=== PATIENT | female | born 1930 | race African-American/Black ===

== ENCOUNTER 2016-10-17 13:12 | Inpatient (IN) | payer MEDICARE, MEDICAID ==
[~2016-10-17] VITALS: Ht 162.6 cm; Wt 68.0 kg
[~2016-10-17 13:12] MED LIST: ACETAMINOPHEN-1 EAC1 ORAL; ACETAMINOPHEN325 M1 ORAL; ANCEF1 GM/50 ML IVPB; APRESOLINE50 MG ORAL; ARICEPT10 MG ORAL; ASPIRIN81 MG ORAL; DOCUSATE SODIU100 MG ORAL; DONEPEZIL HCL10 M2 ORAL; DONEPEZIL HCL10 MG ORAL; DOXYCYCLINE HY100 M2 PO; ELIQUIS2.5 MG ORAL; ENALAPRIL MALEA10 MG ORAL; HYDRALAZINE HCL50 MG ORAL; INDOMETHACIN25 MG PO; IRBESARTAN150 MG PO; LEVAQUIN500 MG ORAL; LEVOTHYROXINE150 MCG ORAL; LOPRESSOR25 M1 ORAL; MORPHINE 22 MG/1 ML IV; NAMENDA10 MG ORAL; NORCO 5-325 TA1 EAC1 ORAL; NORVASC5 MG ORAL; OMEPRAZOLE20 M2 ORAL; RANITIDINE HCL150 MG ORAL; RISPERDAL0.25 MG ORAL; SODIUM CHLORID500 M2 IV; SYNTHROID150 MCG ORAL; TYLENOL EXTRA500 MG ORAL; TYLENOL650 MG/20. ORAL; ZANTAC150 MG ORAL
[2016-10-17 14:00] VITALS: BP 155/91
--- NOTE | 2016-10-17 14:02 | Emergency Room Report ---
History of Present Illness General Chief Complaint: Generalized Weakness Source: Patient, Family Member Present Illness HPI Patient is an 86-year-old female who presented after gradual onset of increased weakness. Patient had recently been seen and treated for bronchitis. Patient had been having some trace hemoptysis a few weeks ago associated with fever. This had resolved. The patient had a gradual onset of weakness predominantly to her left side. Patient had not been having any vomiting or abdominal pain. Patient had a fever approximately 2 weeks ago but not had fever since. The family denies recent trauma. Patient been taking Eliquis. She recently been on steroids for bronchitis Allergies: Coded Allergies: SHELLFISH DERIVED (Unverified Allergy, Severe, Hives, 07/20/14) tongue and face swelling Patient History Past Medical History: see triage record Reviewed Nursing Documentation: PMH: Agreed, PSxH: Agreed Nursing Documentation-PMH Past Medical History: No History, Except For Hx Hypertension: Yes Hx Pacemaker: Yes Hx Asthma: No Hx COPD: No Hx Diabetes: No Hx Cancer: No Hx Gastrointestinal Problems: No Hx Dialysis: No Hx Neurological Problems: Yes - Alzheimer's disease Hx Cerebrovascular Accident: Yes Hx Dementia: Yes Hx Seizures: No Hx Concentration Difficulty: Yes Hx Dizziness: Yes Hx Syncope: Yes Hx Weakness: Yes Hx Fatigue: Yes Review of Systems All Other Systems: negative except mentioned in HPI Physical Exam Vital Signs Date Time Temp Pulse Resp B/P Pulse Ox O2 Delivery O2 Flow Rate FiO2 10/17/16 13:26 98.2 60 16 124/64 98 Sp02 EP Interpretation: normal General Appearance: alert, mild distress, other - gcs 14 Eyes: bilateral eye PERRL ENT: hearing grossly normal, normal pharynx, no angioedema Neck: full range of motion Respiratory: chest non-tender, normal breath sounds Cardiovascular #1: normal peripheral pulses, regular rate, rhythm, no edema Gastrointestinal: non tender, soft Musculoskeletal: other - motor weakness generalized bilateral Neurologic: alert, responsive, motor weakness - generalized Medical Decision Making Diagnostic Impression: Primary Impression: Generalized weakness ER Course Patient presented for generalized weakness. Differential diagnosis included was not limited to anemia, urinary tract infection, electrolyte abnormality, hypothyroidism, myocardial infarction, myasthenia gravis, dehydration, among others. Because of complexity of patient's case laboratory testing and imaging studies were ordered. Patient was noted to have evidence of generalized weakness. Because of patient' s history of the left-sided weakness CT the head was ordered. Laboratory testing showed evidence of elevated white blood count. CT the head per radiology showed atrophic changes with chronic ischemic white matter changes. Labs Test 10/17/16 14:05 White Blood Count 13.4 K/UL (4.8-10.8) Red Blood Count 4.53 M/UL (4.20-5.40) Hemoglobin 12.4 G/DL (12.0-16.0) Hematocrit 41.0 % (37.0-47.0) Mean Corpuscular Volume 91 FL (80-99) Mean Corpuscular Hemoglobin 27.4 PG (27.0-31.0) Mean Corpuscular Hemoglobin Concent 30.2 G/DL (32.0-36.0) Red Cell Distribution Width 13.7 % (11.6-14.8) Platelet Count 309 K/UL (150-450) Mean Platelet Volume 6.0 FL (6.5-10.1) Neutrophils (%) (Auto) 80.7 % (45.0-75.0) Lymphocytes (%) (Auto) 11.5 % (20.0-45.0) Monocytes (%) (Auto) 6.3 % (1.0-10.0) Eosinophils (%) (Auto) 0.7 % (0.0-3.0) Basophils (%) (Auto) 0.8 % (0.0-2.0) Prothrombin Time 10.9 SEC (9.30-11.50) Prothromb Time International Ratio 1.1 (0.9-1.1) Activated Partial Thromboplast Time 26 SEC (23-33) EKG Diagnostic Results Rate: normal Rhythm: other - intermittently paced rhythm 67, nonspecific changes ST Segments: no acute changes Rhythm Strip Diag. Results EP Interpretation: yes Rhythm: NSR - 61, no PVC's, no ectopy Last Vital Signs Date Time Temp Pulse Resp B/P Pulse Ox O2 Delivery O2 Flow Rate FiO2 10/17/16 13:26 98.2 60 16 124/64 98 Status: unchanged Disposition: ADMITTED INPATIENT Condition: Serious Referrals: NON PHYSICIAN (PCP) Yefri Pierce Oct 17, 2016 14:02
[2016-10-17] MEDS ORDERED: Tubing IV Cassette IV ONE (14:20)
[2016-10-17 14:35] LABS: BASOPHILS % (AUTO) 0.8 % (0.0-2.0); EOSINOPHILS % (AUTO) 0.7 % (0.0-3.0); LYMPHOCYTES % (AUTO) 11.5 % (20.0-45.0); MEAN CORPUSCULAR HEMOGLOBIN 27.4 PG (27.0-31.0); MEAN CORPUSCULAR HGB CONC 30.2 G/DL (32.0-36.0); MEAN CORPUSCULAR VOLUME 91 FL (80-99); MONOCYTES % (AUTO) 6.3 % (1.0-10.0); NEUTROPHILS % (AUTO) 80.7 % (45.0-75.0); PLATELET COUNT 309 K/UL (150-450); RED BLOOD COUNT 4.53 M/UL (4.20-5.40); RED CELL DISTRIBUTION WIDTH 13.7 % (11.6-14.8); WHITE BLOOD COUNT 13.4 K/UL (4.8-10.8)
[2016-10-17 14:44] LABS: INR 1.1 (0.9-1.1); PROTHROMBIN TIME 10.9 SEC (9.30-11.50)
[2016-10-17] MEDS ORDERED: LEVOTHYROXINE100 MCG ORAL (14:52)
[2016-10-17] MEDS ORDERED: cefTRIAXone 1 GM in NS 55 ML IVPB ONE (15:00)
[2016-10-17 15:06] LABS: TROPONIN I < 0.30 ng/mL (<=0.30)
--- NOTE | 2016-10-17 15:07 | Diagnostic Imaging Report ---
Indications: Left-sided weakness Technique: Spiral acquisitions obtained through the brain. Angled axial and coronal 5 x 5 mm slices were reconstructed. Total dose length product 1372 mGycm. CTDI vol(s) 70 mGy. Dose reduction achieved using automated exposure control Comparison: 11/11/2015 Findings: Again demonstrated is age-related enlargement of the ventricles and extra axial CSF spaces. Again demonstrated is periventricular deep white matter ischemic change. There is a small focus of encephalomalacia in the left posterior parasagittal parietal lobe again demonstrated. No acute hemorrhage or edema. No mass effect nor midline shift. Otherwise normal vargas-white differentiation. There is posterior ethmoid sinus disease on the left. This was also evident previously. The orbits demonstrate evidence of prior cataract surgery. The calvarium is intact. 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 Negative for acute intracranial bleed or mass effect. The CT scanner at [facility] is accredited by the [employer] and the scans are performed using protocols designed to limit radiation exposure to as low as reasonably achievable to attain images of sufficient resolution adequate for diagnostic evaluation.
[2016-10-17 15:09] LABS: ALANINE AMINOTRANSFERASE 5 U/L (3-33); ALBUMIN/GLOBULIN RATIO 0.9 (1.0-2.7); ANION GAP 14 (5-15); ASPARTATE AMINO TRANSFERASE 9 U/L (5-40); CALCIUM 9.6 mg/dL (8.6-10.2); CARBON DIOXIDE 28 mEQ/L (20-30); CHLORIDE 100 mEQ/L (98-107); CREATININE 1.3 mg/dL (0.5-0.9); HEMOLYSIS 1; MAGNESIUM 2.1 mg/dL (1.7-2.5); PHOSPHORUS 3.6 mg/dL (2.5-4.8); POTASSIUM 4.5 mEQ/L (3.4-4.9); SODIUM 142 mEQ/L (135-145); TOTAL PROTEIN 7.1 g/dL (6.6-8.7)
[2016-10-17 15:20] LABS: CKMB 1.7 ng/mL (< 3.8)
[2016-10-17] MEDS ORDERED: Nitroglycerin Subl 0.4mg tab (Bottle Of 25) SL PRN (15:45)
[2016-10-17] MEDS ORDERED: Promethazine/Codeine 5ml UD ORAL PRN (15:45)
[2016-10-17] MEDS ORDERED: DuoNeb 0.5-3(2.5)mg/3ml neb HHN PRN (15:45)
[2016-10-17] MEDS ORDERED: Mylanta II UD 30ml ORAL PRN (15:45)
[2016-10-17] MEDS ORDERED: HydrALAZINE 50mg tab ORAL PRN (15:45)
[2016-10-17] MEDS ORDERED: NS 55 ML IV ONE (16:04)
[2016-10-17] MEDS ORDERED: Tubing IV Secondary IV ONE (16:04)
--- NOTE | 2016-10-17 16:35 | Diagnostic Imaging Report ---
Indication: SOB, chest pain Technique: One view of the chest Comparison: 03/28/2016 Findings: The heart is mildly enlarged. There is thoracic scoliotic deformity. There is a left chest bifocal pacemaker. Lungs and pleural spaces are clear Impression: No acute process. Findings as noted Cardiomegaly
[2016-10-17 17:53] VITALS: BP 159/74
--- NOTE | 2016-10-17 18:22 | Consultation ---
History of Present Illness General Date patient seen: Oct 17, 2016 Chief Complaint: Generalized Weakness Referring physician: Dr. Greco Reason for Consultation: inpatient management Present Illness Allergies: Coded Allergies: SHELLFISH DERIVED (Unverified Allergy, Severe, Hives, 07/20/14) tongue and face swelling Medication History Scheduled Apixaban (Eliquis), 2.5 MG ORAL BID Aspirin* (Aspirin*), 81 MG ORAL DAILY Aspirin* (Aspirin*), 81 MG ORAL DAILY, (Reported) Docusate Sodium* (Docusate Sodium*), 100 MG ORAL DAILY, (Reported) Donepezil Hcl* (Aricept*), 10 MG ORAL DAILY Donepezil Hcl* (Donepezil Hcl*), 10 MG ORAL QHS, (Reported) Irbesartan (Irbesartan), 150 MG PO DAILY, (Reported) Levothyroxine Sodium* (Levothyroxine Sodium*), 150 MCG ORAL DAILY@0630 Levothyroxine Sodium* (Levothyroxine Sodium*), 100 MCG ORAL DAILY, (Reported) Memantine Hcl* (Namenda*), 5 MG ORAL BID Metoprolol Tartrate (Metoprolol Tartrate), 12.5 MG ORAL Q12HR Metoprolol Tartrate (Metoprolol Tartrate), 25 MG ORAL EVERY 8 HOURS, (Reported) Ranitidine Hcl* (Zantac*), 150 MG ORAL BEDTIME, (Reported) Risperidone* (Risperdal*), 0.25 MG ORAL BID Scheduled PRN Acetaminophen (Acetaminophen), 650 MG ORAL Q6H PRN for Prn Headache/Temp > 101, (Reported) Acetaminophen (Acetaminophen), 650 MG ORAL Q6H PRN for Prn Headache/Temp > 101, (Reported) Acetaminophen* (Acetaminophen 325MG Tablet*), 650 MG ORAL Q4H PRN for Mild Pain (Pain Scale 1-3) Acetaminophen* (Tylenol Extra Strength*), 500 MG ORAL Q8H PRN for Prn Headache/ Temp > 101 Hydralazine HCl (Hydralazine HCl), 50 MG ORAL Q6HR PRN for For High Blood Pressure, (Reported) Morphine Sulfate* (Morphine Sulfate*), 1 MG IV EVERY 4 HOURS PRN for Pain Scale (6-10), (Reported) Discontinued Medications Cefazolin Sod (Cefazolin 1 gm-D5w Bag), 1 GM IVPB Q12HR, (Reported) Discontinued Reason: Therapy completed Doxycycline Hyclate (Doxycycline Hyclate), 100 MG PO EVERY 12 HOURS, (Reported) Discontinued Reason: Therapy completed Hydralazine Hcl* (Hydralazine Hcl*), 50 MG ORAL EVERY 6 HOURS PRN for For High Blood Pressure, (Reported) Discontinued Reason: Therapy completed Hydrocodone Bit/Acetaminophen 5-325* ([place] 5-325 Tablet*), 1 TAB ORAL Q4H PRN for For Pain, (Reported) Discontinued Reason: Therapy completed Levofloxacin* (Levaquin*), 500 MG ORAL DAILY Discontinued Reason: Therapy completed Memantine Hcl* (Namenda*), 10 MG ORAL TWICE A DAY, (Reported) Discontinued Reason: Therapy completed Ranitidine Hcl* (Zantac*), 300 MG ORAL DAILY Discontinued Reason: Therapy completed Sodium Chloride 5 % (Sodium Chloride), 1,000 ML IV, (Reported) Discontinued Reason: Therapy completed Sodium Chloride 5 % (Sodium Chloride), 1,000 ML IV, (Reported) Discontinued Reason: Therapy completed Patient History Healthcare decision maker Resuscitation status Advanced Directive on File Past Medical/Surgical History Past Medical/Surgical History: (1) Sinus bradycardia (2) Alzheimer's dementia (3) Atrial fibrillation (4) Seizures (5) HTN (hypertension) (6) Hypothyroidism Review of Systems Constitutional: Reports: no symptoms Eye: Reports: no symptoms Physical Exam General Appearance: cachetic Lines, tubes and drains: peripheral HEENT: normocephalic Neck: non-tender, normal alignment Respiratory/Chest: chest wall non-tender, lungs clear Cardiovascular/Chest: normal peripheral pulses Abdomen: normal bowel sounds Genitourinary/Rectal: normal genital exam Extremities: normal range of motion, non-pitting Neurologic: no motor/sensory deficits Last 24 Hour Vital Signs Date Time Temp Pulse Resp B/P Pulse Ox O2 Delivery O2 Flow Rate FiO2 10/17/16 17:53 96.5 63 18 159/74 98 Room Air 10/17/16 16:52 98.2 60 16 155/91 99 Room Air 10/17/16 14:00 60 16 155/91 99 Room Air 10/17/16 13:26 98.2 60 16 124/64 98 Laboratory Tests Test 10/17/16 14:05 10/17/16 17:25 White Blood Count 13.4 K/UL (4.8-10.8) H Red Blood Count 4.53 M/UL (4.20-5.40) Hemoglobin 12.4 G/DL (12.0-16.0) Hematocrit 41.0 % (37.0-47.0) Mean Corpuscular Volume 91 FL (80-99) Mean Corpuscular Hemoglobin 27.4 PG (27.0-31.0) Mean Corpuscular Hemoglobin Concent 30.2 G/DL (32.0-36.0) L Red Cell Distribution Width 13.7 % (11.6-14.8) Platelet Count 309 K/UL (150-450) Mean Platelet Volume 6.0 FL (6.5-10.1) L Neutrophils (%) (Auto) 80.7 % (45.0-75.0) H Lymphocytes (%) (Auto) 11.5 % (20.0-45.0) L Monocytes (%) (Auto) 6.3 % (1.0-10.0) Eosinophils (%) (Auto) 0.7 % (0.0-3.0) Basophils (%) (Auto) 0.8 % (0.0-2.0) Prothrombin Time 10.9 SEC (9.30-11.50) Prothromb Time International Ratio 1.1 (0.9-1.1) Activated Partial Thromboplast Time 26 SEC (23-33) Sodium Level 142 mEQ/L (135-145) Potassium Level 4.5 mEQ/L (3.4-4.9) Chloride Level 100 mEQ/L (98-107) Carbon Dioxide Level 28 mEQ/L (20-30) Anion Gap 14 (5-15) Blood Urea Nitrogen 20 mg/dL (7-23) Creatinine 1.3 mg/dL (0.5-0.9) H Estimat Glomerular Filtration Rate mL/min (>60) Glucose Level 89 mg/dL (74-106) Lactic Acid Level 1.40 mmol/L (0.66-2.22) Calcium Level 9.6 mg/dL (8.6-10.2) Phosphorus Level 3.6 mg/dL (2.5-4.8) Magnesium Level 2.1 mg/dL (1.7-2.5) Total Bilirubin 0.7 mg/dL (0.0-1.2) Aspartate Amino Transf (AST/SGOT) 9 U/L (5-40) Alanine Aminotransferase (ALT/SGPT) 5 U/L (3-33) Alkaline Phosphatase 68 U/L (35-104) Total Creatine Kinase 135 U/L (26-140) Creatine Kinase MB 1.7 ng/mL (< 3.8) Creatine Kinase MB Relative Index 1.2 Troponin I < 0.30 ng/mL (<=0.30) Total Protein 7.1 g/dL (6.6-8.7) Albumin 3.5 g/dL (3.5-5.2) Globulin 3.6 g/dL Albumin/Globulin Ratio 0.9 (1.0-2.7) L Urine Color Pending Urine Appearance Pending Urine pH Pending Urine Specific [place] Pending Urine Protein Pending Urine Glucose (UA) Pending Urine Ketones Pending Urine Occult Blood Pending Urine Nitrite Pending Urine Bilirubin Pending Urine Urobilinogen Pending Urine Leukocyte Esterase Pending Urine Legionella Antigen Pending Height (Feet): 5 Height (Inches): 4.00 Weight (Pounds): 150 Medications Current Medications Medications (Trade) Dose Ordered Sig/Jonah Route PRN Reason Start Time Stop Time Status Last Admin Dose Admin Acetaminophen (Tylenol) 650 mg Q4H PRN ORAL fever 10/17/16 15:45 11/16/16 15:44 Al Hydroxide/Mg Hydroxide (Mylanta II) 30 ml Q6H PRN ORAL dyspepsia 10/17/16 15:45 11/16/16 15:44 Albuterol/ Ipratropium (DuoNeb 0.5-3(2.5)mg/3ml) 3 ml Q4H PRN HHN Shortness of Breath 10/17/16 15:45 10/22/16 15:44 Apixaban (Eliquis) 2.5 mg BID ORAL 10/17/16 18:00 11/16/16 17:59 Cefepime HCl/ Dextrose (Maxipime/D5W) 55 ml @ 110 mls/hr Q24H IV 10/17/16 19:00 10/24/16 18:59 Donepezil HCl (Aricept) 10 mg QHS ORAL 10/17/16 21:00 11/16/16 20:59 Hydralazine HCl (Apresoline) 50 mg Q6HR PRN ORAL SBP > 160 10/17/16 15:45 11/16/16 15:44 Levothyroxine Sodium (Synthroid) 150 mcg DAILY@0630 ORAL 10/18/16 06:30 11/17/16 06:29 Memantine (Namenda) 5 mg BID ORAL 10/17/16 18:00 11/16/16 17:59 Metoprolol Tartrate (Lopressor) 12.5 mg Q12HR ORAL 10/17/16 21:00 11/16/16 20:59 Nitroglycerin (Ntg) 0.4 mg Q5MIN X 3 DOSES PRN SL Prn Chest Pain 10/17/16 15:45 11/16/16 15:44 Ondansetron HCl (Zofran) 4 mg Q6H PRN IVP Nausea & Vomiting 10/17/16 15:45 11/16/16 15:44 Polyethylene Glycol (Miralax) 17 gm DAILYPRN PRN ORAL Constipation 10/17/16 15:45 11/16/16 15:44 Promethazine HCl/ Codeine 5 ml 5 ml Q4H PRN ORAL For Cough 10/17/16 15:45 11/16/16 15:44 Risperidone (RisperDAL) 0.25 mg BID ORAL 10/17/16 18:00 11/16/16 17:59 Temazepam (Restoril) 15 mg HSPRN PRN ORAL Insomnia 10/17/16 15:45 10/24/16 15:44 Assessment/Plan Problem List: (1) Acute encephalopathy ICD Codes: G93.40 - Encephalopathy, unspecified SNOMED: 6779977 (2) Pulmonary hypertension ICD Codes: I27.0 - Pulmonary hypertension SNOMED: 84200237 (3) Pacemaker ICD Codes: Z95.0 - Presence of cardiac pacemaker SNOMED: 596878104, 040998731 (4) Atrial fibrillation ICD Codes: I48.91 - Unspecified atrial fibrillation SNOMED: 47783212 (5) Fall ICD Codes: W19.XXXA - Fall SNOMED: 0961576 (6) Cerebrovascular accident (CVA) ICD Codes: I63.9 - Cerebral infarction, unspecified SNOMED: 158812871 (7) Hypothyroidism ICD Codes: E03.9 - Hypothyroidism SNOMED: 66891462 (8) HTN (hypertension) ICD Codes: I10 - HTN (hypertension) SNOMED: 62413910 (9) Alzheimer's dementia ICD Codes: G30.9 - Alzheimer's disease, unspecified SNOMED: 74817078 Assessment/Plan pt/ot neuro evaluation swallow evaluation titrate cardiac meds monitor bp check [facility] echo doppler of carotid artery TATI FAM Oct 17, 2016 18:21
[2016-10-17 18:38] LABS: APPEARANCE,URINE CLEAR; KETONES,URINE NEGATIVE (NEGATIVE); LEUKOCYTE ESTERASE ,URINE 1+ (NEGATIVE); NITRITE,URINE NEGATIVE (NEGATIVE); PH,URINE 5 (4.5-8.0); PROTEIN,URINE NEGATIVE (NEGATIVE); UROBILINOGEN,URINE NORMAL MG/DL (0.0-1.0)
[2016-10-17 18:42] LABS: AMORPHOUS SEDIMENT,UR FEW /LPF; BACTERIA,URINE FEW /HPF; SQUAMOUS EPITHELIAL CELL,UR FEW /LPF (NONE/OCC)
[2016-10-17] MEDS: RisperiDONE 0.25mg tab ORAL SCH (18:53)
[2016-10-17] MEDS: Eliquis 2.5mg tablet ORAL SCH (18:53)
[2016-10-17] MEDS: Memantine 10mg tab ORAL SCH (18:53)
[2016-10-17] MEDS ORDERED: Cefepime HCl 1 GM in D5W 55 ML IV SCH (19:00)
[2016-10-17 20:00] VITALS: BP 155/74
[2016-10-17] MEDS: Cefepime HCl 1 GM in D5W 55 ML IV SCH (20:16)
[2016-10-17] MEDS: Donepezil 10mg tab ORAL SCH (20:38)
[2016-10-17] MEDS: Metoprolol 25mg tab ORAL SCH (20:38)
[2016-10-17 23:43] VITALS: BP 160/77
[2016-10-18 03:56] VITALS: BP 154/79
[2016-10-18 07:12] LABS: BASOPHILS % (AUTO) 0.5 % (0.0-2.0); EOSINOPHILS % (AUTO) 4.9 % (0.0-3.0); LYMPHOCYTES % (AUTO) 13.7 % (20.0-45.0); MEAN CORPUSCULAR HEMOGLOBIN 27.8 PG (27.0-31.0); MEAN CORPUSCULAR VOLUME 90 FL (80-99); MONOCYTES % (AUTO) 6.3 % (1.0-10.0); NEUTROPHILS % (AUTO) 74.6 % (45.0-75.0); PLATELET COUNT 279 K/UL (150-450); RED BLOOD COUNT 4.09 M/UL (4.20-5.40); RED CELL DISTRIBUTION WIDTH 13.4 % (11.6-14.8); WHITE BLOOD COUNT 10.1 K/UL (4.8-10.8)
[2016-10-18 07:59] LABS: ANION GAP 15 (5-15); CALCIUM 9.3 mg/dL (8.6-10.2); CARBON DIOXIDE 24 mEQ/L (20-30); CHLORIDE 105 mEQ/L (98-107); HEMOLYSIS 2; PHOSPHORUS 3.6 mg/dL (2.5-4.8); POTASSIUM 3.9 mEQ/L (3.4-4.9); SODIUM 144 mEQ/L (135-145)
[2016-10-18] MEDS: Memantine 10mg tab ORAL SCH ×2 (08:23→18:08)
[2016-10-18] MEDS: RisperiDONE 0.25mg tab ORAL SCH ×2 (08:23→18:08)
[2016-10-18] MEDS: Eliquis 2.5mg tablet ORAL SCH ×2 (08:23→18:08)
[2016-10-18] MEDS: Metoprolol 25mg tab ORAL SCH ×2 (08:24→21:53)
[2016-10-18 08:25] VITALS: BP 166/73
[2016-10-18 12:22] VITALS: BP 159/79
[2016-10-18 16:03] VITALS: BP 137/78
[2016-10-18] MEDS: Cefepime HCl 1 GM in D5W 55 ML IV SCH (18:09)
--- NOTE | 2016-10-18 19:05 | History & Physical ---
History and Physical History & Physicial Dictated for Int Med-Dr Spring no. [id number]. YUE JACOB Oct 18, 2016 19:05
[2016-10-18 20:00] VITALS: BP 129/85
--- NOTE | 2016-10-18 20:58 | History and Physical Report ---
DATE OF ADMISSION: 10/17/2016 CHIEF COMPLAINT: The patient is an 86-year-old, female, who presents with chief complaint of generalized weakness. HISTORY OF PRESENT ILLNESS: The patient was recently treated for bronchitis. The patient had hemoptysis at that time. The patient was given antibiotics. This has now resolved. The patient has become increasingly weak. This is more on the left side of her body. The patient presented to [facility] emergency room. The patient was admitted for left-sided weakness to rule out acute cerebrovascular accident. PAST MEDICAL HISTORY: Significant for, 1. Atrial fibrillation. 2. Hypertension. 3. Pulmonary hypertension. 4. Hypercholesterolemia. 5. Hypertensive heart disease. 6. Hypothyroidism. PAST SURGICAL HISTORY: Significant for thyroidectomy. CURRENT MEDICATIONS: 1. Tylenol 650 mg one tablet p.o. q.4 hours p.r.n. 2. Eliquis 2.5 mg one tablet p.o. twice daily. 3. Aspirin 81 mg one tablet p.o. daily. 4. Aricept 10 mg one tablet p.o. q.h.s. 5. Hydralazine 50 mg one tablet p.o. q.6 hours p.r.n. 6. Irbesartan 150 mg one tablet p.o. daily. 7. Levoxyl 150 mcg one tablet p.o. daily. 8. Namenda 5 mg one tablet p.o. twice daily. 9. Metoprolol 12.5 mg one tablet p.o. q.12 hours. 10. Zantac 150 mg one tablet p.o. q.h.s. 11. Risperdal 0.25 mg one tablet p.o. daily. ALLERGIES: To shell fish. SOCIAL HISTORY: The patient is . The patient denies tobacco use having quit several years ago. The patient denies alcohol use. REVIEW OF SYSTEMS: Constitutional: The patient denies weight loss or weight gain. The patient denies fevers or chills. HEENT: The patient denies ear or throat pain. Cardiovascular: The patient denies palpitations or chest pain. Chest: The patient denies wheeze or shortness of breath. Abdomen: The patient denies nausea, vomiting, diarrhea, or constipation. Genitourinary: The patient denies dysuria or increased frequency of urination. Neuromuscular: The patient complains of left-sided weakness as above. The patient denies seizures. PHYSICAL EXAMINATION: VITAL SIGNS: Temperature 97.6 degrees, respirations 18, pulse 60, and blood pressure 160/72. GENERAL: The patient is well-developed, well-nourished, thin-appearing, female, in no apparent distress. HEENT: Eyes, pupils are equal and responsive to light and accommodation. Extraocular movements are intact. NECK: Supple without lymphadenopathy. CHEST: Lungs are clear to auscultation bilaterally without wheeze or rales. CARDIOVASCULAR: Regular rhythm and rate. S1 and S2 are normal without murmurs, rubs, or gallops. ABDOMEN: Soft, nontender, and nondistended. Positive bowel sounds. No evidence of hepatosplenomegaly. Currently, no rebound or guarding noted. EXTREMITIES: Negative for clubbing, cyanosis, or edema. RECTAL: Refused. GENITAL: Refused. NEUROLOGIC: The patient does have 4/5 motor strength in the left compared to 5/5 in the right. Deep tendon reflexes are 2+ plantar. LABORATORY AND DIAGNOSTIC STUDIES: WBC 13.4, hemoglobin 12.4, hematocrit 41.0, and platelets 309,000. Sodium 140, potassium 4.5, chloride 100, CO2 28, BUN 20, creatinine 1.3, and glucose 89. Urinalysis showed 4+ occult blood with 5 to [address] scan of the brain revealed age-related changes, otherwise no acute disease. A chest x-ray is reported as no acute disease. ASSESSMENT: This is an 86-year-old, female. 1. Left-sided weakness. 2. Atrial fibrillation. 3. Hypertension. 4. Pulmonary hypertension. 5. Hypercholesterolemia. 6. Hypothyroidism. 7. Hypertensive heart disease. TREATMENT: 1. Left-sided weakness. A Neurology consultation was obtained with Dr. Dunn. Initial CAT scan was within normal limits. An MRI of the brain is pending. Carotid duplex and Dopplers are pending. 2. Atrial fibrillation. Continue Eliquis as above. 3. Hypertension. Continue metoprolol and hydralazine as above. 4. Hypercholesterolemia. 5. Hypothyroidism. Continue Levoxyl as above. 6. Hypertensive heart disease. Bridger Mane M.D. DR: JOSE JOB#: [id number] CC:
[2016-10-18] MEDS: Donepezil 10mg tab ORAL SCH (21:53)
--- NOTE | 2016-10-18 22:14 | Pulmonology Progress Note ---
Assessment/Plan Problems: (1) HTN (hypertension) (2) Hypothyroidism (3) Pulmonary hypertension (4) Syncope and collapse (5) Alzheimer's dementia (6) Generalized weakness (7) Altered mental status (8) Hypotension Subjective ROS Limited/Unobtainable: No Constitutional: Reports: no symptoms HEENT: Repors: no symptoms Respiratory: Reports: no symptoms Cardiovascular: Reports: no symptoms Allergies: Coded Allergies: SHELLFISH DERIVED (Unverified Allergy, Severe, Hives, 07/20/14) tongue and face swelling Objective Last 24 Hour Vital Signs Date Time Temp Pulse Resp B/P Pulse Ox O2 Delivery O2 Flow Rate FiO2 10/18/16 21:53 75 129/85 10/18/16 20:00 97.7 75 20 129/85 99 Room Air 10/18/16 16:03 97.6 68 20 137/78 95 Room Air 10/18/16 12:22 97.8 65 20 159/79 95 Room Air 10/18/16 08:25 98.2 63 20 166/73 95 Room Air 10/18/16 08:24 63 166/73 10/18/16 03:56 96.9 63 18 154/79 98 Room Air 10/17/16 23:43 97.6 62 18 160/77 98 Room Air Intake and Output 10/17/16 10/18/16 19:00 07:00 Intake Total 1055 ml 210 ml Output Total 900 ml Balance 1055 ml -690 ml Intake Oral 0 ml 210 ml IV Total 1055 ml Output Urine Total 900 ml Laboratory Tests 10/18/16 05:10: White Blood Count 10.1, Red Blood Count 4.09L, Hemoglobin 11.4L, Hematocrit 36.6L, Mean Corpuscular Volume 90, Mean Corpuscular Hemoglobin 27.8, Mean Corpuscular Hemoglobin Concent 31.0L, Red Cell Distribution Width 13.4, Platelet Count 279, Mean Platelet Volume 6.0L, Neutrophils (%) (Auto) 74.6, Lymphocytes (%) (Auto) 13.7L, Monocytes (%) (Auto) 6.3, Eosinophils (%) (Auto) 4.9H, Basophils (%) (Auto) 0.5, Sodium Level 144, Potassium Level 3.9, Chloride Level 105, Carbon Dioxide Level 24, Anion Gap 15, Blood Urea Nitrogen 15, Creatinine 1.0H, Estimat Glomerular Filtration Rate , Glucose Level 72L, Calcium Level 9.3, Phosphorus Level 3.6, Albumin 2.9L Current Medications Medications (Trade) Dose Ordered Sig/Jonah Route PRN Reason Start Time Stop Time Status Last Admin Dose Admin Acetaminophen (Tylenol) 650 mg Q4H PRN ORAL fever 10/17/16 15:45 11/16/16 15:44 Al Hydroxide/Mg Hydroxide (Mylanta II) 30 ml Q6H PRN ORAL dyspepsia 10/17/16 15:45 11/16/16 15:44 Albuterol/ Ipratropium (DuoNeb 0.5-3(2.5)mg/3ml) 3 ml Q4H PRN HHN Shortness of Breath 10/17/16 15:45 10/22/16 15:44 Apixaban (Eliquis) 2.5 mg BID ORAL 10/17/16 18:00 11/16/16 17:59 10/18/16 18:08 Cefepime HCl/ Dextrose (Maxipime/D5W) 55 ml @ 110 mls/hr Q24H IV 10/17/16 19:00 10/24/16 18:59 10/18/16 18:09 Donepezil HCl (Aricept) 10 mg QHS ORAL 10/17/16 21:00 11/16/16 20:59 10/18/16 21:53 Hydralazine HCl (Apresoline) 50 mg Q6HR PRN ORAL SBP > 160 10/17/16 15:45 11/16/16 15:44 Levothyroxine Sodium (Synthroid) 150 mcg DAILY@0630 ORAL 10/18/16 06:30 11/17/16 06:29 10/18/16 06:25 Memantine (Namenda) 5 mg BID ORAL 10/17/16 18:00 11/16/16 17:59 10/18/16 18:08 Metoprolol Tartrate (Lopressor) 12.5 mg Q12HR ORAL 10/17/16 21:00 11/16/16 20:59 10/18/16 21:53 Nitroglycerin (Ntg) 0.4 mg Q5MIN X 3 DOSES PRN SL Prn Chest Pain 10/17/16 15:45 11/16/16 15:44 Ondansetron HCl (Zofran) 4 mg Q6H PRN IVP Nausea & Vomiting 10/17/16 15:45 11/16/16 15:44 Polyethylene Glycol (Miralax) 17 gm DAILYPRN PRN ORAL Constipation 10/17/16 15:45 11/16/16 15:44 Promethazine HCl/ Codeine 5 ml 5 ml Q4H PRN ORAL For Cough 10/17/16 15:45 11/16/16 15:44 Risperidone (RisperDAL) 0.25 mg BID ORAL 10/17/16 18:00 11/16/16 17:59 10/18/16 18:08 Temazepam (Restoril) 15 mg HSPRN PRN ORAL Insomnia 10/17/16 15:45 10/24/16 15:44 TATI FAM Oct 18, 2016 22:14
--- NOTE | 2016-10-18 23:03 | Diagnostic Imaging Report ---
APPROVED REPORT CPT Code: 24984 Present Symptoms Comments: R/O DVT BILATERAL: Imaging reveals a patent deep venous system bilaterally. There is no evidence of thrombus within the femoral, popliteal or tibial segments. The greater saphenous veins are also within normal limits. Doppler indicates normal spontaneous flow within these segments.
[2016-10-19] VITALS: BP 125/81
[2016-10-19 04:00] VITALS: BP 133/52
[2016-10-19 07:27] LABS: BASOPHILS % (AUTO) 0.8 % (0.0-2.0); EOSINOPHILS % (AUTO) 0.8 % (0.0-3.0); LYMPHOCYTES % (AUTO) 10.3 % (20.0-45.0); MEAN CORPUSCULAR HEMOGLOBIN 27.8 PG (27.0-31.0); MEAN CORPUSCULAR VOLUME 90 FL (80-99); MONOCYTES % (AUTO) 7.1 % (1.0-10.0); PLATELET COUNT 297 K/UL (150-450); RED CELL DISTRIBUTION WIDTH 13.6 % (11.6-14.8); WHITE BLOOD COUNT 12.4 K/UL (4.8-10.8)
[2016-10-19 08:07] LABS: ANION GAP 16 (5-15); CARBON DIOXIDE 23 mEQ/L (20-30); CHLORIDE 102 mEQ/L (98-107); HEMOLYSIS 4; POTASSIUM 4.2 mEQ/L (3.4-4.9); SODIUM 141 mEQ/L (135-145)
[2016-10-19 08:24] VITALS: BP 149/67
[2016-10-19] MEDS: Memantine 10mg tab ORAL SCH ×2 (08:28→18:00)
[2016-10-19] MEDS: Metoprolol 25mg tab ORAL SCH ×2 (08:28→22:57)
[2016-10-19] MEDS: Eliquis 2.5mg tablet ORAL SCH ×2 (08:28→18:00)
[2016-10-19] MEDS: RisperiDONE 0.25mg tab ORAL SCH ×2 (08:28→18:00)
[2016-10-19 11:54] VITALS: BP 142/65
[2016-10-19 16:07] VITALS: BP 146/65
[2016-10-19] MEDS: Cefepime HCl 1 GM in D5W 55 ML IV SCH (18:01)
--- NOTE | 2016-10-19 18:03 | Internal Med Progress Note ---
Subjective Date of Service: Oct 19, 2016 Physician Name Yue Jacob Attending Physician Donovan Spring MD Current Medications Medications (Trade) Dose Ordered Sig/Jonah Route PRN Reason Start Time Stop Time Status Last Admin Dose Admin Acetaminophen (Tylenol) 650 mg Q4H PRN ORAL fever 10/17/16 15:45 11/16/16 15:44 Al Hydroxide/Mg Hydroxide (Mylanta II) 30 ml Q6H PRN ORAL dyspepsia 10/17/16 15:45 11/16/16 15:44 Albuterol/ Ipratropium (DuoNeb 0.5-3(2.5)mg/3ml) 3 ml Q4H PRN HHN Shortness of Breath 10/17/16 15:45 10/22/16 15:44 Apixaban (Eliquis) 2.5 mg BID ORAL 10/17/16 18:00 11/16/16 17:59 10/19/16 08:28 Cefepime HCl/ Dextrose (Maxipime/D5W) 55 ml @ 110 mls/hr Q24H IV 10/17/16 19:00 10/24/16 18:59 10/18/16 18:09 Donepezil HCl (Aricept) 10 mg QHS ORAL 10/17/16 21:00 11/16/16 20:59 10/18/16 21:53 Hydralazine HCl (Apresoline) 50 mg Q6HR PRN ORAL SBP > 160 10/17/16 15:45 11/16/16 15:44 Levothyroxine Sodium (Synthroid) 150 mcg DAILY@0630 ORAL 10/18/16 06:30 11/17/16 06:29 10/19/16 06:04 Memantine (Namenda) 5 mg BID ORAL 10/17/16 18:00 11/16/16 17:59 10/19/16 08:28 Metoprolol Tartrate (Lopressor) 12.5 mg Q12HR ORAL 10/17/16 21:00 11/16/16 20:59 10/19/16 08:28 Nitroglycerin (Ntg) 0.4 mg Q5MIN X 3 DOSES PRN SL Prn Chest Pain 10/17/16 15:45 11/16/16 15:44 Ondansetron HCl (Zofran) 4 mg Q6H PRN IVP Nausea & Vomiting 10/17/16 15:45 11/16/16 15:44 Polyethylene Glycol (Miralax) 17 gm DAILYPRN PRN ORAL Constipation 10/17/16 15:45 11/16/16 15:44 Promethazine HCl/ Codeine 5 ml 5 ml Q4H PRN ORAL For Cough 10/17/16 15:45 11/16/16 15:44 Risperidone (RisperDAL) 0.25 mg BID ORAL 10/17/16 18:00 11/16/16 17:59 10/19/16 08:28 Temazepam (Restoril) 15 mg HSPRN PRN ORAL Insomnia 10/17/16 15:45 10/24/16 15:44 Allergies: Coded Allergies: SHELLFISH DERIVED (Unverified Allergy, Severe, Hives, 07/20/14) tongue and face swelling ROS Limited/Unobtainable: No Constitutional: Reports: no symptoms HEENT: Reports: no symptoms Cardiovascular: Reports: no symptoms Respiratory: Reports: no symptoms Gastrointestinal/Abdominal: Reports: no symptoms Genitourinary: Reports: no symptoms Neurologic/Psychiatric: Reports: no symptoms Subjective 86 YO F admitted with left weakness. MRI cancelled due to pacemaker. Cover for Int Parth-Dr Spring Objective Last Vital Signs Date Time Temp Pulse Resp B/P Pulse Ox O2 Delivery O2 Flow Rate FiO2 10/19/16 16:07 98.2 64 18 146/65 99 Room Air Laboratory Tests Test 10/19/16 06:03 White Blood Count 12.4 K/UL (4.8-10.8) H Red Blood Count 4.00 M/UL (4.20-5.40) L Hemoglobin 11.1 G/DL (12.0-16.0) L Hematocrit 35.9 % (37.0-47.0) L Mean Corpuscular Volume 90 FL (80-99) Mean Corpuscular Hemoglobin 27.8 PG (27.0-31.0) Mean Corpuscular Hemoglobin Concent 31.0 G/DL (32.0-36.0) L Red Cell Distribution Width 13.6 % (11.6-14.8) Platelet Count 297 K/UL (150-450) Mean Platelet Volume 6.0 FL (6.5-10.1) L Neutrophils (%) (Auto) 81.0 % (45.0-75.0) H Lymphocytes (%) (Auto) 10.3 % (20.0-45.0) L Monocytes (%) (Auto) 7.1 % (1.0-10.0) Eosinophils (%) (Auto) 0.8 % (0.0-3.0) Basophils (%) (Auto) 0.8 % (0.0-2.0) Sodium Level 141 mEQ/L (135-145) Potassium Level 4.2 mEQ/L (3.4-4.9) Chloride Level 102 mEQ/L (98-107) Carbon Dioxide Level 23 mEQ/L (20-30) Anion Gap 16 (5-15) H Blood Urea Nitrogen 17 mg/dL (7-23) Creatinine 1.0 mg/dL (0.5-0.9) H Estimat Glomerular Filtration Rate mL/min (>60) Glucose Level 111 mg/dL (74-106) H Calcium Level 9.0 mg/dL (8.6-10.2) Microbiology Date/Time Source Procedure Growth Status 10/17/16 14:15 Blood Blood Culture - Preliminary NO GROWTH AFTER 24 HOURS Resulted 10/17/16 14:05 Blood Blood Culture - Preliminary NO GROWTH AFTER 24 HOURS Resulted Intake and Output 10/18/16 10/19/16 19:00 07:00 Intake Total 775 ml Output Total 500 ml 650 ml Balance 275 ml -650 ml Intake Oral 720 ml IV Total 55 ml Output Urine Total 500 ml 650 ml Objective General: alert, cooperative, no distress, appears stated age Head: normocephalic, without obvious abnormality, atraumatic Eyes: conjunctivae/corneas clear. PERRL, EOM's intact Throat: lips, mucosa, and tongue normal. MMM Neck: supple, symmetrical, trachea midline, and no JVD Lungs: clear to auscultation bilaterally Heart: regular rate and rhythm, S1, S2 normal, no murmur, click, rub or gallop Abdomen: soft, non-tender, non-distended, bowel sounds normal; no masses or organomegaly Extremities: extremities normal, atraumatic, no cyanosis or edema Pulses: 2+ and symmetric Skin: skin color, texture, turgor normal; no rashes or lesions Neurologic: grossly normal, left side weakness Assessment/Plan Problem List: (1) Hypertensive heart disease (2) Pacemaker (3) Hypercholesteremia (4) Generalized weakness Assessment & Plan: MRI cancelled due to pacemaker. (5) Atrial fibrillation Assessment & Plan: Cont eliquis (6) HTN (hypertension) Assessment & Plan: Cont metoprolol (7) Pulmonary hypertension (8) Hypothyroidism Assessment & Plan: Cont synthroid (9) Sick sinus syndrome Assessment & Plan: S/P pacemaker Status: not improved YUE JACOB Oct 19, 2016 18:03
[2016-10-19 20:00] VITALS: BP 149/73
--- NOTE | 2016-10-19 21:18 | Cardiology Report ---
APPROVED REPORT EKG Measurement Heart [id number] 144P [id number] Atrial paced, ventricular sensed rhythm with occasional atrial intrinsic activity. Electronic pacemaker Left anterior fascicular block Possible Anteroseptal infarct, age undetermined Abnormal ECG
--- NOTE | 2016-10-19 22:11 | Pulmonology Progress Note ---
Subjective Allergies: Coded Allergies: SHELLFISH DERIVED (Unverified Allergy, Severe, Hives, 07/20/14) tongue and face swelling Objective Last 24 Hour Vital Signs Date Time Temp Pulse Resp B/P Pulse Ox O2 Delivery O2 Flow Rate FiO2 10/19/16 16:07 98.2 64 18 146/65 99 Room Air 10/19/16 11:54 98.0 65 18 142/65 95 Room Air 10/19/16 08:28 66 149/67 10/19/16 08:24 97.8 66 18 149/67 95 Room Air 10/19/16 04:00 97.7 92 20 133/52 98 Room Air 10/19/16 00:00 98.1 71 18 125/81 100 Room Air Intake and Output 10/18/16 10/19/16 19:00 07:00 Intake Total 775 ml Output Total 500 ml 650 ml Balance 275 ml -650 ml Intake Oral 720 ml IV Total 55 ml Output Urine Total 500 ml 650 ml Microbiology Date/Time Source Procedure Growth Status 10/17/16 14:15 Blood Blood Culture - Preliminary NO GROWTH AFTER 24 HOURS Resulted 10/17/16 14:05 Blood Blood Culture - Preliminary NO GROWTH AFTER 24 HOURS Resulted Laboratory Tests 10/19/16 06:03: White Blood Count 12.4H, Red Blood Count 4.00L, Hemoglobin 11.1L, Hematocrit 35.9L, Mean Corpuscular Volume 90, Mean Corpuscular Hemoglobin 27.8, Mean Corpuscular Hemoglobin Concent 31.0L, Red Cell Distribution Width 13.6, Platelet Count 297, Mean Platelet Volume 6.0L, Neutrophils (%) (Auto) 81.0H, Lymphocytes (%) (Auto) 10.3L, Monocytes (%) (Auto) 7.1, Eosinophils (%) (Auto) 0.8, Basophils (%) (Auto) 0.8, Sodium Level 141, Potassium Level 4.2, Chloride Level 102, Carbon Dioxide Level 23, Anion Gap 16H, Blood Urea Nitrogen 17, Creatinine 1.0H, Estimat Glomerular Filtration Rate , Glucose Level 111H, Calcium Level 9.0 Current Medications Medications (Trade) Dose Ordered Sig/Jonah Route PRN Reason Start Time Stop Time Status Last Admin Dose Admin Acetaminophen (Tylenol) 650 mg Q4H PRN ORAL fever 10/17/16 15:45 11/16/16 15:44 Al Hydroxide/Mg Hydroxide (Mylanta II) 30 ml Q6H PRN ORAL dyspepsia 10/17/16 15:45 11/16/16 15:44 Albuterol/ Ipratropium (DuoNeb 0.5-3(2.5)mg/3ml) 3 ml Q4H PRN HHN Shortness of Breath 10/17/16 15:45 10/22/16 15:44 Apixaban (Eliquis) 2.5 mg BID ORAL 10/17/16 18:00 11/16/16 17:59 10/19/16 18:00 Cefepime HCl/ Dextrose (Maxipime/D5W) 55 ml @ 110 mls/hr Q24H IV 10/17/16 19:00 10/24/16 18:59 10/19/16 18:01 Donepezil HCl (Aricept) 10 mg QHS ORAL 10/17/16 21:00 11/16/16 20:59 10/18/16 21:53 Hydralazine HCl (Apresoline) 50 mg Q6HR PRN ORAL SBP > 160 10/17/16 15:45 11/16/16 15:44 Levothyroxine Sodium (Synthroid) 150 mcg DAILY@0630 ORAL 10/18/16 06:30 11/17/16 06:29 10/19/16 06:04 Memantine (Namenda) 5 mg BID ORAL 10/17/16 18:00 11/16/16 17:59 10/19/16 18:00 Metoprolol Tartrate (Lopressor) 12.5 mg Q12HR ORAL 10/17/16 21:00 11/16/16 20:59 10/19/16 08:28 Nitroglycerin (Ntg) 0.4 mg Q5MIN X 3 DOSES PRN SL Prn Chest Pain 10/17/16 15:45 11/16/16 15:44 Ondansetron HCl (Zofran) 4 mg Q6H PRN IVP Nausea & Vomiting 10/17/16 15:45 11/16/16 15:44 Polyethylene Glycol (Miralax) 17 gm DAILYPRN PRN ORAL Constipation 10/17/16 15:45 11/16/16 15:44 Promethazine HCl/ Codeine 5 ml 5 ml Q4H PRN ORAL For Cough 10/17/16 15:45 11/16/16 15:44 Risperidone (RisperDAL) 0.25 mg BID ORAL 10/17/16 18:00 11/16/16 17:59 10/19/16 18:00 Temazepam (Restoril) 15 mg HSPRN PRN ORAL Insomnia 10/17/16 15:45 10/24/16 15:44 TATI FAM Oct 19, 2016 22:11
[2016-10-19] MEDS: Donepezil 10mg tab ORAL SCH (22:57)
[2016-10-20] VITALS: BP 131/68
[2016-10-20 04:00] VITALS: BP 128/62
[2016-10-20 07:17] LABS: BASOPHILS % (AUTO) 0.9 % (0.0-2.0); EOSINOPHILS % (AUTO) 0.7 % (0.0-3.0); LYMPHOCYTES % (AUTO) 11.4 % (20.0-45.0); MEAN CORPUSCULAR HEMOGLOBIN 28.2 PG (27.0-31.0); MEAN CORPUSCULAR HGB CONC 31.4 G/DL (32.0-36.0); MEAN CORPUSCULAR VOLUME 90 FL (80-99); MONOCYTES % (AUTO) 8.4 % (1.0-10.0); NEUTROPHILS % (AUTO) 78.6 % (45.0-75.0); PLATELET COUNT 301 K/UL (150-450); RED BLOOD COUNT 3.99 M/UL (4.20-5.40); RED CELL DISTRIBUTION WIDTH 13.9 % (11.6-14.8); WHITE BLOOD COUNT 11.7 K/UL (4.8-10.8)
[2016-10-20 07:54] LABS: ANION GAP 14 (5-15); CALCIUM 8.7 mg/dL (8.6-10.2); CARBON DIOXIDE 24 mEQ/L (20-30); CHLORIDE 102 mEQ/L (98-107); HEMOLYSIS 11; POTASSIUM 4.3 mEQ/L (3.4-4.9); SODIUM 140 mEQ/L (135-145)
[2016-10-20 08:00] VITALS: BP 143/67
[2016-10-20] MEDS: Eliquis 2.5mg tablet ORAL SCH ×2 (09:06→18:19)
[2016-10-20] MEDS: Metoprolol 25mg tab ORAL SCH ×2 (09:07→20:22)
[2016-10-20] MEDS: RisperiDONE 0.25mg tab ORAL SCH ×2 (09:07→18:19)
[2016-10-20] MEDS: Memantine 10mg tab ORAL SCH ×2 (09:07→18:19)
--- NOTE | 2016-10-20 11:56 | Diagnostic Imaging Report ---
APPROVED REPORT CPT Code: 48862 Vascular Symptoms Comments: Weakness Limited study due to patient status, stiff neck. Doppler Spectral Velocity Analysis RightLeft arteries. The Doppler spectral flow analysis indicates the degree of stenosis is minimal (10%) in the common carotid, (20%) in the internal carotid, and (10% - 15%) in the external carotid arteries. VERTEBRAL- The vertebral artery was not well visualized. arteries. The Doppler spectral flow analysis indicates the degree of stenosis is mild (50%) in the common carotid, minimal (20-30%) in the internal carotid, and the external carotid arteries. VERTEBRAL- The vertebral artery are patent, without evidence of stenosis or steal.
[2016-10-20 12:00] VITALS: BP 121/64
[2016-10-20] MEDS ORDERED: Tubing IV Secondary IV ONE (14:48)
[2016-10-20] MEDS ORDERED: NS 275ml ONE (14:48)
[2016-10-20 16:00] VITALS: BP 138/70
--- NOTE | 2016-10-20 18:10 | Internal Med Progress Note ---
Subjective Date of Service: Oct 20, 2016 Physician Name Yue Jacob Attending Physician Donovan Spring MD Current Medications Medications (Trade) Dose Ordered Sig/Jonah Route PRN Reason Start Time Stop Time Status Last Admin Dose Admin Acetaminophen (Tylenol) 650 mg Q4H PRN ORAL fever 10/17/16 15:45 11/16/16 15:44 Al Hydroxide/Mg Hydroxide (Mylanta II) 30 ml Q6H PRN ORAL dyspepsia 10/17/16 15:45 11/16/16 15:44 Albuterol/ Ipratropium (DuoNeb 0.5-3(2.5)mg/3ml) 3 ml Q4H PRN HHN Shortness of Breath 10/17/16 15:45 10/22/16 15:44 Apixaban (Eliquis) 2.5 mg BID ORAL 10/17/16 18:00 11/16/16 17:59 10/20/16 09:06 Cefepime HCl/ Dextrose (Maxipime/D5W) 55 ml @ 110 mls/hr Q24H IV 10/17/16 19:00 10/24/16 18:59 10/19/16 18:01 Donepezil HCl (Aricept) 10 mg QHS ORAL 10/17/16 21:00 11/16/16 20:59 10/19/16 22:57 Hydralazine HCl (Apresoline) 50 mg Q6HR PRN ORAL SBP > 160 10/17/16 15:45 11/16/16 15:44 Levothyroxine Sodium (Synthroid) 150 mcg DAILY@0630 ORAL 10/18/16 06:30 11/17/16 06:29 10/20/16 06:04 Memantine (Namenda) 5 mg BID ORAL 10/17/16 18:00 11/16/16 17:59 10/20/16 09:07 Metoprolol Tartrate (Lopressor) 12.5 mg Q12HR ORAL 10/17/16 21:00 11/16/16 20:59 10/20/16 09:07 Nitroglycerin (Ntg) 0.4 mg Q5MIN X 3 DOSES PRN SL Prn Chest Pain 10/17/16 15:45 11/16/16 15:44 Ondansetron HCl (Zofran) 4 mg Q6H PRN IVP Nausea & Vomiting 10/17/16 15:45 11/16/16 15:44 Polyethylene Glycol (Miralax) 17 gm DAILYPRN PRN ORAL Constipation 10/17/16 15:45 11/16/16 15:44 Promethazine HCl/ Codeine 5 ml 5 ml Q4H PRN ORAL For Cough 10/17/16 15:45 11/16/16 15:44 Risperidone (RisperDAL) 0.25 mg BID ORAL 10/17/16 18:00 11/16/16 17:59 10/20/16 09:07 Temazepam (Restoril) 15 mg HSPRN PRN ORAL Insomnia 10/17/16 15:45 10/24/16 15:44 Allergies: Coded Allergies: SHELLFISH DERIVED (Unverified Allergy, Severe, Hives, 07/20/14) tongue and face swelling ROS Limited/Unobtainable: Yes Subjective 86 YO F admitted with left weakness. MRI cancelled due to pacemaker. Cover for Int Parth-Dr Spring Objective Last Vital Signs Date Time Temp Pulse Resp B/P Pulse Ox O2 Delivery O2 Flow Rate FiO2 10/20/16 16:00 97.1 60 18 138/70 93 Room Air Laboratory Tests Test 10/20/16 05:00 White Blood Count 11.7 K/UL (4.8-10.8) H Red Blood Count 3.99 M/UL (4.20-5.40) L Hemoglobin 11.3 G/DL (12.0-16.0) L Hematocrit 35.8 % (37.0-47.0) L Mean Corpuscular Volume 90 FL (80-99) Mean Corpuscular Hemoglobin 28.2 PG (27.0-31.0) Mean Corpuscular Hemoglobin Concent 31.4 G/DL (32.0-36.0) L Red Cell Distribution Width 13.9 % (11.6-14.8) Platelet Count 301 K/UL (150-450) Mean Platelet Volume 6.0 FL (6.5-10.1) L Neutrophils (%) (Auto) 78.6 % (45.0-75.0) H Lymphocytes (%) (Auto) 11.4 % (20.0-45.0) L Monocytes (%) (Auto) 8.4 % (1.0-10.0) Eosinophils (%) (Auto) 0.7 % (0.0-3.0) Basophils (%) (Auto) 0.9 % (0.0-2.0) Sodium Level 140 mEQ/L (135-145) Potassium Level 4.3 mEQ/L (3.4-4.9) Chloride Level 102 mEQ/L (98-107) Carbon Dioxide Level 24 mEQ/L (20-30) Anion Gap 14 (5-15) Blood Urea Nitrogen 22 mg/dL (7-23) Creatinine 1.0 mg/dL (0.5-0.9) H Estimat Glomerular Filtration Rate mL/min (>60) Glucose Level 104 mg/dL (74-106) Calcium Level 8.7 mg/dL (8.6-10.2) Intake and Output 10/19/16 10/20/16 19:00 07:00 Intake Total 775 ml Output Total 250 ml 650 ml Balance 525 ml -650 ml Intake Oral 720 ml IV Total 55 ml Output Urine Total 250 ml 650 ml Objective General: alert, cooperative, no distress, appears stated age Head: normocephalic, without obvious abnormality, atraumatic Eyes: conjunctivae/corneas clear. PERRL, EOM's intact Throat: lips, mucosa, and tongue normal. MMM Neck: supple, symmetrical, trachea midline, and no JVD Lungs: clear to auscultation bilaterally Heart: regular rate and rhythm, S1, S2 normal, no murmur, click, rub or gallop Abdomen: soft, non-tender, non-distended, bowel sounds normal; no masses or organomegaly Extremities: extremities normal, atraumatic, no cyanosis or edema Pulses: 2+ and symmetric Skin: skin color, texture, turgor normal; no rashes or lesions Neurologic: grossly normal, left side weakness Assessment/Plan Problem List: (1) Hypertensive heart disease (2) Pacemaker (3) Hypercholesteremia (4) Generalized weakness Assessment & Plan: MRI cancelled due to pacemaker. (5) Atrial fibrillation Assessment & Plan: Cont eliquis (6) HTN (hypertension) Assessment & Plan: Cont metoprolol (7) Pulmonary hypertension (8) Hypothyroidism Assessment & Plan: Cont synthroid (9) Sick sinus syndrome Assessment & Plan: S/P pacemaker Status: not improved YUE JACOB Oct 20, 2016 18:10
[2016-10-20 20:00] VITALS: BP 121/67
[2016-10-20] MEDS: Cefepime HCl 1 GM in D5W 55 ML IV SCH (20:05)
[2016-10-20] MEDS: Donepezil 10mg tab ORAL SCH (20:22)
--- NOTE | 2016-10-20 23:52 | Pulmonology Progress Note ---
Assessment/Plan Problems: (1) HTN (hypertension) (2) Hypothyroidism (3) Pulmonary hypertension (4) Syncope and collapse (5) Alzheimer's dementia (6) Generalized weakness (7) Altered mental status (8) Hypotension Subjective Allergies: Coded Allergies: SHELLFISH DERIVED (Unverified Allergy, Severe, Hives, 07/20/14) tongue and face swelling Objective Last 24 Hour Vital Signs Date Time Temp Pulse Resp B/P Pulse Ox O2 Delivery O2 Flow Rate FiO2 10/20/16 20:22 65 121/67 10/20/16 20:00 97.9 65 20 121/67 99 Room Air 10/20/16 16:00 97.1 60 18 138/70 93 Room Air 10/20/16 12:00 96.9 64 22 121/64 95 Room Air 10/20/16 09:07 77 143/67 10/20/16 08:00 97.4 77 15 143/67 94 Room Air 10/20/16 04:00 97.9 71 20 128/62 97 Room Air 10/20/16 00:00 98.4 69 20 131/68 97 Room Air Intake and Output 10/19/16 10/20/16 19:00 07:00 Intake Total 775 ml Output Total 250 ml 650 ml Balance 525 ml -650 ml Intake Oral 720 ml IV Total 55 ml Output Urine Total 250 ml 650 ml Laboratory Tests 10/20/16 05:00: White Blood Count 11.7H, Red Blood Count 3.99L, Hemoglobin 11.3L, Hematocrit 35.8L, Mean Corpuscular Volume 90, Mean Corpuscular Hemoglobin 28.2, Mean Corpuscular Hemoglobin Concent 31.4L, Red Cell Distribution Width 13.9, Platelet Count 301, Mean Platelet Volume 6.0L, Neutrophils (%) (Auto) 78.6H, Lymphocytes (%) (Auto) 11.4L, Monocytes (%) (Auto) 8.4, Eosinophils (%) (Auto) 0.7, Basophils (%) (Auto) 0.9, Sodium Level 140, Potassium Level 4.3, Chloride Level 102, Carbon Dioxide Level 24, Anion Gap 14, Blood Urea Nitrogen 22, Creatinine 1.0H, Estimat Glomerular Filtration Rate , Glucose Level 104, Calcium Level 8.7 Current Medications Medications (Trade) Dose Ordered Sig/Jonah Route PRN Reason Start Time Stop Time Status Last Admin Dose Admin Acetaminophen (Tylenol) 650 mg Q4H PRN ORAL fever 10/17/16 15:45 11/16/16 15:44 Al Hydroxide/Mg Hydroxide (Mylanta II) 30 ml Q6H PRN ORAL dyspepsia 10/17/16 15:45 11/16/16 15:44 Albuterol/ Ipratropium (DuoNeb 0.5-3(2.5)mg/3ml) 3 ml Q4H PRN HHN Shortness of Breath 10/17/16 15:45 10/22/16 15:44 Apixaban (Eliquis) 2.5 mg BID ORAL 10/17/16 18:00 11/16/16 17:59 10/20/16 18:19 Cefepime HCl/ Dextrose (Maxipime/D5W) 55 ml @ 110 mls/hr Q24H IV 10/17/16 19:00 10/24/16 18:59 10/20/16 20:05 Donepezil HCl (Aricept) 10 mg QHS ORAL 10/17/16 21:00 11/16/16 20:59 10/20/16 20:22 Hydralazine HCl (Apresoline) 50 mg Q6HR PRN ORAL SBP > 160 10/17/16 15:45 11/16/16 15:44 Levothyroxine Sodium (Synthroid) 150 mcg DAILY@0630 ORAL 10/18/16 06:30 11/17/16 06:29 10/20/16 06:04 Memantine (Namenda) 5 mg BID ORAL 10/17/16 18:00 11/16/16 17:59 10/20/16 18:19 Metoprolol Tartrate (Lopressor) 12.5 mg Q12HR ORAL 10/17/16 21:00 11/16/16 20:59 10/20/16 20:22 Nitroglycerin (Ntg) 0.4 mg Q5MIN X 3 DOSES PRN SL Prn Chest Pain 10/17/16 15:45 11/16/16 15:44 Ondansetron HCl (Zofran) 4 mg Q6H PRN IVP Nausea & Vomiting 10/17/16 15:45 11/16/16 15:44 Polyethylene Glycol (Miralax) 17 gm DAILYPRN PRN ORAL Constipation 10/17/16 15:45 11/16/16 15:44 Promethazine HCl/ Codeine 5 ml 5 ml Q4H PRN ORAL For Cough 10/17/16 15:45 11/16/16 15:44 Risperidone (RisperDAL) 0.25 mg BID ORAL 10/17/16 18:00 11/16/16 17:59 10/20/16 18:19 Temazepam (Restoril) 15 mg HSPRN PRN ORAL Insomnia 10/17/16 15:45 10/24/16 15:44 TATI FAM Oct 20, 2016 23:52
[2016-10-21] VITALS (8 sets, daily range): BP systolic 106–147; BP diastolic 55–69
[2016-10-21 07:04] LABS: BASOPHILS % (AUTO) 0.4 % (0.0-2.0); LYMPHOCYTES % (AUTO) 11.7 % (20.0-45.0); MEAN CORPUSCULAR HEMOGLOBIN 27.7 PG (27.0-31.0); MEAN CORPUSCULAR HGB CONC 31.2 G/DL (32.0-36.0); MEAN CORPUSCULAR VOLUME 89 FL (80-99); MEAN PLATELET VOLUME 6.2 FL (6.5-10.1); MONOCYTES % (AUTO) 8.2 % (1.0-10.0); NEUTROPHILS % (AUTO) 77.7 % (45.0-75.0); PLATELET COUNT 313 K/UL (150-450); RED CELL DISTRIBUTION WIDTH 13.3 % (11.6-14.8); WHITE BLOOD COUNT 11.2 K/UL (4.8-10.8)
[2016-10-21 07:17] LABS: ANION GAP 16 (5-15); CALCIUM 8.9 mg/dL (8.6-10.2); CARBON DIOXIDE 24 mEQ/L (20-30); CHLORIDE 102 mEQ/L (98-107); CREATININE 0.9 mg/dL (0.5-0.9); HEMOLYSIS 0; POTASSIUM 4.1 mEQ/L (3.4-4.9); SODIUM 142 mEQ/L (135-145)
[2016-10-21] MEDS: Metoprolol 25mg tab ORAL SCH ×2 (09:00→20:17)
[2016-10-21] MEDS: Eliquis 2.5mg tablet ORAL SCH ×2 (10:28→18:19)
[2016-10-21] MEDS: RisperiDONE 0.25mg tab ORAL SCH ×2 (10:28→18:20)
[2016-10-21] MEDS: Memantine 10mg tab ORAL SCH ×2 (10:28→18:19)
--- NOTE | 2016-10-21 16:56 | Internal Med Progress Note ---
Subjective Date of Service: Oct 21, 2016 Physician Name Yue Jacob Attending Physician Donovan Spring MD Current Medications Medications (Trade) Dose Ordered Sig/Jonah Route PRN Reason Start Time Stop Time Status Last Admin Dose Admin Acetaminophen (Tylenol) 650 mg Q4H PRN ORAL fever 10/17/16 15:45 11/16/16 15:44 Al Hydroxide/Mg Hydroxide (Mylanta II) 30 ml Q6H PRN ORAL dyspepsia 10/17/16 15:45 11/16/16 15:44 Albuterol/ Ipratropium (DuoNeb 0.5-3(2.5)mg/3ml) 3 ml Q4H PRN HHN Shortness of Breath 10/17/16 15:45 10/22/16 15:44 Apixaban (Eliquis) 2.5 mg BID ORAL 10/17/16 18:00 11/16/16 17:59 10/21/16 10:28 Cefepime HCl/ Dextrose (Maxipime/D5W) 55 ml @ 110 mls/hr Q24H IV 10/17/16 19:00 10/24/16 18:59 10/20/16 20:05 Donepezil HCl (Aricept) 10 mg QHS ORAL 10/17/16 21:00 11/16/16 20:59 10/20/16 20:22 Hydralazine HCl (Apresoline) 50 mg Q6HR PRN ORAL SBP > 160 10/17/16 15:45 11/16/16 15:44 Levothyroxine Sodium (Synthroid) 150 mcg DAILY@0630 ORAL 10/18/16 06:30 11/17/16 06:29 10/21/16 06:10 Memantine (Namenda) 5 mg BID ORAL 10/17/16 18:00 11/16/16 17:59 10/21/16 10:28 Metoprolol Tartrate (Lopressor) 12.5 mg Q12HR ORAL 10/17/16 21:00 11/16/16 20:59 10/20/16 20:22 Nitroglycerin (Ntg) 0.4 mg Q5MIN X 3 DOSES PRN SL Prn Chest Pain 10/17/16 15:45 11/16/16 15:44 Ondansetron HCl (Zofran) 4 mg Q6H PRN IVP Nausea & Vomiting 10/17/16 15:45 11/16/16 15:44 Polyethylene Glycol (Miralax) 17 gm DAILYPRN PRN ORAL Constipation 10/17/16 15:45 11/16/16 15:44 Promethazine HCl/ Codeine 5 ml 5 ml Q4H PRN ORAL For Cough 10/17/16 15:45 11/16/16 15:44 Risperidone (RisperDAL) 0.25 mg BID ORAL 10/17/16 18:00 11/16/16 17:59 10/21/16 10:28 Temazepam (Restoril) 15 mg HSPRN PRN ORAL Insomnia 10/17/16 15:45 10/24/16 15:44 Allergies: Coded Allergies: SHELLFISH DERIVED (Unverified Allergy, Severe, Hives, 07/20/14) tongue and face swelling ROS Limited/Unobtainable: Yes Subjective 86 YO F admitted with left weakness. MRI cancelled due to pacemaker. Cover for Int Parth-Dr Spring Objective Last Vital Signs Date Time Temp Pulse Resp B/P Pulse Ox O2 Delivery O2 Flow Rate FiO2 10/21/16 16:00 98.4 83 20 147/66 Room Air 10/21/16 11:10 93 Laboratory Tests Test 10/21/16 05:35 White Blood Count 11.2 K/UL (4.8-10.8) H Red Blood Count 3.90 M/UL (4.20-5.40) L Hemoglobin 10.8 G/DL (12.0-16.0) L Hematocrit 34.7 % (37.0-47.0) L Mean Corpuscular Volume 89 FL (80-99) Mean Corpuscular Hemoglobin 27.7 PG (27.0-31.0) Mean Corpuscular Hemoglobin Concent 31.2 G/DL (32.0-36.0) L Red Cell Distribution Width 13.3 % (11.6-14.8) Platelet Count 313 K/UL (150-450) Mean Platelet Volume 6.2 FL (6.5-10.1) L Neutrophils (%) (Auto) 77.7 % (45.0-75.0) H Lymphocytes (%) (Auto) 11.7 % (20.0-45.0) L Monocytes (%) (Auto) 8.2 % (1.0-10.0) Eosinophils (%) (Auto) 2.0 % (0.0-3.0) Basophils (%) (Auto) 0.4 % (0.0-2.0) Sodium Level 142 mEQ/L (135-145) Potassium Level 4.1 mEQ/L (3.4-4.9) Chloride Level 102 mEQ/L (98-107) Carbon Dioxide Level 24 mEQ/L (20-30) Anion Gap 16 (5-15) H Blood Urea Nitrogen 26 mg/dL (7-23) H Creatinine 0.9 mg/dL (0.5-0.9) Estimat Glomerular Filtration Rate mL/min (>60) Glucose Level 123 mg/dL (74-106) H Calcium Level 8.9 mg/dL (8.6-10.2) Intake and Output 10/20/16 10/21/16 19:00 07:00 Intake Total 840 ml 295 ml Output Total 325 ml 275 ml Balance 515 ml 20 ml Intake Oral 840 ml 240 ml IV Total 55 ml Output Urine Total 325 ml 275 ml Objective General: alert, cooperative, no distress, appears stated age Head: normocephalic, without obvious abnormality, atraumatic Eyes: conjunctivae/corneas clear. PERRL, EOM's intact Throat: lips, mucosa, and tongue normal. MMM Neck: supple, symmetrical, trachea midline, and no JVD Lungs: clear to auscultation bilaterally Heart: regular rate and rhythm, S1, S2 normal, no murmur, click, rub or gallop Abdomen: soft, non-tender, non-distended, bowel sounds normal; no masses or organomegaly Extremities: extremities normal, atraumatic, no cyanosis or edema Pulses: 2+ and symmetric Skin: skin color, texture, turgor normal; no rashes or lesions Neurologic: grossly normal, left side weakness Assessment/Plan Problem List: (1) Hypertensive heart disease (2) Pacemaker (3) Hypercholesteremia (4) Generalized weakness Assessment & Plan: MRI cancelled due to pacemaker. (5) Atrial fibrillation Assessment & Plan: Cont eliquis (6) HTN (hypertension) Assessment & Plan: Cont metoprolol (7) Pulmonary hypertension (8) Hypothyroidism Assessment & Plan: Cont synthroid (9) Sick sinus syndrome Assessment & Plan: S/P pacemaker Status: stable Assessment/Plan Discharge planning: [facility] facility YUE JACOB Oct 21, 2016 16:56
[2016-10-21] MEDS: Cefepime HCl 1 GM in D5W 55 ML IV SCH (19:04)
--- NOTE | 2016-10-21 19:28 | Cardiology Report ---
APPROVED REPORT EXAM: Two-dimensional and M-mode echocardiogram with Doppler and color Doppler. INDICATION Left Ventricular Function M-Mode DIMENSIONS IVSd1.4 (0.7-1.1cm)Left Atrium (MM)4.0 (1.6-4.0cm) LVDd4.1 (3.5-5.6cm)Aortic Root2.1 (2.0-3.7cm) PWd0.9 (0.7-1.1cm)Aortic Cusp Exc.1.5 (1.5-2.0cm) LVDs2.6 (2.5-4.0cm) PWs1.3 cm Normal left ventricular chamber size, systolic function and wall motion. Left ventricular ejection fraction estimated to be 55 -60%. Mild left ventricular hypertrophy. No evidence of pericardial fat or effusion. Mild bi-atrial enlargement. Right ventricular chamber size is within normal limits. Mild focal aortic valve sclerosis with adequate cusp excursion. Mildly thickened mitral valve leaflets with normal excursion. Mild mitral annulus and aortic root calcification. Pulmonic valve not well visualized. Normal tricuspid valve structure. IVC at normal size with physiologic collapse. A color flow and spectral Doppler study was performed and revealed: Mild aortic regurgitation. Mild to moderate mitral regurgitation. Mitral inflow nondiagnostic Moderate tricuspid regurgitation. Tricuspid systolic velocities suggests peak right ventricular systolic pressure of 65 mmHg, consistent with severe pulmonary hypertension. Moderate pulmonic regurgitation present.
--- NOTE | 2016-10-21 19:59 | Cardiology Progress Note ---
Assessment/Plan Assessment/Plan paf tachy phtn shtn dementia ekg increaee bb lalo neabby trasfer to tel as [place] tachy at this time [id number] Objective Last 24 Hour Vital Signs Date Time Temp Pulse Resp B/P Pulse Ox O2 Delivery O2 Flow Rate FiO2 10/21/16 16:00 98.4 83 20 147/66 Room Air 10/21/16 11:10 98.2 66 18 130/55 93 Room Air 10/21/16 09:00 62 116/56 10/21/16 08:00 98.6 62 16 119/68 93 Room Air 10/21/16 04:00 97.8 64 18 125/69 98 Room Air 10/21/16 00:00 98.2 58 20 123/62 Room Air 10/20/16 20:22 65 121/67 10/20/16 20:00 97.9 65 20 121/67 99 Room Air Intake and Output 10/20/16 10/21/16 19:00 07:00 Intake Total 840 ml 295 ml Output Total 325 ml 275 ml Balance 515 ml 20 ml Intake Oral 840 ml 240 ml IV Total 55 ml Output Urine Total 325 ml 275 ml Laboratory Tests Test 10/21/16 05:35 White Blood Count 11.2 K/UL (4.8-10.8) H Red Blood Count 3.90 M/UL (4.20-5.40) L Hemoglobin 10.8 G/DL (12.0-16.0) L Hematocrit 34.7 % (37.0-47.0) L Mean Corpuscular Volume 89 FL (80-99) Mean Corpuscular Hemoglobin 27.7 PG (27.0-31.0) Mean Corpuscular Hemoglobin Concent 31.2 G/DL (32.0-36.0) L Red Cell Distribution Width 13.3 % (11.6-14.8) Platelet Count 313 K/UL (150-450) Mean Platelet Volume 6.2 FL (6.5-10.1) L Neutrophils (%) (Auto) 77.7 % (45.0-75.0) H Lymphocytes (%) (Auto) 11.7 % (20.0-45.0) L Monocytes (%) (Auto) 8.2 % (1.0-10.0) Eosinophils (%) (Auto) 2.0 % (0.0-3.0) Basophils (%) (Auto) 0.4 % (0.0-2.0) Sodium Level 142 mEQ/L (135-145) Potassium Level 4.1 mEQ/L (3.4-4.9) Chloride Level 102 mEQ/L (98-107) Carbon Dioxide Level 24 mEQ/L (20-30) Anion Gap 16 (5-15) H Blood Urea Nitrogen 26 mg/dL (7-23) H Creatinine 0.9 mg/dL (0.5-0.9) Estimat Glomerular Filtration Rate mL/min (>60) Glucose Level 123 mg/dL (74-106) H Calcium Level 8.9 mg/dL (8.6-10.2) TRACI WHEATLEY Oct 21, 2016 19:59
[2016-10-21] MEDS: Donepezil 10mg tab ORAL SCH (20:17)
--- NOTE | 2016-10-21 23:22 | Pulmonology Progress Note ---
Assessment/Plan Problems: (1) HTN (hypertension) (2) Hypothyroidism (3) Pulmonary hypertension (4) Syncope and collapse (5) Alzheimer's dementia (6) Generalized weakness (7) Altered mental status (8) Hypotension Subjective Allergies: Coded Allergies: SHELLFISH DERIVED (Unverified Allergy, Severe, Hives, 07/20/14) tongue and face swelling Objective Last 24 Hour Vital Signs Date Time Temp Pulse Resp B/P Pulse Ox O2 Delivery O2 Flow Rate FiO2 10/21/16 21:42 64 20 106/61 97 Room Air 10/21/16 20:17 83 147/66 10/21/16 20:00 100.8 130 18 115/68 100 Room Air 10/21/16 16:00 98.4 83 20 147/66 Room Air 10/21/16 11:10 98.2 66 18 130/55 93 Room Air 10/21/16 09:00 62 116/56 10/21/16 08:00 98.6 62 16 119/68 93 Room Air 10/21/16 04:00 97.8 64 18 125/69 98 Room Air 10/21/16 00:00 98.2 58 20 123/62 Room Air Intake and Output 10/20/16 10/21/16 19:00 07:00 Intake Total 840 ml 295 ml Output Total 325 ml 275 ml Balance 515 ml 20 ml Intake Oral 840 ml 240 ml IV Total 55 ml Output Urine Total 325 ml 275 ml Laboratory Tests 10/21/16 05:35: White Blood Count 11.2H, Red Blood Count 3.90L, Hemoglobin 10.8L, Hematocrit 34.7L, Mean Corpuscular Volume 89, Mean Corpuscular Hemoglobin 27.7, Mean Corpuscular Hemoglobin Concent 31.2L, Red Cell Distribution Width 13.3, Platelet Count 313, Mean Platelet Volume 6.2L, Neutrophils (%) (Auto) 77.7H, Lymphocytes (%) (Auto) 11.7L, Monocytes (%) (Auto) 8.2, Eosinophils (%) (Auto) 2.0, Basophils (%) (Auto) 0.4, Sodium Level 142, Potassium Level 4.1, Chloride Level 102, Carbon Dioxide Level 24, Anion Gap 16H, Blood Urea Nitrogen 26H, Creatinine 0.9, Estimat Glomerular Filtration Rate , Glucose Level 123H, Calcium Level 8.9 Current Medications Medications (Trade) Dose Ordered Sig/Jonah Route PRN Reason Start Time Stop Time Status Last Admin Dose Admin Acetaminophen (Tylenol) 650 mg Q4H PRN ORAL fever 10/17/16 15:45 11/16/16 15:44 10/21/16 21:46 Al Hydroxide/Mg Hydroxide (Mylanta II) 30 ml Q6H PRN ORAL dyspepsia 10/17/16 15:45 11/16/16 15:44 Albuterol/ Ipratropium (DuoNeb 0.5-3(2.5)mg/3ml) 3 ml Q4H PRN HHN Shortness of Breath 10/17/16 15:45 10/22/16 15:44 Apixaban (Eliquis) 2.5 mg BID ORAL 10/17/16 18:00 11/16/16 17:59 10/21/16 18:19 Cefepime HCl/ Dextrose (Maxipime/D5W) 55 ml @ 110 mls/hr Q24H IV 10/17/16 19:00 10/24/16 18:59 10/21/16 19:04 Donepezil HCl (Aricept) 10 mg QHS ORAL 10/17/16 21:00 11/16/16 20:59 10/21/16 20:17 Hydralazine HCl (Apresoline) 50 mg Q6HR PRN ORAL SBP > 160 10/17/16 15:45 11/16/16 15:44 Levothyroxine Sodium (Synthroid) 150 mcg DAILY@0630 ORAL 10/18/16 06:30 11/17/16 06:29 10/21/16 06:10 Memantine (Namenda) 5 mg BID ORAL 10/17/16 18:00 11/16/16 17:59 10/21/16 18:19 Metoprolol Tartrate (Lopressor) 25 mg Q12HR ORAL 10/21/16 21:00 11/20/16 20:59 10/21/16 20:17 Nitroglycerin (Ntg) 0.4 mg Q5MIN X 3 DOSES PRN SL Prn Chest Pain 10/17/16 15:45 11/16/16 15:44 Ondansetron HCl (Zofran) 4 mg Q6H PRN IVP Nausea & Vomiting 10/17/16 15:45 11/16/16 15:44 Polyethylene Glycol (Miralax) 17 gm DAILYPRN PRN ORAL Constipation 10/17/16 15:45 11/16/16 15:44 Promethazine HCl/ Codeine 5 ml 5 ml Q4H PRN ORAL For Cough 10/17/16 15:45 11/16/16 15:44 Risperidone (RisperDAL) 0.25 mg BID ORAL 10/17/16 18:00 11/16/16 17:59 10/21/16 18:20 Temazepam (Restoril) 15 mg HSPRN PRN ORAL Insomnia 10/17/16 15:45 10/24/16 15:44 TATI FAM Oct 21, 2016 23:22
[2016-10-22 04:00] VITALS: BP 121/51
--- NOTE | 2016-10-22 05:48 | Consultation ---
DATE OF CONSULTATION: 10/21/2016 CARDIOLOGY CONSULTATION: REFERRING PHYSICIAN: Apoorva Loya M.D. REASON FOR REFERRAL: Atrial fibrillation. HISTORY OF PRESENT ILLNESS: This is an elderly female who is really a poor historian. The patient has been admitted to the hospital because of generalized weakness and is now admitted here to the hospital for further evaluation. She does not have any chest pain. Denies any shortness of breath. Denies any dizziness or lightheadedness, but again she is somewhat confused and really a poor historian. PAST MEDICAL HISTORY: Positive for history of hypertension, hypothyroidism, pulmonary hypertension, dementia, hyperlipidemia, paroxysmal atrial fibrillation, sick sinus syndrome, and status post thyroidectomy. She has had a permanent pacemaker implantation previously [facility] back in March of last year by Dr. Thacker. She has had a history of recurrent syncopal episodes prior to that. ALLERGIES: She is not reported to be allergic to any medications although she is allergic to shellfish. SOCIAL HISTORY: She lives at home with caregiver. She does does not smoke or drink alcoholic beverages. However, she has a 40 pack-year history of smoking previously. REVIEW OF SYSTEMS: Gastrointestinal: She denies any abdominal pain, nausea, and vomiting. No diarrhea. : She denies discomfort on urination. Pulmonary: Denies cough and wheezing. PHYSICAL EXAMINATION: GENERAL: Shows to be elderly female, no apparent distress. HEENT: Unremarkable. NECK: Supple. No jugular venous distention is noted. LUNGS: Appear to be clear to auscultation and percussion. CARDIAC: Irregularly irregular. Tachycardia. No heaves or thrills noted. ABDOMEN: Soft and nontender. Positive bowel sounds. EXTREMITIES: There is no clubbing, cyanosis, or edema. She has pneumatic compression stockings in place. Laboratory Values: White count 11.2 with hemoglobin of 10.8, and platelet count of 313,000. Sodium is 142, potassium 4.1, chloride 102, bicarbonate 24, BUN 22, creatinine 0.9, and glucose of 123. Her troponin was less than 0.3 at time of admission. ProBNP has not drawn during this hospitalization. Her albumin was 2.9. Coags, INR 1.1 and PTT of 26. Urinalysis shows 5 to 10 RBCs, 2 to 4 WBCs, and 1+ leukocyte esterase. A chest x-ray shows on 10/17/2016 that the patient has mildly enlarged scoliotic deformity. There is a left-sided pacemaker, the pleural spaces are clear. There are no electrocardiograms for reviewing the patient's chart. Unfortunately, the venous carotid duplex study shows irregular plaques at 20:30% stenosis. Venous duplex of lower extremities do not show any significant deep venous thrombosis from the 10/18/2016. ASSESSMENT AND PLAN: 1. Tachycardia. 2. Paroxysmal atrial fibrillation likely atrial fibrillation at the present time. 3. Pulmonary hypertension. 4. Systemic hypertension history. 5. Permanent pacemaker implantation. 6. Mild to moderate degree of mitral regurgitation. PLAN: Dr. Loya, this patient was seen in cardiac consultation. Appears to be somewhat tachycardic at this time. I will order an echocardiogram. Transferred to telemetry arce, with medication for control of her heart rate if it is indeed confirmed that she is in atrial fibrillation. Her medications at present include Eliquis 2.5 mg twice daily which we will continue. She is also on hydralazine on as needed basis as well as Synthroid. I will increase her beta-blockers to better control her heart rate as needed. She appears to be somewhat asymptomatic at the present time. Most recent blood pressure is 147/66, she has had last low is 116/56. An echocardiogram was personally reviewed, evidence of pulmonary hypertension is noted in direct comparison with the prior echo reports. Pulmonary hypertension, however is not significantly increased since that time. Suggest pulmonary hypertension is not a new finding. Willis Starks M.D. DR: Nimisha JOB#: [id number] CC:
[2016-10-22 07:12] LABS: BASOPHILS % (AUTO) 0.6 % (0.0-2.0); EOSINOPHILS % (AUTO) 3.7 % (0.0-3.0); LYMPHOCYTES % (AUTO) 18.1 % (20.0-45.0); MEAN CORPUSCULAR HEMOGLOBIN 27.4 PG (27.0-31.0); MEAN CORPUSCULAR HGB CONC 30.8 G/DL (32.0-36.0); MEAN CORPUSCULAR VOLUME 89 FL (80-99); MEAN PLATELET VOLUME 5.9 FL (6.5-10.1); MONOCYTES % (AUTO) 7.9 % (1.0-10.0); NEUTROPHILS % (AUTO) 69.7 % (45.0-75.0); PLATELET COUNT 319 K/UL (150-450); RED BLOOD COUNT 3.93 M/UL (4.20-5.40); RED CELL DISTRIBUTION WIDTH 13.4 % (11.6-14.8); WHITE BLOOD COUNT 11.1 K/UL (4.8-10.8)
[2016-10-22 07:36] LABS: THYROID STIMULATING HORMONE 0.217 uIU/mL (0.300-4.500)
[2016-10-22 07:42] LABS: ANION GAP 16 (5-15); CALCIUM 8.7 mg/dL (8.6-10.2); CARBON DIOXIDE 25 mEQ/L (20-30); CHLORIDE 101 mEQ/L (98-107); HEMOLYSIS 0; POTASSIUM 4.2 mEQ/L (3.4-4.9); SODIUM 142 mEQ/L (135-145)
[2016-10-22 08:00] VITALS: BP 143/69
[2016-10-22] MEDS: Miralax 17gm pkt ORAL PRN (09:28)
[2016-10-22] MEDS: RisperiDONE 0.25mg tab ORAL SCH ×2 (09:29→17:14)
[2016-10-22] MEDS: Metoprolol 25mg tab ORAL SCH ×2 (09:29→20:58)
[2016-10-22] MEDS: Eliquis 2.5mg tablet ORAL SCH ×2 (09:29→17:14)
[2016-10-22] MEDS: Memantine 10mg tab ORAL SCH ×2 (09:30→17:14)
[2016-10-22 12:00] VITALS: BP 120/59
[2016-10-22 16:00] VITALS: BP 122/64
[2016-10-22] MEDS: Cefepime HCl 1 GM in D5W 55 ML IV SCH (18:07)
--- NOTE | 2016-10-22 19:00 | Internal Med Progress Note ---
Subjective Date of Service: Oct 22, 2016 Physician Name JacobBridger Attending Physician Donovan Spring MD Current Medications Medications (Trade) Dose Ordered Sig/Jonah Route PRN Reason Start Time Stop Time Status Last Admin Dose Admin Acetaminophen (Tylenol) 650 mg Q4H PRN ORAL fever 10/17/16 15:45 11/16/16 15:44 10/21/16 21:46 Al Hydroxide/Mg Hydroxide (Mylanta II) 30 ml Q6H PRN ORAL dyspepsia 10/17/16 15:45 11/16/16 15:44 Apixaban (Eliquis) 2.5 mg BID ORAL 10/17/16 18:00 11/16/16 17:59 10/22/16 17:14 Cefepime HCl/ Dextrose (Maxipime/D5W) 55 ml @ 110 mls/hr Q24H IV 10/17/16 19:00 10/24/16 18:59 10/22/16 18:07 Donepezil HCl (Aricept) 10 mg QHS ORAL 10/17/16 21:00 11/16/16 20:59 10/21/16 20:17 Hydralazine HCl (Apresoline) 50 mg Q6HR PRN ORAL SBP > 160 10/17/16 15:45 11/16/16 15:44 Levothyroxine Sodium (Synthroid) 150 mcg DAILY@0630 ORAL 10/18/16 06:30 11/17/16 06:29 10/22/16 06:09 Memantine (Namenda) 5 mg BID ORAL 10/17/16 18:00 11/16/16 17:59 10/22/16 17:14 Metoprolol Tartrate (Lopressor) 25 mg Q12HR ORAL 10/21/16 21:00 11/20/16 20:59 10/22/16 09:29 Nitroglycerin (Ntg) 0.4 mg Q5MIN X 3 DOSES PRN SL Prn Chest Pain 10/17/16 15:45 11/16/16 15:44 Ondansetron HCl (Zofran) 4 mg Q6H PRN IVP Nausea & Vomiting 10/17/16 15:45 11/16/16 15:44 Polyethylene Glycol (Miralax) 17 gm DAILYPRN PRN ORAL Constipation 10/17/16 15:45 11/16/16 15:44 10/22/16 09:28 Promethazine HCl/ Codeine 5 ml 5 ml Q4H PRN ORAL For Cough 10/17/16 15:45 11/16/16 15:44 Risperidone (RisperDAL) 0.25 mg BID ORAL 10/17/16 18:00 11/16/16 17:59 10/22/16 17:14 Temazepam (Restoril) 15 mg HSPRN PRN ORAL Insomnia 10/17/16 15:45 10/24/16 15:44 Allergies: Coded Allergies: SHELLFISH DERIVED (Unverified Allergy, Severe, Hives, 07/20/14) tongue and face swelling ROS Limited/Unobtainable: Yes Subjective 86 YO F admitted with left weakness. MRI cancelled due to pacemaker. Cover for Int Med-[facility] placement Objective Last Vital Signs Date Time Temp Pulse Resp B/P Pulse Ox O2 Delivery O2 Flow Rate FiO2 10/22/16 16:00 97.5 63 22 122/64 100 Room Air Laboratory Tests Test 10/22/16 05:00 White Blood Count 11.1 K/UL (4.8-10.8) H Red Blood Count 3.93 M/UL (4.20-5.40) L Hemoglobin 10.8 G/DL (12.0-16.0) L Hematocrit 35.0 % (37.0-47.0) L Mean Corpuscular Volume 89 FL (80-99) Mean Corpuscular Hemoglobin 27.4 PG (27.0-31.0) Mean Corpuscular Hemoglobin Concent 30.8 G/DL (32.0-36.0) L Red Cell Distribution Width 13.4 % (11.6-14.8) Platelet Count 319 K/UL (150-450) Mean Platelet Volume 5.9 FL (6.5-10.1) L Neutrophils (%) (Auto) 69.7 % (45.0-75.0) Lymphocytes (%) (Auto) 18.1 % (20.0-45.0) L Monocytes (%) (Auto) 7.9 % (1.0-10.0) Eosinophils (%) (Auto) 3.7 % (0.0-3.0) H Basophils (%) (Auto) 0.6 % (0.0-2.0) Sodium Level 142 mEQ/L (135-145) Potassium Level 4.2 mEQ/L (3.4-4.9) Chloride Level 101 mEQ/L (98-107) Carbon Dioxide Level 25 mEQ/L (20-30) Anion Gap 16 (5-15) H Blood Urea Nitrogen 34 mg/dL (7-23) H Creatinine 1.0 mg/dL (0.5-0.9) H Estimat Glomerular Filtration Rate mL/min (>60) Glucose Level 95 mg/dL (74-106) Calcium Level 8.7 mg/dL (8.6-10.2) Pro-B-Type Natriuretic Peptide 2732 pg/mL (0-450) H Thyroid Stimulating Hormone (TSH) 0.217 uIU/mL (0.300-4.500) Intake and Output 10/21/16 10/22/16 19:00 07:00 Intake Total 640 ml 265 ml Output Total 200 ml 300 ml Balance 440 ml -35 ml Intake Oral 640 ml 210 ml IV Total 55 ml Output Urine Total 200 ml 300 ml Objective General: alert, cooperative, no distress, appears stated age Head: normocephalic, without obvious abnormality, atraumatic Eyes: conjunctivae/corneas clear. PERRL, EOM's intact Throat: lips, mucosa, and tongue normal. MMM Neck: supple, symmetrical, trachea midline, and no JVD Lungs: clear to auscultation bilaterally Heart: regular rate and rhythm, S1, S2 normal, no murmur, click, rub or gallop Abdomen: soft, non-tender, non-distended, bowel sounds normal; no masses or organomegaly Extremities: extremities normal, atraumatic, no cyanosis or edema Pulses: 2+ and symmetric Skin: skin color, texture, turgor normal; no rashes or lesions Neurologic: grossly normal, left side weakness Assessment/Plan Problem List: (1) Hypertensive heart disease (2) Pacemaker (3) Hypercholesteremia (4) Generalized weakness Assessment & Plan: MRI cancelled due to pacemaker. (5) Atrial fibrillation Assessment & Plan: Cont eliquis (6) HTN (hypertension) Assessment & Plan: Cont metoprolol (7) Pulmonary hypertension (8) Hypothyroidism Assessment & Plan: Cont synthroid (9) Sick sinus syndrome Assessment & Plan: S/P pacemaker Status: stable Assessment/Plan Discharge planning: [facility] facility BRIDGER JACOB Oct 22, 2016 19:00
[2016-10-22 20:00] VITALS: BP 144/66
--- NOTE | 2016-10-22 20:12 | Cardiology Progress Note ---
Assessment/Plan Assessment/Plan 1. Tachycardia. 2. Paroxysmal atrial fibrillation likely atrial fibrillation at the present time. 3. Pulmonary hypertension. 4. Systemic hypertension history. 5. Permanent pacemaker implantation. 6. Mild to moderate degree of mitral regurgitation. hr much improved with bb increase seem comfortable consider decreasign the dose fo f synthroid as tsh low may contibute to tachy pulm htn not much changed form baseline bnp note ekg noted Subjective ROS Limited/Unobtainable: Yes Objective Last 24 Hour Vital Signs Date Time Temp Pulse Resp B/P Pulse Ox O2 Delivery O2 Flow Rate FiO2 10/22/16 16:00 97.5 63 22 122/64 100 Room Air 10/22/16 12:00 97.2 62 22 120/59 92 Room Air 10/22/16 09:29 62 121/51 10/22/16 08:00 97.2 63 20 143/69 99 Room Air 10/22/16 04:00 98.1 62 18 121/51 99 Room Air 10/21/16 23:55 99.3 68 18 114/59 97 Room Air 10/21/16 22:45 99.3 10/21/16 21:42 64 20 106/61 97 Room Air 10/21/16 20:17 83 147/66 General Appearance: no apparent distress, alert Neck: no JVD Cardiovascular: normal rate, regular rhythm Respiratory/Chest: lungs clear, normal breath sounds Abdomen: normal bowel sounds, non tender Extremities: no swelling Intake and Output 10/21/16 10/22/16 19:00 07:00 Intake Total 640 ml 265 ml Output Total 200 ml 300 ml Balance 440 ml -35 ml Intake Oral 640 ml 210 ml IV Total 55 ml Output Urine Total 200 ml 300 ml Laboratory Tests Test 10/22/16 05:00 White Blood Count 11.1 K/UL (4.8-10.8) H Red Blood Count 3.93 M/UL (4.20-5.40) L Hemoglobin 10.8 G/DL (12.0-16.0) L Hematocrit 35.0 % (37.0-47.0) L Mean Corpuscular Volume 89 FL (80-99) Mean Corpuscular Hemoglobin 27.4 PG (27.0-31.0) Mean Corpuscular Hemoglobin Concent 30.8 G/DL (32.0-36.0) L Red Cell Distribution Width 13.4 % (11.6-14.8) Platelet Count 319 K/UL (150-450) Mean Platelet Volume 5.9 FL (6.5-10.1) L Neutrophils (%) (Auto) 69.7 % (45.0-75.0) Lymphocytes (%) (Auto) 18.1 % (20.0-45.0) L Monocytes (%) (Auto) 7.9 % (1.0-10.0) Eosinophils (%) (Auto) 3.7 % (0.0-3.0) H Basophils (%) (Auto) 0.6 % (0.0-2.0) Sodium Level 142 mEQ/L (135-145) Potassium Level 4.2 mEQ/L (3.4-4.9) Chloride Level 101 mEQ/L (98-107) Carbon Dioxide Level 25 mEQ/L (20-30) Anion Gap 16 (5-15) H Blood Urea Nitrogen 34 mg/dL (7-23) H Creatinine 1.0 mg/dL (0.5-0.9) H Estimat Glomerular Filtration Rate mL/min (>60) Glucose Level 95 mg/dL (74-106) Calcium Level 8.7 mg/dL (8.6-10.2) Pro-B-Type Natriuretic Peptide 2732 pg/mL (0-450) H Thyroid Stimulating Hormone (TSH) 0.217 uIU/mL (0.300-4.500) TRACI WHEATLEY Oct 22, 2016 20:12
[2016-10-22] MEDS: Donepezil 10mg tab ORAL SCH (20:59)
--- NOTE | 2016-10-22 23:08 | Pulmonology Progress Note ---
Assessment/Plan Problems: (1) HTN (hypertension) (2) Hypothyroidism (3) Pulmonary hypertension (4) Syncope and collapse (5) Alzheimer's dementia (6) Generalized weakness (7) Altered mental status (8) Hypotension Subjective Allergies: Coded Allergies: SHELLFISH DERIVED (Unverified Allergy, Severe, Hives, 07/20/14) tongue and face swelling Objective Last 24 Hour Vital Signs Date Time Temp Pulse Resp B/P Pulse Ox O2 Delivery O2 Flow Rate FiO2 10/22/16 20:58 63 144/66 10/22/16 20:00 98.1 63 18 144/66 99 Room Air 10/22/16 16:00 97.5 63 22 122/64 100 Room Air 10/22/16 12:00 97.2 62 22 120/59 92 Room Air 10/22/16 09:29 62 121/51 10/22/16 08:00 97.2 63 20 143/69 99 Room Air 10/22/16 04:00 98.1 62 18 121/51 99 Room Air 10/21/16 23:55 99.3 68 18 114/59 97 Room Air Intake and Output 10/21/16 10/22/16 19:00 07:00 Intake Total 640 ml 265 ml Output Total 200 ml 300 ml Balance 440 ml -35 ml Intake Oral 640 ml 210 ml IV Total 55 ml Output Urine Total 200 ml 300 ml Laboratory Tests 10/22/16 05:00: White Blood Count 11.1H, Red Blood Count 3.93L, Hemoglobin 10.8L, Hematocrit 35.0L, Mean Corpuscular Volume 89, Mean Corpuscular Hemoglobin 27.4, Mean Corpuscular Hemoglobin Concent 30.8L, Red Cell Distribution Width 13.4, Platelet Count 319, Mean Platelet Volume 5.9L, Neutrophils (%) (Auto) 69.7, Lymphocytes (%) (Auto) 18.1L, Monocytes (%) (Auto) 7.9, Eosinophils (%) (Auto) 3.7H, Basophils (%) (Auto) 0.6, Sodium Level 142, Potassium Level 4.2, Chloride Level 101, Carbon Dioxide Level 25, Anion Gap 16H, Blood Urea Nitrogen 34H, Creatinine 1.0H, Estimat Glomerular Filtration Rate , Glucose Level 95, Calcium Level 8.7, Pro-B-Type Natriuretic Peptide 2732H, Thyroid Stimulating Hormone ( TSH) 0.217L Current Medications Medications (Trade) Dose Ordered Sig/Jonah Route PRN Reason Start Time Stop Time Status Last Admin Dose Admin Acetaminophen (Tylenol) 650 mg Q4H PRN ORAL fever 10/17/16 15:45 11/16/16 15:44 10/21/16 21:46 Al Hydroxide/Mg Hydroxide (Mylanta II) 30 ml Q6H PRN ORAL dyspepsia 10/17/16 15:45 11/16/16 15:44 Apixaban (Eliquis) 2.5 mg BID ORAL 10/17/16 18:00 11/16/16 17:59 10/22/16 17:14 Cefepime HCl/ Dextrose (Maxipime/D5W) 55 ml @ 110 mls/hr Q24H IV 10/17/16 19:00 10/24/16 18:59 10/22/16 18:07 Donepezil HCl (Aricept) 10 mg QHS ORAL 10/17/16 21:00 11/16/16 20:59 10/22/16 20:59 Hydralazine HCl (Apresoline) 50 mg Q6HR PRN ORAL SBP > 160 10/17/16 15:45 11/16/16 15:44 Levothyroxine Sodium (Synthroid) 150 mcg DAILY@0630 ORAL 10/18/16 06:30 11/17/16 06:29 10/22/16 06:09 Memantine (Namenda) 5 mg BID ORAL 10/17/16 18:00 11/16/16 17:59 10/22/16 17:14 Metoprolol Tartrate (Lopressor) 25 mg Q12HR ORAL 10/21/16 21:00 11/20/16 20:59 10/22/16 20:58 Nitroglycerin (Ntg) 0.4 mg Q5MIN X 3 DOSES PRN SL Prn Chest Pain 10/17/16 15:45 11/16/16 15:44 Ondansetron HCl (Zofran) 4 mg Q6H PRN IVP Nausea & Vomiting 10/17/16 15:45 11/16/16 15:44 Polyethylene Glycol (Miralax) 17 gm DAILYPRN PRN ORAL Constipation 10/17/16 15:45 11/16/16 15:44 10/22/16 09:28 Promethazine HCl/ Codeine 5 ml 5 ml Q4H PRN ORAL For Cough 10/17/16 15:45 11/16/16 15:44 Risperidone (RisperDAL) 0.25 mg BID ORAL 10/17/16 18:00 11/16/16 17:59 10/22/16 17:14 Temazepam (Restoril) 15 mg HSPRN PRN ORAL Insomnia 10/17/16 15:45 10/24/16 15:44 TATI FAM Oct 22, 2016 23:08
[2016-10-23] VITALS: BP 120/59
[2016-10-23 04:00] VITALS: BP 149/81
[2016-10-23 07:17] LABS: ANION GAP 12 (5-15); CARBON DIOXIDE 28 mEQ/L (20-30); CHLORIDE 103 mEQ/L (98-107); CREATININE 0.9 mg/dL (0.5-0.9); HEMOLYSIS 0; POTASSIUM 4.8 mEQ/L (3.4-4.9); SODIUM 143 mEQ/L (135-145)
[2016-10-23 07:38] LABS: BASOPHILS % (AUTO) 1.2 % (0.0-2.0); LYMPHOCYTES % (AUTO) 15.1 % (20.0-45.0); MEAN CORPUSCULAR HEMOGLOBIN 27.7 PG (27.0-31.0); MEAN CORPUSCULAR HGB CONC 30.9 G/DL (32.0-36.0); MEAN CORPUSCULAR VOLUME 90 FL (80-99); MEAN PLATELET VOLUME 5.9 FL (6.5-10.1); MONOCYTES % (AUTO) 9.7 % (1.0-10.0); PLATELET COUNT 333 K/UL (150-450); RED BLOOD COUNT 3.88 M/UL (4.20-5.40); RED CELL DISTRIBUTION WIDTH 13.5 % (11.6-14.8); WHITE BLOOD COUNT 9.6 K/UL (4.8-10.8)
[2016-10-23] MEDS: RisperiDONE 0.25mg tab ORAL SCH ×2 (08:13→17:06)
[2016-10-23] MEDS: Metoprolol 25mg tab ORAL SCH (08:13)
[2016-10-23] MEDS: Memantine 10mg tab ORAL SCH ×2 (08:13→17:06)
[2016-10-23] MEDS: Miralax 17gm pkt ORAL PRN (08:13)
[2016-10-23] MEDS: Eliquis 2.5mg tablet ORAL SCH ×2 (08:14→17:05)
[2016-10-23 08:20] VITALS: BP 131/68
[2016-10-23 12:25] VITALS: BP 124/63
--- NOTE | 2016-10-23 14:28 | Wound Care Consultation ---
Wound Assessment Wound Assessment : Wound Number: #1 Wound Present on Admission: No New Wound: Yes Status Change of Wound: No Wound Location Body Site Modif: mid Wound Location Body Site: sacral Wound Type: pressure ulcer Bernice Test: Does not Bernice Pressure Ulcer Stage: II - denuded blister Wound Thickness: Partial Thickness Wound Length: 3.0 - scattered Wound Width: 10.0 - scattered Percent of Wound [place]/Red: 100 Wound Drainage Description: Serosanguineous Wound Drainage Amount: Scant Wound Drainage Odor: None/Absent Tissue Surrounding Wound: Denuded Wound General Appearance: Reddened Wound Comment #1 Mid sacral pressure ulcer stage II- Noted denuded blister to site. Recommendation. -pressure reducing mattress. -Local wound care as ordered -Turn and reposition. -Keep clean and dry. -Offload affected site. -Avoid shear and friction. -Optimize nutrition. -Assess and notify MD for any further changes of condition to skin. PIERRE JONES Oct 23, 2016 14:28
[2016-10-23 16:06] VITALS: BP 133/73
[2016-10-23] MEDS: Cefepime HCl 1 GM in D5W 55 ML IV SCH (18:20)
--- NOTE | 2016-10-23 19:33 | Internal Med Progress Note ---
Subjective Date of Service: Oct 23, 2016 Physician Name JacobBridger Attending Physician Donovan Spring MD Current Medications Medications (Trade) Dose Ordered Sig/Jonah Route PRN Reason Start Time Stop Time Status Last Admin Dose Admin Acetaminophen (Tylenol) 650 mg Q4H PRN ORAL fever 10/17/16 15:45 11/16/16 15:44 10/23/16 17:10 Al Hydroxide/Mg Hydroxide (Mylanta II) 30 ml Q6H PRN ORAL dyspepsia 10/17/16 15:45 11/16/16 15:44 Apixaban (Eliquis) 2.5 mg BID ORAL 10/17/16 18:00 11/16/16 17:59 10/23/16 17:05 Cefepime HCl/ Dextrose (Maxipime/D5W) 55 ml @ 110 mls/hr Q24H IV 10/17/16 19:00 10/24/16 18:59 10/23/16 18:20 Donepezil HCl (Aricept) 10 mg QHS ORAL 10/17/16 21:00 11/16/16 20:59 10/22/16 20:59 Hydralazine HCl (Apresoline) 50 mg Q6HR PRN ORAL SBP > 160 10/17/16 15:45 11/16/16 15:44 Levothyroxine Sodium (Synthroid) 100 mcg DAILY@0630 ORAL 10/23/16 06:30 11/22/16 06:29 10/23/16 06:44 Memantine (Namenda) 5 mg BID ORAL 10/17/16 18:00 11/16/16 17:59 10/23/16 17:06 Metoprolol Tartrate (Lopressor) 25 mg Q12HR ORAL 10/21/16 21:00 11/20/16 20:59 10/23/16 08:13 Nitroglycerin (Ntg) 0.4 mg Q5MIN X 3 DOSES PRN SL Prn Chest Pain 10/17/16 15:45 11/16/16 15:44 Ondansetron HCl (Zofran) 4 mg Q6H PRN IVP Nausea & Vomiting 10/17/16 15:45 11/16/16 15:44 Polyethylene Glycol (Miralax) 17 gm DAILYPRN PRN ORAL Constipation 10/17/16 15:45 11/16/16 15:44 10/23/16 08:13 Promethazine HCl/ Codeine 5 ml 5 ml Q4H PRN ORAL For Cough 10/17/16 15:45 11/16/16 15:44 Risperidone (RisperDAL) 0.25 mg BID ORAL 10/17/16 18:00 11/16/16 17:59 10/23/16 17:06 Temazepam (Restoril) 15 mg HSPRN PRN ORAL Insomnia 10/17/16 15:45 10/24/16 15:44 Allergies: Coded Allergies: SHELLFISH DERIVED (Unverified Allergy, Severe, Hives, 07/20/14) tongue and face swelling ROS Limited/Unobtainable: Yes Subjective 86 YO F admitted with left weakness. MRI cancelled due to pacemaker. Cover for Int Med-Dr Spring Await discharge home with home health tonight. Objective Last Vital Signs Date Time Temp Pulse Resp B/P Pulse Ox O2 Delivery O2 Flow Rate FiO2 10/23/16 16:06 98.4 63 20 133/73 98 Room Air 10/23/16 00:00 2.0 Laboratory Tests Test 10/23/16 05:15 White Blood Count 9.6 K/UL (4.8-10.8) Red Blood Count 3.88 M/UL (4.20-5.40) L Hemoglobin 10.7 G/DL (12.0-16.0) L Hematocrit 34.8 % (37.0-47.0) L Mean Corpuscular Volume 90 FL (80-99) Mean Corpuscular Hemoglobin 27.7 PG (27.0-31.0) Mean Corpuscular Hemoglobin Concent 30.9 G/DL (32.0-36.0) L Red Cell Distribution Width 13.5 % (11.6-14.8) Platelet Count 333 K/UL (150-450) Mean Platelet Volume 5.9 FL (6.5-10.1) L Neutrophils (%) (Auto) 68.0 % (45.0-75.0) Lymphocytes (%) (Auto) 15.1 % (20.0-45.0) L Monocytes (%) (Auto) 9.7 % (1.0-10.0) Eosinophils (%) (Auto) 6.0 % (0.0-3.0) H Basophils (%) (Auto) 1.2 % (0.0-2.0) Sodium Level 143 mEQ/L (135-145) Potassium Level 4.8 mEQ/L (3.4-4.9) Chloride Level 103 mEQ/L (98-107) Carbon Dioxide Level 28 mEQ/L (20-30) Anion Gap 12 (5-15) Blood Urea Nitrogen 27 mg/dL (7-23) H Creatinine 0.9 mg/dL (0.5-0.9) Estimat Glomerular Filtration Rate mL/min (>60) Glucose Level 90 mg/dL (74-106) Calcium Level 9.0 mg/dL (8.6-10.2) Intake and Output 10/22/16 10/23/16 19:00 07:00 Intake Total 210 ml Output Total 250 ml 875 ml Balance -250 ml -665 ml Intake Oral 210 ml Output Urine Total 250 ml 875 ml Objective General: alert, cooperative, no distress, appears stated age Head: normocephalic, without obvious abnormality, atraumatic Eyes: conjunctivae/corneas clear. PERRL, EOM's intact Throat: lips, mucosa, and tongue normal. MMM Neck: supple, symmetrical, trachea midline, and no JVD Lungs: clear to auscultation bilaterally Heart: regular rate and rhythm, S1, S2 normal, no murmur, click, rub or gallop Abdomen: soft, non-tender, non-distended, bowel sounds normal; no masses or organomegaly Extremities: extremities normal, atraumatic, no cyanosis or edema Pulses: 2+ and symmetric Skin: skin color, texture, turgor normal; no rashes or lesions Neurologic: grossly normal, left side weakness Assessment/Plan Problem List: (1) Hypertensive heart disease (2) Pacemaker (3) Hypercholesteremia (4) Generalized weakness Assessment & Plan: MRI cancelled due to pacemaker. (5) Atrial fibrillation Assessment & Plan: Cont eliquis (6) HTN (hypertension) Assessment & Plan: Cont metoprolol (7) Pulmonary hypertension (8) Hypothyroidism Assessment & Plan: Cont synthroid (9) Sick sinus syndrome Assessment & Plan: S/P pacemaker Assessment/Plan Discharge home today with home health BRIDGER JACOB Oct 23, 2016 19:33
--- NOTE | 2016-10-23 23:25 | Pulmonology Progress Note ---
Assessment/Plan Problems: (1) HTN (hypertension) (2) Hypothyroidism (3) Pulmonary hypertension (4) Syncope and collapse (5) Alzheimer's dementia (6) Generalized weakness (7) Altered mental status (8) Hypotension Subjective Allergies: Coded Allergies: SHELLFISH DERIVED (Unverified Allergy, Severe, Hives, 07/20/14) tongue and face swelling Objective Last 24 Hour Vital Signs Date Time Temp Pulse Resp B/P Pulse Ox O2 Delivery O2 Flow Rate FiO2 10/23/16 16:06 98.4 63 20 133/73 98 Room Air 10/23/16 12:25 97.2 60 20 124/63 100 Room Air 10/23/16 08:20 97.8 65 20 131/68 99 Room Air 10/23/16 08:13 63 149/81 10/23/16 04:00 97.5 63 18 149/81 97 Room Air 10/23/16 00:00 97.9 64 18 120/59 99 Nasal Cannula 2.0 Intake and Output 10/22/16 10/23/16 19:00 07:00 Intake Total 210 ml Output Total 250 ml 875 ml Balance -250 ml -665 ml Intake Oral 210 ml Output Urine Total 250 ml 875 ml Laboratory Tests 10/23/16 05:15: White Blood Count 9.6, Red Blood Count 3.88L, Hemoglobin 10.7L, Hematocrit 34.8L , Mean Corpuscular Volume 90, Mean Corpuscular Hemoglobin 27.7, Mean Corpuscular Hemoglobin Concent 30.9L, Red Cell Distribution Width 13.5, Platelet Count 333, Mean Platelet Volume 5.9L, Neutrophils (%) (Auto) 68.0, Lymphocytes (%) (Auto) 15.1L, Monocytes (%) (Auto) 9.7, Eosinophils (%) (Auto) 6.0H, Basophils (%) (Auto) 1.2, Sodium Level 143, Potassium Level 4.8, Chloride Level 103, Carbon Dioxide Level 28, Anion Gap 12, Blood Urea Nitrogen 27H, Creatinine 0.9, Estimat Glomerular Filtration Rate , Glucose Level 90, Calcium Level 9.0 TATI FAM Oct 23, 2016 23:25
--- NOTE | 2016-10-24 19:47 | Discharge Summary ---
Discharge Summary Hospital Course Date of Admission Oct 17, 2016 at 14:34 Date of Discharge Oct 23, 2016 at 20:25 Admitting Diagnosis FAILURE TO THRIVE,WEAKNESS HPI Yudi Wade is a 86 year old female who was admitted on Oct 17, 2016 at 14: 34 for Failure To Thrive,Weakness Hospital Course 2006331 Discharge Discharge Disposition Patient was discharged to Home with Home Health(06) Discharge Diagnoses: Hiwot Mustafa NP Oct 24, 2016 19:47
--- NOTE | 2016-10-25 05:28 | Discharge Summary 2 SIG ---
DATE OF ADMISSION: 10/17/2016 DATE OF DISCHARGE: 10/23/2016 CONSULTANTS: 1. Apoorva Loya M.D. 2. Willis Starks M.D. BRIEF HOSPITAL COURSE: The patient is an 86-year-old female, who presented to ED complaining of generalized weakness. She was recently treated for bronchitis and had hemoptysis that time and was given antibiotics. Symptoms have resolved, however, became increasingly weak more on the left side. She presented to ED where on evaluation, CT of the head showed atrophic changes with chronic ischemic white matter changes. WBC was elevated to 13.4. Dr. Loya was consulted and the patient was given neurologic evaluation and was seen by Dr. Starks for cardiac consultation. The patient initially was slightly tachycardic. She was continued on Eliquis 2.5 mg b.i.d. for atrial fibrillation and also heart rate improved with increase in beta-gildardo. She was unable to do MRI secondary to pacemaker. Venous duplex of lower extremity revealed patent deep venous system bilaterally. Carotid ultrasound showed minimal stenosis. TSH was checked. Synthroid was decreased to 100 mcg daily. She was given intravenous cefepime and underwent physical therapy and occupational therapy. She was given wound care for sacral pressure ulcer. She was eventually discharged home with home health for PT and OT. FINAL DIAGNOSES: 1. Hypertensive heart disease. 2. Pacemaker. 3. Hypercholesterolemia. 4. Atrial fibrillation. 5. Hypertension. 6. Hypothyroidism. 7. Sick sinus syndrome, status post pacemaker. 8. Pulmonary hypertension. 9. Mild to moderate mitral regurgitation. 10. Mid sacral pressure ulcer, stage II. Donovan Spring M.D. I have been assigned to dictate discharge summary on this account and I was not involved in the patient's management. Hiwot Mustafa N.P. DR: LOU JOB#: [id number] CC: NICOLAS
== END 2016-10-23 20:25 | disposition home health service (06) | DRG 308 ==
LOC: EMR 13:50 → 4W 14:34 → EDBEDREQSVC 15:11 → EDBEDREQ 15:52
DX: I48.0 Paroxysmal atrial fibrillation (principal); G93.40 Encephalopathy, unspecified; L89.152 Pressure ulcer of sacral region, stage 2; I95.9 Hypotension, unspecified; I11.9 Hypertensive heart disease without heart failure; G81.94 Hemiplegia, unspecified affecting left nondominant side; I27.2 Other secondary pulmonary hypertension; G30.9 Alzheimer's disease, unspecified; F02.80 Dementia in other diseases classified elsewhere, unspecified severity, without behavioral disturbance, psychotic disturbance, mood disturbance, and anxiety; Z79.01 Long term (current) use of anticoagulants; E78.00 Pure hypercholesterolemia, unspecified; Z95.0 Presence of cardiac pacemaker; R00.0 Tachycardia, unspecified; E03.9 Hypothyroidism, unspecified; I34.0 Nonrheumatic mitral (valve) insufficiency; Z87.891 Personal history of nicotine dependence; Z91.81 History of falling; Z86.73 Personal history of transient ischemic attack (TIA), and cerebral infarction without residual deficits; R55 Syncope and collapse
CPT/HCPCS: 36415; 70450; 71010; 80048; 80053; 80069; 81003; 82164; 82550; 82553; 83605; 83735; 83880; 84100; 84443; 84484; 85025; 85610; 85730; 87040; 93005; 93306; 93880; 93970

== ENCOUNTER 2017-03-04 14:39 | Inpatient (IN) | payer MEDICARE, MEDICAID ==
[~2017-03-04] VITALS: Ht 165.1 cm; Wt 45.4 kg
[2017-03-04] VITALS (11 sets, daily range): BP systolic 67–121; BP diastolic 34–62
[~2017-03-04 14:39] MED LIST changes: +LEVOTHYROXINE100 MCG ORAL; +Piperacillin/Tazobactam 4.5 GM in NS 110 ML IV STA
--- NOTE | 2017-03-04 14:43 | Emergency Room Report ---
History of Present Illness General Source: EMS Present Illness HPI The patient presents with worsening altered mentation. This is been going on for 2 days. Apparently she has her eyes deviated to the left for 2 days. Allegedly a nurse put a Camacho catheter in today. They noticed a fever. The patient's also was tachypneic - they deny cough. She usually has a GCS of 14 but now is only responding to voice minimally. The glucose in the field was 143. The patient is in hospice care at home. The family state that the only knows she has a pacemaker but don't know while she might be on hospice. There is a prior history of dementia. H/O breast and throat CA. Allergies: Coded Allergies: SHELLFISH DERIVED (Unverified Allergy, Severe, Hives, 07/20/14) tongue and face swelling Patient History Limited by: medical condition Past Medical History: see triage record, old chart reviewed Past Surgical History: pacemaker, other - breast CA, throat CA, thyroidectomy, knee surgery Social History: Denies: smoking Social History Narrative hospice at home Reviewed Nursing Documentation: PMH: Agreed, PSxH: Agreed Nursing Documentation-PMH Hx Cardiac Problems: Yes Hx Hypertension: Yes Hx Pacemaker: Yes Hx Asthma: No Hx COPD: No Hx Diabetes: No Hx Cancer: No Hx Gastrointestinal Problems: No Hx Dialysis: No Hx Neurological Problems: Yes Hx Cerebrovascular Accident: Yes Hx Dementia: Yes Hx Alzheimer's Disease: Yes Hx Seizures: No Hx Concentration Difficulty: Yes Hx Dizziness: Yes Hx Syncope: Yes Hx Weakness: Yes Hx Fatigue: Yes Review of Systems All Other Systems: limited Physical Exam Vital Signs Date Time Temp Pulse Resp B/P (MAP) Pulse Ox O2 Delivery O2 Flow Rate FiO2 03/04/17 14:38 99.9 106 14 112/55 97 Nasal Cannula 3.0 03/05/17 00:10 36 Sp02 EP Interpretation: reviewed, abnormal - based on FIO2 and tachypnea, interpreted by me as low General Appearance: other - minimally responsive, Chronically Ill Head: normocephalic Eyes: bilateral eye PERRL, bilateral eye other - Eyes deviated to the left ENT: moist mucus membranes Neck: supple Respiratory: respiratory distress, decreased breath sounds, crackles Cardiovascular #1: tachycardia Cardiovascular #2: 2+ radial (R) Gastrointestinal: normal inspection, non tender, no mass, non-distended, abnormal bowel sounds Musculoskeletal: back normal, decreased range of motion Neurologic: responsive - to voice and pain, sensory intact, motor weakness, Babinski Psychiatric: other - ebulic and in distress Reflexes: 2+ knee (R), 2+ knee (L) Skin: warm/dry, other - hot, decubiti - sacral stage 4, stage 3 ears and legs Procedures Critical Care Time Critical Care Time Total Critical Care Time: 60 min bedside evaluation and treatment excludes procedures (EKG). Reason for critical care: severe sepsis, NSTEMI, stroke, seizure Possible complications: hypotension, hypertension, ND, shock, arrhythmias, metabolic acidosis, end organ damage, respiratory failure. Interventions: Oxygen, sepsis fluid resuscitation, treatment again with fluids for hypotension. antibiotics, treatment of seizure, treatment of NSTEMI, evaluation of level of care Course: Patient in distress with fever, subacute stroke, tachypnea from hospice care. Immediate fluid resuscitation, and evaluation for source - both lungs and urine. Antibiotics begun. BP dropped and then improved with increased fluids. Discussion with family regarding level of care. + troponin - aspirin given. Witnessed seizure - Keppra given. HR and BP slightly better and patient less resp distress. Admitted med. Consultations: nursing staff, EMS, family, admitting MD Performed by: Dr. Patrick Tolerated well condition = critical Medical Decision Making Diagnostic Impression: Primary Impression: Severe sepsis Additional Impressions: Pneumonia Qualified Codes: J18.1 - Lobar pneumonia, unspecified organism Atrial fibrillation with RVR Stroke Qualified Codes: I63.511 - Cerebral infarction due to unspecified occlusion or stenosis of right middle cerebral artery NSTEMI (non-ST elevated myocardial infarction) Seizure UTI (urinary tract infection) Qualified Codes: N30.00 - Acute cystitis without hematuria ER Course Patient presents with ALOC with fever, tachypnea and findings of stroke. The latter is reported to be 2 days old and she is beyond the window for TPA. She is extremely ill and a very complicated patient. Discussion with son was undertaken for level of care. BP dropped. BP better with fluids. Patient with elevated troponin. Aspirin given. Unable to give nitrates, metoprolol or agents to slow heart rate as she is hypotensive. NSTEMI on EKG. Patient had 30 second seizure. Keppra ordered. Discussed with son DNR/DNI. Discussed with Dr. Mane. Laboratory Tests Test 9/4/17 15:00 03/04/17 15:40 03/04/17 16:25 03/05/17 03:50 Urine Color Yellow Urine Appearance Slightly cloudy Urine pH 5 (4.5-8.0) Urine Specific [place] 1.025 (1.005-1.035) Urine Protein 2+ (NEGATIVE) H Urine Glucose (UA) Negative (NEGATIVE) Urine Ketones 1+ (NEGATIVE) H Urine Occult Blood 3+ (NEGATIVE) H Urine Nitrite Negative (NEGATIVE) Urine Bilirubin Negative (NEGATIVE) Urine Urobilinogen 1 MG/DL (0.0-1.0) H Urine Leukocyte Esterase 2+ (NEGATIVE) H Urine RBC 15-20 /HPF (0 - 2) H Urine WBC 10-15 /HPF (0 - 2) H Urine Squamous Epithelial Cells Moderate /LPF (NONE/OCC) H Urine Amorphous Sediment Few /LPF (NONE) H Urine Bacteria Moderate /HPF (NONE) H White Blood Count 16.0 K/UL (4.8-10.8) H 13.0 K/UL (4.8-10.8) H Red Blood Count 3.92 M/UL (4.20-5.40) L 3.36 M/UL (4.20-5.40) L Hemoglobin 10.7 G/DL (12.0-16.0) L 9.8 G/DL (12.0-16.0) L Hematocrit 35.7 % (37.0-47.0) L 30.5 % (37.0-47.0) L Mean Corpuscular Volume 91 FL (80-99) 91 FL (80-99) Mean Corpuscular Hemoglobin 27.2 PG (27.0-31.0) 29.1 PG (27.0-31.0) Mean Corpuscular Hemoglobin Concent 29.9 G/DL (32.0-36.0) L 32.1 G/DL (32.0-36.0) Red Cell Distribution Width 13.4 % (11.6-14.8) 13.5 % (11.6-14.8) Platelet Count 346 K/UL (150-450) 283 K/UL (150-450) Mean Platelet Volume 5.5 FL (6.5-10.1) L 5.7 FL (6.5-10.1) L Neutrophils (%) (Auto) 78.9 % (45.0-75.0) H 81.8 % (45.0-75.0) H Lymphocytes (%) (Auto) 12.6 % (20.0-45.0) L 12.6 % (20.0-45.0) L Monocytes (%) (Auto) 7.8 % (1.0-10.0) 5.2 % (1.0-10.0) Eosinophils (%) (Auto) 0.0 % (0.0-3.0) 0.0 % (0.0-3.0) Basophils (%) (Auto) 0.7 % (0.0-2.0) 0.4 % (0.0-2.0) Prothrombin Time 10.4 SEC (9.30-11.50) Prothrombin Time INR 1.0 (0.9-1.1) PTT 27 SEC (23-33) Sodium Level 154 mEQ/L (135-145) H 150 mEQ/L (135-145) H Potassium Level 3.8 mEQ/L (3.4-4.9) 3.7 mEQ/L (3.4-4.9) Chloride Level 113 mEQ/L (98-107) H 118 mEQ/L (98-107) H Carbon Dioxide Level 21 mEQ/L (20-30) 19 mEQ/L (20-30) L Anion Gap 20 (5-15) H 13 (5-15) Blood Urea Nitrogen 75 mg/dL (7-23) H 67 mg/dL (7-23) H Creatinine 2.1 mg/dL (0.5-0.9) H 1.6 mg/dL (0.5-0.9) H Estimate Glomerular Filtration Rate mL/min (>60) mL/min (>60) Glucose Level 154 mg/dL (74-106) H 151 mg/dL (74-106) H Lactic Acid Level 3.50 mmol/L (0.66-2.22) H 0.30 mmol/L (0.66-2.22) L Calcium Level 8.7 mg/dL (8.6-10.2) 7.5 mg/dL (8.6-10.2) L Magnesium Level 2.6 mg/dL (1.7-2.5) H Total Bilirubin 0.5 mg/dL (0.0-1.2) 0.3 mg/dL (0.0-1.2) Aspartate Amino Transferase (AST) 12 U/L (5-40) 11 U/L (5-40) Alanine Aminotransferase (ALT) 6 U/L (3-33) 5 U/L (3-33) Alkaline Phosphatase 50 U/L (35-104) 45 U/L (35-104) Total Creatine Kinase 100 U/L (26-140) Troponin I 0.63 ng/mL (<=0.30) *H Pro-B-Type Natriuretic Peptide 9310 pg/mL (0-450) H Total Protein 6.9 g/dL (6.6-8.7) 5.6 g/dL (6.6-8.7) L Albumin 2.7 g/dL (3.5-5.2) L 2.3 g/dL (3.5-5.2) L Globulin 4.2 g/dL 3.3 g/dL Albumin/Globulin Ratio 0.6 (1.0-2.7) L 0.6 (1.0-2.7) L Random Vancomycin Level 9.7 ug/mL EKG Diagnostic Results Rate: tachycardiac Rhythm: other - a fib Rhythm Strip Diag. Results EP Interpretation: yes Rhythm: no PVC's, no ectopy, other - a fib rapid Chest X-Ray Diagnostic Results Chest X-Ray Diagnostic Results : Chest X-Ray Ordered: Yes # of Views/Limited/Complete: 1 View Indication: Other Interpretation: no effusion, no pneumothorax, other - RLL infiltrate and pacer Impression: Other Interpreting ER Provider: Electronically signed by Bunny Patrick MD CT/MRI/US Diagnostic Results CT/MRI/US Diagnostic Results : Imaging Test Ordered: head Impression not completed Status: improved Disposition: ADMITTED INPATIENT Condition: Critical Bunny Patrick M.D. Mar 04, 2017 14:43
[2017-03-04] MEDS ORDERED: NS 1000ml 1,400 ML IVLG ONE (14:45)
[2017-03-04] MEDS ORDERED: Acetaminophen 650 MG SUPP RECTAL ONE (14:45)
[2017-03-04] MEDS ORDERED: Vancomycin 750 MG in NS 275 ML IVPB ONE (14:45)
[2017-03-04] MEDS ORDERED: Zosyn 4.5gm inj ONE (15:16)
[2017-03-04 15:32] LABS: KETONES,URINE 1+ (NEGATIVE); LEUKOCYTE ESTERASE ,URINE 2+ (NEGATIVE); NITRITE,URINE NEGATIVE (NEGATIVE); PH,URINE 5 (4.5-8.0); PROTEIN,URINE 2+ (NEGATIVE); UROBILINOGEN,URINE 1 MG/DL (0.0-1.0)
[2017-03-04 15:45] LABS: APPEARANCE,URINE SLIGHTLY CLOUDY
[2017-03-04 15:51] LABS: BACTERIA,URINE MODERATE /HPF; RBC,URINE 15-20 /HPF (0 - 2); SQUAMOUS EPITHELIAL CELL,UR MODERATE /LPF (NONE/OCC)
[2017-03-04 15:52] LABS: AMORPHOUS SEDIMENT,UR FEW /LPF
[2017-03-04 15:56] LABS: BASOPHILS % (AUTO) 0.7 % (0.0-2.0); LYMPHOCYTES % (AUTO) 12.6 % (20.0-45.0); MEAN CORPUSCULAR HEMOGLOBIN 27.2 PG (27.0-31.0); MEAN CORPUSCULAR HGB CONC 29.9 G/DL (32.0-36.0); MEAN CORPUSCULAR VOLUME 91 FL (80-99); MEAN PLATELET VOLUME 5.5 FL (6.5-10.1); MONOCYTES % (AUTO) 7.8 % (1.0-10.0); NEUTROPHILS % (AUTO) 78.9 % (45.0-75.0); PLATELET COUNT 346 K/UL (150-450); RED BLOOD COUNT 3.92 M/UL (4.20-5.40); RED CELL DISTRIBUTION WIDTH 13.4 % (11.6-14.8)
[2017-03-04 16:02] LABS: PROTHROMBIN TIME 10.4 SEC (9.30-11.50)
[2017-03-04 16:11] LABS: ALANINE AMINOTRANSFERASE 6 U/L (3-33); ALBUMIN/GLOBULIN RATIO 0.6 (1.0-2.7); ANION GAP 20 (5-15); ASPARTATE AMINO TRANSFERASE 12 U/L (5-40); CALCIUM 8.7 mg/dL (8.6-10.2); CARBON DIOXIDE 21 mEQ/L (20-30); CHLORIDE 113 mEQ/L (98-107); CREATININE 2.1 mg/dL (0.5-0.9); HEMOLYSIS 5; MAGNESIUM 2.6 mg/dL (1.7-2.5); POTASSIUM 3.8 mEQ/L (3.4-4.9); SODIUM 154 mEQ/L (135-145); TOTAL PROTEIN 6.9 g/dL (6.6-8.7)
[2017-03-04 16:14] LABS: REFLEX LACTIC ACID YES OR NO YES
[2017-03-04 16:18] LABS: TROPONIN I 0.63 ng/mL (<=0.30)
[2017-03-04] MEDS ORDERED: levETIRAcetam 1,000 MG in D5W 95 ML IVPB STA (16:35)
[2017-03-04] MEDS ORDERED: levETIRAcetam 500mg vial IV ONE (16:40)
[2017-03-04] MEDS ORDERED: Vancomycin 750mg Inj IVPB ONE (17:28)
[2017-03-04] MEDS ORDERED: UNOBMED (17:36)
[2017-03-04] MEDS ORDERED: HydrALAZINE 50mg tab ORAL PRN (18:00)
[2017-03-04] MEDS ORDERED: DuoNeb 0.5-3(2.5)mg/3ml neb HHN PRN (18:00)
[2017-03-04] MEDS ORDERED: Morphine Sulfate 2mg/ml Inj IVP PRN (18:00)
[2017-03-04] MEDS ORDERED: Miralax 17gm pkt ORAL PRN (18:00)
[2017-03-04] MEDS ORDERED: Nitroglycerin Subl 0.4mg tab (Bottle Of 25) SL PRN (18:00)
[2017-03-04] MEDS ORDERED: Cefepime HCl 2 GM in D5W 110 ML IV SCH (21:00)
[2017-03-04] MEDS ORDERED: D5 1/2NS w/KCl 20mEq 1,000 ML IV SCH (21:30)
[2017-03-04] MEDS: Cefepime 1gm/D5W 55ml IVPB SCH ×2 (22:39)
[2017-03-04] MEDS: Heparin 5000 units/ml inj SUBQ SCH (22:41)
[2017-03-05] VITALS: BP 105/58
[2017-03-05] MEDS ORDERED: Vancomycin 1 GM in D5W 275 ML IV SCH (00:30)
[2017-03-05 04:00] VITALS: BP 105/58
[2017-03-05 05:09] LABS: BASOPHILS % (AUTO) 0.4 % (0.0-2.0); LYMPHOCYTES % (AUTO) 12.6 % (20.0-45.0); MEAN CORPUSCULAR HEMOGLOBIN 29.1 PG (27.0-31.0); MEAN CORPUSCULAR HGB CONC 32.1 G/DL (32.0-36.0); MEAN CORPUSCULAR VOLUME 91 FL (80-99); MEAN PLATELET VOLUME 5.7 FL (6.5-10.1); MONOCYTES % (AUTO) 5.2 % (1.0-10.0); NEUTROPHILS % (AUTO) 81.8 % (45.0-75.0); PLATELET COUNT 283 K/UL (150-450); RED BLOOD COUNT 3.36 M/UL (4.20-5.40); RED CELL DISTRIBUTION WIDTH 13.5 % (11.6-14.8)
[2017-03-05 05:32] LABS: ALANINE AMINOTRANSFERASE 5 U/L (3-33); ALBUMIN/GLOBULIN RATIO 0.6 (1.0-2.7); ANION GAP 13 (5-15); ASPARTATE AMINO TRANSFERASE 11 U/L (5-40); CALCIUM 7.5 mg/dL (8.6-10.2); CARBON DIOXIDE 19 mEQ/L (20-30); CHLORIDE 118 mEQ/L (98-107); CREATININE 1.6 mg/dL (0.5-0.9); HEMOLYSIS 1; POTASSIUM 3.7 mEQ/L (3.4-4.9); SODIUM 150 mEQ/L (135-145); TOTAL PROTEIN 5.6 g/dL (6.6-8.7)
[2017-03-05] MEDS ORDERED: Vancomycin 750 MG in NS 275 ML IVPB ONE (06:15)
[2017-03-05] MEDS ORDERED: Diltiazem 25mg/5ml IV PRN (07:00)
[2017-03-05] MEDS ORDERED: Metoprolol 5mg/5ml Inj IVP PRN ×2 (07:15)
[2017-03-05 08:21] VITALS: BP 97/68
--- NOTE | 2017-03-05 08:39 | Cardiology Progress Note ---
Assessment/Plan Assessment/Plan full note dictate responds better to bb on history will start on metorpolol iv free water iv abx for uti and ? pneumonia as per dr mondragon may need neuro eval has pacer bet to do ct need feeding tube for meds may be an ngt [id number] Objective Last 24 Hour Vital Signs Date Time Temp Pulse Resp B/P (MAP) Pulse Ox O2 Delivery O2 Flow Rate FiO2 03/05/17 08:21 97.9 117 18 97/68 100 Nasal Cannula 4.0 03/05/17 07:16 150 94/50 03/05/17 04:00 96.4 140 18 105/58 98 Nasal Cannula 4.0 03/05/17 04:00 140 03/05/17 00:30 138 18 Nasal Cannula 4.0 36 03/05/17 00:10 98 Nasal Cannula 4.0 36 03/05/17 00:10 Nasal Cannula 4.0 36 03/05/17 00:00 94.4 106 18 105/58 98 Nasal Cannula 4.0 03/04/17 23:45 133 03/04/17 22:45 118 03/04/17 22:00 118 18 98/56 98 Nasal Cannula 4.0 03/04/17 21:30 97.7 93 18 121/56 98 Nasal Cannula 4.0 03/04/17 20:59 97.2 125 20 75/34 92 Room Air 03/04/17 20:00 118 03/04/17 19:36 100.7 144 14 82/53 95 Nasal Cannula 4.0 03/04/17 18:52 100.7 03/04/17 18:39 149 14 85/62 95 Nasal Cannula 4.0 03/04/17 18:12 143 14 90/49 96 Nasal Cannula 3.0 03/04/17 17:48 147 14 79/49 98 Nasal Cannula 3.0 03/04/17 17:03 100.7 131 14 67/48 99 Nasal Cannula 3.0 03/04/17 15:51 150 14 82/54 98 Nasal Cannula 3.0 03/04/17 15:42 158 14 74/52 98 Nasal Cannula 3.0 03/04/17 15:15 162 14 92/61 97 Nasal Cannula 3.0 03/04/17 14:45 166 14 81/50 97 Nasal Cannula 3.0 03/04/17 14:38 99.9 106 14 112/55 97 Nasal Cannula 3.0 Laboratory Tests Test 03/04/17 15:00 03/04/17 15:40 03/04/17 16:25 03/05/17 03:50 Urine Color Yellow Urine Appearance Slightly cloudy Urine pH 5 (4.5-8.0) Urine Specific [place] 1.025 (1.005-1.035) Urine Protein 2+ (NEGATIVE) H Urine Glucose (UA) Negative (NEGATIVE) Urine Ketones 1+ (NEGATIVE) H Urine Occult Blood 3+ (NEGATIVE) H Urine Nitrite Negative (NEGATIVE) Urine Bilirubin Negative (NEGATIVE) Urine Urobilinogen 1 MG/DL (0.0-1.0) H Urine Leukocyte Esterase 2+ (NEGATIVE) H Urine RBC 15-20 /HPF (0 - 2) H Urine WBC 10-15 /HPF (0 - 2) H Urine Squamous Epithelial Cells Moderate /LPF (NONE/OCC) H Urine Amorphous Sediment Few /LPF (NONE) H Urine Bacteria Moderate /HPF (NONE) H White Blood Count 16.0 K/UL (4.8-10.8) H 13.0 K/UL (4.8-10.8) H Red Blood Count 3.92 M/UL (4.20-5.40) L 3.36 M/UL (4.20-5.40) L Hemoglobin 10.7 G/DL (12.0-16.0) L 9.8 G/DL (12.0-16.0) L Hematocrit 35.7 % (37.0-47.0) L 30.5 % (37.0-47.0) L Mean Corpuscular Volume 91 FL (80-99) 91 FL (80-99) Mean Corpuscular Hemoglobin 27.2 PG (27.0-31.0) 29.1 PG (27.0-31.0) Mean Corpuscular Hemoglobin Concent 29.9 G/DL (32.0-36.0) L 32.1 G/DL (32.0-36.0) Red Cell Distribution Width 13.4 % (11.6-14.8) 13.5 % (11.6-14.8) Platelet Count 346 K/UL (150-450) 283 K/UL (150-450) Mean Platelet Volume 5.5 FL (6.5-10.1) L 5.7 FL (6.5-10.1) L Neutrophils (%) (Auto) 78.9 % (45.0-75.0) H 81.8 % (45.0-75.0) H Lymphocytes (%) (Auto) 12.6 % (20.0-45.0) L 12.6 % (20.0-45.0) L Monocytes (%) (Auto) 7.8 % (1.0-10.0) 5.2 % (1.0-10.0) Eosinophils (%) (Auto) 0.0 % (0.0-3.0) 0.0 % (0.0-3.0) Basophils (%) (Auto) 0.7 % (0.0-2.0) 0.4 % (0.0-2.0) Prothrombin Time 10.4 SEC (9.30-11.50) Prothromb Time International Ratio 1.0 (0.9-1.1) Activated Partial Thromboplast Time 27 SEC (23-33) Sodium Level 154 mEQ/L (135-145) H 150 mEQ/L (135-145) H Potassium Level 3.8 mEQ/L (3.4-4.9) 3.7 mEQ/L (3.4-4.9) Chloride Level 113 mEQ/L (98-107) H 118 mEQ/L (98-107) H Carbon Dioxide Level 21 mEQ/L (20-30) 19 mEQ/L (20-30) L Anion Gap 20 (5-15) H 13 (5-15) Blood Urea Nitrogen 75 mg/dL (7-23) H 67 mg/dL (7-23) H Creatinine 2.1 mg/dL (0.5-0.9) H 1.6 mg/dL (0.5-0.9) H Estimat Glomerular Filtration Rate mL/min (>60) mL/min (>60) Glucose Level 154 mg/dL (74-106) H 151 mg/dL (74-106) H Lactic Acid Level 3.50 mmol/L (0.66-2.22) H 0.30 mmol/L (0.66-2.22) L Calcium Level 8.7 mg/dL (8.6-10.2) 7.5 mg/dL (8.6-10.2) L Magnesium Level 2.6 mg/dL (1.7-2.5) H Total Bilirubin 0.5 mg/dL (0.0-1.2) 0.3 mg/dL (0.0-1.2) Aspartate Amino Transf (AST/SGOT) 12 U/L (5-40) 11 U/L (5-40) Alanine Aminotransferase (ALT/SGPT) 6 U/L (3-33) 5 U/L (3-33) Alkaline Phosphatase 50 U/L (35-104) 45 U/L (35-104) Total Creatine Kinase 100 U/L (26-140) Troponin I 0.63 ng/mL (<=0.30) *H Pro-B-Type Natriuretic Peptide 9310 pg/mL (0-450) H Total Protein 6.9 g/dL (6.6-8.7) 5.6 g/dL (6.6-8.7) L Albumin 2.7 g/dL (3.5-5.2) L 2.3 g/dL (3.5-5.2) L Globulin 4.2 g/dL 3.3 g/dL Albumin/Globulin Ratio 0.6 (1.0-2.7) L 0.6 (1.0-2.7) L Random Vancomycin Level 9.7 ug/mL Microbiology Date/Time Source Procedure Growth Status 03/04/17 15:00 Urine,Clean Catch Urine Culture - Preliminary Gram Negative Bacillus 1 Resulted TRACI WHEATLEY Mar 05, 2017 08:39
--- NOTE | 2017-03-05 08:45 | Consultation ---
Consult Note Consult Note asked to eval for renal failure- The patient presents with worsening altered mentation. This is been going on for 2 days. Apparently she has her eyes deviated to the left. Is a nurse put a Camacho catheter in today. He noticed a fever. The patient's also didn't detect. She usually has a GCS of 14 but now is only responding to voice minimally. The glucose in the field was 143. The patient is in hospice care at home. The family state that the only knows she has a pacemaker but don't know while she might be on hospice. Coded Allergies: SHELLFISH DERIVED (Unverified Allergy, Severe, Hives, 07/20/14) tongue and face swelling Past Surgical History: pacemaker Hx Cardiac Problems: Yes Hx Hypertension: Yes Hx Pacemaker: Yes Hx Neurological Problems: Yes Hx Cerebrovascular Accident: Yes Hx Dementia: Yes Hx Alzheimer's Disease: Yes Hx Concentration Difficulty: Yes Hx Dizziness: Yes Hx Syncope: Yes Hx Weakness: Yes Hx Fatigue: Yes Assessment/Plan Acute renal failure , presents with PreRenal Azotemia and HyperNatremia ( Likely due to HypoTension and Dehydration) Anemia HypoAlbuminemia UTI PH: 1. Hypertensive heart disease. 2. Pacemaker. 3. Hypercholesterolemia. 4. Atrial fibrillation. 5. Hypertension. 6. Hypothyroidism. 7. Sick sinus syndrome, status post pacemaker. 8. Pulmonary hypertension. 9. Mild to moderate mitral regurgitation. Plan: Slow Hydrate- Anemia tanner- Per consultants, Per Order LEONIDES CHAWLA Mar 05, 2017 08:44
[2017-03-05] MEDS ORDERED: Metoprolol 5mg/5ml Inj IVP SCH (09:00)
[2017-03-05] MEDS ORDERED: HydrALAZINE 25mg tab ORAL PRN (09:00)
[2017-03-05] MEDS: Heparin 5000 units/ml inj SUBQ SCH ×2 (10:11→21:17)
--- NOTE | 2017-03-05 10:41 | Consultation ---
History of Present Illness General Date patient seen: Mar 05, 2017 Chief Complaint: Altered Level of Consciousness Reason for Consultation: dyspnea Present Illness HPI 86 year old female with hx of CAD, Dementia, Pacemaker, bed bound brought in by paramedics with CC of increased lethargy and not eating. Pt is DNR. Pt looks comfortable and responds only to painful stimuli. Allergies: Coded Allergies: SHELLFISH DERIVED (Unverified Allergy, Severe, Hives, 07/20/14) tongue and face swelling Medication History Scheduled Apixaban (Eliquis), 2.5 MG ORAL BID Aspirin* (Aspirin*), 81 MG ORAL DAILY Aspirin* (Aspirin*), 81 MG ORAL DAILY, (Reported) Docusate Sodium* (Docusate Sodium*), 100 MG ORAL DAILY, (Reported) Donepezil Hcl* (Aricept*), 10 MG ORAL DAILY Donepezil Hcl* (Donepezil Hcl*), 10 MG ORAL QHS, (Reported) Irbesartan (Irbesartan), 150 MG PO DAILY, (Reported) Levothyroxine Sodium* (Levothyroxine Sodium*), 150 MCG ORAL DAILY@0630 Levothyroxine Sodium* (Levothyroxine Sodium*), 100 MCG ORAL DAILY, (Reported) Memantine Hcl* (Namenda*), 5 MG ORAL BID Metoprolol Tartrate (Metoprolol Tartrate), 12.5 MG ORAL Q12HR Metoprolol Tartrate (Metoprolol Tartrate), 25 MG ORAL EVERY 8 HOURS, (Reported) Ranitidine Hcl* (Zantac*), 150 MG ORAL BEDTIME, (Reported) Risperidone* (Risperdal*), 0.25 MG ORAL BID Scheduled PRN Acetaminophen (Acetaminophen), 650 MG ORAL Q6H PRN for Prn Headache/Temp > 101, (Reported) Acetaminophen (Acetaminophen), 650 MG ORAL Q6H PRN for Prn Headache/Temp > 101, (Reported) Acetaminophen* (Acetaminophen 325MG Tablet*), 650 MG ORAL Q4H PRN for Mild Pain (Pain Scale 1-3) Acetaminophen* (Tylenol Extra Strength*), 500 MG ORAL Q8H PRN for Prn Headache/ Temp > 101 Hydralazine HCl (Hydralazine HCl), 50 MG ORAL Q6HR PRN for For High Blood Pressure, (Reported) Morphine Sulfate* (Morphine Sulfate*), 1 MG IV EVERY 4 HOURS PRN for Pain Scale (6-10), (Reported) Miscellaneous Medications Unable to Obtain Medications (Unable To Obtain Meds), (Reported) Patient History Healthcare decision maker no Resuscitation status Do Not Intubate Advanced Directive on File No Past Medical/Surgical History Past Medical/Surgical History: (1) HTN (hypertension) (2) Hypothyroidism (3) Gout (4) Alzheimer's dementia (5) Pacemaker Review of Systems All Other Systems: negative except mentioned in HPI Physical Exam General Appearance: WD/WN Lines, tubes and drains: peripheral HEENT: normocephalic, atraumatic Neck: non-tender, normal alignment Respiratory/Chest: chest wall non-tender, lungs clear Breasts: no masses Cardiovascular/Chest: normal rate Abdomen: normal bowel sounds, soft Genitourinary/Rectal: normal genital exam Extremities: normal range of motion Last 24 Hour Vital Signs Date Time Temp Pulse Resp B/P (MAP) Pulse Ox O2 Delivery O2 Flow Rate FiO2 03/05/17 08:21 97.9 117 18 97/68 100 Nasal Cannula 4.0 03/05/17 08:00 110 03/05/17 07:16 150 94/50 03/05/17 04:00 96.4 140 18 105/58 98 Nasal Cannula 4.0 03/05/17 04:00 140 03/05/17 00:30 138 18 Nasal Cannula 4.0 36 03/05/17 00:10 98 Nasal Cannula 4.0 36 03/05/17 00:10 Nasal Cannula 4.0 36 03/05/17 00:00 94.4 106 18 105/58 98 Nasal Cannula 4.0 03/04/17 23:45 133 03/04/17 22:45 118 03/04/17 22:00 118 18 98/56 98 Nasal Cannula 4.0 03/04/17 21:30 97.7 93 18 121/56 98 Nasal Cannula 4.0 03/04/17 20:59 97.2 125 20 75/34 92 Room Air 03/04/17 20:00 118 03/04/17 19:36 100.7 144 14 82/53 95 Nasal Cannula 4.0 03/04/17 18:52 100.7 03/04/17 18:39 149 14 85/62 95 Nasal Cannula 4.0 03/04/17 18:12 143 14 90/49 96 Nasal Cannula 3.0 03/04/17 17:48 147 14 79/49 98 Nasal Cannula 3.0 03/04/17 17:03 100.7 131 14 67/48 99 Nasal Cannula 3.0 03/04/17 15:51 150 14 82/54 98 Nasal Cannula 3.0 03/04/17 15:42 158 14 74/52 98 Nasal Cannula 3.0 03/04/17 15:15 162 14 92/61 97 Nasal Cannula 3.0 03/04/17 14:45 166 14 81/50 97 Nasal Cannula 3.0 03/04/17 14:38 99.9 106 14 112/55 97 Nasal Cannula 3.0 Intake and Output 03/05/17 03/06/17 19:00 07:00 Intake Total 75 ml Balance 75 ml IV Total 75 ml Laboratory Tests Test 03/04/17 15:00 03/04/17 15:40 03/04/17 16:25 03/05/17 03:50 Urine Color Yellow Urine Appearance Slightly cloudy Urine pH 5 (4.5-8.0) Urine Specific [place] 1.025 (1.005-1.035) Urine Protein 2+ (NEGATIVE) H Urine Glucose (UA) Negative (NEGATIVE) Urine Ketones 1+ (NEGATIVE) H Urine Occult Blood 3+ (NEGATIVE) H Urine Nitrite Negative (NEGATIVE) Urine Bilirubin Negative (NEGATIVE) Urine Urobilinogen 1 MG/DL (0.0-1.0) H Urine Leukocyte Esterase 2+ (NEGATIVE) H Urine RBC 15-20 /HPF (0 - 2) H Urine WBC 10-15 /HPF (0 - 2) H Urine Squamous Epithelial Cells Moderate /LPF (NONE/OCC) H Urine Amorphous Sediment Few /LPF (NONE) H Urine Bacteria Moderate /HPF (NONE) H White Blood Count 16.0 K/UL (4.8-10.8) H 13.0 K/UL (4.8-10.8) H Red Blood Count 3.92 M/UL (4.20-5.40) L 3.36 M/UL (4.20-5.40) L Hemoglobin 10.7 G/DL (12.0-16.0) L 9.8 G/DL (12.0-16.0) L Hematocrit 35.7 % (37.0-47.0) L 30.5 % (37.0-47.0) L Mean Corpuscular Volume 91 FL (80-99) 91 FL (80-99) Mean Corpuscular Hemoglobin 27.2 PG (27.0-31.0) 29.1 PG (27.0-31.0) Mean Corpuscular Hemoglobin Concent 29.9 G/DL (32.0-36.0) L 32.1 G/DL (32.0-36.0) Red Cell Distribution Width 13.4 % (11.6-14.8) 13.5 % (11.6-14.8) Platelet Count 346 K/UL (150-450) 283 K/UL (150-450) Mean Platelet Volume 5.5 FL (6.5-10.1) L 5.7 FL (6.5-10.1) L Neutrophils (%) (Auto) 78.9 % (45.0-75.0) H 81.8 % (45.0-75.0) H Lymphocytes (%) (Auto) 12.6 % (20.0-45.0) L 12.6 % (20.0-45.0) L Monocytes (%) (Auto) 7.8 % (1.0-10.0) 5.2 % (1.0-10.0) Eosinophils (%) (Auto) 0.0 % (0.0-3.0) 0.0 % (0.0-3.0) Basophils (%) (Auto) 0.7 % (0.0-2.0) 0.4 % (0.0-2.0) Prothrombin Time 10.4 SEC (9.30-11.50) Prothromb Time International Ratio 1.0 (0.9-1.1) Activated Partial Thromboplast Time 27 SEC (23-33) Sodium Level 154 mEQ/L (135-145) H 150 mEQ/L (135-145) H Potassium Level 3.8 mEQ/L (3.4-4.9) 3.7 mEQ/L (3.4-4.9) Chloride Level 113 mEQ/L (98-107) H 118 mEQ/L (98-107) H Carbon Dioxide Level 21 mEQ/L (20-30) 19 mEQ/L (20-30) L Anion Gap 20 (5-15) H 13 (5-15) Blood Urea Nitrogen 75 mg/dL (7-23) H 67 mg/dL (7-23) H Creatinine 2.1 mg/dL (0.5-0.9) H 1.6 mg/dL (0.5-0.9) H Estimat Glomerular Filtration Rate mL/min (>60) mL/min (>60) Glucose Level 154 mg/dL (74-106) H 151 mg/dL (74-106) H Lactic Acid Level 3.50 mmol/L (0.66-2.22) H 0.30 mmol/L (0.66-2.22) L Calcium Level 8.7 mg/dL (8.6-10.2) 7.5 mg/dL (8.6-10.2) L Magnesium Level 2.6 mg/dL (1.7-2.5) H Total Bilirubin 0.5 mg/dL (0.0-1.2) 0.3 mg/dL (0.0-1.2) Aspartate Amino Transf (AST/SGOT) 12 U/L (5-40) 11 U/L (5-40) Alanine Aminotransferase (ALT/SGPT) 6 U/L (3-33) 5 U/L (3-33) Alkaline Phosphatase 50 U/L (35-104) 45 U/L (35-104) Total Creatine Kinase 100 U/L (26-140) Troponin I 0.63 ng/mL (<=0.30) *H Pro-B-Type Natriuretic Peptide 9310 pg/mL (0-450) H Total Protein 6.9 g/dL (6.6-8.7) 5.6 g/dL (6.6-8.7) L Albumin 2.7 g/dL (3.5-5.2) L 2.3 g/dL (3.5-5.2) L Globulin 4.2 g/dL 3.3 g/dL Albumin/Globulin Ratio 0.6 (1.0-2.7) L 0.6 (1.0-2.7) L Random Vancomycin Level 9.7 ug/mL Microbiology Date/Time Source Procedure Growth Status 03/04/17 15:00 Urine,Clean Catch Urine Culture - Preliminary Gram Negative Bacillus 1 Resulted Height (Feet): 5 Height (Inches): 5.00 Weight (Pounds): 100 Medications Current Medications Medications (Trade) Dose Ordered Sig/Jonah Route PRN Reason Start Time Stop Time Status Last Admin Dose Admin Acetaminophen (Tylenol) 650 mg Q4H PRN ORAL fever 03/04/17 18:00 04/03/17 17:59 Albuterol/ Ipratropium (DuoNeb 0.5-3(2.5)mg/3ml) 3 ml Q4H PRN HHN Shortness of Breath 03/04/17 18:00 03/09/17 17:59 Cefepime HCl 1 gm/ Dextrose 55 ml @ 110 mls/hr Q24H IVPB 03/04/17 20:00 03/11/17 19:59 03/04/17 22:39 Dextrose 1,000 ml @ 50 mls/hr Q20H IV 03/05/17 09:30 04/04/17 09:29 Dextrose (Dextrose 50%) STAT PRN IV Hypoglycemia 03/04/17 18:00 04/03/17 17:59 Diltiazem HCl (Cardizem) 10 mg Q1H PRN IV HR>135 bpm after iv metoprolol 03/05/17 09:00 04/04/17 08:59 Heparin Sodium (Porcine) (Heparin 5000 units/ml) 5,000 units EVERY 12 HOURS SUBQ 03/04/17 21:00 04/03/17 20:59 03/05/17 10:11 Hydralazine HCl (Apresoline) 25 mg Q6H PRN ORAL For High BP over 160 syst 03/05/17 09:00 04/04/17 08:59 Levothyroxine Sodium (Synthroid) 100 mcg ACBREAKFAST ORAL 03/05/17 06:30 04/04/17 06:29 Metoprolol Tartrate (Lopressor) 5 mg Q6H IVP 03/05/17 09:00 04/04/17 08:59 Morphine Sulfate (Morphine Sulfate) 2 mg Q4H PRN IVP Moderate Pain (Pain Scale 4-6) 03/04/17 18:00 03/11/17 17:59 Nitroglycerin (Ntg) 0.4 mg Q5M PRN SL Prn Chest Pain 03/04/17 18:00 04/03/17 17:59 Ondansetron HCl (Zofran) 4 mg Q6H PRN IVP Nausea & Vomiting 03/04/17 18:00 04/03/17 17:59 Polyethylene Glycol (Miralax) 17 gm DAILYPRN PRN ORAL Constipation 03/04/17 18:00 04/03/17 17:59 Risperidone (RisperDAL) 0.25 mg Q12HR ORAL 03/05/17 09:00 04/04/17 08:59 Temazepam (Restoril) 15 mg HSPRN PRN ORAL Insomnia 03/04/17 18:00 03/11/17 17:59 Vancomycin HCl (Vanco rx to dose) 1 ea DAILY PRN MISC PER RX PROTOCOL 03/04/17 18:30 04/03/17 18:29 Assessment/Plan Problem List: (1) Sepsis ICD Codes: A41.9 - Sepsis, unspecified organism SNOMED: 77780067 (2) NSTEMI (non-ST elevated myocardial infarction) ICD Codes: I21.4 - Non-ST elevation (NSTEMI) myocardial infarction SNOMED: 945135305 (3) ATN (acute tubular necrosis) ICD Codes: N17.0 - Acute kidney failure with tubular necrosis SNOMED: 36088319 (4) At high risk for aspiration ICD Codes: Z91.89 - Other specified personal risk factors, not elsewhere classified SNOMED: 879474087 (5) HTN (hypertension) ICD Codes: I10 - HTN (hypertension) SNOMED: 37368854 (6) Hypothyroidism ICD Codes: E03.9 - Hypothyroidism SNOMED: 93825189 (7) Pacemaker ICD Codes: Z95.0 - Presence of cardiac pacemaker SNOMED: 793486971, 414211096 Assessment/Plan iv fluids IV antibiotics check cultures swallow evaluation cardiac f/u renal studies TATI FAM Mar 05, 2017 10:41
--- NOTE | 2017-03-05 11:34 | Diagnostic Imaging Report ---
Indication: Dyspnea Comparison: 10/17/16 A single view chest radiograph was obtained. Findings: Mild basilar infiltrates versus atelectasis developed. The heart is large but stable. Pulmonary vascularity is within normal limits. Pacemaker and generalized osteopenia noted. Scoliosis is present. Impression: Basilar infiltrate versus atelectasis. Other findings unchanged
[2017-03-05 11:45] VITALS: BP 100/64
--- NOTE | 2017-03-05 14:33 | History & Physical ---
History and Physical History & Physicial Dictated for Int Med-Dr Spring no.[id number]. YUE JACOB Mar 05, 2017 14:33
--- NOTE | 2017-03-05 14:45 | Infectious Diseases Prog Note ---
Infectious Disease Consult Infectious Disease Consult Infectious Disease Consult INFECTIOUS DISEASE CONSULTATION DATE OF CONSULTATION: [id number] CONSULTING PHYSICIAN: Rachid Liang M.D., MTM&H, CTropMed Covering for Dr. Ferro REFERRING PHYSICIAN: Apoorva Loya MD REASON FOR CONSULTATION: Sepsis, altered mental status HISTORY OF PRESENT ILLNESS: 86 y/o AAF h/o L posterior parietal ischemic CVA, h /o hypertensive heart sinus, sss s/p pacemaker, afib, admitted with 2 days altered mental status. Febrile, tachycardic to HR 150 that responded to rate control and IV fluids, still borderline hypotensive. demonstrated leukocytosis, moderate pyuria. CXR read as bibasilar atelectasis with perhaps infiltrate w/o effusion, but on my review this looks like subtle atelectasis and not infiltrate. being seen by nephro for MARINA with hypernatremia and cardiology. TTE performed at admission notable for intact LVEF, IVC not collapsed, moderate pulmonary HTN. The patient is in hospice care at home. The family state that the only knows she has a pacemaker but don't know while she might be on hospice. Given a dose of zosyn and then continued on renally dosed IV vancomycin and cefepime 1gm IV q24hr. PAST MEDICAL HISTORY: 1. Hypertensive heart disease. 2. Pacemaker. 3. Hypercholesterolemia. 4. Atrial fibrillation. 5. Hypertension. 6. Hypothyroidism. 7. Sick sinus syndrome, status post pacemaker. 8. Pulmonary hypertension. 9. Mild to moderate mitral regurgitation. 10. dixon sensitive E coli UTI--October2015 11. h/o ischemic CVA--left posterior parietal infarct Past Surgical History: Pacemaker ALLERGIES: No known drug allergies. ANTIBIOTICS: Home and hospitalized medications reviewed. IV vanc (03/04/17-- IV cefepime 1gm IV q24hr (03/04/17-- SOCIAL HISTORY: hospice care FAMILY HISTORY: Noncontributory REVIEW OF SYSTEMS: 11 point ROS negative except for that mentioned in HPI above. PHYSICAL EXAM: VITAL SIGNS: Tm 100.7F Tc 97.5F bp 100/64 HR 110 RR 22 100% 4L NC. GEN: awake, alert, non toxic appearing HEENT: Mild pale conjunctiva. pin point pupils. oral mucosa dry, pharynx w/o exudate or effusion. No icterus. Head normocephalic, neck supple. NECK: No cervical LAD, cachectic CHEST: faint rhonchi. no dullness to percussion . L upper chest pacemaker pocket w/o overlying erythema, edema, fluctuance, or warmth. HEART: tachycardic, faint heart sounds. ABDOMEN: soft, flat, non tender, non distended, normoactive bowel sounds. no hepatosplenomegaly. EXTREMITIES: No cyanosis, no clubbing, no edema. good nail hygiene, nails painted pink so cap refill not performed. extremities warm, no mottling. no CVC. PIV c/d/i. NEUROLOGIC: withdraws to deep stimuli : no hernandez. no external lesions. LYMPH: no LAD RECTAL: deferred. reviewed wound images skin: bruise, 1cm on R clavicle LABORATORY AND DIAGNOSTIC DATA: WBC 16 on admission, down to 13.0, hgb 9.8, plt 283 N 81.8%, L 12.6% bmp 154/3.8/113/21/75/2.1/154 ca 8.7, mg 2.6 t bili 0.5, ast 12, alt 6, alk phos 50, prot 6.9, alb 2.7, LAC 3.5-->0.30 trop I 0.63, CPK 100, prot BNp 9310 PTT 27, PT 10.4, INR 1.0 u/a 1.025/2+ prot/1+ ket/2+ LE/15-20 RBC/10-15 WBC/mod bact sacral wound cx: gram stain pending ucx: >100k cfu GNR Pending: blood cx, MRSA surveillance RADIOLOGY: CXR Mild basilar infiltrates versus atelectasis developed. The heart is large but stable. Pulmonary vascularity is within normal limits. Pacemaker and generalized osteopenia noted. Scoliosis is present. Impression: Basilar infiltrate versus atelectasis. Other findings unchanged s/p TTE ASSESSMENT AND PLAN 86 y/o AAF on home hospice admitted with severe urosepsis and lactic acidosis complicated by MARINA/prerenal azotemia, hypernatremia, afib with RVR now with HR ~ 100, persistent borderline hypotension, and today her lab parameters shows some early response to empiric therapy IV cefepime and vancomycin D#1. her CXR doesn 't show an obvious infiltrate, but perhaps dehydrated so will repeat CXR tommorow to confirm abscence of pneumonia, but appears her sepsis is secondary to UTI. only prior + ucx in our system was a dixon-sensitive E coli in October2015, so will plan to narrow abx in next 24-48 hrs depending on her clinical response and results of urine culture which currently is growing >100k cfu GNR. ASSESSMENT: Severe sepsis, secondary to UTI Gram negative urosepsis Hypovolemic shock, responded to IV fluid resuscitation and s/p IV albumin, c/b afib with RVR lactic acidosis. resolving with IV fluid resuscitation. Bibasilar atelectasis. r/o pna. Acute renal failure , presents with PreRenal Azotemia and HyperNatremia ( Likely due to HypoTension and Dehydration) afib w/ RVR. s/p TTE today. Anemia HypoAlbuminemia UTI no h/o MDRO PLAN: --Continue empiric IV vancomycin and renally dosed cefepime 1gm q24hr, D#1 --continue hemodynamic support, currently not on pressors, s/p IV fluid resuscitation and albumin --f/u ucx result, currently growing GNR --f/u blood cx, pending --repeat PCXR in AM to better r/o pna after fluid resuscitation --mrsa screen pending --s/p cardiology and nephrology consultation Thank you for this consultation. Will continue to follow. Covering for Dr. Ferro, please call me with questions, Rachid Liang M.D. Mar 05, 2017 14:45
[2017-03-05 16:06] VITALS: BP 109/59
[2017-03-05] MEDS: Metoprolol 5mg/5ml Inj IVP SCH ×2 (16:39→23:00)
--- NOTE | 2017-03-05 18:19 | Cardiology Report ---
APPROVED REPORT EXAM: Two-dimensional and M-mode echocardiogram with Doppler and color Doppler. INDICATION Atrial Flutter M-Mode DIMENSIONS IVSd0.9 (0.7-1.1cm)Left Atrium (MM)5.4 (1.6-4.0cm) LVDd3.3 (3.5-5.6cm)Aortic Root3.0 (2.0-3.7cm) PWd1.0 (0.7-1.1cm)Aortic Cusp Exc.1.4 (1.5-2.0cm) LVDs2.2 (2.5-4.0cm) PWs1.2 cm Normal left ventricular chamber size, systolic function and wall motion. Left ventricular ejection fraction estimated to be 55-60 %. No evidence of left ventricular hypertrophy. No evidence of pericardial fat or effusion. Moderate bi-atrial and right ventricular enlargements by 2D. Focal aortic valve sclerosis with adequate cusp excursion Thickened mitral valve leaflets with normal excursion. Mitral annulus and aortic root calcification. Pulmonic valve not well visualized. Normal tricuspid valve structure. IVC dilated at 2.3cm with no physiological collapse. RA pressure of 20mmHg. Probable pacemaker wire present in the right side chambers. A color flow and spectral Doppler study was performed and revealed: Mild aortic regurgitation. Mild to moderate mitral regurgitation. Left ventricular diastolic dysfunction not obtainable due to A-FIB. Moderate tricuspid regurgitation. Tricuspid systolic velocities suggests peak right ventricular systolic pressure of 51 mmHg Consistent with moderate pulmonary hypertension.
--- NOTE | 2017-03-05 19:15 | Consultation ---
DATE OF CONSULTATION: 03/05/2017 CARDIOLOGY CONSULTATION REFERRING PHYSICIAN: Apoorva Loya M.D. REASON FOR REFERRAL: Atrial fibrillation with rapid ventricular response. HISTORY OF PRESENT ILLNESS: This is an elderly female, who is not able to provide any meaningful history whatsoever. Medical Reviewer run sheet and the emergency room physician's data reviewed. The patient was apparently found lying in residence. ABCs were intact. Moves all four extremities. The patient's family apparently indicated the patient was not acting normally and staring to the left side only. These symptoms have been ongoing for approximately two days. Apparently, the patient has been on hospice, who yesterday on the day of admission, nursing staff from the hospice placed a Camacho catheter in and the temperature was 101.5 at the time that the nurse take and was supposed to start some antibiotics. The patient's family requested transfer of the patient to the emergency room. In the emergency room, she was noted to have rapid ventricular response, was admitted with severe sepsis and possible stroke. Blood pressure dropped in the emergency room. Blood pressure improved, however, with administration of IV fluids. The patient had a 30-second seizure. Emergency room physician, Dr. Lorenz discussed with the patient's son and the patient was made DNR/DNI. A chest x-ray showed right lower lobe infiltrate per the reading of the emergency room physician and the patient was noted to be in atrial fibrillation with rapid ventricular response. PAST MEDICAL HISTORY: The patient's past medical history is known to me from prior evaluations. She has had history of tachycardia and paroxysmal episodes of atrial fibrillation, which responded to apparently beta-blockers. Previously, she has history of pulmonary hypertension, systemic hypertension, permanent pacemaker implantation, and [id number] degree of mitral regurgitation on prior occasions. She has history of hypothyroidism, dementia, hyperlipidemia, sick sinus syndrome, status post thyroidectomy. 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 The patient has history of recurrent syncopal episodes prior to that. ALLERGIES: She does not report being allergic to any medication, although she is allergic to shellfish. 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 No smoking, alcohol, or drinking. Previously, she has history of [id number] history of smoking. REVIEW OF SYSTEMS: Really unable to obtain. PHYSICAL EXAMINATION: GENERAL: Shows her to be an elderly female with rightward gaze. She tries to communicate I think although it is very difficult to tell as she does not really open her mouth, but she does respond somewhat to questions asked and she does not seem to move any of the extremities. NECK: Supple. No jugular venous distention. LUNGS: Crackles noted on the right base. CARDIAC: Irregularly irregular. ABDOMEN: Soft and nontender. Positive bowel sounds. EXTREMITIES: There is no clubbing, cyanosis, or edema. NEUROLOGIC: She is uncommunicative, not moving any of the extremities. LABORATORY VALUES: Her white count is 13 down from 16 yesterday with hemoglobin 9.8 and platelet count of 280,000. Her hemoglobin has been in the 10 range previously. Her chemistry panel, sodium was 154 and now is 150, potassium of 3.7, chloride 118, bicarbonate of 19, BUN of 67, and creatinine of 1.6. The BUN was 75 and creatinine 2.1 yesterday. Her lactic acid was 3.5 and subsequently decreased down to 0.5. Troponin at the time of admission was 0.63 in light of creatinine of 2.1. Her proBNP was 9300 in light of creatinine of 2.1 and her albumin was 2.2. Her TSH previously back in September was 0.217. Her coagulation studies, INR 1.0 and PTT of 27. Urinalysis yesterday shows 10 to 15 WBCs, 15 to 20 RBCs, 2+ protein, 3+ occult blood, and leukocyte esterase was 2+. She had vancomycin level of 9.7 at 3 o'clock in the morning. Her most recent vital signs, blood pressure anywhere between 94/50 to 105/58 with heart rates anywhere between 117 to 150, temperature documented here, but at the time of admission in the emergency room, it was as high as 100.7. Last echocardiogram was performed in September 2016. At that time, ejection fraction was normal and PA pressure was 65. Her electrocardiogram shows atrial fibrillation with rapid ventricular response at rate of 159, some nonspecific ST-segment changes as noted. ASSESSMENT AND PLAN: 1. Atrial fibrillation with rapid ventricular response. 2. Urinary tract infection. 3. Questionable seizures. 4. History of pulmonary hypertension. 5. Altered mentation, metabolic encephalopathy versus others. 6. Acute renal failure. 7. Hypernatremia suggestive of intravascular volume depletion. 8. Possible pneumonia. Dr. Zarrabi, this patient was seen in cardiac consultation. She had previously responded better to beta-blockers although she has received some intravenous diltiazem to which she did respond. I will switch her back to IV metoprolol to see if better heart rate control may be achieved with that. She does have permanent pacemaker as a backup, so her bradycardia will not be an issue. She should continue receiving intravenous fluids, may be more free water. Unfortunately, she will require her medications by mouth, consider an NG tube placement and may need neurological evaluation. If mentation does not improve, may be even scan her head. Adjustment of medications will be based on response to medications. Willis Starks M.D. DR: JACKY JOB#: [id number] CC:
[2017-03-05 20:00] VITALS: BP 92/63
--- NOTE | 2017-03-05 21:00 | History and Physical Report ---
DATE OF ADMISSION: 03/04/2017 CHIEF COMPLAINT: The patient is an 86-year-old female who presents with complaint of altered mental status. HISTORY OF PRESENT ILLNESS: The patient was admitted to [facility] in September 2016. The patient was diagnosed with sepsis secondary to sacral decubitus ulcer at that time. The patient was discharged home on hospice. According to the family members and the patient's chart, the patient began to have altered mental status over the last two days. The patient is now unresponsive. Much of the history and physical is obtained from the patient's chart and the patient's family. The patient apparently has been increasingly somnolent over the last two days. The patient has not been eating. The patient has been essentially nonverbal over the last two days. EMS was called to the patient's home. The patient was found to be hypotensive. The patient was admitted to [facility] for altered mental status and hypotension to rule out sepsis. REVIEW OF SYSTEMS: Unable to assess secondary to the patient's mental status. PAST MEDICAL HISTORY: Significant for: 1. Atrial fibrillation. 2. Hypertension. 3. Pulmonary hypertension. 4. Hypercholesterolemia. 5. Hypertensive heart disease. 6. Hypothyroidism. PAST SURGICAL HISTORY: Significant for: 1. Thyroidectomy. 2. Pacemaker implantation. CURRENT MEDICATIONS: 1. Tylenol 650 mg one tablet p.o. every four hours as needed. 2. Eliquis 2.5 mg one tablet p.o. twice daily. 3. Aspirin 81 mg one tablet p.o. daily. 4. Aricept 10 mg one tablet p.o. daily. 5. Hydralazine 50 mg one tablet p.o. q.6 h. as needed. 6. Avapro 150 mg one tablet p.o. daily. 7. Levoxyl 0.15 mg p.o. daily. 8. Namenda 5 mg one tablet p.o. twice daily. 9. Metoprolol 12.5 mg one tablet p.o. twice daily. 10. Zantac 150 mg one tablet p.o. nightly. 11. Risperdal 0.25 mg one tablet p.o. twice daily. ALLERGIES: To shellfish. SOCIAL HISTORY: The patient is . The patient lives with family members. The patient is currently on hospice. The patient denies tobacco or alcohol use. The patient quit smoking several years previously. PHYSICAL EXAMINATION: VITAL SIGNS: Temperature 100.7 degrees Fahrenheit, pulse 131 to 150, respirations 14, and blood pressure 67 to 82 over 48 to 54. GENERAL: The patient is thin-appearing female, who is nonverbal. NECK: Supple without lymphadenopathy. CHEST: Few crackles in bilateral bases, otherwise clear to auscultation bilaterally without wheezes or rales. CARDIOVASCULAR: Tachycardic, otherwise regular rhythm. S1 and S2 normal without murmurs, rubs, or gallops. ABDOMEN: Soft, nontender, and nondistended. Positive bowel sounds. No evidence of hepatosplenomegaly. Currently, no rebound or guarding noted. EXTREMITIES: Negative for clubbing, cyanosis, edema. LABORATORY STUDIES: WBC 16.0, hemoglobin 10.7, hematocrit 35.7, and platelets 346,000. Sodium 154, potassium 3.8, chloride 113, BUN 75, and creatinine 2.1. Glucose 154. Lactic acid elevated at 3.5. Troponin elevated at 0.63. Urinalysis showed 3+ occult blood, 1+ ketones, and 2+ leukocyte esterase with 10 to 15 wbc's. ASSESSMENT: This is an 86-year-old female with: 1. Altered mental status. 2. Urinary tract infection. 3. Probable sepsis. 4. Atrial fibrillation. 5. Hypertension. 6. Pulmonary hypertension. 7. Hypercholesterolemia. 8. Hypertensive heart disease. 9. Hypothyroidism. TREATMENT: 1. Altered mental status. This may be secondary to urinary tract infection and sepsis as above. 2. Urinary tract infection/sepsis. An Infectious Disease consultation is obtained with Dr. Liang. Urine culture is pending. The patient has been started empirically on intravenous vancomycin and cefepime. 3. Atrial fibrillation. Cardiology consultation was obtained with Dr. Willis Starks. 4. Hypotension. This is probably secondary to sepsis/urinary tract infection as above. 5. Hypercholesteremia. 6. Hypertensive heart disease. 7. Hypothyroidism. Continue Levoxyl as above. Bridger Mane M.D. DR: KANWAL JOB#: [id number] CC:
[2017-03-05] MEDS: Cefepime 1gm/D5W 55ml IVPB SCH ×2 (21:22)
--- NOTE | 2017-03-05 21:24 | Wound Care Consultation ---
Wound Assessment Wound Assessment #1: Wound Number: 1 Wound Present on Admission: Yes New Wound: No Status Change of Wound: No Wound Location Body Site Modif: right Wound Location Body Site: ear Wound Type: pressure ulcer Bernice Test: Does not Bernice Pressure Ulcer Stage: deep tissue injury Wound Thickness: Full Thickness Wound Length: 2.5 Wound Width: 0.5 Wound Depth: utd Percent of Wound Purple/Maroon: 100 Wound Drainage Amount: None Wound Drainage Odor: None/Absent Tissue Surrounding Wound: Intact Wound Assessment #2: Wound Number: 2 Wound Present on Admission: Yes New Wound: No Status Change of Wound: No Wound Location Body Site Modif: left Wound Location Body Site: ear Wound Type: pressure ulcer Bernice Test: Does not Bernice Pressure Ulcer Stage: deep tissue injury Wound Thickness: Full Thickness Wound Length: 2.0 Wound Width: 0.5 Wound Depth: utd Percent of Wound Black/Brown: 100 - dry Wound Drainage Amount: None Wound Drainage Odor: None/Absent Tissue Surrounding Wound: Intact Wound General Appearance: Reddened Wound Assessment #3: Wound Number: 3 Wound Present on Admission: Yes New Wound: No Status Change of Wound: No Wound Location Body Site Modif: mid Wound Location Body Site: sacral Wound Type: pressure ulcer Bernice Test: Does not Bernice Pressure Ulcer Stage: IV/unstageable Wound Thickness: Full Thickness Wound Length: 8.0 Wound Width: 10.0 Wound Depth: utd Percent of Wound [place]/Red: 20 Percent of Wound Bed Yellow/Wh: 60 Percent of Wound Purple/Maroon: 20 Wound Drainage Description: Serosanguineous Wound Drainage Amount: Moderate Wound Drainage Odor: None/Absent Tissue Surrounding Wound: Macerated Wound General Appearance: Draining Wound Assessment #4: Wound Number: 4 Wound Present on Admission: Yes New Wound: No Status Change of Wound: No Wound Location Body Site Modif: left, upper Wound Location Body Site: back Wound Type: pressure ulcer Bernice Test: Does not Bernice Pressure Ulcer Stage: deep tissue injury - scattered Wound Thickness: Full Thickness Percent of Wound Purple/Maroon: 100 Wound Drainage Amount: None Wound Drainage Odor: None/Absent Tissue Surrounding Wound: Intact Wound Assessment #5: Wound Number: 5 Wound Present on Admission: Yes New Wound: No Status Change of Wound: No Wound Location Body Site Modif: right, lower, posterior, lateral Wound Location Body Site: leg Wound Type: pressure ulcer Bernice Test: Does not Bernice Pressure Ulcer Stage: deep tissue injury - scattered Wound Thickness: Full Thickness Percent of Wound Purple/Maroon: 100 Wound Drainage Amount: None Wound Drainage Odor: None/Absent Tissue Surrounding Wound: Intact Wound Assessment #6: Wound Number: 6 Wound Present on Admission: Yes New Wound: No Status Change of Wound: No Wound Location Body Site Modif: right, lateral Wound Location Body Site: malleolus/ankle Wound Type: pressure ulcer Bernice Test: Does not Bernice Pressure Ulcer Stage: deep tissue injury Wound Thickness: Full Thickness Wound Length: 3.0 Wound Width: 2.5 Wound Depth: utd Percent of Wound Purple/Maroon: 100 Wound Drainage Amount: None Wound Drainage Odor: None/Absent Tissue Surrounding Wound: Intact Wound General Appearance: Reddened - purple Wound Assessment #7: Wound Number: 7 Wound Present on Admission: Yes New Wound: No Status Change of Wound: No Wound Location Body Site Modif: right, mid, lateral Wound Location Body Site: foot Wound Type: pressure ulcer Bernice Test: Does not Bernice Pressure Ulcer Stage: deep tissue injury Wound Thickness: Full Thickness Wound Length: 1.5 Wound Width: 1.5 Wound Depth: utd Percent of Wound Purple/Maroon: 100 Wound Drainage Amount: None Wound Drainage Odor: None/Absent Tissue Surrounding Wound: Intact Wound General Appearance: Asymptomatic Wound Assessment #8: Wound Number: 8 Wound Present on Admission: Yes New Wound: No Status Change of Wound: No Wound Location Body Site Modif: right Wound Location Body Site: metatarsal head - 5th Wound Type: pressure ulcer Bernice Test: Does not Bernice Pressure Ulcer Stage: deep tissue injury Wound Thickness: Full Thickness Wound Length: 1.0 Wound Width: 1.0 Wound Depth: utd Percent of Wound Purple/Maroon: 100 Wound Drainage Amount: None Wound Drainage Odor: None/Absent Tissue Surrounding Wound: Intact Wound General Appearance: Asymptomatic Wound Assessment #9: Wound Number: 9 Wound Present on Admission: Yes New Wound: No Status Change of Wound: No Wound Location Body Site Modif: left, lateral Wound Location Body Site: metatarsal head - 1st Wound Type: pressure ulcer Bernice Test: Does not Bernice Pressure Ulcer Stage: deep tissue injury Wound Thickness: Full Thickness Wound Length: 0.5 Wound Width: 0.5 Wound Depth: utd Percent of Wound Purple/Maroon: 100 Wound Drainage Amount: None Wound Drainage Odor: None/Absent Tissue Surrounding Wound: Intact Wound General Appearance: Asymptomatic Wound Assessment #10: Wound Number: 10 Wound Present on Admission: Yes New Wound: No Status Change of Wound: No Wound Location Body Site Modif: left, medial, dorsal Wound Location Body Site: foot Wound Type: pressure ulcer Bernice Test: Does not Bernice Pressure Ulcer Stage: deep tissue injury Wound Thickness: Full Thickness Wound Length: 0.5 Wound Width: 0.5 Wound Depth: utd Percent of Wound Purple/Maroon: 100 Wound Drainage Amount: None Wound Drainage Odor: None/Absent Tissue Surrounding Wound: Intact Wound General Appearance: Asymptomatic Wound Comment #1 Right ear DTI pressure ulcer #2 Left ear DTI pressure ulcer #3 Sacral unstageable pressure ulcer #4 Left upper back scattered DTI pressure ulcers #5 Right lateral and posterior scattered DTI pressure ulcers #6 Right lateral malleolus DTI pressure ulcer #7 Right mid lateral foot DTI pressure ulcer #8 Right lateral 5th metatarsal head DTI pressure ulcers #9 Left lateral 1st metatarsal head DTI pressure ulcer #10 Left medial dorsal foot DTI pressure ulcer Recommendation -Sacral unstageable pressure ulcer Cleanse with saline, pat dry, apply skin barrier film to periwound, apply Therahoney gel to wound bed cover with calcium alginate secure with Bordered gauze daily and PRN soiled/dislodged -Local wound care per protocol for DTI -Keep clean and dry -Turn and reposition -Low air loss mattress -Optimize nutrition -Offload both heels -Heel protector on both heels -Assess and f/u accordingly for any changes BON NAM RN Mar 05, 2017 21:24
[2017-03-06] VITALS (7 sets, daily range): BP systolic 91–113; BP diastolic 53–74
[2017-03-06 04:54] LABS: MEAN CORPUSCULAR HEMOGLOBIN 28.4 PG (27.0-31.0); MEAN CORPUSCULAR HGB CONC 31.6 G/DL (32.0-36.0); MEAN CORPUSCULAR VOLUME 90 FL (80-99); MEAN PLATELET VOLUME 6.2 FL (6.5-10.1); PLATELET COUNT 265 K/UL (150-450); RED BLOOD COUNT 3.26 M/UL (4.20-5.40); RED CELL DISTRIBUTION WIDTH 13.3 % (11.6-14.8); WHITE BLOOD COUNT 14.3 K/UL (4.8-10.8)
[2017-03-06] MEDS: Metoprolol 5mg/5ml Inj IVP SCH ×4 (05:00→22:31)
[2017-03-06 05:48] LABS: TROPONIN I < 0.30 ng/mL (<=0.30)
[2017-03-06 05:51] LABS: ALANINE AMINOTRANSFERASE 6 U/L (3-33); ALBUMIN/GLOBULIN RATIO 0.6 (1.0-2.7); ANION GAP 13 (5-15); ASPARTATE AMINO TRANSFERASE 12 U/L (5-40); CARBON DIOXIDE 18 mEQ/L (20-30); CHLORIDE 113 mEQ/L (98-107); CHOLESTEROL 109 mg/dL (< 200); CHOLESTEROL/HDL RATIO 7.3 (3.3-4.4); CREATININE 0.9 mg/dL (0.5-0.9); CRP QUANT 2.7 mg/dL (< 0.5); LDL CHOLESTEROL (CALC.) 59 mg/dL (60-99); PHOSPHORUS 1.8 mg/dL (2.5-4.8); SODIUM 144 mEQ/L (135-145); TOTAL PROTEIN 5.4 g/dL (6.6-8.7); URIC ACID 7.5 mg/dL (3.0-7.5)
[2017-03-06 05:53] LABS: HEMOGLOBIN A1C 5.5 % (< 6.0)
[2017-03-06 06:01] LABS: APPEARANCE,URINE CLEAR; KETONES,URINE NEGATIVE (NEGATIVE); LEUKOCYTE ESTERASE ,URINE 1+ (NEGATIVE); NITRITE,URINE NEGATIVE (NEGATIVE); PH,URINE 5 (4.5-8.0); PROTEIN,URINE 2+ (NEGATIVE); UROBILINOGEN,URINE NORMAL MG/DL (0.0-1.0)
[2017-03-06 06:02] LABS: HEMOLYSIS 10; IRON 25 ug/dL (37-145); TOTAL IRON BINDING CAPACITY 112 ug/dL (250-400)
[2017-03-06 06:08] LABS: FERRITIN 492 ng/mL (13-150); THYROID STIMULATING HORMONE 0.039 uIU/mL (0.300-4.500)
[2017-03-06 06:24] LABS: SQUAMOUS EPITHELIAL CELL,UR MODERATE /LPF (NONE/OCC)
[2017-03-06 06:25] LABS: AMORPHOUS SEDIMENT,UR MODERATE /LPF; BACTERIA,URINE OCCASIONAL /HPF; YEAST,URINE MODERATE /HPF
[2017-03-06 08:58] LABS: BAND NEUTROPHILS % (MANUAL) 2 % (0-8); BASOPHILS % (MANUAL) 0 % (0-2); EOSINOPHILS % (MANUAL) 0 % (0-3); HYPOCHROMASIA 1+; LYMPHOCYTES % (MANUAL) 16 % (20-45); NEUTROPHILS % (MANUAL) 79 % (45-75); PLATELET ESTIMATE ADEQUATE; PLATELET MORPHOLOGY NORMAL; TOTAL CELLS COUNTED 100
[2017-03-06 08:59] LABS: ANISOCYTOSIS 1+
[2017-03-06] MEDS: Diltiazem 25mg/5ml IV PRN (09:03)
[2017-03-06] MEDS: Heparin 5000 units/ml inj SUBQ SCH ×2 (09:09→20:45)
--- NOTE | 2017-03-06 10:31 | Diagnostic Imaging Report ---
Indication: AMS Technique: One view of the chest Comparison: 03/04/2017 Findings: The heart is enlarged. There is some atelectasis and possible consolidation at the right lung base, appearing similar to prior exam. There is suggestion of some patchy consolidation or atelectasis at the left lung base, not evident previously The aorta is tortuous ectatic and calcified. Upper mediastinum is unremarkable. There is a left chest pacemaker Impression: Cardiomegaly Right basilar consolidation and atelectasis, unchanged over 2 days Possible new patchy consolidation or atelectasis at the left lung base
--- NOTE | 2017-03-06 10:50 | Diagnostic Imaging Report ---
Indication: Abnormal renal function tests Technique: Grayscale and duplex images of the kidneys, retroperitoneum, and bladder were obtained. Comparison: Findings: Exam is somewhat limited due to patient body habitus and patient being contracted. This particularly affects visualization of the left kidney. Right kidney measures 8.6 cm in length. Left kidney measures 9.6 cm in length. Both kidneys demonstrate normal echogenicity. No hydronephrosis. Right kidney demonstrates multiple cysts. Right kidney also demonstrates a shadowing echogenic focus in the upper pole. The left kidney demonstrates multiple cysts. Normal inferior vena cava. Bladder is normal. There is small amount of free fluid in Morison's pouch Impression: Limited exam, as described Negative for hydronephrosis Right upper pole renal calcification, demonstrated on prior chest CT of January 2015 to represent a parenchymal calcification Small amount of free intraperitoneal fluid Incidental finding bilateral renal cysts.
[2017-03-06] MEDS ORDERED: Tubing IV Secondary IV ONE ×2 (11:07→15:22)
[2017-03-06] MEDS ORDERED: NS 275ml ONE ×2 (11:07→15:22)
[2017-03-06] MEDS ORDERED: D5W 550ml IV ONE ×2 (11:07→15:22)
[2017-03-06] MEDS ORDERED: NS 550ML IV ONE ×2 (11:07→15:22)
--- NOTE | 2017-03-06 11:41 | Pulmonology Progress Note ---
Assessment/Plan Problems: (1) Sepsis (2) NSTEMI (non-ST elevated myocardial infarction) (3) ATN (acute tubular necrosis) (4) At high risk for aspiration (5) HTN (hypertension) (6) Hypothyroidism (7) Pacemaker Assessment/Plan mental status improved K supplement swallow study IV abx f/u BUN/creatinine med/surg Subjective ROS Limited/Unobtainable: No Interval Events: more awake, comfortable Allergies: Coded Allergies: SHELLFISH DERIVED (Unverified Allergy, Severe, Hives, 07/20/14) tongue and face swelling Objective Last 24 Hour Vital Signs Date Time Temp Pulse Resp B/P (MAP) Pulse Ox O2 Delivery O2 Flow Rate FiO2 03/06/17 09:03 140 98/74 03/06/17 08:00 98.4 97 18 98/74 98 Nasal Cannula 4.0 03/06/17 07:58 117 03/06/17 07:32 Nasal Cannula 3.0 32 03/06/17 07:31 98 Nasal Cannula 3.0 32 03/06/17 07:30 97 18 Nasal Cannula 3.0 32 03/06/17 05:00 122 104/61 03/06/17 04:00 97.7 115 20 97/61 100 Nasal Cannula 2.0 03/06/17 04:00 122 03/06/17 00:19 96.8 110 20 91/53 100 Nasal Cannula 2.0 03/06/17 00:00 135 03/05/17 23:00 110 91/53 03/05/17 20:00 97.2 70 19 92/63 100 Nasal Cannula 2.0 03/05/17 20:00 125 03/05/17 18:55 99 Nasal Cannula 3.0 32 03/05/17 18:55 76 18 Nasal Cannula 3.0 32 03/05/17 18:55 Nasal Cannula 3.0 32 03/05/17 16:39 116 109/59 03/05/17 16:17 118 03/05/17 16:06 97.3 116 18 109/59 98 Nasal Cannula 4.0 03/05/17 12:00 110 03/05/17 11:45 97.5 105 18 100/64 100 Nasal Cannula 4.0 General Appearance: cachetic HEENT: normocephalic, atraumatic Respiratory/Chest: chest wall non-tender, lungs clear Breasts: no masses Cardiovascular: normal peripheral pulses, normal rate Abdomen: normal bowel sounds, soft, non tender Genitourinary: normal external genitalia Neurologic/Psychiatric: sider II-XII grossly normal Lymphatic: no neck adenopathy Microbiology Date/Time Source Procedure Growth Status 03/04/17 15:40 Blood Blood Culture - Preliminary NO GROWTH AFTER 24 HOURS Resulted 03/04/17 15:20 Blood Blood Culture - Preliminary NO GROWTH AFTER 24 HOURS Resulted 03/04/17 15:00 Urine,Clean Catch Urine Culture - Final Escherichia Coli - Esbl Complete 03/05/17 04:00 Sacral Wound Gram Stain - Final Resulted 03/05/17 04:00 Wound Culture - Preliminary Gram Negative Bacillus 1 Gram Positive Cocci Resulted Laboratory Tests 03/06/17 03:27: White Blood Count 14.3H, Red Blood Count 3.26L, Hemoglobin 9.2L, Hematocrit 29.3L, Mean Corpuscular Volume 90, Mean Corpuscular Hemoglobin 28.4, Mean Corpuscular Hemoglobin Concent 31.6L, Red Cell Distribution Width 13.3, Platelet Count 265, Mean Platelet Volume 6.2L, Neutrophils (%) (Auto) , Lymphocytes (%) (Auto) , Monocytes (%) (Auto) , Eosinophils (%) (Auto) , Basophils (%) (Auto) , Differential Total Cells Counted 100, Neutrophils % ( Manual) 79H, Lymphocytes % (Manual) 16L, Monocytes % (Manual) 3, Eosinophils % ( Manual) 0, Basophils % (Manual) 0, Band Neutrophils 2, Platelet Estimate Adequate, Platelet Morphology Normal, Hypochromasia 1+, Anisocytosis 1+, Sodium Level 144, Potassium Level 3.0L, Chloride Level 113H, Carbon Dioxide Level 18L, Anion Gap 13, Blood Urea Nitrogen 40#H, Creatinine 0.9, Estimat Glomerular Filtration Rate , Glucose Level 134H, Hemoglobin A1c 5.5, Uric Acid 7.5, Calcium Level 8.0L, Phosphorus Level 1.8L, Magnesium Level 2.0, Iron Level 25L, Total Iron Binding Capacity 112L, Percent Iron Saturation 22, Unsaturated Iron Binding 87L, Ferritin 492H, Total Bilirubin 0.3, Gamma Glutamyl Transpeptidase 23, Aspartate Amino Transf (AST/SGOT) 12, Alanine Aminotransferase (ALT/SGPT) 6 , Alkaline Phosphatase 48, Total Creatine Kinase 103, Troponin I < 0.30, C- Reactive Protein, Quantitative 2.7H, Pro-B-Type Natriuretic Peptide 91272E, Total Protein 5.4L, Albumin 2.2L, Globulin 3.2, Albumin/Globulin Ratio 0.6L, Triglycerides Level 174H, Cholesterol Level 109, LDL Cholesterol 59L, HDL Cholesterol 15, Cholesterol/HDL Ratio 7.3H, Vitamin B12 Level 634, Folate [ Pending], Thyroid Stimulating Hormone (TSH) 0.039L 03/06/17 04:00: Urine Color Pale yellow, Urine Appearance Clear, Urine pH 5, Urine Specific [place] 1.015, Urine Protein 2+H, Urine Glucose (UA) Negative, Urine Ketones Negative, Urine Occult Blood 2+H, Urine Nitrite Negative, Urine Bilirubin Negative, Urine Urobilinogen Normal, Urine Leukocyte Esterase 1+H, Urine RBC 2- 4H, Urine WBC 2-4, Urine Squamous Epithelial Cells ModerateH, Urine Amorphous Sediment ModerateH, Urine Bacteria Occasional, Urine Yeast ModerateH, Urine Eosinophils None seen, Urine Osmolality 689H, Urine Random Sodium 38, Urine Random Chloride 58, Urine Potassium Timed 31 03/06/17 08:05: Vancomycin Level Trough 9.9 Current Medications Medications (Trade) Dose Ordered Sig/Jonah Route PRN Reason Start Time Stop Time Status Last Admin Dose Admin Acetaminophen (Tylenol) 650 mg Q4H PRN ORAL fever 03/04/17 18:00 04/03/17 17:59 Albuterol/ Ipratropium (DuoNeb 0.5-3(2.5)mg/3ml) 3 ml Q4H PRN HHN Shortness of Breath 03/04/17 18:00 03/09/17 17:59 Dextrose 1,000 ml @ 75 mls/hr [id number] IV 03/06/17 09:30 04/05/17 09:29 Dextrose (Dextrose 50%) STAT PRN IV Hypoglycemia 03/04/17 18:00 04/03/17 17:59 Diltiazem HCl (Cardizem) 10 mg Q1H PRN IV HR>135 bpm after iv metoprolol 03/05/17 09:00 04/04/17 08:59 03/06/17 09:03 Heparin Sodium (Porcine) (Heparin 5000 units/ml) 5,000 units EVERY 12 HOURS SUBQ 03/04/17 21:00 04/03/17 20:59 9/6/17 09:09 Hydralazine HCl (Apresoline) 25 mg Q6H PRN ORAL For High BP over 160 syst 03/05/17 09:00 04/04/17 08:59 Levothyroxine Sodium (Synthroid) 50 mcg DAILY IV 03/06/17 09:00 04/05/17 08:59 03/06/17 09:09 Metoprolol Tartrate (Lopressor) 5 mg Q6H IVP 03/05/17 17:00 04/04/17 16:59 03/06/17 05:00 Morphine Sulfate (Morphine Sulfate) 2 mg Q4H PRN IVP Moderate Pain (Pain Scale 4-6) 03/04/17 18:00 03/11/17 17:59 Nitroglycerin (Ntg) 0.4 mg Q5M PRN SL Prn Chest Pain 03/04/17 18:00 04/03/17 17:59 Ondansetron HCl (Zofran) 4 mg Q6H PRN IVP Nausea & Vomiting 03/04/17 18:00 04/03/17 17:59 Piperacillin Sod/ Tazobactam Sod 3.375 gm/Dextrose 110 ml @ 27.5 mls/hr EVERY 8 HOURS IVPB 03/06/17 14:00 03/11/17 13:59 Polyethylene Glycol (Miralax) 17 gm DAILYPRN PRN ORAL Constipation 03/04/17 18:00 04/03/17 17:59 Risperidone (RisperDAL) 0.25 mg Q12HR ORAL 03/05/17 09:00 04/04/17 08:59 Temazepam (Restoril) 15 mg HSPRN PRN ORAL Insomnia 03/04/17 18:00 03/11/17 17:59 Vancomycin HCl (Vanco rx to dose) 1 ea DAILY PRN MISC PER RX PROTOCOL 03/04/17 18:30 04/03/17 18:29 Vancomycin HCl 500 mg/Dextrose 110 ml @ 110 mls/hr Q12H IVPB 03/06/17 10:00 03/11/17 09:59 TATI FAM Mar 06, 2017 11:41
--- NOTE | 2017-03-06 11:45 | General Progress Note ---
Assessment/Plan Status Narrative Cr lowered- Assessment/Plan status: Acute renal failure , presents with PreRenal Azotemia and HyperNatremia ( Likely due to HypoTension and Dehydration)- IMPROVING Anemia HypoAlbuminemia UTI PH: 1. Hypertensive heart disease. 2. Pacemaker. 3. Hypercholesterolemia. 4. Atrial fibrillation. 5. Hypertension. 6. Hypothyroidism. 7. Sick sinus syndrome, status post pacemaker. 8. Pulmonary hypertension. 9. Mild to moderate mitral regurgitation. Plan: K Phos IV- Per consultants- monitor renal parameters and electrolytes Subjective Allergies: Coded Allergies: SHELLFISH DERIVED (Unverified Allergy, Severe, Hives, 07/20/14) tongue and face swelling Objective Last 24 Hour Vital Signs Date Time Temp Pulse Resp B/P (MAP) Pulse Ox O2 Delivery O2 Flow Rate FiO2 03/06/17 09:03 140 98/74 03/06/17 08:00 98.4 97 18 98/74 98 Nasal Cannula 4.0 03/06/17 07:58 117 03/06/17 07:32 Nasal Cannula 3.0 32 03/06/17 07:31 98 Nasal Cannula 3.0 32 03/06/17 07:30 97 18 Nasal Cannula 3.0 32 03/06/17 05:00 122 104/61 03/06/17 04:00 97.7 115 20 97/61 100 Nasal Cannula 2.0 03/06/17 04:00 122 03/06/17 00:19 96.8 110 20 91/53 100 Nasal Cannula 2.0 03/06/17 00:00 135 03/05/17 23:00 110 91/53 03/05/17 20:00 97.2 70 19 92/63 100 Nasal Cannula 2.0 03/05/17 20:00 125 03/05/17 18:55 99 Nasal Cannula 3.0 32 03/05/17 18:55 76 18 Nasal Cannula 3.0 32 03/05/17 18:55 Nasal Cannula 3.0 32 03/05/17 16:39 116 109/59 03/05/17 16:17 118 03/05/17 16:06 97.3 116 18 109/59 98 Nasal Cannula 4.0 03/05/17 12:00 110 03/05/17 11:45 97.5 105 18 100/64 100 Nasal Cannula 4.0 Laboratory Tests 03/06/17 03:27: White Blood Count 14.3H, Red Blood Count 3.26L, Hemoglobin 9.2L, Hematocrit 29.3L, Mean Corpuscular Volume 90, Mean Corpuscular Hemoglobin 28.4, Mean Corpuscular Hemoglobin Concent 31.6L, Red Cell Distribution Width 13.3, Platelet Count 265, Mean Platelet Volume 6.2L, Neutrophils (%) (Auto) , Lymphocytes (%) (Auto) , Monocytes (%) (Auto) , Eosinophils (%) (Auto) , Basophils (%) (Auto) , Differential Total Cells Counted 100, Neutrophils % ( Manual) 79H, Lymphocytes % (Manual) 16L, Monocytes % (Manual) 3, Eosinophils % ( Manual) 0, Basophils % (Manual) 0, Band Neutrophils 2, Platelet Estimate Adequate, Platelet Morphology Normal, Hypochromasia 1+, Anisocytosis 1+, Sodium Level 144, Potassium Level 3.0L, Chloride Level 113H, Carbon Dioxide Level 18L, Anion Gap 13, Blood Urea Nitrogen 40#H, Creatinine 0.9, Estimat Glomerular Filtration Rate , Glucose Level 134H, Hemoglobin A1c 5.5, Uric Acid 7.5, Calcium Level 8.0L, Phosphorus Level 1.8L, Magnesium Level 2.0, Iron Level 25L, Total Iron Binding Capacity 112L, Percent Iron Saturation 22, Unsaturated Iron Binding 87L, Ferritin 492H, Total Bilirubin 0.3, Gamma Glutamyl Transpeptidase 23, Aspartate Amino Transf (AST/SGOT) 12, Alanine Aminotransferase (ALT/SGPT) 6 , Alkaline Phosphatase 48, Total Creatine Kinase 103, Troponin I < 0.30, C- Reactive Protein, Quantitative 2.7H, Pro-B-Type Natriuretic Peptide [id number], Total Protein 5.4L, Albumin 2.2L, Globulin 3.2, Albumin/Globulin Ratio 0.6L, Triglycerides Level 174H, Cholesterol Level 109, LDL Cholesterol 59L, HDL Cholesterol 15, Cholesterol/HDL Ratio 7.3H, Vitamin B12 Level 634, Folate [ Pending], Thyroid Stimulating Hormone (TSH) 0.039L 03/06/17 04:00: Urine Color Pale yellow, Urine Appearance Clear, Urine pH 5, Urine Specific [place] 1.015, Urine Protein 2+H, Urine Glucose (UA) Negative, Urine Ketones Negative, Urine Occult Blood 2+H, Urine Nitrite Negative, Urine Bilirubin Negative, Urine Urobilinogen Normal, Urine Leukocyte Esterase 1+H, Urine RBC 2- 4H, Urine WBC 2-4, Urine Squamous Epithelial Cells ModerateH, Urine Amorphous Sediment ModerateH, Urine Bacteria Occasional, Urine Yeast ModerateH, Urine Eosinophils None seen, Urine Osmolality 689H, Urine Random Sodium 38, Urine Random Chloride 58, Urine Potassium Timed 31 03/06/17 08:05: Vancomycin Level Trough 9.9 Height (Feet): 5 Height (Inches): 5.00 Weight (Pounds): 100 LEONIDES CHAWLA Mar 06, 2017 11:45
[2017-03-06] MEDS: Vancomycin 500mg/D5W 110ml IVPB SCH ×4 (12:21→22:10)
--- NOTE | 2017-03-06 12:22 | Internal Med Progress Note ---
Subjective Date of Service: Mar 06, 2017 Physician Name Bridger Jacob Attending Physician Donovan Spring MD Current Medications Medications (Trade) Dose Ordered Sig/Jonah Route PRN Reason Start Time Stop Time Status Last Admin Dose Admin Acetaminophen (Tylenol) 650 mg Q4H PRN ORAL fever 03/04/17 18:00 04/03/17 17:59 Albuterol/ Ipratropium (DuoNeb 0.5-3(2.5)mg/3ml) 3 ml Q4H PRN HHN Shortness of Breath 03/04/17 18:00 03/09/17 17:59 Dextrose 1,000 ml @ 50 mls/hr Q20H IV 03/07/17 09:30 04/06/17 09:29 Dextrose (Dextrose 50%) STAT PRN IV Hypoglycemia 03/04/17 18:00 04/03/17 17:59 Diltiazem HCl (Cardizem) 10 mg Q1H PRN IV HR>135 bpm after iv metoprolol 03/05/17 09:00 04/04/17 08:59 03/06/17 09:03 Heparin Sodium (Porcine) (Heparin 5000 units/ml) 5,000 units EVERY 12 HOURS SUBQ 03/04/17 21:00 04/03/17 20:59 03/06/17 09:09 Hydralazine HCl (Apresoline) 25 mg Q6H PRN ORAL For High BP over 160 syst 03/05/17 09:00 04/04/17 08:59 Levothyroxine Sodium (Synthroid) 50 mcg DAILY IV 03/06/17 09:00 04/05/17 08:59 03/06/17 09:09 Metoprolol Tartrate (Lopressor) 5 mg Q6H IVP 03/05/17 17:00 04/04/17 16:59 03/06/17 12:13 Morphine Sulfate (Morphine Sulfate) 2 mg Q4H PRN IVP Moderate Pain (Pain Scale 4-6) 03/04/17 18:00 03/11/17 17:59 Nitroglycerin (Ntg) 0.4 mg Q5M PRN SL Prn Chest Pain 03/04/17 18:00 04/03/17 17:59 Ondansetron HCl (Zofran) 4 mg Q6H PRN IVP Nausea & Vomiting 03/04/17 18:00 10/4/17 17:59 Piperacillin Sod/ Tazobactam Sod 3.375 gm/Dextrose 110 ml @ 27.5 mls/hr EVERY 8 HOURS IVPB 03/06/17 14:00 03/11/17 13:59 Polyethylene Glycol (Miralax) 17 gm DAILYPRN PRN ORAL Constipation 03/04/17 18:00 04/03/17 17:59 Potassium Phosphate 30 mm/ Sodium Chloride 285 ml @ 47.5 mls/hr ONCE ONCE IV 03/06/17 13:00 03/06/17 18:59 Potassium Chloride 100 ml @ 100 mls/hr Q1H IV 03/06/17 11:45 03/06/17 14:44 Risperidone (RisperDAL) 0.25 mg Q12HR ORAL 03/05/17 09:00 04/04/17 08:59 Temazepam (Restoril) 15 mg HSPRN PRN ORAL Insomnia 03/04/17 18:00 03/11/17 17:59 Vancomycin HCl (Vanco rx to dose) 1 ea DAILY PRN MISC PER RX PROTOCOL 03/04/17 18:30 04/03/17 18:29 Vancomycin HCl 500 mg/Dextrose 110 ml @ 110 mls/hr Q12H IVPB 03/06/17 10:00 03/11/17 09:59 Allergies: Coded Allergies: SHELLFISH DERIVED (Unverified Allergy, Severe, Hives, 07/20/14) tongue and face swelling ROS Limited/Unobtainable: Yes Subjective 86 YO F admitted with Altered mental status. Now UTI and probable sepsis. Cover for Int Med - Dr Spring. Objective Last Vital Signs Date Time Temp Pulse Resp B/P (MAP) Pulse Ox O2 Delivery O2 Flow Rate FiO2 03/06/17 12:13 75 102/70 03/06/17 08:00 98.4 18 98 Nasal Cannula 4.0 03/06/17 07:32 32 General Appearance: lethargic, thin EENT: normal ENT inspection Neck: non-tender, normal alignment, supple, normal inspection Cardiovascular: normal peripheral pulses, normal rate, no gallop/murmur, no JVD , irregularly irregular Respiratory/Chest: chest wall non-tender, lungs clear, normal breath sounds, no respiratory distress, no accessory muscle use Abdomen: normal bowel sounds, non tender, soft, no organomegaly, no mass Neurologic: unresponsiveness Skin: normal pigmentation, warm/dry Laboratory Tests Test 03/06/17 03:27 03/06/17 04:00 03/06/17 08:05 White Blood Count 14.3 K/UL (4.8-10.8) H Red Blood Count 3.26 M/UL (4.20-5.40) L Hemoglobin 9.2 G/DL (12.0-16.0) L Hematocrit 29.3 % (37.0-47.0) L Mean Corpuscular Volume 90 FL (80-99) Mean Corpuscular Hemoglobin 28.4 PG (27.0-31.0) Mean Corpuscular Hemoglobin Concent 31.6 G/DL (32.0-36.0) L Red Cell Distribution Width 13.3 % (11.6-14.8) Platelet Count 265 K/UL (150-450) Mean Platelet Volume 6.2 FL (6.5-10.1) L Neutrophils (%) (Auto) % (45.0-75.0) Lymphocytes (%) (Auto) % (20.0-45.0) Monocytes (%) (Auto) % (1.0-10.0) Eosinophils (%) (Auto) % (0.0-3.0) Basophils (%) (Auto) % (0.0-2.0) Differential Total Cells Counted 100 Neutrophils % (Manual) 79 % (45-75) H Lymphocytes % (Manual) 16 % (20-45) L Monocytes % (Manual) 3 % (1-10) Eosinophils % (Manual) 0 % (0-3) Basophils % (Manual) 0 % (0-2) Band Neutrophils 2 % (0-8) Platelet Estimate Adequate Platelet Morphology Normal Hypochromasia 1+ Anisocytosis 1+ Sodium Level 144 mEQ/L (135-145) Potassium Level 3.0 mEQ/L (3.4-4.9) L Chloride Level 113 mEQ/L (98-107) H Carbon Dioxide Level 18 mEQ/L (20-30) L Anion Gap 13 (5-15) Blood Urea Nitrogen 40 mg/dL (7-23) #H Creatinine 0.9 mg/dL (0.5-0.9) Estimat Glomerular Filtration Rate mL/min (>60) Glucose Level 134 mg/dL (74-106) H Hemoglobin A1c 5.5 % (< 6.0) Uric Acid 7.5 mg/dL (3.0-7.5) Calcium Level 8.0 mg/dL (8.6-10.2) L Phosphorus Level 1.8 mg/dL (2.5-4.8) L Magnesium Level 2.0 mg/dL (1.7-2.5) Iron Level 25 ug/dL (37-145) L Total Iron Binding Capacity 112 ug/dL (250-400) L Percent Iron Saturation 22 % (15-50) Unsaturated Iron Binding 87 ug/dL (112-346) L Ferritin 492 ng/mL (13-150) H Total Bilirubin 0.3 mg/dL (0.0-1.2) Gamma Glutamyl Transpeptidase 23 U/L (5-36) Aspartate Amino Transf (AST/SGOT) 12 U/L (5-40) Alanine Aminotransferase (ALT/SGPT) 6 U/L (3-33) Alkaline Phosphatase 48 U/L (35-104) Total Creatine Kinase 103 U/L (26-140) Troponin I < 0.30 ng/mL (<=0.30) C-Reactive Protein, Quantitative 2.7 mg/dL (< 0.5) H Pro-B-Type Natriuretic Peptide 33939 pg/mL (0-450) H Total Protein 5.4 g/dL (6.6-8.7) L Albumin 2.2 g/dL (3.5-5.2) L Globulin 3.2 g/dL Albumin/Globulin Ratio 0.6 (1.0-2.7) L Triglycerides Level 174 mg/dL (< 150) H Cholesterol Level 109 mg/dL (< 200) LDL Cholesterol 59 mg/dL (60-99) L HDL Cholesterol 15 mg/dL (> 60) Cholesterol/HDL Ratio 7.3 (3.3-4.4) H Vitamin B12 Level 634 pg/mL (211-946) Folate Pending Thyroid Stimulating Hormone (TSH) 0.039 uIU/mL (0.300-4.500) Urine Color Pale yellow Urine Appearance Clear Urine pH 5 (4.5-8.0) Urine Specific [place] 1.015 (1.005-1.035) Urine Protein 2+ (NEGATIVE) H Urine Glucose (UA) Negative (NEGATIVE) Urine Ketones Negative (NEGATIVE) Urine Occult Blood 2+ (NEGATIVE) H Urine Nitrite Negative (NEGATIVE) Urine Bilirubin Negative (NEGATIVE) Urine Urobilinogen Normal MG/DL (0.0-1.0) Urine Leukocyte Esterase 1+ (NEGATIVE) H Urine RBC 2-4 /HPF (0 - 2) H Urine WBC 2-4 /HPF (0 - 2) Urine Squamous Epithelial Cells Moderate /LPF (NONE/OCC) H Urine Amorphous Sediment Moderate /LPF (NONE) H Urine Bacteria Occasional /HPF (NONE) Urine Yeast Moderate /HPF (NONE) H Urine Eosinophils None seen Urine Osmolality 689 mOsm/kg (429-449) H Urine Random Sodium 38 mmol/L Urine Random Chloride 58 mmol/L Urine Potassium Timed 31 mmol/L Vancomycin Level Trough 9.9 ug/mL (5.0-12.0) Microbiology Date/Time Source Procedure Growth Status 03/04/17 15:40 Blood Blood Culture - Preliminary NO GROWTH AFTER 24 HOURS Resulted 03/04/17 15:20 Blood Blood Culture - Preliminary NO GROWTH AFTER 24 HOURS Resulted 03/04/17 15:00 Urine,Clean Catch Urine Culture - Final Escherichia Coli - Esbl Complete 03/05/17 04:00 Sacral Wound Gram Stain - Final Resulted 03/05/17 04:00 Wound Culture - Preliminary Gram Negative Bacillus 1 Gram Positive Cocci Resulted Assessment/Plan Problem List: (1) UTI (urinary tract infection) Assessment & Plan: ESBL E. Coli. Cont zosyn per ID (2) Altered mental status Assessment & Plan: ?due to UTI? (3) Sepsis (4) HTN (hypertension) Assessment & Plan: Currently hypotensive. Hold antihypertensive meds (5) Hypotension Assessment & Plan: ?sepsis? resolving with IV fluids. (6) Hypercholesteremia (7) Atrial fibrillation (8) Hypothyroidism Assessment & Plan: Cont levoxyl. (9) Pulmonary hypertension Status: not improved BRIDGER JACOB Mar 06, 2017 12:22
[2017-03-06] MEDS ORDERED: Potassium Phosphate 30 MM in NS 275 ML IV ONE (13:00)
--- NOTE | 2017-03-06 15:38 | Infectious Diseases Prog Note ---
Assessment/Plan Assessment/Plan ASSESSMENT AND PLAN 86 y/o AAF on home hospice admitted with severe urosepsis and lactic acidosis complicated by MARINA/prerenal azotemia, hypernatremia, afib with RVR now with improved hemodynamics, and she is more alert today, but still with low CO2 at 18. her repeat CXR today after hydration shows a more obvious R lower infiltrate and subtle LLL infiltrate in the setting of markedly elevated pro BNP. only prior + ucx in our system was a dixon-sensitive E coli in October2015, so she was kept on IV vanc and cefepime yesterday, but now admission ucx confirmed to be ESBL E coli (R-cefepime) with 03/04 blood cx ngtd. I think that while she overall looks better today, her failure to show significant decreased in leukocytosis o/n related to this urine isolate now confirmed cefepime resistant. As long as she continues to improve, and doesn't have bacteremia, i think she'll respond to zosyn and doesn't need carbapenem just now, but low threshold to switch to ertapenem from zosyn. ASSESSMENT: Severe sepsis, secondary to UTI ESBL E coli urosepsis, sens to zosyn blood cx 03/04/17 ngtd R>l bibasilar pneumonia Hypovolemic shock, responded to IV fluid resuscitation and s/p IV albumin, c/b afib with RVR lactic acidosis. LAC normalized with IV fluid resuscitation, persistent acidosis. Acute renal failure, SCr improving fever, sp leukocytosis, persistent with slow downward trend. chronic sacral decub, cx with GPC and GNR (p) afib w/ RVR, improved hemodynamics Anemia HypoAlbuminemia UTI no h/o MDRO PLAN: --Continue empiric IV vancomycin D#2 and IV zosyn 3.375gm IV q8hr extended infusion D#0. (03/06 s/p IV cefepime D#2) (s/p IV zosyn x1 in ER 03/04) --continue hemodynamic support, currently not on pressors, s/p IV fluid resuscitation and albumin --f/u blood cx (03/04), pending --mrsa screen pending --s/p cardiology and nephrology consultation --f/u sacral wound cx --low threshold to switch from zosyn to ertapenem if fails to respond over next 1-2 days, but she looks better today. --monitor CBC and chem Covering for Dr. Ferro. Subjective ROS Limited/Unobtainable: Yes Allergies: Coded Allergies: SHELLFISH DERIVED (Unverified Allergy, Severe, Hives, 07/20/14) tongue and face swelling Subjective more alert today. Objective Vital Signs Last 24 Hour Vital Signs Date Time Temp Pulse Resp B/P (MAP) Pulse Ox O2 Delivery O2 Flow Rate FiO2 03/06/17 12:13 75 102/70 03/06/17 11:37 121 03/06/17 09:03 140 98/74 03/06/17 08:00 98.4 97 18 98/74 98 Nasal Cannula 4.0 03/06/17 07:58 117 03/06/17 07:32 Nasal Cannula 3.0 32 03/06/17 07:31 98 Nasal Cannula 3.0 32 03/06/17 07:30 97 18 Nasal Cannula 3.0 32 03/06/17 05:00 122 104/61 03/06/17 04:00 97.7 115 20 97/61 100 Nasal Cannula 2.0 03/06/17 04:00 122 03/06/17 00:19 96.8 110 20 91/53 100 Nasal Cannula 2.0 03/06/17 00:00 135 03/05/17 23:00 110 91/53 03/05/17 20:00 97.2 70 19 92/63 100 Nasal Cannula 2.0 03/05/17 20:00 125 03/05/17 18:55 99 Nasal Cannula 3.0 32 03/05/17 18:55 76 18 Nasal Cannula 3.0 32 03/05/17 18:55 Nasal Cannula 3.0 32 03/05/17 16:39 116 109/59 03/05/17 16:17 118 03/05/17 16:06 97.3 116 18 109/59 98 Nasal Cannula 4.0 Height (Feet): 5 Height (Inches): 5.00 Weight (Pounds): 100 Objective GEN: awake, more responsive today, non toxic appearing HEENT: Mild pale conjunctiva. pupils no longer pinpoint. oral mucosa dry, pharynx w/o exudate or effusion. No icterus. Head normocephalic, neck supple. NECK: No cervical LAD, cachectic CHEST: faint rhonchi. no dullness to percussion . L upper chest pacemaker pocket w/o overlying erythema, edema, fluctuance, or warmth. HEART: tachycardic, faint heart sounds. ABDOMEN: soft, flat, non tender, non distended, normoactive bowel sounds. no hepatosplenomegaly. EXTREMITIES: No cyanosis, no clubbing, no edema. good nail hygiene, nails painted pink so cap refill not performed. extremities warm, no mottling. no CVC. PIV c/d/i. NEUROLOGIC: eyes open. shakes her head no when asked if she has any pain. : no hernandez. no external lesions. LYMPH: no LAD RECTAL: deferred. reviewed wound images skin: bruise, 1cm on R clavicle Microbiology Date/Time Source Procedure Growth Status 03/04/17 15:40 Blood Blood Culture - Preliminary NO GROWTH AFTER 24 HOURS Resulted 03/04/17 15:20 Blood Blood Culture - Preliminary NO GROWTH AFTER 24 HOURS Resulted 03/04/17 15:00 Urine,Clean Catch Urine Culture - Final Escherichia Coli - Esbl Complete 03/05/17 04:00 Sacral Wound Gram Stain - Final Resulted 03/05/17 04:00 Wound Culture - Preliminary Gram Negative Bacillus 1 Gram Positive Cocci Resulted Laboratory Tests Test 03/06/17 03:27 03/06/17 04:00 03/06/17 08:05 White Blood Count 14.3 K/UL (4.8-10.8) H Red Blood Count 3.26 M/UL (4.20-5.40) L Hemoglobin 9.2 G/DL (12.0-16.0) L Hematocrit 29.3 % (37.0-47.0) L Mean Corpuscular Volume 90 FL (80-99) Mean Corpuscular Hemoglobin 28.4 PG (27.0-31.0) Mean Corpuscular Hemoglobin Concent 31.6 G/DL (32.0-36.0) L Red Cell Distribution Width 13.3 % (11.6-14.8) Platelet Count 265 K/UL (150-450) Mean Platelet Volume 6.2 FL (6.5-10.1) L Neutrophils (%) (Auto) % (45.0-75.0) Lymphocytes (%) (Auto) % (20.0-45.0) Monocytes (%) (Auto) % (1.0-10.0) Eosinophils (%) (Auto) % (0.0-3.0) Basophils (%) (Auto) % (0.0-2.0) Differential Total Cells Counted 100 Neutrophils % (Manual) 79 % (45-75) H Lymphocytes % (Manual) 16 % (20-45) L Monocytes % (Manual) 3 % (1-10) Eosinophils % (Manual) 0 % (0-3) Basophils % (Manual) 0 % (0-2) Band Neutrophils 2 % (0-8) Platelet Estimate Adequate Platelet Morphology Normal Hypochromasia 1+ Anisocytosis 1+ Sodium Level 144 mEQ/L (135-145) Potassium Level 3.0 mEQ/L (3.4-4.9) L Chloride Level 113 mEQ/L (98-107) H Carbon Dioxide Level 18 mEQ/L (20-30) L Anion Gap 13 (5-15) Blood Urea Nitrogen 40 mg/dL (7-23) #H Creatinine 0.9 mg/dL (0.5-0.9) Estimat Glomerular Filtration Rate mL/min (>60) Glucose Level 134 mg/dL (74-106) H Hemoglobin A1c 5.5 % (< 6.0) Uric Acid 7.5 mg/dL (3.0-7.5) Calcium Level 8.0 mg/dL (8.6-10.2) L Phosphorus Level 1.8 mg/dL (2.5-4.8) L Magnesium Level 2.0 mg/dL (1.7-2.5) Iron Level 25 ug/dL (37-145) L Total Iron Binding Capacity 112 ug/dL (250-400) L Percent Iron Saturation 22 % (15-50) Unsaturated Iron Binding 87 ug/dL (112-346) L Ferritin 492 ng/mL (13-150) H Total Bilirubin 0.3 mg/dL (0.0-1.2) Gamma Glutamyl Transpeptidase 23 U/L (5-36) Aspartate Amino Transf (AST/SGOT) 12 U/L (5-40) Alanine Aminotransferase (ALT/SGPT) 6 U/L (3-33) Alkaline Phosphatase 48 U/L (35-104) Total Creatine Kinase 103 U/L (26-140) Troponin I < 0.30 ng/mL (<=0.30) C-Reactive Protein, Quantitative 2.7 mg/dL (< 0.5) H Pro-B-Type Natriuretic Peptide 03542 pg/mL (0-450) H Total Protein 5.4 g/dL (6.6-8.7) L Albumin 2.2 g/dL (3.5-5.2) L Globulin 3.2 g/dL Albumin/Globulin Ratio 0.6 (1.0-2.7) L Triglycerides Level 174 mg/dL (< 150) H Cholesterol Level 109 mg/dL (< 200) LDL Cholesterol 59 mg/dL (60-99) L HDL Cholesterol 15 mg/dL (> 60) Cholesterol/HDL Ratio 7.3 (3.3-4.4) H Vitamin B12 Level 634 pg/mL (211-946) Folate Pending Thyroid Stimulating Hormone (TSH) 0.039 uIU/mL (0.300-4.500) Urine Color Pale yellow Urine Appearance Clear Urine pH 5 (4.5-8.0) Urine Specific [place] 1.015 (1.005-1.035) Urine Protein 2+ (NEGATIVE) H Urine Glucose (UA) Negative (NEGATIVE) Urine Ketones Negative (NEGATIVE) Urine Occult Blood 2+ (NEGATIVE) H Urine Nitrite Negative (NEGATIVE) Urine Bilirubin Negative (NEGATIVE) Urine Urobilinogen Normal MG/DL (0.0-1.0) Urine Leukocyte Esterase 1+ (NEGATIVE) H Urine RBC 2-4 /HPF (0 - 2) H Urine WBC 2-4 /HPF (0 - 2) Urine Squamous Epithelial Cells Moderate /LPF (NONE/OCC) H Urine Amorphous Sediment Moderate /LPF (NONE) H Urine Bacteria Occasional /HPF (NONE) Urine Yeast Moderate /HPF (NONE) H Urine Eosinophils None seen Urine Osmolality 689 mOsm/kg (429-449) H Urine Random Sodium 38 mmol/L Urine Random Chloride 58 mmol/L Urine Potassium Timed 31 mmol/L Vancomycin Level Trough 9.9 ug/mL (5.0-12.0) Radiology Patient : JENI LAWS Referring Physician: Rachid Liang M.D. ID Number: [id number] Service Date: 03/06/17 : 1930 Report Date: 03/06/17 Gender: F Accession No.: [id number] Location: 2W Procedure: XRAY Chest 1v Indication: AMS Technique: One view of the chest Comparison: 03/04/2017 Findings: The heart is enlarged. There is some atelectasis and possible consolidation at the right lung base, appearing similar to prior exam. There is suggestion of some patchy consolidation or atelectasis at the left lung base, not evident previously The aorta is tortuous ectatic and calcified. Upper mediastinum is unremarkable. There is a left chest pacemaker Impression: Cardiomegaly Right basilar consolidation and atelectasis, unchanged over 2 days Possible new patchy consolidation or atelectasis at the left lung base Current Medications Medications (Trade) Dose Ordered Sig/Jonah Route PRN Reason Start Time Stop Time Status Last Admin Dose Admin Acetaminophen (Tylenol) 650 mg Q4H PRN ORAL fever 03/04/17 18:00 04/03/17 17:59 Albuterol/ Ipratropium (DuoNeb 0.5-3(2.5)mg/3ml) 3 ml Q4H PRN HHN Shortness of Breath 03/04/17 18:00 03/09/17 17:59 Dextrose 1,000 ml @ 50 mls/hr Q20H IV 03/07/17 09:30 04/06/17 09:29 Dextrose (Dextrose 50%) STAT PRN IV Hypoglycemia 03/04/17 18:00 04/03/17 17:59 Diltiazem HCl (Cardizem) 10 mg Q1H PRN IV HR>135 bpm after iv metoprolol 03/05/17 09:00 04/04/17 08:59 03/06/17 09:03 Heparin Sodium (Porcine) (Heparin 5000 units/ml) 5,000 units EVERY 12 HOURS SUBQ 03/04/17 21:00 04/03/17 20:59 03/06/17 09:09 Hydralazine HCl (Apresoline) 25 mg Q6H PRN ORAL For High BP over 160 syst 03/05/17 09:00 04/04/17 08:59 Levothyroxine Sodium (Synthroid) 50 mcg DAILY IV 03/06/17 09:00 04/05/17 08:59 03/06/17 09:09 Metoprolol Tartrate (Lopressor) 5 mg Q6H IVP 03/05/17 17:00 04/04/17 16:59 03/06/17 12:13 Morphine Sulfate (Morphine Sulfate) 2 mg Q4H PRN IVP Moderate Pain (Pain Scale 4-6) 03/04/17 18:00 03/11/17 17:59 Nitroglycerin (Ntg) 0.4 mg Q5M PRN SL Prn Chest Pain 03/04/17 18:00 04/03/17 17:59 Ondansetron HCl (Zofran) 4 mg Q6H PRN IVP Nausea & Vomiting 03/04/17 18:00 04/03/17 17:59 Piperacillin Sod/ Tazobactam Sod 3.375 gm/Dextrose 110 ml @ 27.5 mls/hr EVERY 8 HOURS IVPB 03/06/17 14:00 03/11/17 13:59 Polyethylene Glycol (Miralax) 17 gm DAILYPRN PRN ORAL Constipation 03/04/17 18:00 04/03/17 17:59 Potassium Phosphate 30 mm/ Sodium Chloride 285 ml @ 47.5 mls/hr ONCE ONCE IV 03/06/17 13:00 03/06/17 18:59 Risperidone (RisperDAL) 0.25 mg Q12HR ORAL 03/05/17 09:00 04/04/17 08:59 Temazepam (Restoril) 15 mg HSPRN PRN ORAL Insomnia 03/04/17 18:00 03/11/17 17:59 Vancomycin HCl (Vanco rx to dose) 1 ea DAILY PRN MISC PER RX PROTOCOL 03/04/17 18:30 04/03/17 18:29 Vancomycin HCl 500 mg/Dextrose 110 ml @ 110 mls/hr Q12H IVPB 03/06/17 10:00 03/11/17 09:59 03/06/17 12:21 Rachid Liang M.D. Mar 06, 2017 15:38
[2017-03-06] MEDS: Zoysn 3.37gm in D5W 110ml IVPB SCH ×2 (17:40→22:00)
--- NOTE | 2017-03-06 18:02 | Cardiology Progress Note ---
Assessment/Plan Assessment/Plan 1. Atrial fibrillation with rapid ventricular response. 2. Urinary tract infection. 3. Questionable seizures. 4. History of pulmonary hypertension. 5. Altered mentation, metabolic encephalopathy versus others. 6. Acute renal failure. 7. Hypernatremia suggestive of intravascular volume depletion. 8. Possible pneumonia. 9. hyperthyroidism agree with dc of Synthroid hr rapid due to medication on iv bb is more responsive once swallow eval ok would consider oral bb tele reviewed labs noted needs ka dn phosp supplement Subjective Cardiovascular: Denies: chest pain, irregular heart rate Respiratory: Reports: shortness of breath Gastrointestinal/Abdominal: Denies: abdominal pain Genitourinary: Denies: burning Objective Last 24 Hour Vital Signs Date Time Temp Pulse Resp B/P (MAP) Pulse Ox O2 Delivery O2 Flow Rate FiO2 03/06/17 17:00 125 113/68 03/06/17 16:00 125 03/06/17 16:00 94.0 130 22 113/68 94 Nasal Cannula 4.0 03/06/17 12:13 75 102/70 03/06/17 12:00 92.9 70 20 102/70 98 Nasal Cannula 4.0 03/06/17 11:37 121 03/06/17 09:03 140 98/74 03/06/17 08:00 98.4 97 18 98/74 98 Nasal Cannula 4.0 03/06/17 07:58 117 03/06/17 07:32 Nasal Cannula 3.0 32 03/06/17 07:31 98 Nasal Cannula 3.0 32 03/06/17 07:30 97 18 Nasal Cannula 3.0 32 03/06/17 05:00 122 104/61 03/06/17 04:00 97.7 115 20 97/61 100 Nasal Cannula 2.0 03/06/17 04:00 122 03/06/17 00:19 96.8 110 20 91/53 100 Nasal Cannula 2.0 03/06/17 00:00 135 03/05/17 23:00 110 91/53 03/05/17 20:00 97.2 70 19 92/63 100 Nasal Cannula 2.0 03/05/17 20:00 125 03/05/17 18:55 99 Nasal Cannula 3.0 32 03/05/17 18:55 76 18 Nasal Cannula 3.0 32 03/05/17 18:55 Nasal Cannula 3.0 32 General Appearance: no apparent distress, alert Neck: supple Cardiovascular: tachycardia, irregularly irregular Respiratory/Chest: lungs clear, normal breath sounds Abdomen: normal bowel sounds, non tender, soft Extremities: no swelling Laboratory Tests Test 03/06/17 03:27 03/06/17 04:00 03/06/17 08:05 White Blood Count 14.3 K/UL (4.8-10.8) H Red Blood Count 3.26 M/UL (4.20-5.40) L Hemoglobin 9.2 G/DL (12.0-16.0) L Hematocrit 29.3 % (37.0-47.0) L Mean Corpuscular Volume 90 FL (80-99) Mean Corpuscular Hemoglobin 28.4 PG (27.0-31.0) Mean Corpuscular Hemoglobin Concent 31.6 G/DL (32.0-36.0) L Red Cell Distribution Width 13.3 % (11.6-14.8) Platelet Count 265 K/UL (150-450) Mean Platelet Volume 6.2 FL (6.5-10.1) L Neutrophils (%) (Auto) % (45.0-75.0) Lymphocytes (%) (Auto) % (20.0-45.0) Monocytes (%) (Auto) % (1.0-10.0) Eosinophils (%) (Auto) % (0.0-3.0) Basophils (%) (Auto) % (0.0-2.0) Differential Total Cells Counted 100 Neutrophils % (Manual) 79 % (45-75) H Lymphocytes % (Manual) 16 % (20-45) L Monocytes % (Manual) 3 % (1-10) Eosinophils % (Manual) 0 % (0-3) Basophils % (Manual) 0 % (0-2) Band Neutrophils 2 % (0-8) Platelet Estimate Adequate Platelet Morphology Normal Hypochromasia 1+ Anisocytosis 1+ Sodium Level 144 mEQ/L (135-145) Potassium Level 3.0 mEQ/L (3.4-4.9) L Chloride Level 113 mEQ/L (98-107) H Carbon Dioxide Level 18 mEQ/L (20-30) L Anion Gap 13 (5-15) Blood Urea Nitrogen 40 mg/dL (7-23) #H Creatinine 0.9 mg/dL (0.5-0.9) Estimat Glomerular Filtration Rate mL/min (>60) Glucose Level 134 mg/dL (74-106) H Hemoglobin A1c 5.5 % (< 6.0) Uric Acid 7.5 mg/dL (3.0-7.5) Calcium Level 8.0 mg/dL (8.6-10.2) L Phosphorus Level 1.8 mg/dL (2.5-4.8) L Magnesium Level 2.0 mg/dL (1.7-2.5) Iron Level 25 ug/dL (37-145) L Total Iron Binding Capacity 112 ug/dL (250-400) L Percent Iron Saturation 22 % (15-50) Unsaturated Iron Binding 87 ug/dL (112-346) L Ferritin 492 ng/mL (13-150) H Total Bilirubin 0.3 mg/dL (0.0-1.2) Gamma Glutamyl Transpeptidase 23 U/L (5-36) Aspartate Amino Transf (AST/SGOT) 12 U/L (5-40) Alanine Aminotransferase (ALT/SGPT) 6 U/L (3-33) Alkaline Phosphatase 48 U/L (35-104) Total Creatine Kinase 103 U/L (26-140) Troponin I < 0.30 ng/mL (<=0.30) C-Reactive Protein, Quantitative 2.7 mg/dL (< 0.5) H Pro-B-Type Natriuretic Peptide 03926 pg/mL (0-450) H Total Protein 5.4 g/dL (6.6-8.7) L Albumin 2.2 g/dL (3.5-5.2) L Globulin 3.2 g/dL Albumin/Globulin Ratio 0.6 (1.0-2.7) L Triglycerides Level 174 mg/dL (< 150) H Cholesterol Level 109 mg/dL (< 200) LDL Cholesterol 59 mg/dL (60-99) L HDL Cholesterol 15 mg/dL (> 60) Cholesterol/HDL Ratio 7.3 (3.3-4.4) H Vitamin B12 Level 634 pg/mL (211-946) Folate Pending Thyroid Stimulating Hormone (TSH) 0.039 uIU/mL (0.300-4.500) Urine Color Pale yellow Urine Appearance Clear Urine pH 5 (4.5-8.0) Urine Specific [place] 1.015 (1.005-1.035) Urine Protein 2+ (NEGATIVE) H Urine Glucose (UA) Negative (NEGATIVE) Urine Ketones Negative (NEGATIVE) Urine Occult Blood 2+ (NEGATIVE) H Urine Nitrite Negative (NEGATIVE) Urine Bilirubin Negative (NEGATIVE) Urine Urobilinogen Normal MG/DL (0.0-1.0) Urine Leukocyte Esterase 1+ (NEGATIVE) H Urine RBC 2-4 /HPF (0 - 2) H Urine WBC 2-4 /HPF (0 - 2) Urine Squamous Epithelial Cells Moderate /LPF (NONE/OCC) H Urine Amorphous Sediment Moderate /LPF (NONE) H Urine Bacteria Occasional /HPF (NONE) Urine Yeast Moderate /HPF (NONE) H Urine Eosinophils None seen Urine Osmolality 689 mOsm/kg (429-449) H Urine Random Sodium 38 mmol/L Urine Random Chloride 58 mmol/L Urine Potassium Timed 31 mmol/L Vancomycin Level Trough 9.9 ug/mL (5.0-12.0) Microbiology Date/Time Source Procedure Growth Status 03/04/17 15:40 Blood Blood Culture - Preliminary NO GROWTH AFTER 24 HOURS Resulted 03/04/17 15:20 Blood Blood Culture - Preliminary NO GROWTH AFTER 24 HOURS Resulted 03/04/17 15:00 Urine,Clean Catch Urine Culture - Final Escherichia Coli - Esbl Complete 03/05/17 04:00 Sacral Wound Gram Stain - Final Resulted 03/05/17 04:00 Wound Culture - Preliminary Gram Negative Bacillus 1 Gram Positive Cocci Resulted TRACI WHEATLEY Mar 06, 2017 18:02
[2017-03-07 03:48] VITALS: BP 99/57
[2017-03-07] MEDS: Metoprolol 5mg/5ml Inj IVP SCH ×3 (04:42→17:18)
[2017-03-07] MEDS: Zoysn 3.37gm in D5W 110ml IVPB SCH ×2 (04:44→14:00)
[2017-03-07 05:44] LABS: MEAN CORPUSCULAR HEMOGLOBIN 28.4 PG (27.0-31.0); MEAN CORPUSCULAR HGB CONC 31.7 G/DL (32.0-36.0); MEAN CORPUSCULAR VOLUME 90 FL (80-99); MEAN PLATELET VOLUME 6.9 FL (6.5-10.1); PLATELET COUNT 276 K/UL (150-450); RED BLOOD COUNT 3.25 M/UL (4.20-5.40); RED CELL DISTRIBUTION WIDTH 13.5 % (11.6-14.8)
[2017-03-07 06:01] LABS: ALANINE AMINOTRANSFERASE 6 U/L (3-33); ALBUMIN/GLOBULIN RATIO 0.6 (1.0-2.7); ANION GAP 13 (5-15); ASPARTATE AMINO TRANSFERASE 10 U/L (5-40); CALCIUM 8.1 mg/dL (8.6-10.2); CARBON DIOXIDE 17 mEQ/L (20-30); CHLORIDE 109 mEQ/L (98-107); CREATININE 0.8 mg/dL (0.5-0.9); CRP QUANT 4.6 mg/dL (< 0.5); HEMOLYSIS 5; MAGNESIUM 1.9 mg/dL (1.7-2.5); PHOSPHORUS 3.3 mg/dL (2.5-4.8); POTASSIUM 3.8 mEQ/L (3.4-4.9); SODIUM 139 mEQ/L (135-145); TOTAL PROTEIN 5.3 g/dL (6.6-8.7)
[2017-03-07 07:10] LABS: ERYTHROCYTE SEDIMENTATION RATE 41 MM/HR (0-42)
[2017-03-07 08:00] VITALS: BP 96/60
[2017-03-07] MEDS: Heparin 5000 units/ml inj SUBQ SCH ×2 (08:39→21:09)
[2017-03-07] MEDS: Vancomycin 500mg/D5W 110ml IVPB SCH ×2 (10:00)
--- NOTE | 2017-03-07 11:26 | Pulmonology Progress Note ---
Assessment/Plan Problems: (1) Sepsis (2) NSTEMI (non-ST elevated myocardial infarction) (3) ATN (acute tubular necrosis) (4) At high risk for aspiration (5) HTN (hypertension) (6) Hypothyroidism (7) Pacemaker Assessment/Plan mental status improved K supplement swallow study noted dc synthyroid IV and b2 agonists IV abx f/u BUN/creatinine transfer to [facility] since the heart rate is not controlled yet. Subjective ROS Limited/Unobtainable: No Allergies: Coded Allergies: SHELLFISH DERIVED (Unverified Allergy, Severe, Hives, 07/20/14) tongue and face swelling Objective Last 24 Hour Vital Signs Date Time Temp Pulse Resp B/P (MAP) Pulse Ox O2 Delivery O2 Flow Rate FiO2 03/07/17 08:00 124 03/07/17 08:00 97.7 106 18 96/60 98 Nasal Cannula 2.0 03/07/17 04:42 126 106/60 03/07/17 04:00 128 03/07/17 03:48 96.3 121 20 99/57 98 Nasal Cannula 4.0 03/07/17 00:00 120 03/06/17 23:26 97.7 124 22 107/58 97 Nasal Cannula 4.0 03/06/17 22:31 120 90/52 03/06/17 20:00 99.7 125 20 105/65 97 Nasal Cannula 4.0 03/06/17 20:00 132 03/06/17 17:00 125 113/68 03/06/17 16:00 125 03/06/17 16:00 94.0 130 22 113/68 94 Nasal Cannula 4.0 03/06/17 12:13 75 102/70 03/06/17 12:00 92.9 70 20 102/70 98 Nasal Cannula 4.0 03/06/17 11:37 121 General Appearance: WD/WN HEENT: normocephalic, atraumatic Respiratory/Chest: chest wall non-tender, lungs clear Cardiovascular: normal peripheral pulses, regularly irregular Abdomen: normal bowel sounds, no organomegaly Extremities: no cyanosis, no clubbing Skin: no rash Microbiology Date/Time Source Procedure Growth Status 03/04/17 15:40 Blood Blood Culture - Preliminary NO GROWTH AFTER 48 HOURS Resulted 03/04/17 15:20 Blood Blood Culture - Preliminary NO GROWTH AFTER 48 HOURS Resulted 03/04/17 15:00 Urine,Clean Catch Urine Culture - Final Escherichia Coli - Esbl Complete 03/05/17 04:00 Rectum VRE Culture - Final NO VANCOMYCIN RESISTANT ENTEROCOCCUS ... Complete 03/05/17 04:00 Sacral Wound Gram Stain - Final Resulted 03/05/17 04:00 Wound Culture - Preliminary Escherichia Coli - Esbl Enterococcus Faecalis Resulted Laboratory Tests 03/07/17 03:45: White Blood Count 14.0H, Red Blood Count 3.25L, Hemoglobin 9.2L, Hematocrit 29.2L, Mean Corpuscular Volume 90, Mean Corpuscular Hemoglobin 28.4, Mean Corpuscular Hemoglobin Concent 31.7L, Red Cell Distribution Width 13.5, Platelet Count 276, Mean Platelet Volume 6.9, Neutrophils (%) (Auto) , Lymphocytes (%) (Auto) , Monocytes (%) (Auto) , Eosinophils (%) (Auto) , Basophils (%) (Auto) , Erythrocyte Sedimentation Rate 41, Sodium Level 139, Potassium Level 3.8, Chloride Level 109H, Carbon Dioxide Level 17L, Anion Gap 13 , Blood Urea Nitrogen 27H, Creatinine 0.8, Estimat Glomerular Filtration Rate , Glucose Level 107H, Calcium Level 8.1L, Phosphorus Level 3.3, Magnesium Level 1.9, Total Bilirubin 0.4, Aspartate Amino Transf (AST/SGOT) 10, Alanine Aminotransferase (ALT/SGPT) 6, Alkaline Phosphatase 57, C-Reactive Protein, Quantitative 4.6H, Total Protein 5.3L, Albumin 2.1L, Globulin 3.2, Albumin/ Globulin Ratio 0.6L Current Medications Medications (Trade) Dose Ordered Sig/Jonah Route PRN Reason Start Time Stop Time Status Last Admin Dose Admin Acetaminophen (Tylenol) 650 mg Q4H PRN ORAL fever 03/04/17 18:00 04/03/17 17:59 Albuterol/ Ipratropium (DuoNeb 0.5-3(2.5)mg/3ml) 3 ml Q4H PRN HHN Shortness of Breath 03/04/17 18:00 03/09/17 17:59 Dextrose 1,000 ml @ 50 mls/hr Q20H IV 03/07/17 09:30 04/06/17 09:29 03/07/17 09:30 Dextrose (Dextrose 50%) STAT PRN IV Hypoglycemia 03/04/17 18:00 10/4/17 17:59 Diltiazem HCl (Cardizem) 10 mg Q1H PRN IV HR>135 bpm after iv metoprolol 03/05/17 09:00 04/04/17 08:59 03/06/17 09:03 Heparin Sodium (Porcine) (Heparin 5000 units/ml) 5,000 units EVERY 12 HOURS SUBQ 03/04/17 21:00 04/03/17 20:59 03/07/17 08:39 Hydralazine HCl (Apresoline) 25 mg Q6H PRN ORAL For High BP over 160 syst 03/05/17 09:00 04/04/17 08:59 Levothyroxine Sodium (Synthroid) 50 mcg DAILY IV 03/06/17 09:00 04/05/17 08:59 03/07/17 08:37 Metoprolol Tartrate (Lopressor) 5 mg Q6H IVP 03/05/17 17:00 04/04/17 16:59 03/07/17 04:42 Morphine Sulfate (Morphine Sulfate) 2 mg Q4H PRN IVP Moderate Pain (Pain Scale 4-6) 03/04/17 18:00 03/11/17 17:59 Nitroglycerin (Ntg) 0.4 mg Q5M PRN SL Prn Chest Pain 03/04/17 18:00 04/03/17 17:59 Ondansetron HCl (Zofran) 4 mg Q6H PRN IVP Nausea & Vomiting 03/04/17 18:00 04/03/17 17:59 Piperacillin Sod/ Tazobactam Sod 3.375 gm/Dextrose 110 ml @ 27.5 mls/hr EVERY 8 HOURS IVPB 03/06/17 14:00 03/11/17 13:59 03/07/17 04:44 Polyethylene Glycol (Miralax) 17 gm DAILYPRN PRN ORAL Constipation 03/04/17 18:00 04/03/17 17:59 Risperidone (RisperDAL) 0.25 mg Q12HR ORAL 03/05/17 09:00 04/04/17 08:59 Temazepam (Restoril) 15 mg HSPRN PRN ORAL Insomnia 03/04/17 18:00 03/11/17 17:59 Vancomycin HCl (Vanco rx to dose) 1 ea DAILY PRN MISC PER RX PROTOCOL 03/04/17 18:30 04/03/17 18:29 Vancomycin HCl 500 mg/Dextrose 110 ml @ 110 mls/hr Q12H IVPB 03/06/17 10:00 03/11/17 09:59 03/07/17 10:00 TATI FAM Mar 07, 2017 11:26
[2017-03-07 12:00] VITALS: BP 102/76
--- NOTE | 2017-03-07 14:44 | Diagnostic Imaging Report ---
APPROVED REPORT CPT Code: 05471 Present Symptoms Shortness of breath Comments: R/O DVT. BILATERAL: Imaging reveals a patent deep venous system bilaterally. There is no evidence of thrombus within the femoral, popliteal or tibial segments. The greater saphenous veins are also within normal limits. Doppler indicates normal spontaneous flow within these segments. The left calf veins were not well visualized due to patient contracture.
--- NOTE | 2017-03-07 15:13 | General Progress Note ---
Assessment/Plan Status: stable Status Narrative Cr 1.6 down 0.8 Assessment/Plan status: Acute renal failure , presents with PreRenal Azotemia and HyperNatremia ( Likely due to HypoTension and Dehydration)- IMPROVING Anemia HypoAlbuminemia UTI PH: 1. Hypertensive heart disease. 2. Pacemaker. 3. Hypercholesterolemia. 4. Atrial fibrillation. 5. Hypertension. 6. Hypothyroidism. 7. Sick sinus syndrome, status post pacemaker. 8. Pulmonary hypertension. 9. Mild to moderate mitral regurgitation. Plan: Per consultants- monitor renal parameters and electrolytes Avoid nephrotoxics Subjective ROS Limited/Unobtainable: No Constitutional: Reports: malaise Allergies: Coded Allergies: SHELLFISH DERIVED (Unverified Allergy, Severe, Hives, 07/20/14) tongue and face swelling Objective Last 24 Hour Vital Signs Date Time Temp Pulse Resp B/P (MAP) Pulse Ox O2 Delivery O2 Flow Rate FiO2 03/07/17 12:00 120 03/07/17 12:00 97.4 120 20 102/76 98 Nasal Cannula 2.0 03/07/17 11:58 120 102/76 03/07/17 08:00 124 03/07/17 08:00 97.7 106 18 96/60 98 Nasal Cannula 2.0 03/07/17 07:02 124 18 Nasal Cannula 3.0 03/07/17 07:02 98 Nasal Cannula 3.0 03/07/17 07:02 Nasal Cannula 3.0 03/07/17 04:42 126 106/60 03/07/17 04:00 128 03/07/17 03:48 96.3 121 20 99/57 98 Nasal Cannula 4.0 03/07/17 00:00 120 03/06/17 23:26 97.7 124 22 107/58 97 Nasal Cannula 4.0 03/06/17 22:31 120 90/52 03/06/17 20:00 99.7 125 20 105/65 97 Nasal Cannula 4.0 03/06/17 20:00 132 03/06/17 17:00 125 113/68 03/06/17 16:00 125 03/06/17 16:00 94.0 130 22 113/68 94 Nasal Cannula 4.0 Intake and Output 03/07/17 03/08/17 19:00 07:00 Intake Total 310 ml Balance 310 ml Intake Oral 50 ml IV Total 260 ml Laboratory Tests 03/07/17 03:45: White Blood Count 14.0H, Red Blood Count 3.25L, Hemoglobin 9.2L, Hematocrit 29.2L, Mean Corpuscular Volume 90, Mean Corpuscular Hemoglobin 28.4, Mean Corpuscular Hemoglobin Concent 31.7L, Red Cell Distribution Width 13.5, Platelet Count 276, Mean Platelet Volume 6.9, Neutrophils (%) (Auto) , Lymphocytes (%) (Auto) , Monocytes (%) (Auto) , Eosinophils (%) (Auto) , Basophils (%) (Auto) , Erythrocyte Sedimentation Rate 41, Sodium Level 139, Potassium Level 3.8, Chloride Level 109H, Carbon Dioxide Level 17L, Anion Gap 13 , Blood Urea Nitrogen 27H, Creatinine 0.8, Estimat Glomerular Filtration Rate , Glucose Level 107H, Calcium Level 8.1L, Phosphorus Level 3.3, Magnesium Level 1.9, Total Bilirubin 0.4, Aspartate Amino Transf (AST/SGOT) 10, Alanine Aminotransferase (ALT/SGPT) 6, Alkaline Phosphatase 57, C-Reactive Protein, Quantitative 4.6H, Total Protein 5.3L, Albumin 2.1L, Globulin 3.2, Albumin/ Globulin Ratio 0.6L Height (Feet): 5 Height (Inches): 5.00 Weight (Pounds): 100 General Appearance: no apparent distress, lethargic Neck: limited range of motion Cardiovascular: tachycardia Respiratory/Chest: decreased breath sounds Abdomen: soft Objective PE not changed LEONIDES CHAWLA Mar 07, 2017 15:13
[2017-03-07 16:00] VITALS: BP 119/72
--- NOTE | 2017-03-07 19:05 | Infectious Diseases Prog Note ---
Assessment/Plan Assessment/Plan ASSESSMENT: Severe sepsis, secondary to UTI ESBL E coli urosepsis, blood cx 03/04/17 ngtd R>l bibasilar pneumonia Hypovolemic shock, responded to IV fluid resuscitation and s/p IV albumin, c/b afib with RVR lactic acidosis. LAC normalized with IV fluid resuscitation, persistent acidosis. Acute renal failure, SCr improving fever, sp leukocytosis, persistent with slow downward trend. chronic sacral decub, Cx : ESBL E Coli and Enterococcus ( Colonizer ) afib w/ RVR, improved hemodynamics Anemia HypoAlbuminemia no h/o MDRO PLAN: Start pt on IV Invanz d# --DC empiric IV vancomycin D# 3 and IV zosyn 3.375gm IV q8hr extended infusion D# 2 (03/06 s/p IV cefepime D#2) (s/p IV zosyn x1 in ER 03/04) --f/u blood cx (03/04), pending --s/p cardiology and nephrology consultation --monitor CBC and chem Subjective Allergies: Coded Allergies: SHELLFISH DERIVED (Unverified Allergy, Severe, Hives, 07/20/14) tongue and face swelling Subjective afebrile Objective Vital Signs Last 24 Hour Vital Signs Date Time Temp Pulse Resp B/P (MAP) Pulse Ox O2 Delivery O2 Flow Rate FiO2 03/07/17 17:18 126 119/72 03/07/17 16:33 129 03/07/17 16:00 97.9 121 20 119/72 98 Nasal Cannula 2.0 03/07/17 12:00 120 03/07/17 12:00 97.4 120 20 102/76 98 Nasal Cannula 2.0 03/07/17 11:58 120 102/76 03/07/17 08:00 124 03/07/17 08:00 97.7 106 18 96/60 98 Nasal Cannula 2.0 03/07/17 07:02 124 18 Nasal Cannula 3.0 03/07/17 07:02 98 Nasal Cannula 3.0 03/07/17 07:02 Nasal Cannula 3.0 03/07/17 04:42 126 106/60 03/07/17 04:00 128 03/07/17 03:48 96.3 121 20 99/57 98 Nasal Cannula 4.0 03/07/17 00:00 120 03/06/17 23:26 97.7 124 22 107/58 97 Nasal Cannula 4.0 03/06/17 22:31 120 90/52 03/06/17 20:00 99.7 125 20 105/65 97 Nasal Cannula 4.0 03/06/17 20:00 132 Height (Feet): 5 Height (Inches): 5.00 Weight (Pounds): 100 HEENT: anicteric Respiratory/Chest: no respiratory distress Cardiovascular: regularly irregular Abdomen: no organomegaly Microbiology Date/Time Source Procedure Growth Status 03/05/17 04:00 Rectum VRE Culture - Final NO VANCOMYCIN RESISTANT ENTEROCOCCUS ... Complete 03/05/17 04:00 Sacral Wound Gram Stain - Final Resulted 03/05/17 04:00 Wound Culture - Preliminary Escherichia Coli - Esbl Enterococcus Faecalis Resulted Laboratory Tests Test 03/07/17 03:45 White Blood Count 14.0 K/UL (4.8-10.8) H Red Blood Count 3.25 M/UL (4.20-5.40) L Hemoglobin 9.2 G/DL (12.0-16.0) L Hematocrit 29.2 % (37.0-47.0) L Mean Corpuscular Volume 90 FL (80-99) Mean Corpuscular Hemoglobin 28.4 PG (27.0-31.0) Mean Corpuscular Hemoglobin Concent 31.7 G/DL (32.0-36.0) L Red Cell Distribution Width 13.5 % (11.6-14.8) Platelet Count 276 K/UL (150-450) Mean Platelet Volume 6.9 FL (6.5-10.1) Neutrophils (%) (Auto) % (45.0-75.0) Lymphocytes (%) (Auto) % (20.0-45.0) Monocytes (%) (Auto) % (1.0-10.0) Eosinophils (%) (Auto) % (0.0-3.0) Basophils (%) (Auto) % (0.0-2.0) Erythrocyte Sedimentation Rate 41 MM/HR (0-42) Sodium Level 139 mEQ/L (135-145) Potassium Level 3.8 mEQ/L (3.4-4.9) Chloride Level 109 mEQ/L (98-107) H Carbon Dioxide Level 17 mEQ/L (20-30) L Anion Gap 13 (5-15) Blood Urea Nitrogen 27 mg/dL (7-23) H Creatinine 0.8 mg/dL (0.5-0.9) Estimat Glomerular Filtration Rate mL/min (>60) Glucose Level 107 mg/dL (74-106) H Calcium Level 8.1 mg/dL (8.6-10.2) L Phosphorus Level 3.3 mg/dL (2.5-4.8) Magnesium Level 1.9 mg/dL (1.7-2.5) Total Bilirubin 0.4 mg/dL (0.0-1.2) Aspartate Amino Transf (AST/SGOT) 10 U/L (5-40) Alanine Aminotransferase (ALT/SGPT) 6 U/L (3-33) Alkaline Phosphatase 57 U/L (35-104) C-Reactive Protein, Quantitative 4.6 mg/dL (< 0.5) H Total Protein 5.3 g/dL (6.6-8.7) L Albumin 2.1 g/dL (3.5-5.2) L Globulin 3.2 g/dL Albumin/Globulin Ratio 0.6 (1.0-2.7) L Current Medications Medications (Trade) Dose Ordered Sig/Jonah Route PRN Reason Start Time Stop Time Status Last Admin Dose Admin Acetaminophen (Tylenol) 650 mg Q4H PRN ORAL fever 03/04/17 18:00 04/03/17 17:59 Dextrose 1,000 ml @ 50 mls/hr Q20H IV 03/07/17 09:30 04/06/17 09:29 03/07/17 09:30 Dextrose (Dextrose 50%) STAT PRN IV Hypoglycemia 03/04/17 18:00 04/03/17 17:59 Diltiazem HCl (Cardizem) 10 mg Q1H PRN IV HR>135 bpm after iv metoprolol 03/05/17 09:00 04/04/17 08:59 03/06/17 09:03 Heparin Sodium (Porcine) (Heparin 5000 units/ml) 5,000 units EVERY 12 HOURS SUBQ 03/04/17 21:00 04/03/17 20:59 03/07/17 08:39 Hydralazine HCl (Apresoline) 25 mg Q6H PRN ORAL For High BP over 160 syst 03/05/17 09:00 04/04/17 08:59 Metoprolol Tartrate (Lopressor) 5 mg Q6H IVP 03/05/17 17:00 04/04/17 16:59 03/07/17 17:18 Morphine Sulfate (Morphine Sulfate) 2 mg Q4H PRN IVP Moderate Pain (Pain Scale 4-6) 03/04/17 18:00 03/11/17 17:59 Nitroglycerin (Ntg) 0.4 mg Q5M PRN SL Prn Chest Pain 03/04/17 18:00 04/03/17 17:59 Ondansetron HCl (Zofran) 4 mg Q6H PRN IVP Nausea & Vomiting 03/04/17 18:00 04/03/17 17:59 Piperacillin Sod/ Tazobactam Sod 3.375 gm/Dextrose 110 ml @ 27.5 mls/hr EVERY 8 HOURS IVPB 03/06/17 14:00 03/11/17 13:59 03/07/17 14:00 Polyethylene Glycol (Miralax) 17 gm DAILYPRN PRN ORAL Constipation 03/04/17 18:00 04/03/17 17:59 Risperidone (RisperDAL) 0.25 mg Q12HR ORAL 03/05/17 09:00 04/04/17 08:59 Temazepam (Restoril) 15 mg HSPRN PRN ORAL Insomnia 03/04/17 18:00 03/11/17 17:59 Vancomycin HCl (Vanco rx to dose) 1 ea DAILY PRN MISC PER RX PROTOCOL 03/04/17 18:30 04/03/17 18:29 Vancomycin HCl 500 mg/Dextrose 110 ml @ 110 mls/hr Q12H IVPB 03/06/17 10:00 03/11/17 09:59 03/07/17 10:00 ALDO CLEANING M.D. Mar 07, 2017 19:05
--- NOTE | 2017-03-07 19:36 | Internal Med Progress Note ---
Subjective Date of Service: Mar 07, 2017 Physician Name Bridger Jacob Attending Physician Donovan Spring MD Current Medications Medications (Trade) Dose Ordered Sig/Jonah Route PRN Reason Start Time Stop Time Status Last Admin Dose Admin Acetaminophen (Tylenol) 650 mg Q4H PRN ORAL fever 03/04/17 18:00 04/03/17 17:59 Dextrose 1,000 ml @ 50 mls/hr Q20H IV 03/07/17 09:30 04/06/17 09:29 03/07/17 09:30 Dextrose (Dextrose 50%) STAT PRN IV Hypoglycemia 03/04/17 18:00 04/03/17 17:59 Diltiazem HCl (Cardizem) 10 mg Q1H PRN IV HR>135 bpm after iv metoprolol 03/05/17 09:00 04/04/17 08:59 03/06/17 09:03 Ertapenem 1 gm/ Sodium Chloride 55 ml @ 110 mls/hr Q24H IVPB 03/07/17 21:00 03/12/17 20:59 Heparin Sodium (Porcine) (Heparin 5000 units/ml) 5,000 units EVERY 12 HOURS SUBQ 03/04/17 21:00 04/03/17 20:59 03/07/17 08:39 Hydralazine HCl (Apresoline) 25 mg Q6H PRN ORAL For High BP over 160 syst 03/05/17 09:00 04/04/17 08:59 Metoprolol Tartrate (Lopressor) 5 mg Q6H IVP 03/05/17 17:00 04/04/17 16:59 03/07/17 17:18 Morphine Sulfate (Morphine Sulfate) 2 mg Q4H PRN IVP Moderate Pain (Pain Scale 4-6) 03/04/17 18:00 03/11/17 17:59 Nitroglycerin (Ntg) 0.4 mg Q5M PRN SL Prn Chest Pain 03/04/17 18:00 04/03/17 17:59 Ondansetron HCl (Zofran) 4 mg Q6H PRN IVP Nausea & Vomiting 03/04/17 18:00 04/03/17 17:59 Polyethylene Glycol (Miralax) 17 gm DAILYPRN PRN ORAL Constipation 03/04/17 18:00 04/03/17 17:59 Risperidone (RisperDAL) 0.25 mg Q12HR ORAL 03/05/17 09:00 04/04/17 08:59 Temazepam (Restoril) 15 mg HSPRN PRN ORAL Insomnia 03/04/17 18:00 03/11/17 17:59 Allergies: Coded Allergies: SHELLFISH DERIVED (Unverified Allergy, Severe, Hives, 07/20/14) tongue and face swelling ROS Limited/Unobtainable: Yes Subjective 86 YO F admitted with Altered mental status. Now UTI and pneumonia. Cover for Int Med - Dr Spring. Objective Last Vital Signs Date Time Temp Pulse Resp B/P (MAP) Pulse Ox O2 Delivery O2 Flow Rate FiO2 03/07/17 17:18 126 119/72 03/07/17 16:00 97.9 20 98 Nasal Cannula 2.0 03/06/17 07:32 32 Laboratory Tests Test 03/07/17 03:45 White Blood Count 14.0 K/UL (4.8-10.8) H Red Blood Count 3.25 M/UL (4.20-5.40) L Hemoglobin 9.2 G/DL (12.0-16.0) L Hematocrit 29.2 % (37.0-47.0) L Mean Corpuscular Volume 90 FL (80-99) Mean Corpuscular Hemoglobin 28.4 PG (27.0-31.0) Mean Corpuscular Hemoglobin Concent 31.7 G/DL (32.0-36.0) L Red Cell Distribution Width 13.5 % (11.6-14.8) Platelet Count 276 K/UL (150-450) Mean Platelet Volume 6.9 FL (6.5-10.1) Neutrophils (%) (Auto) % (45.0-75.0) Lymphocytes (%) (Auto) % (20.0-45.0) Monocytes (%) (Auto) % (1.0-10.0) Eosinophils (%) (Auto) % (0.0-3.0) Basophils (%) (Auto) % (0.0-2.0) Erythrocyte Sedimentation Rate 41 MM/HR (0-42) Sodium Level 139 mEQ/L (135-145) Potassium Level 3.8 mEQ/L (3.4-4.9) Chloride Level 109 mEQ/L (98-107) H Carbon Dioxide Level 17 mEQ/L (20-30) L Anion Gap 13 (5-15) Blood Urea Nitrogen 27 mg/dL (7-23) H Creatinine 0.8 mg/dL (0.5-0.9) Estimat Glomerular Filtration Rate mL/min (>60) Glucose Level 107 mg/dL (74-106) H Calcium Level 8.1 mg/dL (8.6-10.2) L Phosphorus Level 3.3 mg/dL (2.5-4.8) Magnesium Level 1.9 mg/dL (1.7-2.5) Total Bilirubin 0.4 mg/dL (0.0-1.2) Aspartate Amino Transf (AST/SGOT) 10 U/L (5-40) Alanine Aminotransferase (ALT/SGPT) 6 U/L (3-33) Alkaline Phosphatase 57 U/L (35-104) C-Reactive Protein, Quantitative 4.6 mg/dL (< 0.5) H Total Protein 5.3 g/dL (6.6-8.7) L Albumin 2.1 g/dL (3.5-5.2) L Globulin 3.2 g/dL Albumin/Globulin Ratio 0.6 (1.0-2.7) L Microbiology Date/Time Source Procedure Growth Status 03/05/17 04:00 Rectum VRE Culture - Final NO VANCOMYCIN RESISTANT ENTEROCOCCUS ... Complete 03/05/17 04:00 Sacral Wound Gram Stain - Final Resulted 03/05/17 04:00 Wound Culture - Preliminary Escherichia Coli - Esbl Enterococcus Faecalis Resulted Intake and Output 03/07/17 03/08/17 19:00 07:00 Intake Total 620.0 ml Output Total 130 ml Balance 490.0 ml Intake Oral 50 ml IV Total 570.0 ml Output Urine Total 130 ml Objective General Appearance: lethargic, thin EENT: normal ENT inspection Neck: non-tender, normal alignment, supple, normal inspection Cardiovascular: normal peripheral pulses, normal rate, no gallop/murmur, no JVD , irregularly irregular Respiratory/Chest: chest wall non-tender, lungs crackles bilat bases, exp wheezing Abdomen: normal bowel sounds, non tender, soft, no organomegaly, no mass Neurologic: unresponsiveness Skin: normal pigmentation, warm/dry Assessment/Plan Problem List: (1) UTI (urinary tract infection) Assessment & Plan: ESBL E. Coli. Cont ertapenem per ID (2) Altered mental status Assessment & Plan: ?due to UTI? (3) Sepsis (4) HTN (hypertension) Assessment & Plan: Currently hypotensive. Hold antihypertensive meds (5) Hypotension Assessment & Plan: ?sepsis? resolving with IV fluids. (6) Hypercholesteremia (7) Atrial fibrillation (8) Hypothyroidism Assessment & Plan: Cont levoxyl. (9) Pulmonary hypertension (10) Pneumonia Assessment & Plan: Bibasilar. See pulmonary note. Cont ertapenem per ID Status: not improved BRIDGER JACOB Mar 07, 2017 19:36
--- NOTE | 2017-03-07 19:36 | Cardiology Progress Note ---
Assessment/Plan Assessment/Plan 1. Atrial fibrillation with rapid ventricular response. 2. Urinary tract infection. 3. Questionable seizures. 4. History of pulmonary hypertension. 5. Altered mentation, metabolic encephalopathy versus others. 6. Acute renal failure. 7. Hypernatremia suggestive of intravascular volume depletion. 8. Possible pneumonia. 9. hyperthyroidism agree with dc of Synthroid hr rapid due to medication on iv bb switch to po nwo that is able to taek po is more responsive tele reviewed labs noted Subjective Cardiovascular: Denies: chest pain Respiratory: Denies: shortness of breath Objective Last 24 Hour Vital Signs Date Time Temp Pulse Resp B/P (MAP) Pulse Ox O2 Delivery O2 Flow Rate FiO2 03/07/17 17:18 126 119/72 03/07/17 16:33 129 03/07/17 16:00 97.9 121 20 119/72 98 Nasal Cannula 2.0 03/07/17 12:00 120 03/07/17 12:00 97.4 120 20 102/76 98 Nasal Cannula 2.0 03/07/17 11:58 120 102/76 03/07/17 08:00 124 03/07/17 08:00 97.7 106 18 96/60 98 Nasal Cannula 2.0 03/07/17 07:02 124 18 Nasal Cannula 3.0 03/07/17 07:02 98 Nasal Cannula 3.0 03/07/17 07:02 Nasal Cannula 3.0 03/07/17 04:42 126 106/60 03/07/17 04:00 128 03/07/17 03:48 96.3 121 20 99/57 98 Nasal Cannula 4.0 03/07/17 00:00 120 03/06/17 23:26 97.7 124 22 107/58 97 Nasal Cannula 4.0 03/06/17 22:31 120 90/52 03/06/17 20:00 99.7 125 20 105/65 97 Nasal Cannula 4.0 03/06/17 20:00 132 General Appearance: alert, patient on isolation Cardiovascular: tachycardia, irregularly irregular Respiratory/Chest: lungs clear Abdomen: non tender, soft Extremities: no swelling Intake and Output 03/07/17 03/08/17 19:00 07:00 Intake Total 620.0 ml Output Total 130 ml Balance 490.0 ml Intake Oral 50 ml IV Total 570.0 ml Output Urine Total 130 ml Laboratory Tests Test 03/07/17 03:45 White Blood Count 14.0 K/UL (4.8-10.8) H Red Blood Count 3.25 M/UL (4.20-5.40) L Hemoglobin 9.2 G/DL (12.0-16.0) L Hematocrit 29.2 % (37.0-47.0) L Mean Corpuscular Volume 90 FL (80-99) Mean Corpuscular Hemoglobin 28.4 PG (27.0-31.0) Mean Corpuscular Hemoglobin Concent 31.7 G/DL (32.0-36.0) L Red Cell Distribution Width 13.5 % (11.6-14.8) Platelet Count 276 K/UL (150-450) Mean Platelet Volume 6.9 FL (6.5-10.1) Neutrophils (%) (Auto) % (45.0-75.0) Lymphocytes (%) (Auto) % (20.0-45.0) Monocytes (%) (Auto) % (1.0-10.0) Eosinophils (%) (Auto) % (0.0-3.0) Basophils (%) (Auto) % (0.0-2.0) Erythrocyte Sedimentation Rate 41 MM/HR (0-42) Sodium Level 139 mEQ/L (135-145) Potassium Level 3.8 mEQ/L (3.4-4.9) Chloride Level 109 mEQ/L (98-107) H Carbon Dioxide Level 17 mEQ/L (20-30) L Anion Gap 13 (5-15) Blood Urea Nitrogen 27 mg/dL (7-23) H Creatinine 0.8 mg/dL (0.5-0.9) Estimat Glomerular Filtration Rate mL/min (>60) Glucose Level 107 mg/dL (74-106) H Calcium Level 8.1 mg/dL (8.6-10.2) L Phosphorus Level 3.3 mg/dL (2.5-4.8) Magnesium Level 1.9 mg/dL (1.7-2.5) Total Bilirubin 0.4 mg/dL (0.0-1.2) Aspartate Amino Transf (AST/SGOT) 10 U/L (5-40) Alanine Aminotransferase (ALT/SGPT) 6 U/L (3-33) Alkaline Phosphatase 57 U/L (35-104) C-Reactive Protein, Quantitative 4.6 mg/dL (< 0.5) H Total Protein 5.3 g/dL (6.6-8.7) L Albumin 2.1 g/dL (3.5-5.2) L Globulin 3.2 g/dL Albumin/Globulin Ratio 0.6 (1.0-2.7) L Microbiology Date/Time Source Procedure Growth Status 03/05/17 04:00 Rectum VRE Culture - Final NO VANCOMYCIN RESISTANT ENTEROCOCCUS ... Complete 03/05/17 04:00 Sacral Wound Gram Stain - Final Resulted 03/05/17 04:00 Wound Culture - Preliminary Escherichia Coli - Esbl Enterococcus Faecalis Resulted TRACI WHEATLEY Mar 07, 2017 19:36
[2017-03-07 20:00] VITALS: BP 104/55
[2017-03-07] MEDS ORDERED: Metoprolol 5mg/5ml Inj IVP PRN (20:00)
[2017-03-07] MEDS ORDERED: Ertapenem 1 GM in NS 55 ML IVPB SCH (21:00)
[2017-03-07] MEDS: Metoprolol 25mg tab ORAL SCH (21:04)
[2017-03-07 23:26] VITALS: BP 99/74
[2017-03-08 04:00] VITALS: BP 94/59
[2017-03-08 05:00] LABS: MEAN CORPUSCULAR HEMOGLOBIN 28.6 PG (27.0-31.0); MEAN CORPUSCULAR HGB CONC 32.2 G/DL (32.0-36.0); MEAN CORPUSCULAR VOLUME 89 FL (80-99); MEAN PLATELET VOLUME 6.6 FL (6.5-10.1); PLATELET COUNT 303 K/UL (150-450); RED BLOOD COUNT 3.45 M/UL (4.20-5.40); RED CELL DISTRIBUTION WIDTH 13.3 % (11.6-14.8); WHITE BLOOD COUNT 14.6 K/UL (4.8-10.8)
[2017-03-08 05:24] LABS: ALANINE AMINOTRANSFERASE 7 U/L (3-33); ALBUMIN/GLOBULIN RATIO 0.6 (1.0-2.7); ASPARTATE AMINO TRANSFERASE 10 U/L (5-40); CALCIUM 8.2 mg/dL (8.6-10.2); CARBON DIOXIDE 17 mEQ/L (20-30); CHLORIDE 109 mEQ/L (98-107); CREATININE 0.7 mg/dL (0.5-0.9); HEMOLYSIS 6; MAGNESIUM 1.7 mg/dL (1.7-2.5); PHOSPHORUS 2.7 mg/dL (2.5-4.8); SODIUM 140 mEQ/L (135-145); TOTAL PROTEIN 5.6 g/dL (6.6-8.7)
[2017-03-08 05:46] LABS: ANION GAP 14 (5-15); POTASSIUM 3.6 mEQ/L (3.4-4.9)
[2017-03-08 08:11] VITALS: BP 106/82
[2017-03-08] MEDS: Metoprolol 25mg tab ORAL SCH (08:23)
[2017-03-08] MEDS: Heparin 5000 units/ml inj SUBQ SCH (08:25)
[2017-03-08 08:31] LABS: BAND NEUTROPHILS % (MANUAL) 0 % (0-8); BASOPHILS % (MANUAL) 0 % (0-2); EOSINOPHILS % (MANUAL) 1 % (0-3); HYPOCHROMASIA 1+; LYMPHOCYTES % (MANUAL) 14 % (20-45); NEUTROPHILS % (MANUAL) 81 % (45-75); PLATELET ESTIMATE ADEQUATE; PLATELET MORPHOLOGY NORMAL; TOTAL CELLS COUNTED 100
--- NOTE | 2017-03-08 09:35 | General Progress Note ---
Assessment/Plan Status: stable Assessment/Plan status: Acute renal failure , presents with PreRenal Azotemia and HyperNatremia ( Likely due to HypoTension and Dehydration)- IMPROVING Anemia HypoAlbuminemia UTI PH: 1. Hypertensive heart disease. 2. Pacemaker. 3. Hypercholesterolemia. 4. Atrial fibrillation. 5. Hypertension. 6. Hypothyroidism. 7. Sick sinus syndrome, status post pacemaker. 8. Pulmonary hypertension. 9. Mild to moderate mitral regurgitation. Plan: Labs OK. Per consultants- monitor renal parameters and electrolytes Avoid nephrotoxics Subjective ROS Limited/Unobtainable: No Constitutional: Reports: malaise Allergies: Coded Allergies: SHELLFISH DERIVED (Unverified Allergy, Severe, Hives, 07/20/14) tongue and face swelling Objective Last 24 Hour Vital Signs Date Time Temp Pulse Resp B/P (MAP) Pulse Ox O2 Delivery O2 Flow Rate FiO2 03/08/17 08:49 105 03/08/17 08:23 102 106/82 03/08/17 08:11 97.2 102 16 106/82 97 Nasal Cannula 2.0 03/08/17 04:00 97.5 106 16 94/59 99 Nasal Cannula 2.0 03/08/17 04:00 103 03/07/17 23:26 98.1 117 16 99/74 99 Nasal Cannula 2.0 03/07/17 21:04 108 104/55 03/07/17 20:00 108 03/07/17 20:00 Venturi Mask 3.0 32 03/07/17 20:00 98 Nasal Cannula 3.0 32 03/07/17 20:00 97.7 120 20 104/55 100 Nasal Cannula 2.0 03/07/17 17:18 126 119/72 03/07/17 16:33 129 03/07/17 16:00 97.9 121 20 119/72 98 Nasal Cannula 2.0 03/07/17 12:00 120 03/07/17 12:00 97.4 120 20 102/76 98 Nasal Cannula 2.0 03/07/17 11:58 120 102/76 Laboratory Tests 03/08/17 03:15: White Blood Count 14.6H, Red Blood Count 3.45L, Hemoglobin 9.9L, Hematocrit 30.7L, Mean Corpuscular Volume 89, Mean Corpuscular Hemoglobin 28.6, Mean Corpuscular Hemoglobin Concent 32.2, Red Cell Distribution Width 13.3, Platelet Count 303, Mean Platelet Volume 6.6, Neutrophils (%) (Auto) , Lymphocytes (%) ( Auto) , Monocytes (%) (Auto) , Eosinophils (%) (Auto) , Basophils (%) (Auto) , Differential Total Cells Counted 100, Neutrophils % (Manual) 81H, Lymphocytes % (Manual) 14L, Monocytes % (Manual) 4, Eosinophils % (Manual) 1, Basophils % ( Manual) 0, Band Neutrophils 0, Platelet Estimate Adequate, Platelet Morphology Normal, Hypochromasia 1+, Sodium Level 140, Potassium Level 3.6, Chloride Level 109H, Carbon Dioxide Level 17L, Anion Gap 14, Blood Urea Nitrogen 19, Creatinine 0.7, Estimat Glomerular Filtration Rate , Glucose Level 93, Calcium Level 8.2L, Phosphorus Level 2.7, Magnesium Level 1.7, Total Bilirubin 0.4, Aspartate Amino Transf (AST/SGOT) 10, Alanine Aminotransferase (ALT/SGPT) 7, Alkaline Phosphatase 63, Total Protein 5.6L, Albumin 2.1L, Globulin 3.5, Albumin /Globulin Ratio 0.6L Height (Feet): 5 Height (Inches): 5.00 Weight (Pounds): 100 General Appearance: no apparent distress Objective PE not changed LEONIDES CHAWLA Mar 08, 2017 09:35
--- NOTE | 2017-03-08 11:57 | Pulmonology Progress Note ---
Assessment/Plan Problems: (1) Sepsis (2) NSTEMI (non-ST elevated myocardial infarction) (3) ATN (acute tubular necrosis) (4) At high risk for aspiration (5) HTN (hypertension) (6) Hypothyroidism (7) Pacemaker Assessment/Plan mental status improved K supplement swallow study noted dc synthyroid IV and b2 agonists IV abx f/u BUN/creatinine, improving wbc still high, ID managing ABX dc planning to snif when ready dc with pts son at bed site. Subjective ROS Limited/Unobtainable: No Constitutional: Reports: no symptoms HEENT: Repors: no symptoms Respiratory: Reports: no symptoms Allergies: Coded Allergies: SHELLFISH DERIVED (Unverified Allergy, Severe, Hives, 07/20/14) tongue and face swelling Objective Last 24 Hour Vital Signs Date Time Temp Pulse Resp B/P (MAP) Pulse Ox O2 Delivery O2 Flow Rate FiO2 03/08/17 08:49 105 03/08/17 08:23 102 106/82 03/08/17 08:11 97.2 102 16 106/82 97 Nasal Cannula 2.0 03/08/17 04:00 97.5 106 16 94/59 99 Nasal Cannula 2.0 03/08/17 04:00 103 03/07/17 23:26 98.1 117 16 99/74 99 Nasal Cannula 2.0 03/07/17 21:04 108 104/55 03/07/17 20:00 108 03/07/17 20:00 Venturi Mask 3.0 32 03/07/17 20:00 98 Nasal Cannula 3.0 32 03/07/17 20:00 97.7 120 20 104/55 100 Nasal Cannula 2.0 03/07/17 17:18 126 119/72 03/07/17 16:33 129 03/07/17 16:00 97.9 121 20 119/72 98 Nasal Cannula 2.0 03/07/17 12:00 120 03/07/17 12:00 97.4 120 20 102/76 98 Nasal Cannula 2.0 03/07/17 11:58 120 102/76 General Appearance: WD/WN HEENT: normocephalic, atraumatic Respiratory/Chest: chest wall non-tender, lungs clear Breasts: no masses Cardiovascular: normal peripheral pulses, normal rate Abdomen: normal bowel sounds, soft, non tender Genitourinary: normal external genitalia Extremities: no cyanosis Skin: no rash, no lesions Neurologic/Psychiatric: exercise manager II-XII grossly normal, abnormal gait Lymphatic: no neck adenopathy Musculoskeletal: normal muscle bulk Microbiology Date/Time Source Procedure Growth Status 03/06/17 04:00 Urine,Clean Catch Urine Culture - Preliminary NO GROWTH Resulted Laboratory Tests 03/08/17 03:15: White Blood Count 14.6H, Red Blood Count 3.45L, Hemoglobin 9.9L, Hematocrit 30.7L, Mean Corpuscular Volume 89, Mean Corpuscular Hemoglobin 28.6, Mean Corpuscular Hemoglobin Concent 32.2, Red Cell Distribution Width 13.3, Platelet Count 303, Mean Platelet Volume 6.6, Neutrophils (%) (Auto) , Lymphocytes (%) ( Auto) , Monocytes (%) (Auto) , Eosinophils (%) (Auto) , Basophils (%) (Auto) , Differential Total Cells Counted 100, Neutrophils % (Manual) 81H, Lymphocytes % (Manual) 14L, Monocytes % (Manual) 4, Eosinophils % (Manual) 1, Basophils % ( Manual) 0, Band Neutrophils 0, Platelet Estimate Adequate, Platelet Morphology Normal, Hypochromasia 1+, Sodium Level 140, Potassium Level 3.6, Chloride Level 109H, Carbon Dioxide Level 17L, Anion Gap 14, Blood Urea Nitrogen 19, Creatinine 0.7, Estimat Glomerular Filtration Rate , Glucose Level 93, Calcium Level 8.2L, Phosphorus Level 2.7, Magnesium Level 1.7, Total Bilirubin 0.4, Aspartate Amino Transf (AST/SGOT) 10, Alanine Aminotransferase (ALT/SGPT) 7, Alkaline Phosphatase 63, Total Protein 5.6L, Albumin 2.1L, Globulin 3.5, Albumin /Globulin Ratio 0.6L Current Medications Medications (Trade) Dose Ordered Sig/Jonah Route PRN Reason Start Time Stop Time Status Last Admin Dose Admin Acetaminophen (Tylenol) 650 mg Q4H PRN ORAL fever 03/04/17 18:00 04/03/17 17:59 Dextrose 1,000 ml @ 50 mls/hr Q20H IV 03/07/17 09:30 04/06/17 09:29 03/08/17 05:32 Dextrose (Dextrose 50%) STAT PRN IV Hypoglycemia 03/04/17 18:00 04/03/17 17:59 03/08/17 07:10 Diltiazem HCl (Cardizem) 10 mg Q1H PRN IV HR>135 bpm after iv metoprolol 03/05/17 09:00 04/04/17 08:59 03/06/17 09:03 Ertapenem 1 gm/ Sodium Chloride 55 ml @ 110 mls/hr Q24H IVPB 03/07/17 21:00 03/12/17 20:59 03/07/17 21:01 Heparin Sodium (Porcine) (Heparin 5000 units/ml) 5,000 units EVERY 12 HOURS SUBQ 03/04/17 21:00 04/03/17 20:59 03/08/17 08:25 Hydralazine HCl (Apresoline) 25 mg Q6H PRN ORAL For High BP over 160 syst 03/05/17 09:00 04/04/17 08:59 Metoprolol Tartrate (Lopressor) 5 mg Q6H PRN IVP HR > 125 03/07/17 20:00 04/06/17 19:59 Metoprolol Tartrate (Lopressor) 25 mg Q12HR ORAL 03/07/17 21:00 04/06/17 20:59 03/08/17 08:23 Morphine Sulfate (Morphine Sulfate) 2 mg Q4H PRN IVP Moderate Pain (Pain Scale 4-6) 03/04/17 18:00 03/11/17 17:59 Nitroglycerin (Ntg) 0.4 mg Q5M PRN SL Prn Chest Pain 03/04/17 18:00 04/03/17 17:59 Ondansetron HCl (Zofran) 4 mg Q6H PRN IVP Nausea & Vomiting 03/04/17 18:00 04/03/17 17:59 Polyethylene Glycol (Miralax) 17 gm DAILYPRN PRN ORAL Constipation 03/04/17 18:00 04/03/17 17:59 Risperidone (RisperDAL) 0.25 mg Q12HR ORAL 03/05/17 09:00 04/04/17 08:59 03/08/17 08:24 Temazepam (Restoril) 15 mg HSPRN PRN ORAL Insomnia 03/04/17 18:00 03/11/17 17:59 TATI FAM Mar 08, 2017 11:57
[2017-03-08 12:02] VITALS: BP 118/42
[2017-03-08 15:36] VITALS: BP 109/62
[2017-03-08 15:50] VITALS: BP 109/62
[2017-03-08] MEDS: Diltiazem 25mg/5ml IV PRN (15:50)
--- NOTE | 2017-03-08 16:07 | Discharge Summary ---
Discharge Summary Hospital Course Date of Admission Mar 04, 2017 at 15:47 Date of Discharge Admitting Diagnosis sepsis HPI Yudi Wade is a 86 year old female who was admitted on Mar 04, 2017 at 15:47 for Sepsis Hospital Course The patient was seen and examined at bedside and all new and available data was reviewed in the patients chart. I agree with the above findings, impression, and plan. Discharge scummy dictated , [id number] Last 24 Hour Vital Signs Date Time Temp Pulse Resp B/P (MAP) Pulse Ox O2 Delivery O2 Flow Rate FiO2 03/08/17 15:50 135 109/62 03/08/17 15:36 97.9 93 16 109/62 100 Nasal Cannula 2.0 32 03/08/17 12:04 118 03/08/17 12:02 97.0 93 16 118/42 95 Nasal Cannula 2.0 03/08/17 08:49 105 03/08/17 08:23 102 106/82 03/08/17 08:11 97.2 102 16 106/82 97 Nasal Cannula 2.0 03/08/17 04:00 97.5 106 16 94/59 99 Nasal Cannula 2.0 03/08/17 04:00 103 03/07/17 23:26 98.1 117 16 99/74 99 Nasal Cannula 2.0 03/07/17 21:04 108 104/55 03/07/17 20:00 108 03/07/17 20:00 Venturi Mask 3.0 32 03/07/17 20:00 98 Nasal Cannula 3.0 32 03/07/17 20:00 97.7 120 20 104/55 100 Nasal Cannula 2.0 03/07/17 17:18 126 119/72 03/07/17 16:33 129 General: No acute distress, awake and responsive. HEENT: NCAT, sclera anicteric, PERRL, EOMI. Neck: Supple, no significant jugular venous distention, Lungs: fair inspiratory effort, clear to auscultation bilaterally, no Wheeze or Rales. Heart: Regular rate and rhythm, normal S1/S2, no murmurs Abdomen: soft, nontender, nondistended. Normoactive bowel sounds. Extremities: No Cyanosis , clubbing Trace LUE edema. Neuro: A&O x 2 Able to move all extremities slowly Skin: warm, Sacral Decubi Ulceration (Patient was seen earlier today. Signature timestamp does not reflect patient encounter time) Donovan Spring MD Discharge Discharge Disposition Patient was discharged to Discharge Diagnoses: Donovan Spring MD Mar 08, 2017 16:07
--- NOTE | 2017-03-09 03:45 | Discharge Summary ---
DATE OF ADMISSION: 03/04/2017 DATE OF DISCHARGE: 03/08/2017 ADDENDUM The patient throughout the hospital course was continued with the intravenous hydration and status improved and subsequently was discharged to the nursing facility to be continued on Invanz for another additional 9 days more. FINAL DIAGNOSES: 1. Severe sepsis secondary to urinary tract infection. 2. Extended-spectrum beta-lactamases Escherichia coli urinary tract infection. 3. Bibasilar pneumonia. 4. Hypovolemic shock. 5. Lactic acidosis. 6. Acute kidney injury. 7. Fever. 8. Leukocytosis. 9. Chronic sacral decubitus ulcer with colonization of extended-spectrum beta-lactamases Escherichia colic as well as Enterococcus. 10. Atrial fibrillation with rapid ventricular rate. 11. Anemia. 12. Hypovolemia. 13. Hypoalbuminemia. MEDICATION ON DISCHARGE: Continue discharge medication list. ACTIVITY: As tolerated. DIET: Regular diet as tolerated. Donovan Spring M.D. DR: DARVIN JOB#: [id number] CC:
--- NOTE | 2017-03-09 04:15 | Discharge Summary ---
DATE OF ADMISSION: 03/04/2017 DATE OF DISCHARGE: 03/08/2017 INCOMPLETE HISTORY: This is an 86-year-old female with a past medical history significant for atrial fibrillation, hypertension, pulmonary hypertension, dyslipidemia, hypertensive heart disease, and hypothyroidism, who has presented to the hospital from nursing facility after it was noted to have altered mental status. Shortly after initial evaluation, the patient was admitted to the hospital with sepsis secondary to sacral decubitus ulcer and urinary tract infection. Throughout the hospital course, the patient was followed with Dr. Willsi Starks from Cardiology, Dr. Apoorva Loya from Pulmonary Critical Care, Dr. Jason Westfall from Nephrology, and Dr. Ferro from Infectious Disease. The patient was treated for the sepsis secondary to urinary tract infection with ESBL E. coli as well as bibasilar pneumonia. The patient was resuscitated with aggressive IV hydration due to the hypovolemia.... Donovan Spring M.D. DR: DARVIN JOB#: [id number] CC:
== END 2017-03-08 18:24 | DRG 871 ==
LOC: EDBD 14:39 → EMR 14:54 → 4E 15:47 → EDBEDREQ 18:47 → 4E 20:39 → 2W 21:44
DX: A41.9 Sepsis, unspecified organism (principal); R57.1 Hypovolemic shock; N17.0 Acute kidney failure with tubular necrosis; I21.4 Non-ST elevation (NSTEMI) myocardial infarction; J18.9 Pneumonia, unspecified organism; I27.2 Other secondary pulmonary hypertension; L89.150 Pressure ulcer of sacral region, unstageable; E87.0 Hyperosmolality and hypernatremia; I11.9 Hypertensive heart disease without heart failure; E88.09 Other disorders of plasma-protein metabolism, not elsewhere classified; N39.0 Urinary tract infection, site not specified; G30.9 Alzheimer's disease, unspecified; F02.80 Dementia in other diseases classified elsewhere, unspecified severity, without behavioral disturbance, psychotic disturbance, mood disturbance, and anxiety; D64.9 Anemia, unspecified; R65.20 Severe sepsis without septic shock; Z66 Do not resuscitate; B96.20 Unspecified Escherichia coli [E. coli] as the cause of diseases classified elsewhere; Z16.12 Extended spectrum beta lactamase (ESBL) resistance; I48.91 Unspecified atrial fibrillation; Z95.0 Presence of cardiac pacemaker; I34.0 Nonrheumatic mitral (valve) insufficiency; I25.10 Atherosclerotic heart disease of native coronary artery without angina pectoris; Z87.891 Personal history of nicotine dependence; Z86.73 Personal history of transient ischemic attack (TIA), and cerebral infarction without residual deficits; E78.00 Pure hypercholesterolemia, unspecified; Z22.39 Carrier of other specified bacterial diseases
CPT/HCPCS: 36415; 71010; 76775; 80053; 80061; 80202; 81001; 81003; 82436; 82550; 82607; 82728; 82746; 82962; 82977; 83036; 83540; 83550; 83605; 83735; 83880; 83935; 84100; 84133; 84300; 84443; 84484; 84550; 85007; 85025; 85610; 85651; 85730; 86140; 87040; 87070; 87081; 87086; 87181; 87205; 89050; 93005; 93306; 93970; 94664; 94760; 99285

== ENCOUNTER 2017-09-04 00:36 | Inpatient (IN) | payer MEDICARE, MEDICAID ==
[2017-09-04] VITALS (54 sets, daily range): BP systolic 65–144; BP diastolic 44–91
[~2017-09-04] VITALS: Ht 167.6 cm; Wt 62.7 kg
[~2017-09-04 00:36] MED LIST changes: -Piperacillin/Tazobactam 4.5 GM in NS 110 ML IV STA; +UNOBMED
[2017-09-04] MEDS ORDERED: Zosyn 3.375gm inj ONE (00:54)
[2017-09-04] MEDS ORDERED: Piperacillin/Tazobactam 3.375 GM in NS 110 ML IVPB ONE (01:00)
[2017-09-04] MEDS ORDERED: Sodium Chloride 500ML 500 ML IV ONE (01:00)
[2017-09-04] MEDS ORDERED: Vancomycin 1 GM in NS 275 ML IVPB ONE (01:00)
[2017-09-04 01:14] LABS: HEMATOCRIT 34.5 % (37.0-47.0); MEAN CORPUSCULAR VOLUME 85 FL (80-99); PLATELET COUNT 308 K/UL (150-450); RED BLOOD COUNT 4.05 M/UL (4.20-5.40); RED CELL DISTRIBUTION WIDTH 16.8 % (11.6-14.8); WHITE BLOOD COUNT 10.2 K/UL (4.8-10.8)
[2017-09-04] MEDS ORDERED: dilTIAZem HCl 25mg/5ml Inj IVP ONE (01:15)
[2017-09-04 01:21] LABS: INR 1.3 (0.9-1.1)
[2017-09-04 01:23] LABS: ANION GAP 14 mmol/L (5-15); BLOOD UREA NITROGEN 105 mg/dL (7-18); CALCIUM 9.5 MG/DL (8.5-10.1); CARBON DIOXIDE 23 MMOL/L (21-32); CHLORIDE 104 MMOL/L (98-107); CREATININE 5.4 MG/DL (0.55-1.30); POTASSIUM 5.4 MMOL/L (3.5-5.1); SODIUM 140 MMOL/L (136-145)
[2017-09-04 01:36] LABS: ALANINE AMINOTRANSFERASE 16 U/L (12-78); ALBUMIN 1.9 G/DL (3.4-5.0); ALBUMIN/GLOBULIN RATIO 0.3 (1.0-2.7); ALKALINE PHOSPHATASE 75 U/L (46-116); ASPARTATE AMINO TRANSFERASE 28 U/L (15-37); BILIRUBIN,TOTAL 1.3 MG/DL (0.2-1.0); CKMB 0.6 NG/ML (0.0-3.6); CREATINE KINASE 176 U/L (26-308)
[2017-09-04] MEDS ORDERED: Lidocaine 1% 10mg/ml/Epi 0.005mg/ml 30ml vial INJ ONE ×2 (01:37→01:45)
[2017-09-04 01:46] LABS: BILIRUBIN,DIRECT 0.5 MG/DL (0.0-0.3)
[2017-09-04] MEDS ORDERED: Vancomycin 1gm inj IVPB ONE (02:08)
[2017-09-04] MEDS ORDERED: Acetaminophen 650 MG SUPP RECTAL ONE (02:15)
[2017-09-04] MEDS ORDERED: Levophed 4mg/4mL Inj IV ONE (04:35)
[2017-09-04] MEDS ORDERED: D5W 275 ML ONE (04:38)
--- NOTE | 2017-09-04 04:51 | Emergency Room Report ---
History of Present Illness General Chief Complaint: Dyspnea/Respdistress Source: Medical Record, EMS Present Illness HPI Patient presents from nursing facility with respiratory distress Upon initial arrival the patient was hypotensive Altered Patient presents with a DO NOT INTUBATE/DO NOT RESUSCITATE note However there is other limited interventions such as pressors and other medications There was no reports of vomiting Patient herself is nonverbal and this does limit the history of present illness Patient was also significantly febrile upon arrival Allergies: Coded Allergies: SHELLFISH DERIVED (Verified Allergy, Unknown, 09/04/17) Patient History Past Medical History: see triage record Pertinent Family History: none Reviewed Nursing Documentation: PMH: Agreed, PSxH: Agreed Nursing Documentation-PMH Hx Cardiac Problems: Yes - A FIB Hx Hypertension: Yes Hx Pacemaker: Yes - left chest Hx Asthma: No Hx COPD: No Hx Diabetes: No Hx Cancer: Yes - throat Hx Gastrointestinal Problems: Yes Hx Dialysis: No Hx Neurological Problems: Yes Hx Cerebrovascular Accident: Yes Hx Dementia: Yes Hx Alzheimer's Disease: Yes Hx Seizures: No Hx Concentration Difficulty: Yes Hx Dizziness: Yes Hx Syncope: Yes Hx Weakness: Yes Hx Fatigue: Yes Review of Systems All Other Systems: limited - Other than the ones mentioned in the history of present illness all others are reviewed however they do stay limited due to the patient's mental status Physical Exam Vital Signs Date Time Temp Pulse Resp B/P (MAP) Pulse Ox O2 Delivery O2 Flow Rate FiO2 09/04/17 00:36 103.1 139 48 85/55 81 Room Air 103.1 09/04/17 01:40 60 Sp02 EP Interpretation: reviewed, abnormal - 81% which is a low oxygenation on BiPAP the patient is saturatin which is normal General Appearance: moderate distress - Patient appears in respiratory distress , ill Head: normocephalic, atraumatic Eyes: bilateral eye PERRL ENT: dry mucus membranes Neck: supple, thyroid normal Respiratory: respiratory distress, accessory muscle use, crackles, wheezing Cardiovascular #1: tachycardia, irregularly irregular Gastrointestinal: soft, no mass Genitourinary: no CVA tenderness Musculoskeletal: other - Patient does not move extremities to physical stimuli Neurologic: other - Significantly decreased GCS, nonverbal, not following commands Skin: normal color, no rash Lymphatic: no adenopathy Procedures Critical Care Time Critical Care Time 50 minutes for multiple re-evaluations Clinical presentation and findings concerning for specific failure not including any procedural time Central Line Central Line : Consent: Emergent Central Line Lumen: triple Maximal Sterile Barrier Tech: yes cap, yes mask, yes sterile gown, yes sterile gloves, yes large sterile sheet, yes hand hygiene, yes chlorhexidine prep Central Line Postion: femoral (R) Anesthesia: Lidocaine cc's of anesthesia: 3 Complications: none Central Line Post Position: sutured Attempts: One Patient Tolerated: Well Complications: None Medical Decision Making Diagnostic Impression: Primary Impression: Septic shock ER Course Differentials considered Patient presents significantly ill Requiring multiple and extensive blood work along with imaging study Patient appears to have likely aspirated X-ray imaging shows concerning findings of infiltrates Patient initiated on broad-spectrum antibiotics and IV hydration Pressors have been ordered as needed The patient admitted to ICU Sepsis reexamination Time:0400 VS refer to nursing note cvs: irregularly irregular respiratory: improved respiration peripheral pulses: 2+radial cap refill:<2 seconds skin exam: warm, dry, not mottled Labs Test 09/04/17 00:50 09/04/17 01:45 White Blood Count 10.2 K/UL (4.8-10.8) Red Blood Count 4.05 M/UL (4.20-5.40) Hemoglobin 11.0 G/DL (12.0-16.0) Hematocrit 34.5 % (37.0-47.0) Mean Corpuscular Volume 85 FL (80-99) Mean Corpuscular Hemoglobin 27.1 PG (27.0-31.0) Mean Corpuscular Hemoglobin Concent 31.9 G/DL (32.0-36.0) Red Cell Distribution Width 16.8 % (11.6-14.8) Platelet Count 308 K/UL (150-450) Mean Platelet Volume 6.4 FL (6.5-10.1) Neutrophils (%) (Auto) % (45.0-75.0) Lymphocytes (%) (Auto) % (20.0-45.0) Monocytes (%) (Auto) % (1.0-10.0) Eosinophils (%) (Auto) % (0.0-3.0) Basophils (%) (Auto) % (0.0-2.0) Prothrombin Time 13.4 SEC (9.30-11.50) Prothromb Time International Ratio 1.3 (0.9-1.1) Activated Partial Thromboplast Time 31 SEC (23-33) Arterial Blood pH 7.420 (7.350-7.450) Arterial Blood Partial Pressure CO2 29.0 mmHg (35.0-45.0) Arterial Blood Partial Pressure O2 101.7 mmHg (75.0-100.0) Arterial Blood HCO3 18.6 mmol/L (22.0-26.0) Arterial Blood Oxygen Saturation 97.8 % (92.0-98.0) Arterial Blood Base Excess -4.8 Alec Test Positive Sodium Level 140 MMOL/L (136-145) Potassium Level 5.4 MMOL/L (3.5-5.1) Chloride Level 104 MMOL/L (98-107) Carbon Dioxide Level 23 MMOL/L (21-32) Anion Gap 14 mmol/L (5-15) Blood Urea Nitrogen 105 mg/dL (7-18) Creatinine 5.4 MG/DL (0.55-1.30) Estimat Glomerular Filtration Rate mL/min (>60) Glucose Level 119 MG/DL (74-106) Lactic Acid Level 2.40 mmol/L (0.66-2.22) 2.30 mmol/L (0.66-2.22) Calcium Level 9.5 MG/DL (8.5-10.1) Total Bilirubin 1.3 MG/DL (0.2-1.0) Direct Bilirubin 0.5 MG/DL (0.0-0.3) Aspartate Amino Transf (AST/SGOT) 28 U/L (15-37) Alanine Aminotransferase (ALT/SGPT) 16 U/L (12-78) Alkaline Phosphatase 75 U/L (46-116) Total Creatine Kinase 176 U/L (26-308) Creatine Kinase MB 0.6 NG/ML (0.0-3.6) Creatine Kinase MB Relative Index 0.3 Troponin I 0.027 ng/mL (0.000-0.056) Pro-B-Type Natriuretic Peptide 4459 pg/mL (0-125) Total Protein 7.7 G/DL (6.4-8.2) Albumin 1.9 G/DL (3.4-5.0) Globulin 5.8 g/dL Albumin/Globulin Ratio 0.3 (1.0-2.7) Lipase 36 U/L (73-393) Rhythm Strip Diag. Results EP Interpretation: yes Rate: 120 Rhythm: no PVC's, no ectopy, other - afib Chest X-Ray Diagnostic Results Chest X-Ray Diagnostic Results : Chest X-Ray Ordered: Yes # of Views/Limited/Complete: 1 View Indication: Shortness of Breath EP Interpretation: Yes Interpretation: no effusion, no pneumothorax, other - Right upper lobe middle lobe infiltrate Impression: Other - Right-sided infiltrates Electronically Signed by: Nj Girard DO Last Vital Signs Date Time Temp Pulse Resp B/P (MAP) Pulse Ox O2 Delivery O2 Flow Rate FiO2 09/04/17 04:10 110 32 65/61 100 Bi-pap 60 09/04/17 02:59 103.1 Status: improved Disposition: ADMITTED INPATIENT Condition: Critical Referrals: Donovan Spring MD (PCP) NJ GIRARD D.O. Sep 04, 2017 04:51
[2017-09-04 05:15] LABS: APPEARANCE,URINE CLOUDY; BILIRUBIN, URINE NEGATIVE (NEGATIVE); GLUCOSE, URINE (UA) NEGATIVE (NEGATIVE); KETONES,URINE NEGATIVE (NEGATIVE); LEUKOCYTE ESTERASE ,URINE 3+ (NEGATIVE); NITRITE,URINE NEGATIVE (NEGATIVE); PH,URINE 8 (4.5-8.0); PROTEIN,URINE 3+ (NEGATIVE); UROBILINOGEN,URINE NORMAL MG/DL (0.0-1.0)
[2017-09-04] MEDS ORDERED: MIRALAX17 G2 ORAL (05:46)
[2017-09-04] MEDS ORDERED: FERROUS SULFAT325 M2 ORAL (05:46)
[2017-09-04] MEDS ORDERED: ZINC SULFATE220 M2 ORAL (05:46)
[2017-09-04 05:47] LABS: COLOR,URINE YELLOW
[2017-09-04] MEDS ORDERED: Miralax 17gm pkt ORAL PRN (06:45)
[2017-09-04] MEDS ORDERED: Albuterol/Ipratropium 3ml neb HHN PRN (06:45)
[2017-09-04] MEDS ORDERED: Morphine Sulfate 2mg/ml Inj IVP PRN (06:45)
--- NOTE | 2017-09-04 06:45 | Consultation ---
History of Present Illness General Date patient seen: Sep 04, 2017 Chief Complaint: Dyspnea/Respdistress Reason for Consultation: ICU management Present Illness HPI 87 year old female with hx of dementia, presents from nursing facility with respiratory distress and hypotension. She was altered and febrile on presentation. Patient herself is nonverbal and all information is obtained form residential chart. She was started on IV fluids and levophed. She was put on BIPAP and transferred to ICU. Currently, pt is obtunded but looks comfortable on BIPAP. Allergies: Coded Allergies: SHELLFISH DERIVED (Verified Allergy, Unknown, 09/04/17) Medication History Scheduled Apixaban (Eliquis), 2.5 MG ORAL BID Aspirin* (Aspirin*), 81 MG ORAL DAILY Aspirin* (Aspirin*), 81 MG ORAL DAILY, (Reported) Docusate Sodium* (Docusate Sodium*), 100 MG ORAL DAILY, (Reported) Donepezil Hcl* (Aricept*), 10 MG ORAL DAILY Donepezil Hcl* (Donepezil Hcl*), 10 MG ORAL QHS, (Reported) Irbesartan (Irbesartan), 150 MG PO DAILY, (Reported) Levothyroxine Sodium* (Levothyroxine Sodium*), 150 MCG ORAL DAILY@0630 Levothyroxine Sodium* (Levothyroxine Sodium*), 100 MCG ORAL DAILY, (Reported) Memantine Hcl* (Namenda*), 5 MG ORAL BID Metoprolol Tartrate (Metoprolol Tartrate), 12.5 MG ORAL Q12HR Metoprolol Tartrate (Metoprolol Tartrate), 25 MG ORAL EVERY 8 HOURS, (Reported) Polyethylene Glycol 3350* (Miralax*), 17 GM ORAL DAILY, (Reported) Ranitidine Hcl* (Zantac*), 150 MG ORAL BEDTIME, (Reported) Risperidone* (Risperdal*), 0.25 MG ORAL BID Zinc Sulfate (Zinc Sulfate), 220 MG ORAL DAILY, (Reported) Scheduled PRN Acetaminophen (Acetaminophen), 650 MG ORAL Q6H PRN for Prn Headache/Temp > 101, (Reported) Acetaminophen (Acetaminophen), 650 MG ORAL Q6H PRN for Prn Headache/Temp > 101, (Reported) Acetaminophen* (Acetaminophen 325MG Tablet*), 650 MG ORAL Q4H PRN for Mild Pain (Pain Scale 1-3) Acetaminophen* (Tylenol Extra Strength*), 500 MG ORAL Q8H PRN for Prn Headache/ Temp > 101 Hydralazine HCl (Hydralazine HCl), 50 MG ORAL Q6HR PRN for For High Blood Pressure, (Reported) Morphine Sulfate* (Morphine Sulfate*), 1 MG IV EVERY 4 HOURS PRN for Pain Scale (6-10), (Reported) Miscellaneous Medications Ferrous Sulfate (Ferrous Sulfate), 325 MG ORAL, (Reported) Unable to Obtain Medications (Unable To Obtain Meds), (Reported) Patient History Healthcare decision maker Resuscitation status Do Not Resuscitate Advanced Directive on File Past Medical/Surgical History Past Medical/Surgical History: (1) Sick sinus syndrome (2) Hypertensive heart disease (3) Cerebrovascular accident (CVA) (4) Alzheimer's dementia (5) Pacemaker (6) HTN (hypertension) (7) Pulmonary hypertension Review of Systems All Other Systems: negative except mentioned in HPI Physical Exam General Appearance: WD/WN Lines, tubes and drains: peripheral HEENT: normocephalic, atraumatic Neck: non-tender, normal alignment Respiratory/Chest: chest wall non-tender, lungs clear, normal breath sounds Breasts: no masses Cardiovascular/Chest: normal peripheral pulses Abdomen: normal bowel sounds Genitourinary/Rectal: normal genital exam Extremities: normal range of motion Skin Exam: normal pigmentation 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 grossly normal Last 24 Hour Vital Signs Date Time Temp Pulse Resp B/P (MAP) Pulse Ox O2 Delivery O2 Flow Rate FiO2 09/04/17 06:35 76/44 09/04/17 05:50 125 09/04/17 05:10 99.8 119 47 110/61 100 50 99.8 09/04/17 05:06 50 09/04/17 05:06 104 47 100 Full Face 50 09/04/17 04:53 99.8 119 35 110/61 100 Bi-pap 60 99.8 09/04/17 04:10 110 32 65/61 100 Bi-pap 60 09/04/17 03:40 114 45 110/82 100 Bi-pap 60 09/04/17 03:30 114 45 98 Full Face 60 09/04/17 03:14 119 36 100/73 100 Bi-pap 60 09/04/17 02:59 103.1 09/04/17 02:40 119 40 114/60 100 Bi-pap 60 09/04/17 02:29 103.1 09/04/17 02:00 132 48 101/68 98 Bi-pap 60 09/04/17 01:57 130 101/68 09/04/17 01:49 141 47 100 Full Face 60 09/04/17 01:40 60 09/04/17 01:15 136 49 Room Air 09/04/17 01:00 103.1 139 48 85/55 81 Room Air 103.1 09/04/17 00:36 103.1 139 48 85/55 81 Room Air 103.1 Intake and Output 09/03/17 09/04/17 19:00 07:00 Intake Total 610 ml Output Total 225 ml Balance 385 ml Intake Oral 0 ml IV Total 610 ml Output Urine Total 225 ml Laboratory Tests Test 09/04/17 00:50 09/04/17 01:45 09/04/17 04:00 White Blood Count 10.2 K/UL (4.8-10.8) Red Blood Count 4.05 M/UL (4.20-5.40) L Hemoglobin 11.0 G/DL (12.0-16.0) L Hematocrit 34.5 % (37.0-47.0) L Mean Corpuscular Volume 85 FL (80-99) Mean Corpuscular Hemoglobin 27.1 PG (27.0-31.0) Mean Corpuscular Hemoglobin Concent 31.9 G/DL (32.0-36.0) L Red Cell Distribution Width 16.8 % (11.6-14.8) H Platelet Count 308 K/UL (150-450) Mean Platelet Volume 6.4 FL (6.5-10.1) L Neutrophils (%) (Auto) % (45.0-75.0) Lymphocytes (%) (Auto) % (20.0-45.0) Monocytes (%) (Auto) % (1.0-10.0) Eosinophils (%) (Auto) % (0.0-3.0) Basophils (%) (Auto) % (0.0-2.0) Prothrombin Time 13.4 SEC (9.30-11.50) H Prothromb Time International Ratio 1.3 (0.9-1.1) H Activated Partial Thromboplast Time 31 SEC (23-33) Arterial Blood pH 7.420 (7.350-7.450) Arterial Blood Partial Pressure CO2 29.0 mmHg (35.0-45.0) L Arterial Blood Partial Pressure O2 101.7 mmHg (75.0-100.0) H Arterial Blood HCO3 18.6 mmol/L (22.0-26.0) L Arterial Blood Oxygen Saturation 97.8 % (92.0-98.0) Arterial Blood Base Excess -4.8 Alec Test Positive Sodium Level 140 MMOL/L (136-145) Potassium Level 5.4 MMOL/L (3.5-5.1) H Chloride Level 104 MMOL/L (98-107) Carbon Dioxide Level 23 MMOL/L (21-32) Anion Gap 14 mmol/L (5-15) Blood Urea Nitrogen 105 mg/dL (7-18) H Creatinine 5.4 MG/DL (0.55-1.30) H Estimat Glomerular Filtration Rate mL/min (>60) Glucose Level 119 MG/DL (74-106) H Lactic Acid Level 2.40 mmol/L (0.66-2.22) H 2.30 mmol/L (0.66-2.22) H Calcium Level 9.5 MG/DL (8.5-10.1) Total Bilirubin 1.3 MG/DL (0.2-1.0) H Direct Bilirubin 0.5 MG/DL (0.0-0.3) H Aspartate Amino Transf (AST/SGOT) 28 U/L (15-37) Alanine Aminotransferase (ALT/SGPT) 16 U/L (12-78) Alkaline Phosphatase 75 U/L (46-116) Total Creatine Kinase 176 U/L (26-308) Creatine Kinase MB 0.6 NG/ML (0.0-3.6) Creatine Kinase MB Relative Index 0.3 Troponin I 0.027 ng/mL (0.000-0.056) Pro-B-Type Natriuretic Peptide 4459 pg/mL (0-125) H Total Protein 7.7 G/DL (6.4-8.2) Albumin 1.9 G/DL (3.4-5.0) L Globulin 5.8 g/dL Albumin/Globulin Ratio 0.3 (1.0-2.7) L Lipase 36 U/L (73-393) L Urine Color Yellow Urine Appearance Cloudy Urine pH 8 (4.5-8.0) Urine Specific [place] 1.010 (1.005-1.035) Urine Protein 3+ (NEGATIVE) H Urine Glucose (UA) Negative (NEGATIVE) Urine Ketones Negative (NEGATIVE) Urine Occult Blood 5+ (NEGATIVE) H Urine Nitrite Negative (NEGATIVE) Urine Bilirubin Negative (NEGATIVE) Urine Urobilinogen Normal MG/DL (0.0-1.0) Urine Leukocyte Esterase 3+ (NEGATIVE) H Urine RBC Tntc /HPF (0 - 2) H Urine WBC Tntc /HPF (0 - 2) H Urine Squamous Epithelial Cells None /LPF (NONE/OCC) Urine Bacteria Many /HPF (NONE) H Height (Feet): 5 Height (Inches): 6.00 Weight (Pounds): 140 Assessment/Plan Problem List: (1) Septic shock ICD Codes: A41.9 - Sepsis, unspecified organism; R65.21 - Severe sepsis with septic shock SNOMED: 09657330 (2) ARF (acute renal failure) ICD Codes: N17.9 - ARF (acute renal failure) SNOMED: 40530645 (3) Hypothyroidism ICD Codes: E03.9 - Hypothyroidism SNOMED: 02701992 (4) Alzheimer's dementia ICD Codes: G30.9 - Alzheimer's disease, unspecified SNOMED: 36368882 (5) Cerebrovascular accident (CVA) ICD Codes: I63.9 - Cerebral infarction, unspecified SNOMED: 858578067 (6) Pacemaker ICD Codes: Z95.0 - Presence of cardiac pacemaker SNOMED: 033156614, 141090298 Respiratory: monitor respiratory rate, adjust FIO2, CXR, ABG Cardiac: continue to monitor HR/BP Renal: F/U I&O, keep IV fluid, check electrolytes Infectious Disease: check cultures, continue antibiotics Gastrointestinal: hold feedings Endocrine: monitor blood sugar, continue sliding scale insulin Hematologic: monitor H/H, transfuse if hgb<8.5 Neurologic: PRN Ativan, PRN Morphine Prophylaxis: Heparin Disposition: keep in ICU Time Spent (Minutes): 40 Discussed with: nurses, consultants, counseling case manager TATI FAM Sep 04, 2017 06:44
[2017-09-04] MEDS ORDERED: Amikacin Rx to dose MISC PRN (08:15)
[2017-09-04] MEDS ORDERED: Ertapenem 1 GM in NS 55 ML IV ONE (08:30)
[2017-09-04] MEDS ORDERED: dilTIAZem HCl 25mg/5ml Inj IVP PRN (08:30)
[2017-09-04] MEDS: Pantoprazole Inj IVP SCH (08:32)
[2017-09-04] MEDS: Heparin 5000 units/ml inj SUBQ SCH ×2 (08:45→21:00)
--- NOTE | 2017-09-04 08:52 | Cardiology Progress Note ---
Assessment/Plan Assessment/Plan The patient is seen and examined, full consult note will be dictated shortly. Objective Last 24 Hour Vital Signs Date Time Temp Pulse Resp B/P (MAP) Pulse Ox O2 Delivery O2 Flow Rate FiO2 09/04/17 08:40 155 113/63 09/04/17 07:30 98.9 136 33 132/63 100 Bi-pap 50 98.9 09/04/17 07:29 121 35 100 Full Face 50 09/04/17 06:45 99 29 116/76 100 Bi-pap 50 09/04/17 06:35 76/44 09/04/17 06:30 98 29 98/57 100 Bi-pap 50 09/04/17 06:15 97 29 76/44 100 Bi-pap 50 09/04/17 06:00 99 29 99/57 100 Bi-pap 50 09/04/17 05:50 125 09/04/17 05:10 99.8 119 47 110/61 100 50 99.8 09/04/17 05:06 50 09/04/17 05:06 104 47 100 Full Face 50 09/04/17 04:53 99.8 119 35 110/61 100 Bi-pap 60 99.8 09/04/17 04:10 110 32 65/61 100 Bi-pap 60 09/04/17 03:40 114 45 110/82 100 Bi-pap 60 09/04/17 03:30 114 45 98 Full Face 60 09/04/17 03:14 119 36 100/73 100 Bi-pap 60 09/04/17 02:59 103.1 09/04/17 02:40 119 40 114/60 100 Bi-pap 60 09/04/17 02:29 103.1 09/04/17 02:00 132 48 101/68 98 Bi-pap 60 09/04/17 01:57 130 101/68 09/04/17 01:49 141 47 100 Full Face 60 09/04/17 01:40 60 09/04/17 01:15 136 49 Room Air 09/04/17 01:00 103.1 139 48 85/55 81 Room Air 103.1 09/04/17 00:36 103.1 139 48 85/55 81 Room Air 103.1 Intake and Output 09/03/17 09/04/17 19:00 07:00 Intake Total 610 ml Output Total 255 ml Balance 355 ml Intake Oral 0 ml IV Total 610 ml Output Urine Total 255 ml Laboratory Tests Test 09/04/17 00:50 09/04/17 01:45 09/04/17 04:00 White Blood Count 10.2 K/UL (4.8-10.8) Red Blood Count 4.05 M/UL (4.20-5.40) L Hemoglobin 11.0 G/DL (12.0-16.0) L Hematocrit 34.5 % (37.0-47.0) L Mean Corpuscular Volume 85 FL (80-99) Mean Corpuscular Hemoglobin 27.1 PG (27.0-31.0) Mean Corpuscular Hemoglobin Concent 31.9 G/DL (32.0-36.0) L Red Cell Distribution Width 16.8 % (11.6-14.8) H Platelet Count 308 K/UL (150-450) Mean Platelet Volume 6.4 FL (6.5-10.1) L Neutrophils (%) (Auto) % (45.0-75.0) Lymphocytes (%) (Auto) % (20.0-45.0) Monocytes (%) (Auto) % (1.0-10.0) Eosinophils (%) (Auto) % (0.0-3.0) Basophils (%) (Auto) % (0.0-2.0) Prothrombin Time 13.4 SEC (9.30-11.50) H Prothromb Time International Ratio 1.3 (0.9-1.1) H Activated Partial Thromboplast Time 31 SEC (23-33) Arterial Blood pH 7.420 (7.350-7.450) Arterial Blood Partial Pressure CO2 29.0 mmHg (35.0-45.0) L Arterial Blood Partial Pressure O2 101.7 mmHg (75.0-100.0) H Arterial Blood HCO3 18.6 mmol/L (22.0-26.0) L Arterial Blood Oxygen Saturation 97.8 % (92.0-98.0) Arterial Blood Base Excess -4.8 Alec Test Positive Sodium Level 140 MMOL/L (136-145) Potassium Level 5.4 MMOL/L (3.5-5.1) H Chloride Level 104 MMOL/L (98-107) Carbon Dioxide Level 23 MMOL/L (21-32) Anion Gap 14 mmol/L (5-15) Blood Urea Nitrogen 105 mg/dL (7-18) H Creatinine 5.4 MG/DL (0.55-1.30) H Estimat Glomerular Filtration Rate mL/min (>60) Glucose Level 119 MG/DL (74-106) H Lactic Acid Level 2.40 mmol/L (0.66-2.22) H 2.30 mmol/L (0.66-2.22) H Calcium Level 9.5 MG/DL (8.5-10.1) Total Bilirubin 1.3 MG/DL (0.2-1.0) H Direct Bilirubin 0.5 MG/DL (0.0-0.3) H Aspartate Amino Transf (AST/SGOT) 28 U/L (15-37) Alanine Aminotransferase (ALT/SGPT) 16 U/L (12-78) Alkaline Phosphatase 75 U/L (46-116) Total Creatine Kinase 176 U/L (26-308) Creatine Kinase MB 0.6 NG/ML (0.0-3.6) Creatine Kinase MB Relative Index 0.3 Troponin I 0.027 ng/mL (0.000-0.056) Pro-B-Type Natriuretic Peptide 4459 pg/mL (0-125) H Total Protein 7.7 G/DL (6.4-8.2) Albumin 1.9 G/DL (3.4-5.0) L Globulin 5.8 g/dL Albumin/Globulin Ratio 0.3 (1.0-2.7) L Lipase 36 U/L (73-393) L Urine Color Yellow Urine Appearance Cloudy Urine pH 8 (4.5-8.0) Urine Specific [place] 1.010 (1.005-1.035) Urine Protein 3+ (NEGATIVE) H Urine Glucose (UA) Negative (NEGATIVE) Urine Ketones Negative (NEGATIVE) Urine Occult Blood 5+ (NEGATIVE) H Urine Nitrite Negative (NEGATIVE) Urine Bilirubin Negative (NEGATIVE) Urine Urobilinogen Normal MG/DL (0.0-1.0) Urine Leukocyte Esterase 3+ (NEGATIVE) H Urine RBC Tntc /HPF (0 - 2) H Urine WBC Tntc /HPF (0 - 2) H Urine Squamous Epithelial Cells None /LPF (NONE/OCC) Urine Bacteria Many /HPF (NONE) H DI RAMIREZ Sep 04, 2017 08:52
[2017-09-04] MEDS ORDERED: Digoxin 0.5mg/2ml Inj IVP ONE (09:00)
[2017-09-04] MEDS ORDERED: Vancomycin 1250mg/D5W 250ml IVPB ONE (09:00)
--- NOTE | 2017-09-04 09:47 | Consultation ---
Consult Note Consult Note asked to eval for renal failure Chief Complaint: Dyspnea/Respdistress Patient presents from nursing facility with respiratory distress Upon initial arrival the patient was hypotensive Altered Patient presents with a DO NOT INTUBATE/DO NOT RESUSCITATE note However there is other limited interventions such as pressors and other medications There was no reports of vomiting Patient herself is nonverbal and this does limit the history of present illness Patient was also significantly febrile upon arrival Allergies: SHELLFISH DERIVED (Verified Allergy, Unknown, 09/04/17) Hx Cardiac Problems: Yes - A FIB Hx Hypertension: Yes Hx Pacemaker: Yes - left chest Hx Cancer: Yes - throat Hx Gastrointestinal Problems: Yes Hx Neurological Problems: Yes Hx Cerebrovascular Accident: Yes Hx Dementia: Yes Hx Alzheimer's Disease: Yes Hx Concentration Difficulty: Yes Hx Dizziness: Yes Hx Syncope: Yes Hx Weakness: Yes Hx Fatigue: Yes Assessment/Plan Septic Shock Renal failure acute Pace maker Dementia DNR hydrate- Hydrocortisone- pressors monitor renal parameters avoid nephrotoxics per orders discussed with LEONIDES HURTADO Sep 04, 2017 09:47
--- NOTE | 2017-09-04 09:59 | Diagnostic Imaging Report ---
Indication: Chest pain Comparison: 03/06/2017 A single view chest radiograph was obtained. Findings: Development of patchy bilateral lung opacities noted. This is seen in the setting of cardiomegaly. There is a pacemaker on the left noted. No pleural effusions are appreciated. IMPRESSION: Patchy bilateral infiltrates versus asymmetric pulmonary edema. Please correlate clinically. Follow-up recommended.
[2017-09-04] MEDS ORDERED: Hydrocortisone 100mg Inj IV ONE (10:00)
[2017-09-04] MEDS: D5NS 1,000 ML IV SCH ×3 (10:25→23:26)
[2017-09-04] MEDS ORDERED: NS IV ONE (11:00)
[2017-09-04] MEDS ORDERED: AMIKACIN IV ONE (11:00)
[2017-09-04] MEDS: Hydrocortisone 100mg Inj IV SCH ×2 (13:47→22:11)
--- NOTE | 2017-09-04 17:27 | Wound Care Consultation ---
Wound Assessment Wound Assessment #1: Wound Number: 1 Wound Present on Admission: Yes New Wound: No Status Change of Wound: No Wound Location Body Site Modif: left Wound Location Body Site: knee Wound Type: scar - full thickness scar tissue with red pigment Bernice Test: Does not Bernice Wound Thickness: Full Thickness Wound Length: 2.0 Wound Width: 2.0 Percent of Wound [place]/Red: 100 Wound Drainage Amount: None Wound Drainage Odor: None/Absent Tissue Surrounding Wound: Intact Wound General Appearance: Reddened Wound Assessment #2: Wound Number: 2 Wound Present on Admission: Yes New Wound: No Status Change of Wound: No Wound Location Body Site Modif: right, lower, lateral Wound Location Body Site: leg - extending to malleolus Wound Type: pressure ulcer Bernice Test: Does not Bernice Pressure Ulcer Stage: IV Wound Thickness: Full Thickness Wound Length: 8.0 Wound Width: 3.0 Wound Depth: 0.5 Percent of Wound [place]/Red: 80 Percent of Wound Bed Yellow/Wh: 20 - scattered mostly on wound edges Wound Drainage Amount: Moderate Wound Drainage Odor: None/Absent Tissue Surrounding Wound: Macerated Wound General Appearance: Reddened, Draining, Necrotic Wound Assessment #3: Wound Number: 3 Wound Present on Admission: Yes New Wound: No Status Change of Wound: No Wound Location Body Site: other - sacrococcygeal Wound Type: pressure ulcer Bernice Test: Does not Bernice Pressure Ulcer Stage: IV Wound Thickness: Full Thickness Wound Length: 6.0 Wound Width: 6.0 Wound Depth: 2.0 Percent of Wound [place]/Red: 50 - deep red Percent of Wound Purple/Maroon: 50 Other Colors Identified: samuel DTI to surrounding wound bed12.0cmx13.0cm Wound Drainage Description: Serosanguineous Wound Drainage Amount: Moderate Wound Drainage Odor: None/Absent Tissue Surrounding Wound: Macerated Wound Undermining at 12:00: 2.0 Wound Undermining at 3:00: 2.0 Wound Undermining at 6:00: 0 Wound Undermining at 9:00: 2.0 Wound General Appearance: Reddened, Draining, Necrotic, Muscle Visible Wound Assessment #4: Wound Number: 4 Wound Present on Admission: Yes New Wound: No Status Change of Wound: No Wound Location Body Site Modif: left, lower, lateral Wound Location Body Site: leg Wound Type: scar - Full thickness with red pigment Bernice Test: Does not Bernice Wound Thickness: Full Thickness Wound Length: 7.0 Wound Width: 5.0 Percent of Wound [place]/Red: 100 Wound Drainage Amount: None Wound Drainage Odor: None/Absent Tissue Surrounding Wound: Intact Wound General Appearance: Reddened Wound Assessment #5: Wound Number: 5 Wound Present on Admission: Yes New Wound: No Status Change of Wound: No Wound Location Body Site Modif: left Wound Location Body Site: heel Wound Type: pressure ulcer Bernice Test: Does not Bernice Pressure Ulcer Stage: Deep Tissue Injury - suspected Wound Thickness: Full Thickness Wound Length: 6.0 Wound Width: 6.0 Wound Depth: utd Percent of Wound [place]/Red: 100 - deep red Wound Drainage Amount: None Wound Drainage Odor: None/Absent Tissue Surrounding Wound: Intact Wound General Appearance: Reddened - deep red with callus dry skin Wound Comment #1 left knee full thickness scar with red pigment #2 right lower lateral leg extending to malleolus pressure ulcer stage 4. #3 Sacral pressure ulcer stage 4 with surrounding tissue deep tissue injury-at risk for further skin breakdown #4 left lower lateral leg full thickness scar tissue with red pigment #5 left heel suspected deep tissue with callus,dry skin #6 Right 5th lateral toe full thickness scar [id number] #7 right lateral mid foot full thickness scar [id number] #8 right dorsal foot full thickness scar [id number] #9 right ischial full thickness scar 2.0cmx2.0cm #10 right and left foot dry scabs- keep moisturized, apply lotion Recommendation. -Local wound care per protocol -Apply p200 low air loss mattress -Turn and reposition -Keep clean and dry. -Optimize nutrition. -Offload affected sites. -monitor scar tissue and followup accordingly for any changes. -Offload heels and feet. -Heel protectors -Assess and notify MD for any change of condition noted to PIERRE Grande Sep 04, 2017 17:27
--- NOTE | 2017-09-04 18:30 | Consultation ---
Consult Note Consult Note ID DIC# [id number] ALDO CLEANING M.D. Sep 04, 2017 18:30
--- NOTE | 2017-09-04 19:30 | History and Physical Report ---
DATE OF ADMISSION: 09/04/2017 CHIEF COMPLAINT: The patient is an 87-year-old female who presents with chief complaint of shortness of breath. HISTORY OF PRESENT ILLNESS: The patient is a resident of [facility]. According to staff at [facility], the patient began to experience shortness of breath. This progressed to respiratory failure. The patient presented to [facility] emergency room. The patient is currently on BiPAP in the intensive care unit. The patient was admitted for shortness of breath to rule out pneumonia versus congestive heart failure. PAST MEDICAL HISTORY: Significant for 1. Atrial fibrillation. 2. Hypertension. 3. Pulmonary hypertension. 4. Hypercholesterolemia. 5. Hypertensive heart disease. 6. Hypothyroidism. PAST SURGICAL HISTORY: Significant for 1. Thyroidectomy. 2. Pacemaker implantation. CURRENT MEDICATIONS: 1. Aricept 5 mg p.o. at bedtime. 2. Aspirin 81 mg p.o. daily. 3. Metoprolol 25 mg one-half tablet p.o. twice daily. 4. Multivitamin p.o. daily. 5. Namenda 5 mg p.o. daily. 6. Synthroid 0.125 mg p.o. daily. 7. Zantac 150 mg p.o. twice daily. 8. Zinc sulfate 220 mg p.o. daily. 9. Iron sulfate 325 mg p.o. twice daily. 10. Hydralazine 50 mg p.o. q.6 h. p.r.n. 11. MiraLAX 17 g p.o. daily. ALLERGIES: Shellfish generally. SOCIAL HISTORY: The patient is . The patient is a resident of [facility] as above. The patient denies tobacco or alcohol use. The patient quit smoking several years ago. REVIEW OF SYSTEMS: Unable to assess secondary to patient's mental status. PHYSICAL EXAMINATION: GENERAL: The patient is a well-developed and well-nourished, elderly white female, who is currently on BiPAP. VITAL SIGNS: Temperature 103.1 degrees, pulse , respiratory rate , blood pressure 85/55 and pulse oximetry 81% on room air. HEENT: Eyes, pupils are equal and responsive to light and accommodation. Extraocular movements are intact. NECK: Supple without lymphadenopathy. CHEST: Lungs are clear to auscultation bilaterally without wheezes or rales. CARDIOVASCULAR: Tachycardic, regular rhythm. S1 and S2 are normal without murmurs, rubs, or gallops. ABDOMEN: Soft, nontender, and nondistended. Positive bowel sounds. No evidence of hepatosplenomegaly. Currently, no rebound or guarding noted. EXTREMITIES: Negative for clubbing, cyanosis, or edema. RECTAL/GENITAL: Not performed. NEUROLOGICAL: Unable to assess. LABORATORY AND DIAGNOSTIC DATA: WBC 10.3, hemoglobin 11.0, hematocrit 34.5 and platelets 308,000. Sodium 140, potassium 5.4, chloride 104, CO2 23, BUN 105, creatinine 5.4, and glucose 119. BNP elevated at 4459. Chest x-ray revealed patchy bilateral infiltrates versus pulmonary edema. ASSESSMENT: This is an 87-year-old female 1. Fever. 2. Respiratory failure. 3. Hypotension. 4. Bilateral pneumonia versus pulmonary edema. 5. Atrial fibrillation with rapid ventricular rate. 6. Hypertension. 7. Hypercholesterolemia. 8. Hypothyroidism. TREATMENT: 1. Fever/respiratory failure. A Pulmonary consultation has been obtained with Dr. Apoorva Loya. The patient is currently on BiPAP. The patient has been started empirically on ertapenem. An Infectious Disease consultation is pending with Dr. Ferro. We will follow recommendation of Infectious Diseases and Pulmonary. 2. Hypotensive. The patient is currently on Levophed. Hypotension probably secondary to septic shock. 3. Atrial fibrillation with rapid ventricular rate. A Cardiology consultation has been obtained with Dr. Torres. 4. Hypertension. The patient is currently hypotensive. 5. Hypercholesterolemia. 6. Hypothyroidism. Continue Levoxyl as above. Bridger Mane M.D. DR: SARAH JOB#: [id number] CC:
[2017-09-04] MEDS ORDERED: Vancomycin 1 GM in D5W 275 ML IV SCH (23:45)
[2017-09-04] MEDS ORDERED: Amikacin 0 MG in NS 110 ML IV SCH (23:45)
--- NOTE | 2017-09-04 23:45 | Consultation ---
DATE OF CONSULTATION: 09/04/2017 CARDIOLOGY CONSULTATION CONSULTING PHYSICIAN: Scar Torres M.D. REFERRING PHYSICIAN: Apoorva Loya M.D. ADDITIONAL REFERRING PHYSICIAN: Donovan Spring M.D. REASON FOR CONSULTATION: Management of atrial fibrillation. HISTORY OF PRESENT ILLNESS: The patient is a very unfortunate 87-year-old female, who is a resident of a nursing facility started with respiratory distress and hypertension. She had altered level of consciousness. She was brought in from the nursing facility for assessment and management of the above. The patient has Do Not Resuscitate and Do Not Intubate status in her chart. The patient was not capable of providing any history due to Alzheimer dementia. This report is prepared by using the old records. Upon arrival to the emergency department, blood pressure was 85/55 mmHg, respirations was 48, pulse was 139, and she had a temperature of 103.1 degrees Fahrenheit. In the emergency room, the patient had a chest x-ray, which revealed infiltration with likelihood of aspiration pneumonia. She was started on broad-spectrum antibiotics and intravenous hydration and was admitted to the intensive care unit of [facility]. Initial troponin I level was 0.027. Initial 12-lead electrocardiogram in the emergency department showed atrial fibrillation with rapid ventricular response and heart rate of 120. Cardiology consultation was made at request of Dr. Loya on behalf of Dr. Spring for managing the patient's respiratory distress and atrial fibrillation. PAST MEDICAL HISTORY: Including atrial fibrillation, history of hypertension, history of dual-chamber pacemaker implantation, history of throat cancer, history of gastroesophageal reflux disease, history of CVA, history of dementia, pulmonary hypertension, hypercholesterolemia, hypertensive heart disease, and hypothyroidism. PAST SURGICAL HISTORY: Thyroidectomy and dual chamber pacemaker implantation. ALLERGIES: To shellfish. MEDICATIONS: List of medications includes acetaminophen 650 mg q.6 hours p.r.n. temperature above 101 and headaches, Eliquis 2.5 mg twice daily, aspirin 81 mg p.o. daily, Colace 100 mg p.o. daily, Aricept 10 mg p.o. daily, donepezil 10 mg p.o. at bedtime, ferrous sulfate 325 mg once daily, hydralazine 50 mg q.6 hours as needed high blood pressure above 160 mmHg, irbesartan 150 mg p.o. daily, levothyroxine 150 mcg p.o. daily, memantine 5 mg p.o. twice daily, metoprolol 12.5 mg twice daily, morphine sulfate 1 mg intravenous q.4 hours p.r.n. pain, MiraLAX 17 g p.o. daily, Zantac 150 mg p.o. at bedtime, Risperdal 0.25 mg twice daily, and zinc sulfate 220 mg p.o. daily. SOCIAL HISTORY: . Lives in a nursing facility. There is no prior history of tobacco. There is no current history of tobacco, alcohol, or illicit drug use, quit smoking several years ago. REVIEW OF SYSTEMS: Unfortunately, 12-system review cannot be done due to the patient's underlying dementia. PHYSICAL EXAMINATION: VITAL SIGNS: At the time of arrival to the emergency department, blood pressure was 85/55, respirations 48, pulse of 139, temperature is 103.1 degrees Fahrenheit, and O2 saturation of 81% on room air. GENERAL: The patient is a very unfortunate lady, in moderate distress, ill appearing. HEENT: Atraumatic, normocephalic. Anicteric. Pupils are equal, round, and reactive to light and accommodation. Extraocular muscles intact. NECK: JVP is less than 5 cm. No carotid bruit. Carotid upstrokes 2+ bilaterally. CARDIOVASCULAR: Normal S1, S2. Irregularly irregular rhythm. No murmurs, gallops, or rubs. LUNGS: Diminished breath sounds with presence of wheezing bilaterally. ABDOMEN: Soft, nontender, and nondistended. No hepatosplenomegaly. Positive bowel sounds. EXTREMITIES: No evidence of edema, clubbing, or cyanosis. LABORATORY AND DIAGNOSTIC DATA: Laboratory findings, WBC 10.2, hemoglobin of 11.0, hematocrit 34.5, and platelet count is 308. Sodium 140, potassium is 5.4, chloride 104, bicarbonate 23, BUN of 105, creatinine 5.4, glucose 119, and calcium is 9.5. ProBNP was 4459. Troponin I was 0.027. INR is 1.3. Chest x-ray showed patchy bilateral infiltrate versus asymmetric pulmonary edema. There is bilateral dual chamber pacemaker leads. ASSESSMENT AND PLAN: The patient is a very unfortunate 87-year-old female, who is seen in Cardiology consultation at request of Dr. Loya/Dr. Spring. 1. Most likely septic shock. The patient requires to be on intravenous hydration. Continue normal saline at 100 mL per hour. Levophed drip if the mean arterial pressure does not reach the level of 65 mmHg. We will try to keep the mean arterial pressure above 65 mmHg. It seems that the patient has bilateral pneumonia, given the fever of 103, chest x-ray findings, and being a resident of a nursing facility. We will have Infectious Disease and Pulmonary to make necessary recommendations. We will like to obtain 2D echocardiography for assessment of left ventricular systolic and diastolic function and to assess the hemodynamic picture. 2. Atrial fibrillation with rapid ventricular response. Hydration may help with the rate. At this time, digoxin 0.25 mg intravenous x1 dose may help, although the use of digoxin in this patient is limited due to presence of acute kidney injury/chronic kidney disease. 3. History of hypertensive heart disease. A 2D echocardiography this entity. 4. History of hyperlipidemia. 5. History of CVA. The total amount of time spent in the intensive care unit of [facility] for evaluation and assessment of this patient and discussing the plan of care with the nursing staff and the primary care physician was 45 minutes. I would like to thank, Dr. Loya and Dr. Spring, for the courtesy of this consultation. Scar Torres M.D. DR: MALINDA JOB#: [id number] CC:
[2017-09-05] VITALS (24 sets, daily range): BP systolic 93–133; BP diastolic 58–89
--- NOTE | 2017-09-05 03:15 | Consultation ---
DATE OF CONSULTATION: 09/04/2017 INFECTIOUS DISEASE CONSULTATION CONSULTING PHYSICIAN: Radames Ferro M.D. REQUESTING PHYSICIAN: 1. Apoorva Loya M.D. 2. Donovan Spring M.D. REASON FOR CONSULTATION: Evaluation of patient for sepsis and antibiotic management. HISTORY OF PRESENT ILLNESS: The patient is an 87-year-old female with multiple medical problems, who was transferred from nursing facility to this medical center due to the respiratory distress and hypertension. The patient was admitted to the ICU with the impression of sepsis and fever. The patient was started on BiPAP. An Infectious Disease consultation has been requested for further evaluation of the patient and antibiotic management. PAST MEDICAL HISTORY: 1. History of ESBL E. coli urosepsis. 2. History of chronic sacral decubitus. 3. Atrial fibrillation. 4. Anemia. 5. History of hypoalbuminemia. MEDICATIONS: Ertapenem and vancomycin ALLERGIES: Shellfish. FAMILY HISTORY: Unavailable. REVIEW OF SYSTEMS: Unobtainable. PHYSICAL EXAMINATION: VITAL SIGNS: Temperature 103, pulse 86, and respiratory rate 18. HEENT: Mild pallor. No icterus. NECK: No lymphadenopathy. CHEST: Coarse breathing sounds. HEART: S1 and S2. ABDOMEN: Soft. EXTREMITIES: No cyanosis. SKIN: The patient has stage IV sacral decubitus. NEUROLOGIC: Obtunded. LABORATORY AND DIAGNOSTIC DATA: White blood cells 10, hemoglobin 11, and platelets 208,000. UA, too numerous to count white blood cells and too numerous to count red blood cells. Lactic acid 2.4. CRP more than 17. ALT, AST, and alkaline phosphatase unremarkable. Chest x-ray, patchy bilateral infiltrates. ASSESSMENT: The patient is an 87-year-old female with, 1. Sepsis. 2. Septic shock. 3. Normal white blood cells. 4. No fever. 5. Urinary tract infection/pyuria. 6. Pneumonia. 7. Chronic sacral decubitus (not infected grossly). PLAN: 1. We will continue the patient on vancomycin and ertapenem. 2. Monitor CBC. 3. Monitor BMP. 4. Monitor cultures (blood, sputum, and urine). 5. Monitor wound culture. 6. Continue respiratory support. 7. Monitor lactic acid, CBC, and BMP. 8. Monitor chest x-ray. 9. Based on the patient's clinical course and laboratories, we will do further recommendations. Thank you, Dr. Loya, for allowing me to participate in the care of this patient. I will follow the patient with you during this hospitalization. Radames Ferro M.D. DR: TRENA JOB#: [id number] CC:
[2017-09-05] MEDS: Hydrocortisone 100mg Inj IV SCH ×3 (06:05→21:51)
[2017-09-05] MEDS: D5NS 1,000 ML IV SCH ×2 (06:05→11:45)
[2017-09-05 06:22] LABS: HEMATOCRIT 26.8 % (37.0-47.0); HEMOGLOBIN 8.7 G/DL (12.0-16.0); MEAN CORPUSCULAR VOLUME 87 FL (80-99); PLATELET COUNT 216 K/UL (150-450); RED BLOOD COUNT 3.09 M/UL (4.20-5.40); RED CELL DISTRIBUTION WIDTH 16.8 % (11.6-14.8); WHITE BLOOD COUNT 13.3 K/UL (4.8-10.8)
[2017-09-05 07:15] LABS: CREATINE KINASE 562 U/L (26-308); GAMMA GLUTAMYL TRANSPEPTIDASE 33 U/L (5-85)
[2017-09-05 07:29] LABS: ALANINE AMINOTRANSFERASE 21 U/L (12-78); ALBUMIN 1.9 G/DL (3.4-5.0); ALBUMIN/GLOBULIN RATIO 0.4 (1.0-2.7); ALKALINE PHOSPHATASE 57 U/L (46-116); ANION GAP 17 mmol/L (5-15); ASPARTATE AMINO TRANSFERASE 25 U/L (15-37); BILIRUBIN,TOTAL 0.5 MG/DL (0.2-1.0); BLOOD UREA NITROGEN 95 mg/dL (7-18); CALCIUM 8.3 MG/DL (8.5-10.1); CARBON DIOXIDE 17 MMOL/L (21-32); CHLORIDE 115 MMOL/L (98-107); CHOLESTEROL 100 MG/DL (< 200); CREATININE 3.6 MG/DL (0.55-1.30); HDL CHOLESTEROL 16 MG/DL (40-60); PHOSPHORUS 3.9 MG/DL (2.5-4.9); POTASSIUM 3.5 MMOL/L (3.5-5.1); SODIUM 148 MMOL/L (136-145); TRIGLYCERIDES 75 MG/DL (30-150)
[2017-09-05] MEDS: Heparin 5000 units/ml inj SUBQ SCH ×2 (08:16→21:00)
[2017-09-05] MEDS: Pantoprazole Inj IVP SCH (08:16)
[2017-09-05] MEDS: Ertapenem 0.5gm in NS 55ml IVPB SCH (08:16)
--- NOTE | 2017-09-05 10:42 | Pulmonolgy Critical Care Note ---
Critical Care - Asmt/Plan Problems: (1) Acute encephalopathy (2) Septic shock (3) Respiratory failure, acute (4) ATN (acute tubular necrosis) (5) At high risk for aspiration (6) Atrial fibrillation (7) Alzheimer's dementia Respiratory: monitor respiratory rate, adjust FIO2, CXR Cardiac: stop pressors - off levophed since yesterday, continue to monitor HR/ BP Renal: F/U I&O Infectious Disease: check cultures Gastrointestinal: continue feedings/current rate Endocrine: monitor blood sugar, continue sliding scale insulin Hematologic: monitor H/H, transfuse if hgb<8.5 Neurologic: PRN Ativan, PRN Morphine, keep patient comfortable Notes Reviewed: renal Discussed with: nurses, consultants, correctional casework specialistsales development manager - Objective Last 24 Hour Vital Signs Date Time Temp Pulse Resp B/P (MAP) Pulse Ox O2 Delivery O2 Flow Rate FiO2 09/05/17 09:10 102 28 99 Full Face 30 09/05/17 09:00 109 27 118/75 98 Bi-pap 30 09/05/17 08:10 133/75 09/05/17 08:00 30 09/05/17 08:00 98.8 105 25 133/75 98 Bi-pap 30 98.8 09/05/17 08:00 105 09/05/17 07:01 Bi-pap 30 09/05/17 07:01 109 24 99 Full Face 30 09/05/17 07:01 Bi-pap 30 09/05/17 07:00 113 28 131/89 Bi-pap 35 09/05/17 06:00 113 28 112/74 Bi-pap 35 09/05/17 05:19 106 24 99 Full Face 30 09/05/17 05:00 107 19 124/80 99 Bi-pap 35 09/05/17 04:00 108 09/05/17 04:00 35 09/05/17 04:00 98.5 114 26 104/78 100 Bi-pap 35 98.5 09/05/17 03:24 103 28 100 Full Face 30 09/05/17 03:00 109 21 100/68 99 Bi-pap 35 09/05/17 02:00 117 24 114/70 Bi-pap 35 09/05/17 01:10 100 27 100 Full Face 30 09/05/17 01:00 110 24 102/75 Bi-pap 35 09/05/17 00:00 35 09/05/17 00:00 98.5 109 24 109/69 Bi-pap 35 98.5 09/05/17 00:00 103 09/04/17 23:18 119 29 99 Full Face 30 09/04/17 23:00 109 26 94/58 100 Bi-pap 35 09/04/17 22:45 110 22 109/73 100 Bi-pap 35 09/04/17 22:30 112 27 106/67 99 Bi-pap 35 09/04/17 22:15 122 24 90/68 99 Bi-pap 35 09/04/17 22:00 119 22 108/73 100 Bi-pap 35 09/04/17 22:00 108/73 09/04/17 21:45 118 25 133/89 100 Bi-pap 35 09/04/17 21:30 121 25 128/72 100 Bi-pap 35 09/04/17 21:17 133 30 99 Full Face 30 09/04/17 21:15 122 26 124/75 100 Bi-pap 35 09/04/17 21:00 121/84 09/04/17 21:00 122 26 121/84 100 Bi-pap 35 09/04/17 20:45 117 22 118/78 100 Bi-pap 35 09/04/17 20:30 127 24 116/69 100 Bi-pap 35 09/04/17 20:00 35 09/04/17 20:00 98.7 125 23 124/84 100 Bi-pap 35 98.7 09/04/17 20:00 124/84 09/04/17 20:00 126 09/04/17 19:45 125 24 124/85 100 Bi-pap 35 09/04/17 19:30 127 25 119/73 99 Bi-pap 35 09/04/17 19:18 Bi-pap 09/04/17 19:18 Bi-pap 09/04/17 19:16 129 26 100 Full Face 30 09/04/17 19:00 129 26 133/66 100 Bi-pap 50 09/04/17 19:00 133/66 09/04/17 18:30 130 22 128/82 100 Bi-pap 50 09/04/17 18:00 131 28 138/89 99 Bi-pap 50 09/04/17 18:00 138/89 09/04/17 17:30 133 26 116/82 100 Bi-pap 50 09/04/17 17:21 128 31 100 Full Face 40 09/04/17 17:00 134/78 09/04/17 17:00 131 32 132/81 100 Bi-pap 50 09/04/17 16:30 131 26 132/77 100 Bi-pap 50 09/04/17 16:00 50 09/04/17 16:00 144/77 09/04/17 16:00 130 27 139/79 100 Bi-pap 50 09/04/17 15:48 133 09/04/17 15:30 132 33 144/77 100 Bi-pap 50 09/04/17 15:21 120 27 100 Full Face 40 09/04/17 15:15 99.4 127 27 114/81 100 Bi-pap 50 99.4 09/04/17 15:00 128/74 09/04/17 15:00 127 27 130/82 100 Bi-pap 50 09/04/17 14:45 132 29 128/74 100 Bi-pap 50 09/04/17 14:30 130 27 107/75 100 Bi-pap 50 09/04/17 14:15 128 27 120/65 100 Bi-pap 50 09/04/17 14:00 127 28 113/73 100 Bi-pap 50 09/04/17 14:00 113/73 09/04/17 13:30 133 32 125/83 100 Bi-pap 50 09/04/17 13:19 135 31 100 Full Face 40 09/04/17 13:15 132 33 110/69 100 Bi-pap 50 09/04/17 13:00 98.9 130 30 142/91 100 Bi-pap 50 98.9 09/04/17 13:00 142/91 09/04/17 12:30 147 25 134/75 98 Bi-pap 50 09/04/17 12:00 149 25 127/72 98 Bi-pap 50 09/04/17 12:00 125/75 09/04/17 12:00 50 09/04/17 11:33 150 09/04/17 11:30 148 26 113/82 100 Bi-pap 50 09/04/17 11:00 138 26 129/74 97 Bi-pap 50 09/04/17 11:00 129/74 Status: awake Condition: critical HEENT: atraumatic, normocephalic Neck: full ROM Lungs: clear Heart: HR/BP stable, HR/BP unstable Abdomen: soft, non-tender, active bowel sounds, feeding tube Extremities: edema Decubiti: location, stage Micro: Microbiology Date/Time Source Procedure Growth Status 09/04/17 00:50 Blood Blood Culture - Preliminary NO GROWTH AFTER 24 HOURS Resulted 09/04/17 00:40 Blood Blood Culture - Preliminary NO GROWTH AFTER 24 HOURS Resulted 09/04/17 04:00 Urine,Clean Catch Urine Culture - Preliminary Gram Negative Bacillus 1 Gram Negative Bacillus 2 Resulted Critical Care - Subjective ROS Limited/Unobtainable: Yes ICU Day: 2 Intubation Day: on BIAP FI02: 30 Sputum Amount: None I&O: Intake and Output 09/04/17 09/05/17 19:00 07:00 Intake Total 2391.920 ml 1669.05 ml Output Total 480 ml 750 ml Balance 1911.920 ml 919.05 ml IV Total 2391.920 ml 1669.05 ml Output Urine Total 480 ml 750 ml # Bowel Movements 1 CXR: bilateral infiltrate Labs: Laboratory Tests Test 09/05/17 05:55 09/05/17 09:14 White Blood Count 13.3 K/UL (4.8-10.8) H Red Blood Count 3.09 M/UL (4.20-5.40) L Hemoglobin 8.7 G/DL (12.0-16.0) L Hematocrit 26.8 % (37.0-47.0) L Mean Corpuscular Volume 87 FL (80-99) Mean Corpuscular Hemoglobin 28.1 PG (27.0-31.0) Mean Corpuscular Hemoglobin Concent 32.4 G/DL (32.0-36.0) Red Cell Distribution Width 16.8 % (11.6-14.8) H Platelet Count 216 K/UL (150-450) Mean Platelet Volume 5.6 FL (6.5-10.1) L Neutrophils (%) (Auto) % (45.0-75.0) Lymphocytes (%) (Auto) % (20.0-45.0) Monocytes (%) (Auto) % (1.0-10.0) Eosinophils (%) (Auto) % (0.0-3.0) Basophils (%) (Auto) % (0.0-2.0) Sodium Level 148 MMOL/L (136-145) H Potassium Level 3.5 MMOL/L (3.5-5.1) Chloride Level 115 MMOL/L (98-107) H Carbon Dioxide Level 17 MMOL/L (21-32) L Anion Gap 17 mmol/L (5-15) H Blood Urea Nitrogen 95 mg/dL (7-18) H Creatinine 3.6 MG/DL (0.55-1.30) H Estimat Glomerular Filtration Rate mL/min (>60) Glucose Level 167 MG/DL (74-106) H Hemoglobin A1c 5.4 % (4.3-6.0) Uric Acid 10.1 MG/DL (2.6-7.2) H Calcium Level 8.3 MG/DL (8.5-10.1) L Phosphorus Level 3.9 MG/DL (2.5-4.9) Magnesium Level 2.4 MG/DL (1.8-2.4) Total Bilirubin 0.5 MG/DL (0.2-1.0) Gamma Glutamyl Transpeptidase 33 U/L (5-85) Aspartate Amino Transf (AST/SGOT) 25 U/L (15-37) Alanine Aminotransferase (ALT/SGPT) 21 U/L (12-78) Alkaline Phosphatase 57 U/L (46-116) Total Creatine Kinase 562 U/L (26-308) H Troponin I 0.153 ng/mL (0.000-0.056) Pro-B-Type Natriuretic Peptide 7448 pg/mL (0-125) H Total Protein 6.6 G/DL (6.4-8.2) Albumin 1.9 G/DL (3.4-5.0) L Globulin 4.7 g/dL Albumin/Globulin Ratio 0.4 (1.0-2.7) L Triglycerides Level 75 MG/DL (30-150) Cholesterol Level 100 MG/DL (< 200) LDL Cholesterol 28 mg/dL (<100) HDL Cholesterol 16 MG/DL (40-60) L Cholesterol/HDL Ratio 6.3 (3.3-4.4) H Thyroid Stimulating Hormone (TSH) 15.834 uiU/mL (0.358-3.740) Arterial Blood pH 7.371 (7.350-7.450) Arterial Blood Partial Pressure CO2 27.3 mmHg (35.0-45.0) L Arterial Blood Partial Pressure O2 82.8 mmHg (75.0-100.0) Arterial Blood HCO3 15.5 mmol/L (22.0-26.0) L Arterial Blood Oxygen Saturation 95.2 % (92.0-98.0) Arterial Blood Base Excess -8.6 Alec Test Positive TATI FAM Sep 05, 2017 10:42
--- NOTE | 2017-09-05 10:50 | Diagnostic Imaging Report ---
Indication: Dyspnea Comparison: 09/04/2017 A single view chest radiograph was obtained. Findings: Slightly worsening consolidation in the left upper lobe demonstrated with faint air bronchograms noted. Patchy infiltrates are noted bilaterally in the perihilar and upper lobe regions particularly. There is also probable worsening disease at the left lung base. The heart is mildly enlarged but stable. IMPRESSION: Patchy bilateral infiltrates slightly worse compared to the last day
--- NOTE | 2017-09-05 11:07 | Diagnostic Imaging Report ---
Indication:Elevated Bun and Creatinine. Technique: Grayscale and duplex Doppler imaging of the kidneys performed. Comparison: None Findings: There are multiple bilateral renal cysts demonstrated. There is no hydronephrosis. Both kidneys measure between 9 and 10 cm. The kidneys appear slightly echogenic. There is thickening of the wall of the urinary bladder. Camacho catheter is noted in the position. IMPRESSION: Medical renal disease. Bilateral renal cysts Cystitis suspected. Please correlate clinically. Camacho catheter in good position
--- NOTE | 2017-09-05 11:08 | Nephrology Progress Note ---
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 Dementia HypoThyroidism DNR Plan hydrate- lower rate start synthroid Hydrocortisone- pressors as needed monitor renal parameters avoid nephrotoxics per orders discussed with RN Anemia tanner Nitro patch Objective Objective Last 24 Hour Vital Signs Date Time Temp Pulse Resp B/P (MAP) Pulse Ox O2 Delivery O2 Flow Rate FiO2 09/05/17 10:00 103 26 114/59 98 Bi-pap 30 09/05/17 09:10 102 28 99 Full Face 30 09/05/17 09:00 109 27 118/75 98 Bi-pap 30 09/05/17 08:10 133/75 09/05/17 08:00 30 09/05/17 08:00 98.8 105 25 133/75 98 Bi-pap 30 98.8 09/05/17 08:00 105 09/05/17 07:01 Bi-pap 30 09/05/17 07:01 109 24 99 Full Face 30 09/05/17 07:01 Bi-pap 30 09/05/17 07:00 113 28 131/89 Bi-pap 35 09/05/17 06:00 113 28 112/74 Bi-pap 35 09/05/17 05:19 106 24 99 Full Face 30 09/05/17 05:00 107 19 124/80 99 Bi-pap 35 09/05/17 04:00 108 09/05/17 04:00 35 09/05/17 04:00 98.5 114 26 104/78 100 Bi-pap 35 98.5 09/05/17 03:24 103 28 100 Full Face 30 09/05/17 03:00 109 21 100/68 99 Bi-pap 35 09/05/17 02:00 117 24 114/70 Bi-pap 35 09/05/17 01:10 100 27 100 Full Face 30 09/05/17 01:00 110 24 102/75 Bi-pap 35 09/05/17 00:00 35 09/05/17 00:00 98.5 109 24 109/69 Bi-pap 35 98.5 09/05/17 00:00 103 09/04/17 23:18 119 29 99 Full Face 30 09/04/17 23:00 109 26 94/58 100 Bi-pap 35 18 22:45 110 22 109/73 100 Bi-pap 35 09/04/17 22:30 112 27 106/67 99 Bi-pap 35 09/04/17 22:15 122 24 90/68 99 Bi-pap 35 18 22:00 119 22 108/73 100 Bi-pap 35 18 22:00 108/73 09/04/17 21:45 118 25 133/89 100 Bi-pap 35 09/04/17 21:30 121 25 128/72 100 Bi-pap 35 09/04/17 21:17 133 30 99 Full Face 30 09/04/17 21:15 122 26 124/75 100 Bi-pap 35 09/04/17 21:00 121/84 09/04/17 21:00 122 26 121/84 100 Bi-pap 35 18 20:45 117 22 118/78 100 Bi-pap 35 09/04/17 20:30 127 24 116/69 100 Bi-pap 35 09/04/17 20:00 35 09/04/17 20:00 98.7 125 23 124/84 100 Bi-pap 35 98.7 18 20:00 124/84 09/04/17 20:00 126 09/04/17 19:45 125 24 124/85 100 Bi-pap 35 09/04/17 19:30 127 25 119/73 99 Bi-pap 35 09/04/17 19:18 Bi-pap 09/04/17 19:18 Bi-pap 09/04/17 19:16 129 26 100 Full Face 30 09/04/17 19:00 129 26 133/66 100 Bi-pap 50 18 19:00 133/66 09/04/17 18:30 130 22 128/82 100 Bi-pap 50 18 18:00 131 28 138/89 99 Bi-pap 50 18 18:00 138/89 09/04/17 17:30 133 26 116/82 100 Bi-pap 50 18 17:21 128 31 100 Full Face 40 09/04/17 17:00 134/78 09/04/17 17:00 131 32 132/81 100 Bi-pap 50 09/04/17 16:30 131 26 132/77 100 Bi-pap 50 09/04/17 16:00 50 09/04/17 16:00 144/77 09/04/17 16:00 130 27 139/79 100 Bi-pap 50 09/04/17 15:48 133 09/04/17 15:30 132 33 144/77 100 Bi-pap 50 09/04/17 15:21 120 27 100 Full Face 40 09/04/17 15:15 99.4 127 27 114/81 100 Bi-pap 50 99.4 09/04/17 15:00 128/74 09/04/17 15:00 127 27 130/82 100 Bi-pap 50 09/04/17 14:45 132 29 128/74 100 Bi-pap 50 09/04/17 14:30 130 27 107/75 100 Bi-pap 50 09/04/17 14:15 128 27 120/65 100 Bi-pap 50 09/04/17 14:00 127 28 113/73 100 Bi-pap 50 09/04/17 14:00 113/73 09/04/17 13:30 133 32 125/83 100 Bi-pap 50 09/04/17 13:19 135 31 100 Full Face 40 09/04/17 13:15 132 33 110/69 100 Bi-pap 50 09/04/17 13:00 98.9 130 30 142/91 100 Bi-pap 50 98.9 09/04/17 13:00 142/91 09/04/17 12:30 147 25 134/75 98 Bi-pap 50 09/04/17 12:00 149 25 127/72 98 Bi-pap 50 09/04/17 12:00 125/75 09/04/17 12:00 50 09/04/17 11:33 150 09/04/17 11:30 148 26 113/82 100 Bi-pap 50 Intake and Output 09/04/17 09/05/17 19:00 07:00 Intake Total 2391.920 ml 1669.05 ml Output Total 480 ml 750 ml Balance 1911.920 ml 919.05 ml IV Total 2391.920 ml 1669.05 ml Output Urine Total 480 ml 750 ml # Bowel Movements 1 Laboratory Tests 09/05/17 05:55: White Blood Count 13.3H, Red Blood Count 3.09L, Hemoglobin 8.7L, Hematocrit 26.8L, Mean Corpuscular Volume 87, Mean Corpuscular Hemoglobin 28.1, Mean Corpuscular Hemoglobin Concent 32.4, Red Cell Distribution Width 16.8H, Platelet Count 216, Mean Platelet Volume 5.6L, Neutrophils (%) (Auto) , Lymphocytes (%) (Auto) , Monocytes (%) (Auto) , Eosinophils (%) (Auto) , Basophils (%) (Auto) , Sodium Level 148H, Potassium Level 3.5, Chloride Level 115H, Carbon Dioxide Level 17L, Anion Gap 17H, Blood Urea Nitrogen 95H, Creatinine 3.6H, Estimat Glomerular Filtration Rate , Glucose Level 167H, Hemoglobin A1c 5.4, Uric Acid 10.1H, Calcium Level 8.3L, Phosphorus Level 3.9, Magnesium Level 2.4, Total Bilirubin 0.5, Gamma Glutamyl Transpeptidase 33, Aspartate Amino Transf (AST/SGOT) 25, Alanine Aminotransferase (ALT/SGPT) 21, Alkaline Phosphatase 57, Total Creatine Kinase 562H, Troponin I 0.153H, Pro-B- Type Natriuretic Peptide 7448H, Total Protein 6.6, Albumin 1.9L, Globulin 4.7, Albumin/Globulin Ratio 0.4L, Triglycerides Level 75, Cholesterol Level 100, LDL Cholesterol 28, HDL Cholesterol 16L, Cholesterol/HDL Ratio 6.3H, Thyroid Stimulating Hormone (TSH) 15.834H 09/05/17 09:14: Arterial Blood pH 7.371, Arterial Blood Partial Pressure CO2 27.3L, Arterial Blood Partial Pressure O2 82.8, Arterial Blood HCO3 15.5L, Arterial Blood Oxygen Saturation 95.2, Arterial Blood Base Excess -8.6, Alec Test Positive Height (Feet): 5 Height (Inches): 6.00 Weight (Pounds): 140 General Appearance: lethargic Neck: limited range of motion Cardiovascular: tachycardia Respiratory/Chest: decreased breath sounds Abdomen: soft LEONIDES CHAWLA Sep 05, 2017 11:08
[2017-09-05] MEDS: Nitroglycerin Patch 0.4mg TDERMAL SCH (12:37)
[2017-09-05] MEDS ORDERED: Vancomycin 750mg/NS 250ml IVPB ONE (18:00)
--- NOTE | 2017-09-05 19:45 | Internal Med Progress Note ---
Subjective Date of Service: Sep 05, 2017 Physician Name Yue Jacob Attending Physician Donovan Spring MD Current Medications Medications (Trade) Dose Ordered Sig/Jonah Route PRN Reason Start Time Stop Time Status Last Admin Dose Admin Acetaminophen (Tylenol) 650 mg Q4H PRN ORAL T>100.5 09/04/17 06:45 10/04/17 06:44 Albuterol/ Ipratropium (Albuterol/ Ipratropium) 3 ml Q4H PRN HHN Shortness of Breath 09/04/17 06:45 09/09/17 06:44 Chlorhexidine Gluconate (Brandy-Hex 2%) 1 applic Q24H TOPIC 09/05/17 20:00 10/05/17 19:59 Dextrose/Sodium Chloride 1,000 ml @ 85 mls/hr [id number] IV 09/05/17 11:45 10/05/17 11:44 09/05/17 11:45 Diltiazem HCl (Cardizem) 10 mg Q1HR PRN IVP HR>120BPM 09/04/17 08:30 10/04/17 08:29 09/04/17 08:40 Ertapenem 0.5 gm/ Sodium Chloride 55 ml @ 110 mls/hr Q24H IVPB 09/05/17 08:00 09/10/17 07:59 09/05/17 08:16 Heparin Sodium (Porcine) (Heparin 5000 units/ml) 5,000 units EVERY 12 HOURS SUBQ 09/04/17 09:00 10/04/17 08:59 09/04/17 08:45 Hydrocortisone (Solu-CORTEF) 100 mg EVERY 8 HOURS IV 09/04/17 14:00 10/04/17 13:59 09/05/17 15:37 Levothyroxine Sodium (Synthroid) 50 mcg DAILY@0630 NG 09/06/17 06:30 10/06/17 06:29 Morphine Sulfate (Morphine Sulfate) 2 mg Q4H PRN IVP Severe Pain (Pain Scale 7-10) 09/04/17 06:45 09/11/17 06:44 Nitroglycerin (Ntg) 1 patch Q24H TDERMAL 09/05/17 12:00 10/05/17 11:59 09/05/17 12:37 Norepinephrine Bitartrate 4 mg/ Dextrose 254 ml @ 0 mls/hr Q24H IV 09/04/17 08:30 10/04/17 08:29 09/04/17 09:30 Ondansetron HCl (Zofran) 4 mg Q6H PRN IVP Nausea & Vomiting 09/04/17 06:45 10/04/17 06:44 Pantoprazole (Protonix) 40 mg DAILY IVP 09/04/17 09:00 10/04/17 08:59 09/05/17 08:16 Polyethylene Glycol (Miralax) 17 gm DAILYPRN PRN ORAL Constipation 09/04/17 06:45 10/04/17 06:44 Vancomycin HCl (Vanco rx to dose) 1 ea DAILY PRN MISC . 09/04/17 07:15 10/04/17 07:14 Allergies: Coded Allergies: SHELLFISH DERIVED (Verified Allergy, Unknown, 09/04/17) ROS Limited/Unobtainable: Yes Subjective 87 YO F admitted with dyspnea. Now respiratory failure. Cover for Int Med-Dr Spring Objective Last Vital Signs Date Time Temp Pulse Resp B/P (MAP) Pulse Ox O2 Delivery O2 Flow Rate FiO2 09/05/17 19:12 Bi-pap 09/05/17 19:12 119 29 98 30 09/05/17 19:00 112/79 09/05/17 17:00 98.7 98.7 09/04/17 09:50 14.0 Laboratory Tests Test 09/05/17 05:55 09/05/17 09:14 09/05/17 10:40 White Blood Count 13.3 K/UL (4.8-10.8) H Red Blood Count 3.09 M/UL (4.20-5.40) L Hemoglobin 8.7 G/DL (12.0-16.0) L Hematocrit 26.8 % (37.0-47.0) L Mean Corpuscular Volume 87 FL (80-99) Mean Corpuscular Hemoglobin 28.1 PG (27.0-31.0) Mean Corpuscular Hemoglobin Concent 32.4 G/DL (32.0-36.0) Red Cell Distribution Width 16.8 % (11.6-14.8) H Platelet Count 216 K/UL (150-450) Mean Platelet Volume 5.6 FL (6.5-10.1) L Neutrophils (%) (Auto) % (45.0-75.0) Lymphocytes (%) (Auto) % (20.0-45.0) Monocytes (%) (Auto) % (1.0-10.0) Eosinophils (%) (Auto) % (0.0-3.0) Basophils (%) (Auto) % (0.0-2.0) Sodium Level 148 MMOL/L (136-145) H Potassium Level 3.5 MMOL/L (3.5-5.1) Chloride Level 115 MMOL/L (98-107) H Carbon Dioxide Level 17 MMOL/L (21-32) L Anion Gap 17 mmol/L (5-15) H Blood Urea Nitrogen 95 mg/dL (7-18) H Creatinine 3.6 MG/DL (0.55-1.30) H Estimat Glomerular Filtration Rate mL/min (>60) Glucose Level 167 MG/DL (74-106) H Hemoglobin A1c 5.4 % (4.3-6.0) Uric Acid 10.1 MG/DL (2.6-7.2) H Calcium Level 8.3 MG/DL (8.5-10.1) L Phosphorus Level 3.9 MG/DL (2.5-4.9) Magnesium Level 2.4 MG/DL (1.8-2.4) Total Bilirubin 0.5 MG/DL (0.2-1.0) Gamma Glutamyl Transpeptidase 33 U/L (5-85) Aspartate Amino Transf (AST/SGOT) 25 U/L (15-37) Alanine Aminotransferase (ALT/SGPT) 21 U/L (12-78) Alkaline Phosphatase 57 U/L (46-116) Total Creatine Kinase 562 U/L (26-308) H Troponin I 0.153 ng/mL (0.000-0.056) Pro-B-Type Natriuretic Peptide 7448 pg/mL (0-125) H Total Protein 6.6 G/DL (6.4-8.2) Albumin 1.9 G/DL (3.4-5.0) L Globulin 4.7 g/dL Albumin/Globulin Ratio 0.4 (1.0-2.7) L Triglycerides Level 75 MG/DL (30-150) Cholesterol Level 100 MG/DL (< 200) LDL Cholesterol 28 mg/dL (<100) HDL Cholesterol 16 MG/DL (40-60) L Cholesterol/HDL Ratio 6.3 (3.3-4.4) H Thyroid Stimulating Hormone (TSH) 15.834 uiU/mL (0.358-3.740) Arterial Blood pH 7.371 (7.350-7.450) Arterial Blood Partial Pressure CO2 27.3 mmHg (35.0-45.0) L Arterial Blood Partial Pressure O2 82.8 mmHg (75.0-100.0) Arterial Blood HCO3 15.5 mmol/L (22.0-26.0) L Arterial Blood Oxygen Saturation 95.2 % (92.0-98.0) Arterial Blood Base Excess -8.6 Alec Test Positive Lactic Acid Level 2.90 mmol/L (0.66-2.22) H C-Reactive Protein, Quantitative 20.1 mg/dL (0.00-0.90) H Random Vancomycin Level 17.7 ug/mL Microbiology Date/Time Source Procedure Growth Status 09/04/17 00:50 Blood Blood Culture - Preliminary NO GROWTH AFTER 24 HOURS Resulted 09/04/17 00:40 Blood Blood Culture - Preliminary NO GROWTH AFTER 24 HOURS Resulted 09/04/17 05:30 Wound Gram Stain - Final Resulted 09/04/17 05:30 Wound Culture - Preliminary Gram Negative Bacillus 1 Gram Negative Bacillus 2 Resulted 09/04/17 04:00 Urine,Clean Catch Urine Culture - Preliminary Gram Negative Bacillus 1 Gram Negative Bacillus 2 Resulted Intake and Output 09/04/17 09/05/17 19:00 07:00 Intake Total 2391.920 ml 1669.05 ml Output Total 480 ml 750 ml Balance 1911.920 ml 919.05 ml IV Total 2391.920 ml 1669.05 ml Output Urine Total 480 ml 750 ml # Bowel Movements 1 Objective GENERAL: The patient is a well-developed and well-nourished, elderly white female, who is currently on BiPAP. HEENT: Eyes, pupils are equal and responsive to light and accommodation. Extraocular movements are intact. NECK: Supple without lymphadenopathy. CHEST: BIPAP; Lungs are clear to auscultation bilaterally without wheezes or rales. CARDIOVASCULAR: Tachycardic, regular rhythm. S1 and S2 are normal without murmurs, rubs, or gallops. ABDOMEN: Soft, nontender, and nondistended. Positive bowel sounds. No evidence of hepatosplenomegaly. Currently, no rebound or guarding noted. EXTREMITIES: Negative for clubbing, cyanosis, or edema. RECTAL/GENITAL: Not performed. NEUROLOGICAL: Unable to assess. Assessment/Plan Problem List: (1) Atrial fibrillation with rapid ventricular response Assessment & Plan: See cardiology note. (2) Respiratory failure Assessment & Plan: See pulmonary note. Cont BIPAP. Continue ertapenem Per ID (3) Fever (4) Septic shock (5) Dyspnea Assessment & Plan: Continue BIPAP (6) Hypotension Assessment & Plan: Continue pressors (7) HTN (hypertension) (8) Hypothyroidism (9) UTI (urinary tract infection) Assessment & Plan: Gram neg ángel. Continue ertapenem per ID Status: not improved YUE JACOB Sep 05, 2017 19:45
[2017-09-05] MEDS ORDERED: Dyna-Hex 2% Top Sol 2oz TOPIC SCH (20:00)
--- NOTE | 2017-09-05 21:42 | Infectious Diseases Prog Note ---
Assessment/Plan Assessment/Plan ASSESSMENT: The patient is an 87-year-old female with, Sepsis. Septic shock. Normal white blood cells. No fever. Urinary tract infection/pyuria. Pneumonia Chest x-ray, patchy bilateral infiltrates. Chronic sacral decubitus (not infected grossly). History of ESBL E. coli urosepsis History of chronic sacral decubitus. Atrial fibrillation. Anemia. History of hypoalbuminemia. PLAN: continue the patient on vancomycin and ertapenem d# 2 Monitor CBC. Monitor BMP. Monitor cultures (blood, sputum, and urine). Monitor wound culture. Continue respiratory support. Monitor lactic acid, CBC, and BMP. Monitor chest x-ray. Subjective Allergies: Coded Allergies: SHELLFISH DERIVED (Verified Allergy, Unknown, 09/04/17) Subjective afebrile Objective Vital Signs Last 24 Hour Vital Signs Date Time Temp Pulse Resp B/P (MAP) Pulse Ox O2 Delivery O2 Flow Rate FiO2 09/05/17 21:00 113 26 93/66 98 Bi-pap 30 09/05/17 20:44 128 28 Full Face 30 09/05/17 20:00 98.6 100 27 116/81 98 Bi-pap 30 98.6 09/05/17 20:00 102 09/05/17 20:00 30 09/05/17 19:12 Bi-pap 09/05/17 19:12 Bi-pap 09/05/17 19:12 119 29 98 Full Face 30 09/05/17 19:00 126 26 112/79 98 Bi-pap 30 09/05/17 18:00 120 26 126/77 97 Bi-pap 30 09/05/17 17:09 105 28 97 Full Face 30 09/05/17 17:00 98.7 116 29 116/87 100 Bi-pap 30 98.7 09/05/17 16:00 112 09/05/17 16:00 112 26 126/70 98 Bi-pap 30 09/05/17 16:00 30 09/05/17 15:08 101 31 Full Face 30 09/05/17 15:00 100 28 119/67 97 Bi-pap 30 09/05/17 14:00 105 25 121/79 98 Bi-pap 30 09/05/17 13:08 101 31 Full Face 30 09/05/17 13:01 101 30 Full Face 30 09/05/17 13:00 98.6 112 26 123/89 99 Bi-pap 30 98.6 09/05/17 12:37 122/83 09/05/17 12:00 30 09/05/17 12:00 114 09/05/17 12:00 116 26 118/67 98 Bi-pap 30 09/05/17 11:06 106 29 Full Face 30 09/05/17 11:00 104 26 128/75 99 Bi-pap 30 09/05/17 10:00 103 26 114/59 98 Bi-pap 30 09/05/17 09:10 102 28 99 Full Face 30 09/05/17 09:00 109 27 118/75 98 Bi-pap 30 09/05/17 08:10 133/75 09/05/17 08:00 30 09/05/17 08:00 98.8 105 25 133/75 98 Bi-pap 30 98.8 09/05/17 08:00 105 09/05/17 07:01 Bi-pap 30 09/05/17 07:01 109 24 99 Full Face 30 09/05/17 07:01 Bi-pap 30 09/05/17 07:00 113 28 131/89 Bi-pap 35 09/05/17 06:00 113 28 112/74 Bi-pap 35 09/05/17 05:19 106 24 99 Full Face 30 09/05/17 05:00 107 19 124/80 99 Bi-pap 35 09/05/17 04:00 108 09/05/17 04:00 35 09/05/17 04:00 98.5 114 26 104/78 100 Bi-pap 35 98.5 09/05/17 03:24 103 28 100 Full Face 30 09/05/17 03:00 109 21 100/68 99 Bi-pap 35 09/05/17 02:00 117 24 114/70 Bi-pap 35 09/05/17 01:10 100 27 100 Full Face 30 09/05/17 01:00 110 24 102/75 Bi-pap 35 09/05/17 00:00 35 09/05/17 00:00 98.5 109 24 109/69 Bi-pap 35 98.5 09/05/17 00:00 103 09/04/17 23:18 119 29 99 Full Face 30 09/04/17 23:00 109 26 94/58 100 Bi-pap 35 3/7/18 22:45 110 22 109/73 100 Bi-pap 35 09/04/17 22:30 112 27 106/67 99 Bi-pap 35 09/04/17 22:15 122 24 90/68 99 Bi-pap 35 09/04/17 22:00 119 22 108/73 100 Bi-pap 35 09/04/17 22:00 108/73 09/04/17 21:45 118 25 133/89 100 Bi-pap 35 Height (Feet): 5 Height (Inches): 6.00 Weight (Pounds): 140 HEENT: anicteric Respiratory/Chest: normal breath sounds Cardiovascular: regularly irregular Abdomen: non distended Microbiology Date/Time Source Procedure Growth Status 09/04/17 00:50 Blood Blood Culture - Preliminary NO GROWTH AFTER 24 HOURS Resulted 09/04/17 00:40 Blood Blood Culture - Preliminary NO GROWTH AFTER 24 HOURS Resulted 09/04/17 05:30 Wound Gram Stain - Final Resulted 09/04/17 05:30 Wound Culture - Preliminary Gram Negative Bacillus 1 Gram Negative Bacillus 2 Resulted 09/04/17 04:00 Urine,Clean Catch Urine Culture - Preliminary Gram Negative Bacillus 1 Gram Negative Bacillus 2 Resulted Laboratory Tests Test 09/05/17 05:55 09/05/17 09:14 09/05/17 10:40 White Blood Count 13.3 K/UL (4.8-10.8) H Red Blood Count 3.09 M/UL (4.20-5.40) L Hemoglobin 8.7 G/DL (12.0-16.0) L Hematocrit 26.8 % (37.0-47.0) L Mean Corpuscular Volume 87 FL (80-99) Mean Corpuscular Hemoglobin 28.1 PG (27.0-31.0) Mean Corpuscular Hemoglobin Concent 32.4 G/DL (32.0-36.0) Red Cell Distribution Width 16.8 % (11.6-14.8) H Platelet Count 216 K/UL (150-450) Mean Platelet Volume 5.6 FL (6.5-10.1) L Neutrophils (%) (Auto) % (45.0-75.0) Lymphocytes (%) (Auto) % (20.0-45.0) Monocytes (%) (Auto) % (1.0-10.0) Eosinophils (%) (Auto) % (0.0-3.0) Basophils (%) (Auto) % (0.0-2.0) Sodium Level 148 MMOL/L (136-145) H Potassium Level 3.5 MMOL/L (3.5-5.1) Chloride Level 115 MMOL/L (98-107) H Carbon Dioxide Level 17 MMOL/L (21-32) L Anion Gap 17 mmol/L (5-15) H Blood Urea Nitrogen 95 mg/dL (7-18) H Creatinine 3.6 MG/DL (0.55-1.30) H Estimat Glomerular Filtration Rate mL/min (>60) Glucose Level 167 MG/DL (74-106) H Hemoglobin A1c 5.4 % (4.3-6.0) Uric Acid 10.1 MG/DL (2.6-7.2) H Calcium Level 8.3 MG/DL (8.5-10.1) L Phosphorus Level 3.9 MG/DL (2.5-4.9) Magnesium Level 2.4 MG/DL (1.8-2.4) Total Bilirubin 0.5 MG/DL (0.2-1.0) Gamma Glutamyl Transpeptidase 33 U/L (5-85) Aspartate Amino Transf (AST/SGOT) 25 U/L (15-37) Alanine Aminotransferase (ALT/SGPT) 21 U/L (12-78) Alkaline Phosphatase 57 U/L (46-116) Total Creatine Kinase 562 U/L (26-308) H Troponin I 0.153 ng/mL (0.000-0.056) Pro-B-Type Natriuretic Peptide 7448 pg/mL (0-125) H Total Protein 6.6 G/DL (6.4-8.2) Albumin 1.9 G/DL (3.4-5.0) L Globulin 4.7 g/dL Albumin/Globulin Ratio 0.4 (1.0-2.7) L Triglycerides Level 75 MG/DL (30-150) Cholesterol Level 100 MG/DL (< 200) LDL Cholesterol 28 mg/dL (<100) HDL Cholesterol 16 MG/DL (40-60) L Cholesterol/HDL Ratio 6.3 (3.3-4.4) H Thyroid Stimulating Hormone (TSH) 15.834 uiU/mL (0.358-3.740) Arterial Blood pH 7.371 (7.350-7.450) Arterial Blood Partial Pressure CO2 27.3 mmHg (35.0-45.0) L Arterial Blood Partial Pressure O2 82.8 mmHg (75.0-100.0) Arterial Blood HCO3 15.5 mmol/L (22.0-26.0) L Arterial Blood Oxygen Saturation 95.2 % (92.0-98.0) Arterial Blood Base Excess -8.6 Alec Test Positive Lactic Acid Level 2.90 mmol/L (0.66-2.22) H C-Reactive Protein, Quantitative 20.1 mg/dL (0.00-0.90) H Random Vancomycin Level 17.7 ug/mL Current Medications Medications (Trade) Dose Ordered Sig/Jonah Route PRN Reason Start Time Stop Time Status Last Admin Dose Admin Acetaminophen (Tylenol) 650 mg Q4H PRN ORAL T>100.5 09/04/17 06:45 10/04/17 06:44 Albuterol/ Ipratropium (Albuterol/ Ipratropium) 3 ml Q4H PRN HHN Shortness of Breath 09/04/17 06:45 09/09/17 06:44 Chlorhexidine Gluconate (Brandy-Hex 2%) 1 applic Q24H TOPIC 09/05/17 20:00 10/05/17 19:59 09/05/17 19:43 Dextrose/Sodium Chloride 1,000 ml @ 85 mls/hr [id number] IV 09/05/17 11:45 10/05/17 11:44 09/05/17 11:45 Diltiazem HCl (Cardizem) 10 mg Q1HR PRN IVP HR>120BPM 09/04/17 08:30 10/04/17 08:29 09/04/17 08:40 Ertapenem 0.5 gm/ Sodium Chloride 55 ml @ 110 mls/hr Q24H IVPB 09/05/17 08:00 09/10/17 07:59 09/05/17 08:16 Heparin Sodium (Porcine) (Heparin 5000 units/ml) 5,000 units EVERY 12 HOURS SUBQ 09/04/17 09:00 10/04/17 08:59 09/04/17 08:45 Hydrocortisone (Solu-CORTEF) 100 mg EVERY 8 HOURS IV 09/04/17 14:00 10/04/17 13:59 09/05/17 15:37 Levothyroxine Sodium (Synthroid) 50 mcg DAILY@0630 NG 09/06/17 06:30 10/06/17 06:29 Morphine Sulfate (Morphine Sulfate) 2 mg Q4H PRN IVP Severe Pain (Pain Scale 7-10) 09/04/17 06:45 09/11/17 06:44 Nitroglycerin (Ntg) 1 patch Q24H TDERMAL 09/05/17 12:00 10/05/17 11:59 09/05/17 12:37 Norepinephrine Bitartrate 4 mg/ Dextrose 254 ml @ 0 mls/hr Q24H IV 09/04/17 08:30 10/04/17 08:29 09/04/17 09:30 Ondansetron HCl (Zofran) 4 mg Q6H PRN IVP Nausea & Vomiting 09/04/17 06:45 10/04/17 06:44 Pantoprazole (Protonix) 40 mg DAILY IVP 09/04/17 09:00 10/04/17 08:59 09/05/17 08:16 Polyethylene Glycol (Miralax) 17 gm DAILYPRN PRN ORAL Constipation 09/04/17 06:45 10/04/17 06:44 Vancomycin HCl (Vanco rx to dose) 1 ea DAILY PRN MISC . 09/04/17 07:15 10/04/17 07:14 ALDO CLEANING M.D. Sep 05, 2017 21:42
[2017-09-06] VITALS (20 sets, daily range): BP systolic 98–126; BP diastolic 60–84
[2017-09-06] MEDS ORDERED: Vancomycin 750mg/NS 250ml IVPB SCH
[2017-09-06] MEDS: D5NS 1,000 ML IV SCH (00:01)
[2017-09-06] MEDS: Hydrocortisone 100mg Inj IV SCH ×3 (05:58→21:32)
[2017-09-06 06:37] LABS: HEMATOCRIT 28.3 % (37.0-47.0); HEMOGLOBIN 8.8 G/DL (12.0-16.0); MEAN CORPUSCULAR VOLUME 88 FL (80-99); PLATELET COUNT 168 K/UL (150-450); RED BLOOD COUNT 3.21 M/UL (4.20-5.40); RED CELL DISTRIBUTION WIDTH 16.9 % (11.6-14.8); WHITE BLOOD COUNT 14.1 K/UL (4.8-10.8)
[2017-09-06 07:22] LABS: ALANINE AMINOTRANSFERASE 22 U/L (12-78); ALBUMIN 1.8 G/DL (3.4-5.0); ALBUMIN/GLOBULIN RATIO 0.4 (1.0-2.7); ALKALINE PHOSPHATASE 57 U/L (46-116); ANION GAP 13 mmol/L (5-15); ASPARTATE AMINO TRANSFERASE 23 U/L (15-37); BILIRUBIN,TOTAL 0.4 MG/DL (0.2-1.0); BLOOD UREA NITROGEN 98 mg/dL (7-18); CALCIUM 8.6 MG/DL (8.5-10.1); CARBON DIOXIDE 17 MMOL/L (21-32); CHLORIDE 122 MMOL/L (98-107); CREATININE 2.7 MG/DL (0.55-1.30); FERRITIN 417 NG/ML (8-388); POTASSIUM 3.4 MMOL/L (3.5-5.1); SODIUM 152 MMOL/L (136-145)
[2017-09-06 08:27] LABS: CREATINE KINASE 239 U/L (26-308); GAMMA GLUTAMYL TRANSPEPTIDASE 18 U/L (5-85); PHOSPHORUS 3.7 MG/DL (2.5-4.9)
--- NOTE | 2017-09-06 08:39 | Diagnostic Imaging Report ---
Indication: Status post nasogastric tube placement Technique: Supine view of the upper abdomen Comparison: none Findings: There is a nasogastric tube in place, tip projected at a level of the gastric fundus, proximal port just beyond the gastroesophageal junction. The bowel gas pattern is unremarkable. There is questionably infiltrate in the visualized portions of the left upper lobe and bilateral lung bases. Pacemaker is demonstrated Impression: Satisfactory nasogastric intubation Other findings as noted
[2017-09-06] MEDS: Pantoprazole Inj IVP SCH ×2 (09:09→21:32)
[2017-09-06] MEDS: Ertapenem 0.5gm in NS 55ml IVPB SCH (09:10)
[2017-09-06] MEDS: Heparin 5000 units/ml inj SUBQ SCH ×2 (09:15→21:34)
[2017-09-06] MEDS ORDERED: Miralax 17gm pkt NG PRN (09:30)
--- NOTE | 2017-09-06 10:30 | Pulmonolgy Critical Care Note ---
Critical Care - Asmt/Plan Problems: (1) Acute encephalopathy (2) Septic shock (3) Respiratory failure, acute (4) ATN (acute tubular necrosis) (5) At high risk for aspiration (6) Atrial fibrillation (7) Alzheimer's dementia Respiratory: monitor respiratory rate, adjust FIO2, CXR Cardiac: continue to monitor HR/BP Renal: F/U I&O, keep IV fluid Infectious Disease: check cultures Gastrointestinal: continue feedings/current rate Endocrine: monitor blood sugar, continue sliding scale insulin Hematologic: monitor H/H, transfuse if hgb<8.5 Neurologic: PRN Ativan, PRN Morphine, keep patient comfortable Affect: PRN ativan Prophylaxis: Protonix, Heparin Notes Reviewed: 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, 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 Discussed with: nurses, consultants, 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 case 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 - Objective Last 24 Hour Vital Signs Date Time Temp Pulse Resp B/P (MAP) Pulse Ox O2 Delivery O2 Flow Rate FiO2 09/06/17 10:00 107 30 115/65 99 Bi-pap 30.0 09/06/17 09:20 108 29 100 Full Face 30 09/06/17 09:00 109 33 126/82 100 Bi-pap 30 09/06/17 08:54 Bi-pap 09/06/17 08:54 99 Bi-pap 09/06/17 08:30 126/82 09/06/17 08:00 97.4 112 31 114/70 98 Bi-pap 30 97.4 09/06/17 07:16 108 30 99 Full Face 30 09/06/17 07:00 107 26 117/71 100 Bi-pap 30 09/06/17 06:00 110 29 104/65 98 Bi-pap 30 09/06/17 05:29 103 27 99 Full Face 30 09/06/17 05:00 107 31 123/76 98 Bi-pap 30 09/06/17 04:00 102 09/06/17 04:00 30 09/06/17 04:00 97.9 97 28 101/69 99 Bi-pap 30 97.9 09/06/17 03:21 116 29 98 Full Face 30 09/06/17 03:00 107 31 108/69 98 Bi-pap 30 09/06/17 02:00 106 26 113/68 99 Bi-pap 30 09/06/17 01:29 116 33 97 Full Face 30 09/06/17 01:00 84 26 101/60 99 Bi-pap 30 09/06/17 00:00 106 09/06/17 00:00 30 09/06/17 00:00 98.4 111 25 102/66 99 Bi-pap 30 98.4 09/05/17 23:00 113 25 111/66 99 Bi-pap 30 09/05/17 22:58 104 29 93 Full Face 30 09/05/17 22:00 103 26 108/58 97 Bi-pap 30 09/05/17 21:00 113 26 93/66 98 Bi-pap 30 09/05/17 20:44 128 28 Full Face 30 09/05/17 20:00 98.6 100 27 116/81 98 Bi-pap 30 98.6 09/05/17 20:00 102 09/05/17 20:00 30 09/05/17 19:12 Bi-pap 09/05/17 19:12 Bi-pap 09/05/17 19:12 119 29 98 Full Face 30 09/05/17 19:00 126 26 112/79 98 Bi-pap 30 09/05/17 18:00 120 26 126/77 97 Bi-pap 30 09/05/17 17:09 105 28 97 Full Face 30 09/05/17 17:00 98.7 116 29 116/87 100 Bi-pap 30 98.7 09/05/17 16:00 112 09/05/17 16:00 112 26 126/70 98 Bi-pap 30 09/05/17 16:00 30 09/05/17 15:08 101 31 Full Face 30 09/05/17 15:00 100 28 119/67 97 Bi-pap 30 09/05/17 14:00 105 25 121/79 98 Bi-pap 30 09/05/17 13:08 101 31 Full Face 30 09/05/17 13:01 101 30 Full Face 30 09/05/17 13:00 98.6 112 26 123/89 99 Bi-pap 30 98.6 09/05/17 12:37 122/83 09/05/17 12:00 30 09/05/17 12:00 114 09/05/17 12:00 116 26 118/67 98 Bi-pap 30 09/05/17 11:06 106 29 Full Face 30 09/05/17 11:00 104 26 128/75 99 Bi-pap 30 Status: awake Condition: critical HEENT: atraumatic Neck: full ROM Lungs: chest wall tender Heart: HR/BP stable, HR/BP unstable Abdomen: soft, active bowel sounds Extremities: no C/C/E, edema Decubiti: location Micro: Microbiology Date/Time Source Procedure Growth Status 09/04/17 00:50 Blood Blood Culture - Preliminary NO GROWTH AFTER 48 HOURS Resulted 09/04/17 00:40 Blood Blood Culture - Preliminary NO GROWTH AFTER 48 HOURS Resulted 09/04/17 05:30 Wound Gram Stain - Final Resulted 09/04/17 05:30 Wound Culture - Preliminary Escherichia Coli - Esbl Proteus Mirabilis Staphylococcus Aureus Resulted 09/04/17 01:05 Nasal Nares MRSA Culture - Final NO METHICILLIN RESISTANT STAPH AUREUS... Complete 09/04/17 04:00 Urine,Clean Catch Urine Culture - Final Escherichia Coli Proteus Mirabilis Complete 09/04/17 01:05 Rectum VRE Culture - Final Enterococcus Faecalis - Vre Complete Critical Care - Subjective ROS Limited/Unobtainable: Yes ICU Day: 2 Intubation Day: on bipapa Condition: critical EKG Rhythm: Sinus Rhythm FI02: 30 Sputum Amount: None Fluids: d5w 75 cc/hour I&O: Intake and Output 09/05/17 09/06/17 19:00 07:00 Intake Total 650 ml 1140 ml Output Total 490 ml 460 ml Balance 160 ml 680 ml IV Total 650 ml 1020 ml Tube Feeding 120 ml Output Urine Total 490 ml 460 ml CXR: increasing infiltrate Labs: Laboratory Tests Test 09/05/17 10:40 09/06/17 06:00 09/06/17 06:05 Lactic Acid Level 2.90 mmol/L (0.66-2.22) H 1.90 mmol/L (0.66-2.22) C-Reactive Protein, Quantitative 20.1 mg/dL (0.00-0.90) H Random Vancomycin Level 17.7 ug/mL Urine Random Sodium 41 mmol/L (20-110) White Blood Count 14.1 K/UL (4.8-10.8) H Red Blood Count 3.21 M/UL (4.20-5.40) L Hemoglobin 8.8 G/DL (12.0-16.0) L Hematocrit 28.3 % (37.0-47.0) L Mean Corpuscular Volume 88 FL (80-99) Mean Corpuscular Hemoglobin 27.5 PG (27.0-31.0) Mean Corpuscular Hemoglobin Concent 31.2 G/DL (32.0-36.0) L Red Cell Distribution Width 16.9 % (11.6-14.8) H Platelet Count 168 K/UL (150-450) Mean Platelet Volume 6.1 FL (6.5-10.1) L Neutrophils (%) (Auto) % (45.0-75.0) Lymphocytes (%) (Auto) % (20.0-45.0) Monocytes (%) (Auto) % (1.0-10.0) Eosinophils (%) (Auto) % (0.0-3.0) Basophils (%) (Auto) % (0.0-2.0) Sodium Level 152 MMOL/L (136-145) H Potassium Level 3.4 MMOL/L (3.5-5.1) L Chloride Level 122 MMOL/L (98-107) H Carbon Dioxide Level 17 MMOL/L (21-32) L Anion Gap 13 mmol/L (5-15) Blood Urea Nitrogen 98 mg/dL (7-18) H Creatinine 2.7 MG/DL (0.55-1.30) H Estimat Glomerular Filtration Rate mL/min (>60) Glucose Level 172 MG/DL (74-106) H Uric Acid 10.4 MG/DL (2.6-7.2) H Calcium Level 8.6 MG/DL (8.5-10.1) Phosphorus Level 3.7 MG/DL (2.5-4.9) Magnesium Level 2.2 MG/DL (1.8-2.4) Ferritin 417 NG/ML (8-388) H Total Bilirubin 0.4 MG/DL (0.2-1.0) Gamma Glutamyl Transpeptidase 18 U/L (5-85) Aspartate Amino Transf (AST/SGOT) 23 U/L (15-37) Alanine Aminotransferase (ALT/SGPT) 22 U/L (12-78) Alkaline Phosphatase 57 U/L (46-116) Total Creatine Kinase 239 U/L (26-308) Troponin I 0.105 ng/mL (0.000-0.056) Pro-B-Type Natriuretic Peptide 05708 pg/mL (0-125) H Total Protein 6.3 G/DL (6.4-8.2) L Albumin 1.8 G/DL (3.4-5.0) L Globulin 4.5 g/dL Albumin/Globulin Ratio 0.4 (1.0-2.7) L Vitamin B12 Level 1222 PG/ML (193-986) H Folate 16.8 NG/ML (8.6-58.9) TATI FAM Sep 06, 2017 10:30
--- NOTE | 2017-09-06 10:30 | Nephrology Progress Note ---
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 Dementia HypoThyroidism DNR Plan hydrate- lower rate change to D5 On synthroid Hydrocortisone- pressors as needed monitor renal parameters avoid nephrotoxics per orders discussed with RN Anemia tanner Nitro patch Subjective ROS Limited/Unobtainable: No Constitutional: Reports: malaise, weakness Objective Objective Last 24 Hour Vital Signs Date Time Temp Pulse Resp B/P (MAP) Pulse Ox O2 Delivery O2 Flow Rate FiO2 09/06/17 09:20 108 29 100 Full Face 30 09/06/17 08:54 Bi-pap 09/06/17 08:54 99 Bi-pap 09/06/17 08:30 126/82 09/06/17 07:16 108 30 99 Full Face 30 09/06/17 07:00 107 26 117/71 100 Bi-pap 30 09/06/17 06:00 110 29 104/65 98 Bi-pap 30 09/06/17 05:29 103 27 99 Full Face 30 09/06/17 05:00 107 31 123/76 98 Bi-pap 30 09/06/17 04:00 102 09/06/17 04:00 30 09/06/17 04:00 97.9 97 28 101/69 99 Bi-pap 30 97.9 09/06/17 03:21 116 29 98 Full Face 30 09/06/17 03:00 107 31 108/69 98 Bi-pap 30 09/06/17 02:00 106 26 113/68 99 Bi-pap 30 09/06/17 01:29 116 33 97 Full Face 30 09/06/17 01:00 84 26 101/60 99 Bi-pap 30 09/06/17 00:00 106 09/06/17 00:00 30 09/06/17 00:00 98.4 111 25 102/66 99 Bi-pap 30 98.4 09/05/17 23:00 113 25 111/66 99 Bi-pap 30 09/05/17 22:58 104 29 93 Full Face 30 09/05/17 22:00 103 26 108/58 97 Bi-pap 30 09/05/17 21:00 113 26 93/66 98 Bi-pap 30 09/05/17 20:44 128 28 Full Face 30 09/05/17 20:00 98.6 100 27 116/81 98 Bi-pap 30 98.6 09/05/17 20:00 102 09/05/17 20:00 30 09/05/17 19:12 Bi-pap 09/05/17 19:12 Bi-pap 09/05/17 19:12 119 29 98 Full Face 30 09/05/17 19:00 126 26 112/79 98 Bi-pap 30 09/05/17 18:00 120 26 126/77 97 Bi-pap 30 09/05/17 17:09 105 28 97 Full Face 30 09/05/17 17:00 98.7 116 29 116/87 100 Bi-pap 30 98.7 09/05/17 16:00 112 09/05/17 16:00 112 26 126/70 98 Bi-pap 30 09/05/17 16:00 30 09/05/17 15:08 101 31 Full Face 30 09/05/17 15:00 100 28 119/67 97 Bi-pap 30 09/05/17 14:00 105 25 121/79 98 Bi-pap 30 09/05/17 13:08 101 31 Full Face 30 09/05/17 13:01 101 30 Full Face 30 09/05/17 13:00 98.6 112 26 123/89 99 Bi-pap 30 98.6 09/05/17 12:37 122/83 09/05/17 12:00 30 09/05/17 12:00 114 09/05/17 12:00 116 26 118/67 98 Bi-pap 30 09/05/17 11:06 106 29 Full Face 30 09/05/17 11:00 104 26 128/75 99 Bi-pap 30 Intake and Output 09/05/17 09/06/17 19:00 07:00 Intake Total 650 ml 1140 ml Output Total 490 ml 460 ml Balance 160 ml 680 ml IV Total 650 ml 1020 ml Tube Feeding 120 ml Output Urine Total 490 ml 460 ml Laboratory Tests 09/05/17 10:40: Lactic Acid Level 2.90H, C-Reactive Protein, Quantitative 20.1H, Random Vancomycin Level 17.7 09/06/17 06:00: Urine Random Sodium 41 09/06/17 06:05: Lactic Acid Level 1.90, White Blood Count 14.1H, Red Blood Count 3.21L, Hemoglobin 8.8L, Hematocrit 28.3L, Mean Corpuscular Volume 88, Mean Corpuscular Hemoglobin 27.5, Mean Corpuscular Hemoglobin Concent 31.2L, Red Cell Distribution Width 16.9H, Platelet Count 168, Mean Platelet Volume 6.1L, Neutrophils (%) (Auto) , Lymphocytes (%) (Auto) , Monocytes (%) (Auto) , Eosinophils (%) (Auto) , Basophils (%) (Auto) , Sodium Level 152H, Potassium Level 3.4L, Chloride Level 122H, Carbon Dioxide Level 17L, Anion Gap 13, Blood Urea Nitrogen 98H, Creatinine 2.7H, Estimat Glomerular Filtration Rate , Glucose Level 172H, Uric Acid 10.4H, Calcium Level 8.6, Phosphorus Level 3.7, Magnesium Level 2.2, Ferritin 417H, Total Bilirubin 0.4, Gamma Glutamyl Transpeptidase 18, Aspartate Amino Transf (AST/SGOT) 23, Alanine Aminotransferase (ALT/SGPT) 22, Alkaline Phosphatase 57, Total Creatine Kinase 239, Troponin I 0.105H, Pro-B-Type Natriuretic Peptide 40227L, Total Protein 6.3L, Albumin 1.8L, Globulin 4.5, Albumin/Globulin Ratio 0.4L, Vitamin B12 Level 1222H, Folate 16.8 Height (Feet): 5 Height (Inches): 6.00 Weight (Pounds): 121 General Appearance: lethargic Cardiovascular: tachycardia Respiratory/Chest: decreased breath sounds Abdomen: soft Objective no other change LEONIDES CHAWLA Sep 06, 2017 10:30
--- NOTE | 2017-09-06 11:03 | Diagnostic Imaging Report ---
Indication: Dyspnea Technique: One view of the chest Comparison: 09/05/2017 Findings: Interim placement of a nasogastric tube, tip which projects at the level of the gastric body. Bilateral infiltrates versus edema, left greater than right, are again demonstrated. This appears slightly improved on the right, slightly worse on the left. Left chest pacemaker remains Impression: Interim satisfactory nasogastric intubation Shifting parenchymal infiltrates versus edema, slightly improved on the right, slightly worse on the left
[2017-09-06] MEDS ORDERED: Potassium Chloride 30 MEQ in Sodium Chloride 500ML 550 ML IVPB ONE (11:30)
[2017-09-06] MEDS: Nitroglycerin Patch 0.4mg TDERMAL SCH (13:07)
--- NOTE | 2017-09-06 16:22 | Cardiology Progress Note ---
Assessment/Plan Assessment/Plan 1. Septic shock, off pressors, continue hydration with D5W in face of hypernatremia. 2. Atrial fibrillation with rapid ventricular response. Start metoprolol 25mg po bid. 3. History of hypertensive heart disease with LVEF at 65%. 4. History of hyperlipidemia. 5. History of CVA. 6. Acute respiratory failure, on bipap mask. Subjective Subjective Atrial fibrillation with RVR and occasional VPC. Objective Last 24 Hour Vital Signs Date Time Temp Pulse Resp B/P (MAP) Pulse Ox O2 Delivery O2 Flow Rate FiO2 09/06/17 16:00 97.6 114 30 114/73 99 Bi-pap 30 97.6 09/06/17 15:00 112 34 99/81 100 Bi-pap 30 09/06/17 14:00 118 30 123/82 99 Bi-pap 30 09/06/17 13:07 111/73 09/06/17 13:00 104 30 106/79 99 Bi-pap 30 09/06/17 12:58 98 32 100 Full Face 30 09/06/17 12:00 30 09/06/17 12:00 104 09/06/17 12:00 97.7 103 31 114/71 99 Bi-pap 30 97.7 09/06/17 11:26 114 32 100 Full Face 30 09/06/17 11:00 107 30 118/84 99 Bi-pap 30 09/06/17 10:00 107 30 115/65 99 Bi-pap 30 09/06/17 09:20 108 29 100 Full Face 30 09/06/17 09:00 109 33 126/82 100 Bi-pap 30 09/06/17 08:54 Bi-pap 09/06/17 08:54 99 Bi-pap 09/06/17 08:30 126/82 09/06/17 08:00 97.4 97 28 101/69 99 Bi-pap 30 97.4 09/06/17 08:00 107 09/06/17 08:00 30 09/06/17 07:16 108 30 99 Full Face 30 09/06/17 07:00 107 26 117/71 100 Bi-pap 30 09/06/17 06:00 110 29 104/65 98 Bi-pap 30 09/06/17 05:29 103 27 99 Full Face 30 09/06/17 05:00 107 31 123/76 98 Bi-pap 30 09/06/17 04:00 102 09/06/17 04:00 30 09/06/17 04:00 97.9 97 28 101/69 99 Bi-pap 30 97.9 09/06/17 03:21 116 29 98 Full Face 30 09/06/17 03:00 107 31 108/69 98 Bi-pap 30 09/06/17 02:00 106 26 113/68 99 Bi-pap 30 09/06/17 01:29 116 33 97 Full Face 30 09/06/17 01:00 84 26 101/60 99 Bi-pap 30 09/06/17 00:00 106 09/06/17 00:00 30 09/06/17 00:00 98.4 111 25 102/66 99 Bi-pap 30 98.4 09/05/17 23:00 113 25 111/66 99 Bi-pap 30 09/05/17 22:58 104 29 93 Full Face 30 09/05/17 22:00 103 26 108/58 97 Bi-pap 30 09/05/17 21:00 113 26 93/66 98 Bi-pap 30 09/05/17 20:44 128 28 Full Face 30 09/05/17 20:00 98.6 100 27 116/81 98 Bi-pap 30 98.6 09/05/17 20:00 102 09/05/17 20:00 30 09/05/17 19:12 Bi-pap 09/05/17 19:12 Bi-pap 09/05/17 19:12 119 29 98 Full Face 30 09/05/17 19:00 126 26 112/79 98 Bi-pap 30 09/05/17 18:00 120 26 126/77 97 Bi-pap 30 09/05/17 17:09 105 28 97 Full Face 30 09/05/17 17:00 98.7 116 29 116/87 100 Bi-pap 30 98.7 Intake and Output 09/05/17 09/06/17 19:00 07:00 Intake Total 650 ml 1140 ml Output Total 490 ml 460 ml Balance 160 ml 680 ml IV Total 650 ml 1020 ml Tube Feeding 120 ml Output Urine Total 490 ml 460 ml 2D Echo: EF 65%, Mild MARIELOS, Mild LVH, Hi RAP ~20 mmHg, RVSP 49 mmHg Laboratory Tests Test 09/06/17 06:00 09/06/17 06:05 Urine Random Sodium 41 mmol/L (20-110) White Blood Count 14.1 K/UL (4.8-10.8) H Red Blood Count 3.21 M/UL (4.20-5.40) L Hemoglobin 8.8 G/DL (12.0-16.0) L Hematocrit 28.3 % (37.0-47.0) L Mean Corpuscular Volume 88 FL (80-99) Mean Corpuscular Hemoglobin 27.5 PG (27.0-31.0) Mean Corpuscular Hemoglobin Concent 31.2 G/DL (32.0-36.0) L Red Cell Distribution Width 16.9 % (11.6-14.8) H Platelet Count 168 K/UL (150-450) Mean Platelet Volume 6.1 FL (6.5-10.1) L Neutrophils (%) (Auto) % (45.0-75.0) Lymphocytes (%) (Auto) % (20.0-45.0) Monocytes (%) (Auto) % (1.0-10.0) Eosinophils (%) (Auto) % (0.0-3.0) Basophils (%) (Auto) % (0.0-2.0) Sodium Level 152 MMOL/L (136-145) H Potassium Level 3.4 MMOL/L (3.5-5.1) L Chloride Level 122 MMOL/L (98-107) H Carbon Dioxide Level 17 MMOL/L (21-32) L Anion Gap 13 mmol/L (5-15) Blood Urea Nitrogen 98 mg/dL (7-18) H Creatinine 2.7 MG/DL (0.55-1.30) H Estimat Glomerular Filtration Rate mL/min (>60) Glucose Level 172 MG/DL (74-106) H Lactic Acid Level 1.90 mmol/L (0.66-2.22) Uric Acid 10.4 MG/DL (2.6-7.2) H Calcium Level 8.6 MG/DL (8.5-10.1) Phosphorus Level 3.7 MG/DL (2.5-4.9) Magnesium Level 2.2 MG/DL (1.8-2.4) Ferritin 417 NG/ML (8-388) H Total Bilirubin 0.4 MG/DL (0.2-1.0) Gamma Glutamyl Transpeptidase 18 U/L (5-85) Aspartate Amino Transf (AST/SGOT) 23 U/L (15-37) Alanine Aminotransferase (ALT/SGPT) 22 U/L (12-78) Alkaline Phosphatase 57 U/L (46-116) Total Creatine Kinase 239 U/L (26-308) Troponin I 0.105 ng/mL (0.000-0.056) C-Reactive Protein, Quantitative 15.3 mg/dL (0.00-0.90) H Pro-B-Type Natriuretic Peptide 18094 pg/mL (0-125) H Total Protein 6.3 G/DL (6.4-8.2) L Albumin 1.8 G/DL (3.4-5.0) L Globulin 4.5 g/dL Albumin/Globulin Ratio 0.4 (1.0-2.7) L Vitamin B12 Level 1222 PG/ML (193-986) H Folate 16.8 NG/ML (8.6-58.9) Microbiology Date/Time Source Procedure Growth Status 09/04/17 00:50 Blood Blood Culture - Preliminary NO GROWTH AFTER 48 HOURS Resulted 09/04/17 00:40 Blood Blood Culture - Preliminary NO GROWTH AFTER 48 HOURS Resulted 09/04/17 05:30 Wound Gram Stain - Final Resulted 09/04/17 05:30 Wound Culture - Preliminary Escherichia Coli - Esbl Proteus Mirabilis Staphylococcus Aureus Resulted 09/04/17 01:05 Nasal Nares MRSA Culture - Final NO METHICILLIN RESISTANT STAPH AUREUS... Complete 09/04/17 04:00 Urine,Clean Catch Urine Culture - Final Escherichia Coli Proteus Mirabilis Complete 09/04/17 01:05 Rectum VRE Culture - Final Enterococcus Faecalis - Vre Complete Objective HEENT: Atraumatic, normocephalic. Anicteric. Pupils are equal, round, and reactive to light and accommodation. Extraocular muscles intact. On bipap mask. NECK: JVP is less than 5 cm. No carotid bruit. Carotid upstrokes 2+ bilaterally. CARDIOVASCULAR: Normal S1, S2. Irregularly irregular rhythm. tachycardic, No murmurs, gallops, or rubs. LUNGS: Diminished breath sounds with presence of wheezing bilaterally. ABDOMEN: Soft, nontender, and nondistended. No hepatosplenomegaly. Positive bowel sounds. EXTREMITIES: No evidence of edema, clubbing, or cyanosis. DI RAMIREZ Sep 06, 2017 16:22
[2017-09-06] MEDS ORDERED: Metoprolol 25mg tab ORAL SCH (17:00)
--- NOTE | 2017-09-06 19:25 | Infectious Diseases Prog Note ---
Assessment/Plan Assessment/Plan ASSESSMENT: The patient is an 87-year-old female with, Sepsis improved Septic shock. SP leukocytosis No fever. Urinary tract infection/pyuria UCX : E. coli and P Mirabilis Pneumonia Chest x-ray, patchy bilateral infiltrates. Chronic sacral decubitus (not infected grossly) History of ESBL E. coli urosepsis History of chronic sacral decubitus. Atrial fibrillation. Anemia. History of hypoalbuminemia. PLAN: continue the patient on IV Ancef d# 1 / 7 AND DC vancomycin and ertapenem d# 4 Monitor CBC. Monitor BMP. Monitor cultures (blood, sputum) Monitor wound culture. Continue respiratory support. Monitor lactic acid, CBC, and BMP. Monitor chest x-ray. Subjective Allergies: Coded Allergies: SHELLFISH DERIVED (Verified Allergy, Unknown, 09/04/17) Subjective afebrile transferred out of ICU Objective Vital Signs Last 24 Hour Vital Signs Date Time Temp Pulse Resp B/P (MAP) Pulse Ox O2 Delivery O2 Flow Rate FiO2 09/06/17 18:43 116 31 96 Facial 30 09/06/17 18:43 Bi-pap 30 09/06/17 18:43 96 Bi-pap 30 09/06/17 18:00 109 30 98/62 95 Venturi Mask 4.0 30 09/06/17 17:22 127 35 98 Full Face 30 09/06/17 17:22 125 114/86 09/06/17 17:00 107 33 116/83 100 Bi-pap 30 09/06/17 16:00 97.6 114 30 114/73 99 Bi-pap 30 97.6 09/06/17 16:00 30 09/06/17 16:00 114 09/06/17 15:16 110 32 98 Full Face 30 09/06/17 15:00 112 34 99/81 100 Bi-pap 30 09/06/17 14:00 118 30 123/82 99 Bi-pap 30 09/06/17 13:07 111/73 09/06/17 13:00 104 30 106/79 99 Bi-pap 30 09/06/17 12:58 98 32 100 Full Face 30 09/06/17 12:00 30 09/06/17 12:00 104 09/06/17 12:00 97.7 103 31 114/71 99 Bi-pap 30 97.7 09/06/17 11:26 114 32 100 Full Face 30 09/06/17 11:00 107 30 118/84 99 Bi-pap 30 09/06/17 10:00 107 30 115/65 99 Bi-pap 30 09/06/17 09:20 108 29 100 Full Face 30 09/06/17 09:00 109 33 126/82 100 Bi-pap 30 09/06/17 08:54 Bi-pap 09/06/17 08:54 99 Bi-pap 09/06/17 08:30 126/82 09/06/17 08:00 97.4 97 28 101/69 99 Bi-pap 30 97.4 09/06/17 08:00 107 09/06/17 08:00 30 09/06/17 07:16 108 30 99 Full Face 30 09/06/17 07:00 107 26 117/71 100 Bi-pap 30 09/06/17 06:00 110 29 104/65 98 Bi-pap 30 09/06/17 05:29 103 27 99 Full Face 30 09/06/17 05:00 107 31 123/76 98 Bi-pap 30 09/06/17 04:00 102 09/06/17 04:00 30 09/06/17 04:00 97.9 97 28 101/69 99 Bi-pap 30 97.9 09/06/17 03:21 116 29 98 Full Face 30 09/06/17 03:00 107 31 108/69 98 Bi-pap 30 09/06/17 02:00 106 26 113/68 99 Bi-pap 30 09/06/17 01:29 116 33 97 Full Face 30 09/06/17 01:00 84 26 101/60 99 Bi-pap 30 09/06/17 00:00 106 09/06/17 00:00 30 09/06/17 00:00 98.4 111 25 102/66 99 Bi-pap 30 98.4 09/05/17 23:00 113 25 111/66 99 Bi-pap 30 09/05/17 22:58 104 29 93 Full Face 30 09/05/17 22:00 103 26 108/58 97 Bi-pap 30 09/05/17 21:00 113 26 93/66 98 Bi-pap 30 09/05/17 20:44 128 28 Full Face 30 09/05/17 20:00 98.6 100 27 116/81 98 Bi-pap 30 98.6 09/05/17 20:00 102 09/05/17 20:00 30 Height (Feet): 5 Height (Inches): 6.00 Weight (Pounds): 121 HEENT: PERRL Respiratory/Chest: normal breath sounds Cardiovascular: regularly irregular Abdomen: no organomegaly Microbiology Date/Time Source Procedure Growth Status 09/04/17 00:50 Blood Blood Culture - Preliminary NO GROWTH AFTER 48 HOURS Resulted 09/04/17 00:40 Blood Blood Culture - Preliminary NO GROWTH AFTER 48 HOURS Resulted 09/04/17 05:30 Wound Gram Stain - Final Resulted 09/04/17 05:30 Wound Culture - Preliminary Escherichia Coli - Esbl Proteus Mirabilis Staphylococcus Aureus Resulted 09/04/17 01:05 Nasal Nares MRSA Culture - Final NO METHICILLIN RESISTANT STAPH AUREUS... Complete 09/04/17 04:00 Urine,Clean Catch Urine Culture - Final Escherichia Coli Proteus Mirabilis Complete 09/04/17 01:05 Rectum VRE Culture - Final Enterococcus Faecalis - Vre Complete Laboratory Tests Test 09/06/17 06:00 09/06/17 06:05 Urine Random Sodium 41 mmol/L (20-110) White Blood Count 14.1 K/UL (4.8-10.8) H Red Blood Count 3.21 M/UL (4.20-5.40) L Hemoglobin 8.8 G/DL (12.0-16.0) L Hematocrit 28.3 % (37.0-47.0) L Mean Corpuscular Volume 88 FL (80-99) Mean Corpuscular Hemoglobin 27.5 PG (27.0-31.0) Mean Corpuscular Hemoglobin Concent 31.2 G/DL (32.0-36.0) L Red Cell Distribution Width 16.9 % (11.6-14.8) H Platelet Count 168 K/UL (150-450) Mean Platelet Volume 6.1 FL (6.5-10.1) L Neutrophils (%) (Auto) % (45.0-75.0) Lymphocytes (%) (Auto) % (20.0-45.0) Monocytes (%) (Auto) % (1.0-10.0) Eosinophils (%) (Auto) % (0.0-3.0) Basophils (%) (Auto) % (0.0-2.0) Sodium Level 152 MMOL/L (136-145) H Potassium Level 3.4 MMOL/L (3.5-5.1) L Chloride Level 122 MMOL/L (98-107) H Carbon Dioxide Level 17 MMOL/L (21-32) L Anion Gap 13 mmol/L (5-15) Blood Urea Nitrogen 98 mg/dL (7-18) H Creatinine 2.7 MG/DL (0.55-1.30) H Estimat Glomerular Filtration Rate mL/min (>60) Glucose Level 172 MG/DL (74-106) H Lactic Acid Level 1.90 mmol/L (0.66-2.22) Uric Acid 10.4 MG/DL (2.6-7.2) H Calcium Level 8.6 MG/DL (8.5-10.1) Phosphorus Level 3.7 MG/DL (2.5-4.9) Magnesium Level 2.2 MG/DL (1.8-2.4) Ferritin 417 NG/ML (8-388) H Total Bilirubin 0.4 MG/DL (0.2-1.0) Gamma Glutamyl Transpeptidase 18 U/L (5-85) Aspartate Amino Transf (AST/SGOT) 23 U/L (15-37) Alanine Aminotransferase (ALT/SGPT) 22 U/L (12-78) Alkaline Phosphatase 57 U/L (46-116) Total Creatine Kinase 239 U/L (26-308) Troponin I 0.105 ng/mL (0.000-0.056) C-Reactive Protein, Quantitative 15.3 mg/dL (0.00-0.90) H Pro-B-Type Natriuretic Peptide 95889 pg/mL (0-125) H Total Protein 6.3 G/DL (6.4-8.2) L Albumin 1.8 G/DL (3.4-5.0) L Globulin 4.5 g/dL Albumin/Globulin Ratio 0.4 (1.0-2.7) L Vitamin B12 Level 1222 PG/ML (193-986) H Folate 16.8 NG/ML (8.6-58.9) Current Medications Medications (Trade) Dose Ordered Sig/Jonah Route PRN Reason Start Time Stop Time Status Last Admin Dose Admin Acetaminophen (Tylenol) 650 mg Q4H PRN ORAL T>100.5 09/06/17 22:45 10/04/17 06:44 Albuterol/ Ipratropium (Albuterol/ Ipratropium) 3 ml Q4H PRN HHN Shortness of Breath 09/06/17 22:45 09/09/17 06:44 Chlorhexidine Gluconate (Brandy-Hex 2%) 1 applic Q24H TOPIC 09/06/17 20:00 10/05/17 19:59 Dextrose 1,000 ml @ 75 mls/hr [id number] IV 09/06/17 19:15 10/06/17 09:29 Diltiazem HCl (Cardizem) 10 mg Q1HR PRN IVP HR>120BPM 09/06/17 20:00 10/04/17 08:29 Ertapenem 0.5 gm/ Sodium Chloride 55 ml @ 110 mls/hr Q24H IVPB 09/07/17 08:00 09/10/17 07:59 Heparin Sodium (Porcine) (Heparin 5000 units/ml) 5,000 units EVERY 12 HOURS SUBQ 09/06/17 21:00 10/04/17 08:59 Hydrocortisone (Solu-CORTEF) 100 mg EVERY 8 HOURS IV 09/06/17 22:00 10/04/17 13:59 Levothyroxine Sodium (Synthroid) 50 mcg DAILY@0630 NG 09/07/17 06:30 10/06/17 06:29 Metoprolol Tartrate (Lopressor) 25 mg Q12HR ORAL 09/06/17 21:00 10/06/17 16:59 Morphine Sulfate (Morphine Sulfate) 2 mg Q4H PRN IVP Severe Pain (Pain Scale 7-10) 09/06/17 22:45 09/11/17 06:44 Nitroglycerin (Ntg) 1 patch Q24H TDERMAL 09/07/17 12:00 10/05/17 11:59 Ondansetron HCl (Zofran) 4 mg Q6H PRN IVP Nausea & Vomiting 09/07/17 00:45 10/04/17 06:44 Pantoprazole (Protonix) 40 mg DAILY IVP 09/06/17 19:15 10/04/17 08:59 Polyethylene Glycol (Miralax) 17 gm DAILYPRN PRN NG Constipation 3/10/18 09:30 10/04/17 06:44 Vancomycin HCl (Vanco rx to dose) 1 ea DAILY PRN MISC . 09/07/17 09:00 10/04/17 07:14 ALDO CLEANING M.D. Sep 06, 2017 19:25
[2017-09-06] MEDS ORDERED: dilTIAZem HCl 25mg/5ml Inj IVP PRN (20:00)
--- NOTE | 2017-09-06 20:03 | Internal Med Progress Note ---
Subjective Date of Service: Sep 06, 2017 Physician Name Yue Jacob Attending Physician Donovan Spring MD Current Medications Medications (Trade) Dose Ordered Sig/Jonah Route PRN Reason Start Time Stop Time Status Last Admin Dose Admin Acetaminophen (Tylenol) 650 mg Q4H PRN ORAL T>100.5 09/06/17 22:45 10/04/17 06:44 Albuterol/ Ipratropium (Albuterol/ Ipratropium) 3 ml Q4H PRN HHN Shortness of Breath 09/06/17 22:45 09/09/17 06:44 Cefazolin Sodium 1 gm/Sodium Chloride 55 ml @ 110 mls/hr Q12HR IVPB 09/06/17 21:00 09/13/17 20:59 Chlorhexidine Gluconate (Brandy-Hex 2%) 1 applic Q24H TOPIC 09/06/17 20:00 10/05/17 19:59 Dextrose 1,000 ml @ 75 mls/hr [id number] IV 09/06/17 19:15 10/06/17 09:29 Diltiazem HCl (Cardizem) 10 mg Q1HR PRN IVP HR>120BPM 09/06/17 20:00 10/04/17 08:29 Heparin Sodium (Porcine) (Heparin 5000 units/ml) 5,000 units EVERY 12 HOURS SUBQ 09/06/17 21:00 10/04/17 08:59 Hydrocortisone (Solu-CORTEF) 100 mg EVERY 8 HOURS IV 09/06/17 22:00 10/04/17 13:59 Levothyroxine Sodium (Synthroid) 50 mcg DAILY@0630 NG 09/07/17 06:30 10/06/17 06:29 Metoprolol Tartrate (Lopressor) 25 mg Q12HR ORAL 09/06/17 21:00 10/06/17 16:59 Morphine Sulfate (Morphine Sulfate) 2 mg Q4H PRN IVP Severe Pain (Pain Scale 7-10) 09/06/17 22:45 09/11/17 06:44 Nitroglycerin (Ntg) 1 patch Q24H TDERMAL 09/07/17 12:00 10/05/17 11:59 Ondansetron HCl (Zofran) 4 mg Q6H PRN IVP Nausea & Vomiting 09/07/17 00:45 10/04/17 06:44 Pantoprazole (Protonix) 40 mg DAILY IVP 09/06/17 19:15 10/04/17 08:59 Polyethylene Glycol (Miralax) 17 gm DAILYPRN PRN NG Constipation 09/07/17 09:30 10/04/17 06:44 Allergies: Coded Allergies: SHELLFISH DERIVED (Verified Allergy, Unknown, 09/04/17) ROS Limited/Unobtainable: Yes Subjective 87 YO F admitted with dyspnea. Now respiratory failure. On BIPAP. Cover for Int Med-Dr Spring. DIMITRY Objective Last Vital Signs Date Time Temp Pulse Resp B/P (MAP) Pulse Ox O2 Delivery O2 Flow Rate FiO2 09/06/17 18:43 116 31 96 Facial 30 09/06/17 18:00 98/62 4.0 09/06/17 16:00 97.6 97.6 Laboratory Tests Test 09/06/17 06:00 09/06/17 06:05 Urine Random Sodium 41 mmol/L (20-110) White Blood Count 14.1 K/UL (4.8-10.8) H Red Blood Count 3.21 M/UL (4.20-5.40) L Hemoglobin 8.8 G/DL (12.0-16.0) L Hematocrit 28.3 % (37.0-47.0) L Mean Corpuscular Volume 88 FL (80-99) Mean Corpuscular Hemoglobin 27.5 PG (27.0-31.0) Mean Corpuscular Hemoglobin Concent 31.2 G/DL (32.0-36.0) L Red Cell Distribution Width 16.9 % (11.6-14.8) H Platelet Count 168 K/UL (150-450) Mean Platelet Volume 6.1 FL (6.5-10.1) L Neutrophils (%) (Auto) % (45.0-75.0) Lymphocytes (%) (Auto) % (20.0-45.0) Monocytes (%) (Auto) % (1.0-10.0) Eosinophils (%) (Auto) % (0.0-3.0) Basophils (%) (Auto) % (0.0-2.0) Sodium Level 152 MMOL/L (136-145) H Potassium Level 3.4 MMOL/L (3.5-5.1) L Chloride Level 122 MMOL/L (98-107) H Carbon Dioxide Level 17 MMOL/L (21-32) L Anion Gap 13 mmol/L (5-15) Blood Urea Nitrogen 98 mg/dL (7-18) H Creatinine 2.7 MG/DL (0.55-1.30) H Estimat Glomerular Filtration Rate mL/min (>60) Glucose Level 172 MG/DL (74-106) H Lactic Acid Level 1.90 mmol/L (0.66-2.22) Uric Acid 10.4 MG/DL (2.6-7.2) H Calcium Level 8.6 MG/DL (8.5-10.1) Phosphorus Level 3.7 MG/DL (2.5-4.9) Magnesium Level 2.2 MG/DL (1.8-2.4) Ferritin 417 NG/ML (8-388) H Total Bilirubin 0.4 MG/DL (0.2-1.0) Gamma Glutamyl Transpeptidase 18 U/L (5-85) Aspartate Amino Transf (AST/SGOT) 23 U/L (15-37) Alanine Aminotransferase (ALT/SGPT) 22 U/L (12-78) Alkaline Phosphatase 57 U/L (46-116) Total Creatine Kinase 239 U/L (26-308) Troponin I 0.105 ng/mL (0.000-0.056) C-Reactive Protein, Quantitative 15.3 mg/dL (0.00-0.90) H Pro-B-Type Natriuretic Peptide 44132 pg/mL (0-125) H Total Protein 6.3 G/DL (6.4-8.2) L Albumin 1.8 G/DL (3.4-5.0) L Globulin 4.5 g/dL Albumin/Globulin Ratio 0.4 (1.0-2.7) L Vitamin B12 Level 1222 PG/ML (193-986) H Folate 16.8 NG/ML (8.6-58.9) Microbiology Date/Time Source Procedure Growth Status 09/04/17 00:50 Blood Blood Culture - Preliminary NO GROWTH AFTER 48 HOURS Resulted 09/04/17 00:40 Blood Blood Culture - Preliminary NO GROWTH AFTER 48 HOURS Resulted 09/04/17 05:30 Wound Gram Stain - Final Resulted 09/04/17 05:30 Wound Culture - Preliminary Escherichia Coli - Esbl Proteus Mirabilis Staphylococcus Aureus Resulted 09/04/17 01:05 Nasal Nares MRSA Culture - Final NO METHICILLIN RESISTANT STAPH AUREUS... Complete 09/04/17 04:00 Urine,Clean Catch Urine Culture - Final Escherichia Coli Proteus Mirabilis Complete 09/04/17 01:05 Rectum VRE Culture - Final Enterococcus Faecalis - Vre Complete Intake and Output 09/05/17 09/06/17 19:00 07:00 Intake Total 650 ml 1140 ml Output Total 490 ml 460 ml Balance 160 ml 680 ml IV Total 650 ml 1020 ml Tube Feeding 120 ml Output Urine Total 490 ml 460 ml Objective GENERAL: The patient is a well-developed and well-nourished, elderly white female, who is currently on BiPAP. HEENT: Eyes, pupils are equal and responsive to light and accommodation. Extraocular movements are intact. NECK: Supple without lymphadenopathy. CHEST: BIPAP; Lungs are clear to auscultation bilaterally without wheezes or rales. CARDIOVASCULAR: Tachycardic, regular rhythm. S1 and S2 are normal without murmurs, rubs, or gallops. ABDOMEN: Soft, nontender, and nondistended. Positive bowel sounds. No evidence of hepatosplenomegaly. Currently, no rebound or guarding noted. EXTREMITIES: Negative for clubbing, cyanosis, or edema. RECTAL/GENITAL: Not performed. NEUROLOGICAL: Unable to assess. Assessment/Plan Problem List: (1) Atrial fibrillation with rapid ventricular response Assessment & Plan: See cardiology note. (2) Respiratory failure Assessment & Plan: See pulmonary note. Cont BIPAP. Continue ertapenem Per ID (3) Fever (4) Septic shock (5) Dyspnea Assessment & Plan: Continue BIPAP (6) Hypotension Assessment & Plan: Continue pressors (7) HTN (hypertension) (8) Hypothyroidism (9) UTI (urinary tract infection) Assessment & Plan: Gram neg ángel. Continue ertapenem per ID YUE JACOB Sep 06, 2017 20:02
[2017-09-06] MEDS: Dyna-Hex 2% Top Sol 2oz TOPIC SCH (21:32)
[2017-09-06] MEDS: ceFAZolin sod 1 GM in NS 55 ML IVPB SCH (21:33)
[2017-09-06] MEDS: Metoprolol 25mg tab ORAL SCH (21:35)
[2017-09-06] MEDS ORDERED: Albuterol/Ipratropium 3ml neb HHN PRN (22:45)
[2017-09-07 01:26] VITALS: BP 124/62
[2017-09-07] MEDS: Hydrocortisone 100mg Inj IV SCH ×3 (06:12→22:03)
[2017-09-07 06:24] LABS: HEMATOCRIT 26.9 % (37.0-47.0); HEMOGLOBIN 8.4 G/DL (12.0-16.0); MEAN CORPUSCULAR VOLUME 90 FL (80-99); PLATELET COUNT 193 K/UL (150-450); RED CELL DISTRIBUTION WIDTH 17.6 % (11.6-14.8); WHITE BLOOD COUNT 19.7 K/UL (4.8-10.8)
[2017-09-07 06:32] LABS: PHOSPHORUS 3.8 MG/DL (2.5-4.9)
[2017-09-07 06:40] LABS: ALANINE AMINOTRANSFERASE 24 U/L (12-78); ALBUMIN 1.7 G/DL (3.4-5.0); ALBUMIN/GLOBULIN RATIO 0.4 (1.0-2.7); ALKALINE PHOSPHATASE 66 U/L (46-116); ANION GAP 14 mmol/L (5-15); ASPARTATE AMINO TRANSFERASE 22 U/L (15-37); BILIRUBIN,TOTAL 0.2 MG/DL (0.2-1.0); BLOOD UREA NITROGEN 95 mg/dL (7-18); CALCIUM 8.6 MG/DL (8.5-10.1); CARBON DIOXIDE 19 MMOL/L (21-32); CHLORIDE 119 MMOL/L (98-107); CREATININE 2.5 MG/DL (0.55-1.30); SODIUM 152 MMOL/L (136-145)
--- NOTE | 2017-09-07 07:38 | Nephrology Progress Note ---
Assessment/Plan Problem List: (1) Septic shock (2) Pacemaker (3) ATN (acute tubular necrosis) (4) ACS (acute coronary syndrome) (5) Hypotension Assessment Septic Shock BP stablizing Renal failure acute cr lowering today 2.5 Pace maker Dementia HypoThyroidism DNR Plan hydrate- lower rate change to D5 On synthroid Hydrocortisone- pressors as needed monitor renal parameters avoid nephrotoxics per orders discussed with RN Anemia tanner Nitro patch Subjective ROS Limited/Unobtainable: No Constitutional: Reports: malaise, weakness Objective Objective Last 24 Hour Vital Signs Date Time Temp Pulse Resp B/P (MAP) Pulse Ox O2 Delivery O2 Flow Rate FiO2 09/07/17 07:22 87 33 95 Facial 30 09/07/17 04:55 90 26 98 Facial 30 09/07/17 04:03 30 09/07/17 04:00 72 09/07/17 03:00 114 22 96 Facial 30 09/07/17 01:26 97.5 88 35 124/62 98 Bi-pap 30 97.5 09/07/17 01:05 103 38 98 Facial 30 09/07/17 00:00 111 09/07/17 00:00 30 09/06/17 23:06 106 34 98 Facial 30 09/06/17 21:35 89 116/67 09/06/17 20:50 126 33 97 Facial 30 09/06/17 20:00 97.9 89 32 116/62 95 Bi-pap 30 97.9 09/06/17 19:00 30 09/06/17 19:00 106 09/06/17 18:43 116 31 96 Facial 30 09/06/17 18:43 Bi-pap 30 09/06/17 18:43 96 Bi-pap 30 09/06/17 18:00 109 30 98/62 95 Venturi Mask 4.0 30 09/06/17 17:22 127 35 98 Full Face 30 09/06/17 17:22 125 114/86 09/06/17 17:00 107 33 116/83 100 Bi-pap 30 09/06/17 16:00 97.6 114 30 114/73 99 Bi-pap 30 97.6 09/06/17 16:00 30 09/06/17 16:00 114 09/06/17 15:16 110 32 98 Full Face 30 09/06/17 15:00 112 34 99/81 100 Bi-pap 30 09/06/17 14:00 118 30 123/82 99 Bi-pap 30 09/06/17 13:07 111/73 09/06/17 13:00 104 30 106/79 99 Bi-pap 30 09/06/17 12:58 98 32 100 Full Face 30 09/06/17 12:00 30 09/06/17 12:00 104 09/06/17 12:00 97.7 103 31 114/71 99 Bi-pap 30 97.7 09/06/17 11:26 114 32 100 Full Face 30 09/06/17 11:00 107 30 118/84 99 Bi-pap 30 09/06/17 10:00 107 30 115/65 99 Bi-pap 30 09/06/17 09:20 108 29 100 Full Face 30 09/06/17 09:00 109 33 126/82 100 Bi-pap 30 09/06/17 08:54 Bi-pap 09/06/17 08:54 99 Bi-pap 09/06/17 08:30 126/82 09/06/17 08:00 97.4 97 28 101/69 99 Bi-pap 30 97.4 09/06/17 08:00 107 09/06/17 08:00 30 Intake and Output 09/06/17 09/07/17 19:00 07:00 Intake Total 1604.1 ml 872.5 ml Output Total 285 ml Balance 1319.1 ml 872.5 ml Free Water 0 ml 30 ml IV Total 1144.1 ml 392.5 ml Tube Feeding 460 ml 450 ml Output Urine Total 285 ml Laboratory Tests 09/07/17 05:00: White Blood Count 19.7H, Red Blood Count 3.00L, Hemoglobin 8.4L, Hematocrit 26.9L, Mean Corpuscular Volume 90, Mean Corpuscular Hemoglobin 28.2, Mean Corpuscular Hemoglobin Concent 31.4L, Red Cell Distribution Width 17.6H, Platelet Count 193, Mean Platelet Volume 6.4L, Neutrophils (%) (Auto) , Lymphocytes (%) (Auto) , Monocytes (%) (Auto) , Eosinophils (%) (Auto) , Basophils (%) (Auto) , Neutrophils % (Manual) [Pending], Lymphocytes % (Manual) [Pending], Platelet Estimate [Pending], Platelet Morphology [Pending], Sodium Level 152H, Potassium Level 4.0, Chloride Level 119H, Carbon Dioxide Level 19L, Anion Gap 14, Blood Urea Nitrogen 95H, Creatinine 2.5H, Estimat Glomerular Filtration Rate , Glucose Level 172H, Uric Acid 9.9H, Calcium Level 8.6, Phosphorus Level 3.8, Magnesium Level 2.1, Total Bilirubin 0.2, Aspartate Amino Transf (AST/SGOT) 22, Alanine Aminotransferase (ALT/SGPT) 24, Alkaline Phosphatase 66, Pro-B-Type Natriuretic Peptide 21012A, Total Protein 6.5, Albumin 1.7L, Globulin 4.8, Albumin/Globulin Ratio 0.4L Height (Feet): 5 Height (Inches): 6.00 Weight (Pounds): 130 General Appearance: mild distress EENT: other - on BIPAP Cardiovascular: normal rate Respiratory/Chest: decreased breath sounds Abdomen: distended Objective no other change LEONIDES CHAWLA Sep 07, 2017 07:38
[2017-09-07 08:00] VITALS: BP 130/83
[2017-09-07] MEDS ORDERED: Ertapenem 0.5 GM in NS 55 ML IVPB SCH (08:00)
--- NOTE | 2017-09-07 08:34 | Pulmonology Progress Note ---
Assessment/Plan Problems: (1) Septic shock (2) ARF (acute renal failure) (3) Hypothyroidism (4) Alzheimer's dementia (5) Cerebrovascular accident (CVA) (6) Pacemaker Assessment/Plan titrate fio2 continue abx check cultures check electroytes chest pt check sputum tolerating feeding dvt prohylaxis d/w nurse. Subjective ROS Limited/Unobtainable: No Interval Events: still on BIPAP Allergies: Coded Allergies: SHELLFISH DERIVED (Verified Allergy, Unknown, 09/04/17) Objective Last 24 Hour Vital Signs Date Time Temp Pulse Resp B/P (MAP) Pulse Ox O2 Delivery O2 Flow Rate FiO2 09/07/17 07:22 87 33 95 Facial 30 09/07/17 04:55 90 26 98 Facial 30 09/07/17 04:03 30 09/07/17 04:00 72 09/07/17 03:00 114 22 96 Facial 30 09/07/17 01:26 97.5 88 35 124/62 98 Bi-pap 30 97.5 09/07/17 01:05 103 38 98 Facial 30 09/07/17 00:00 111 09/07/17 00:00 30 09/06/17 23:06 106 34 98 Facial 30 09/06/17 21:35 89 116/67 09/06/17 20:50 126 33 97 Facial 30 09/06/17 20:00 97.9 89 32 116/62 95 Bi-pap 30 97.9 09/06/17 19:00 30 09/06/17 19:00 106 09/06/17 18:43 116 31 96 Facial 30 09/06/17 18:43 Bi-pap 30 09/06/17 18:43 96 Bi-pap 30 09/06/17 18:00 109 30 98/62 95 Venturi Mask 4.0 30 09/06/17 17:22 127 35 98 Full Face 30 09/06/17 17:22 125 114/86 09/06/17 17:00 107 33 116/83 100 Bi-pap 30 09/06/17 16:00 97.6 114 30 114/73 99 Bi-pap 30 97.6 09/06/17 16:00 30 09/06/17 16:00 114 09/06/17 15:16 110 32 98 Full Face 30 09/06/17 15:00 112 34 99/81 100 Bi-pap 30 09/06/17 14:00 118 30 123/82 99 Bi-pap 30 09/06/17 13:07 111/73 09/06/17 13:00 104 30 106/79 99 Bi-pap 30 09/06/17 12:58 98 32 100 Full Face 30 09/06/17 12:00 30 09/06/17 12:00 104 09/06/17 12:00 97.7 103 31 114/71 99 Bi-pap 30 97.7 09/06/17 11:26 114 32 100 Full Face 30 09/06/17 11:00 107 30 118/84 99 Bi-pap 30 09/06/17 10:00 107 30 115/65 99 Bi-pap 30 09/06/17 09:20 108 29 100 Full Face 30 09/06/17 09:00 109 33 126/82 100 Bi-pap 30 09/06/17 08:54 Bi-pap 09/06/17 08:54 99 Bi-pap Intake and Output 09/06/17 09/07/17 19:00 07:00 Intake Total 1604.1 ml 1252.5 ml Output Total 285 ml 550 ml Balance 1319.1 ml 702.5 ml Free Water 0 ml 60 ml IV Total 1144.1 ml 692.5 ml Tube Feeding 460 ml 500 ml Output Urine Total 285 ml 550 ml General Appearance: cachetic HEENT: normocephalic, atraumatic Respiratory/Chest: chest wall non-tender, lungs clear, accessory muscle use, crackles/rales Breasts: no masses Cardiovascular: normal peripheral pulses, normal rate Abdomen: normal bowel sounds Genitourinary: normal external genitalia Extremities: no clubbing Neurologic/Psychiatric: lan administrator II-XII grossly normal, no motor/sensory deficits Laboratory Tests 09/07/17 05:00: White Blood Count 19.7H, Red Blood Count 3.00L, Hemoglobin 8.4L, Hematocrit 26.9L, Mean Corpuscular Volume 90, Mean Corpuscular Hemoglobin 28.2, Mean Corpuscular Hemoglobin Concent 31.4L, Red Cell Distribution Width 17.6H, Platelet Count 193, Mean Platelet Volume 6.4L, Neutrophils (%) (Auto) , Lymphocytes (%) (Auto) , Monocytes (%) (Auto) , Eosinophils (%) (Auto) , Basophils (%) (Auto) , Neutrophils % (Manual) [Pending], Lymphocytes % (Manual) [Pending], Platelet Estimate [Pending], Platelet Morphology [Pending], Sodium Level 152H, Potassium Level 4.0, Chloride Level 119H, Carbon Dioxide Level 19L, Anion Gap 14, Blood Urea Nitrogen 95H, Creatinine 2.5H, Estimat Glomerular Filtration Rate , Glucose Level 172H, Uric Acid 9.9H, Calcium Level 8.6, Phosphorus Level 3.8, Magnesium Level 2.1, Total Bilirubin 0.2, Aspartate Amino Transf (AST/SGOT) 22, Alanine Aminotransferase (ALT/SGPT) 24, Alkaline Phosphatase 66, Pro-B-Type Natriuretic Peptide 07849Z, Total Protein 6.5, Albumin 1.7L, Globulin 4.8, Albumin/Globulin Ratio 0.4L Current Medications Medications (Trade) Dose Ordered Sig/Jonah Route PRN Reason Start Time Stop Time Status Last Admin Dose Admin Acetaminophen (Tylenol) 650 mg Q4H PRN ORAL T>100.5 09/06/17 22:45 10/04/17 06:44 Albuterol/ Ipratropium (Albuterol/ Ipratropium) 3 ml Q4H PRN HHN Shortness of Breath 09/06/17 22:45 09/09/17 06:44 Cefazolin Sodium 1 gm/Sodium Chloride 55 ml @ 110 mls/hr Q12HR IVPB 09/06/17 21:00 09/13/17 20:59 09/06/17 21:33 Chlorhexidine Gluconate (Brandy-Hex 2%) 1 applic Q24H TOPIC 09/06/17 20:00 10/05/17 19:59 09/06/17 21:32 Dextrose 1,000 ml @ 75 mls/hr [id number] IV 09/06/17 19:15 10/06/17 09:29 09/06/17 21:32 Diltiazem HCl (Cardizem) 10 mg Q1HR PRN IVP HR>120BPM 09/06/17 20:00 10/04/17 08:29 Heparin Sodium (Porcine) (Heparin 5000 units/ml) 5,000 units EVERY 12 HOURS SUBQ 09/06/17 21:00 10/04/17 08:59 09/06/17 21:34 Hydrocortisone (Solu-CORTEF) 100 mg EVERY 8 HOURS IV 09/06/17 22:00 10/04/17 13:59 09/07/17 06:12 Levothyroxine Sodium (Synthroid) 50 mcg DAILY@0630 NG 09/07/17 06:30 10/06/17 06:29 09/07/17 06:12 Metoprolol Tartrate (Lopressor) 25 mg Q12HR ORAL 09/06/17 21:00 10/06/17 16:59 09/06/17 21:35 Morphine Sulfate (Morphine Sulfate) 2 mg Q4H PRN IVP Severe Pain (Pain Scale 7-10) 09/06/17 22:45 09/11/17 06:44 Nitroglycerin (Ntg) 1 patch Q24H TDERMAL 09/07/17 12:00 10/05/17 11:59 Ondansetron HCl (Zofran) 4 mg Q6H PRN IVP Nausea & Vomiting 09/07/17 00:45 10/04/17 06:44 Pantoprazole (Protonix) 40 mg DAILY IVP 09/06/17 19:15 10/04/17 08:59 09/06/17 21:32 Polyethylene Glycol (Miralax) 17 gm DAILYPRN PRN NG Constipation 09/07/17 09:30 10/04/17 06:44 TATI FAM Sep 07, 2017 08:34
[2017-09-07] MEDS: Heparin 5000 units/ml inj SUBQ SCH ×2 (09:00→21:09)
[2017-09-07] MEDS: ceFAZolin sod 1 GM in NS 55 ML IVPB SCH ×2 (09:06→21:00)
[2017-09-07] MEDS: Pantoprazole Inj IVP SCH (09:06)
[2017-09-07] MEDS: Metoprolol 25mg tab ORAL SCH (09:09)
[2017-09-07] MEDS ORDERED: Miralax 17gm pkt NG PRN (09:30)
--- NOTE | 2017-09-07 10:25 | Diagnostic Imaging Report ---
Indication: Shortness of breath Technique: XRAY Chest 1v Comparison: 09/06/2017 Findings: Nasogastric tube and left chest pacemaker are again noted. Cardiomediastinal silhouette is stable. Bilateral lung edema/infiltrates are again noted, left greater than right. Osseous structures are stable. Impression: No interval change from 09/06/2017.
[2017-09-07 12:00] VITALS: BP 122/76
[2017-09-07] MEDS: Nitroglycerin Patch 0.4mg TDERMAL SCH (12:36)
[2017-09-07 16:00] VITALS: BP 116/64
--- NOTE | 2017-09-07 16:47 | Internal Med Progress Note ---
Subjective Date of Service: Sep 07, 2017 Physician Name Yue Jacob Attending Physician Donovan Spring MD Current Medications Medications (Trade) Dose Ordered Sig/Jonah Route PRN Reason Start Time Stop Time Status Last Admin Dose Admin Acetaminophen (Tylenol) 650 mg Q4H PRN ORAL T>100.5 09/06/17 22:45 10/04/17 06:44 Albuterol/ Ipratropium (Albuterol/ Ipratropium) 3 ml Q4H PRN HHN Shortness of Breath 09/06/17 22:45 09/09/17 06:44 Cefazolin Sodium 1 gm/Sodium Chloride 55 ml @ 110 mls/hr Q12HR IVPB 09/06/17 21:00 09/13/17 20:59 09/07/17 09:06 Chlorhexidine Gluconate (Brandy-Hex 2%) 1 applic Q24H TOPIC 09/06/17 20:00 10/05/17 19:59 09/06/17 21:32 Dextrose 1,000 ml @ 50 mls/hr Q20H IV 09/07/17 10:00 10/07/17 09:59 09/07/17 10:06 Diltiazem HCl (Cardizem) 10 mg Q1HR PRN IVP HR>120BPM 09/06/17 20:00 10/04/17 08:29 Heparin Sodium (Porcine) (Heparin 5000 units/ml) 5,000 units EVERY 12 HOURS SUBQ 09/06/17 21:00 10/04/17 08:59 09/06/17 21:34 Hydrocortisone (Solu-CORTEF) 100 mg EVERY 8 HOURS IV 09/06/17 22:00 10/04/17 13:59 09/07/17 15:24 Levothyroxine Sodium (Synthroid) 50 mcg DAILY@0630 NG 09/07/17 06:30 10/06/17 06:29 09/07/17 06:12 Metoprolol Tartrate (Lopressor) 25 mg Q12HR ORAL 09/06/17 21:00 10/06/17 16:59 09/07/17 09:09 Morphine Sulfate (Morphine Sulfate) 2 mg Q4H PRN IVP Severe Pain (Pain Scale 7-10) 09/06/17 22:45 09/11/17 06:44 Nitroglycerin (Ntg) 1 patch Q24H TDERMAL 09/07/17 12:00 10/05/17 11:59 09/07/17 12:36 Ondansetron HCl (Zofran) 4 mg Q6H PRN IVP Nausea & Vomiting 09/07/17 00:45 10/04/17 06:44 Pantoprazole (Protonix) 40 mg DAILY IVP 09/06/17 19:15 10/04/17 08:59 09/07/17 09:06 Polyethylene Glycol (Miralax) 17 gm DAILYPRN PRN NG Constipation 09/07/17 09:30 10/04/17 06:44 Allergies: Coded Allergies: SHELLFISH DERIVED (Verified Allergy, Unknown, 09/04/17) ROS Limited/Unobtainable: Yes Subjective 87 YO F admitted with dyspnea. Now respiratory failure. On BIPAP. Cover for Int Med-Dr Spring. DIMITRY Objective Last Vital Signs Date Time Temp Pulse Resp B/P (MAP) Pulse Ox O2 Delivery O2 Flow Rate FiO2 09/07/17 15:31 79 35 96 Facial 30 09/07/17 12:36 122/76 09/07/17 12:00 97.2 97.2 09/06/17 18:00 4.0 Laboratory Tests Test 09/07/17 05:00 White Blood Count 19.7 K/UL (4.8-10.8) H Red Blood Count 3.00 M/UL (4.20-5.40) L Hemoglobin 8.4 G/DL (12.0-16.0) L Hematocrit 26.9 % (37.0-47.0) L Mean Corpuscular Volume 90 FL (80-99) Mean Corpuscular Hemoglobin 28.2 PG (27.0-31.0) Mean Corpuscular Hemoglobin Concent 31.4 G/DL (32.0-36.0) L Red Cell Distribution Width 17.6 % (11.6-14.8) H Platelet Count 193 K/UL (150-450) Mean Platelet Volume 6.4 FL (6.5-10.1) L Neutrophils (%) (Auto) % (45.0-75.0) Lymphocytes (%) (Auto) % (20.0-45.0) Monocytes (%) (Auto) % (1.0-10.0) Eosinophils (%) (Auto) % (0.0-3.0) Basophils (%) (Auto) % (0.0-2.0) Differential Total Cells Counted 100 Neutrophils % (Manual) 88 % (45-75) H Lymphocytes % (Manual) 5 % (20-45) L Monocytes % (Manual) 3 % (1-10) Eosinophils % (Manual) 0 % (0-3) Basophils % (Manual) 0 % (0-2) Band Neutrophils 4 % (0-8) Platelet Estimate Adequate Platelet Morphology Normal Hypochromasia 1+ Anisocytosis 1+ Sodium Level 152 MMOL/L (136-145) H Potassium Level 4.0 MMOL/L (3.5-5.1) Chloride Level 119 MMOL/L (98-107) H Carbon Dioxide Level 19 MMOL/L (21-32) L Anion Gap 14 mmol/L (5-15) Blood Urea Nitrogen 95 mg/dL (7-18) H Creatinine 2.5 MG/DL (0.55-1.30) H Estimat Glomerular Filtration Rate mL/min (>60) Glucose Level 172 MG/DL (74-106) H Uric Acid 9.9 MG/DL (2.6-7.2) H Calcium Level 8.6 MG/DL (8.5-10.1) Phosphorus Level 3.8 MG/DL (2.5-4.9) Magnesium Level 2.1 MG/DL (1.8-2.4) Total Bilirubin 0.2 MG/DL (0.2-1.0) Aspartate Amino Transf (AST/SGOT) 22 U/L (15-37) Alanine Aminotransferase (ALT/SGPT) 24 U/L (12-78) Alkaline Phosphatase 66 U/L (46-116) Pro-B-Type Natriuretic Peptide 87633 pg/mL (0-125) H Total Protein 6.5 G/DL (6.4-8.2) Albumin 1.7 G/DL (3.4-5.0) L Globulin 4.8 g/dL Albumin/Globulin Ratio 0.4 (1.0-2.7) L Intake and Output 09/06/17 09/07/17 19:00 07:00 Intake Total 1604.1 ml 1252.5 ml Output Total 285 ml 550 ml Balance 1319.1 ml 702.5 ml Free Water 0 ml 60 ml IV Total 1144.1 ml 692.5 ml Tube Feeding 460 ml 500 ml Output Urine Total 285 ml 550 ml Objective GENERAL: The patient is a well-developed and well-nourished, elderly white female, who is currently on BiPAP. HEENT: Eyes, pupils are equal and responsive to light and accommodation. Extraocular movements are intact. NECK: Supple without lymphadenopathy. CHEST: BIPAP; Lungs are clear to auscultation bilaterally without wheezes or rales. CARDIOVASCULAR: Tachycardic, regular rhythm. S1 and S2 are normal without murmurs, rubs, or gallops. ABDOMEN: Soft, nontender, and nondistended. Positive bowel sounds. No evidence of hepatosplenomegaly. Currently, no rebound or guarding noted. EXTREMITIES: Negative for clubbing, cyanosis, or edema. RECTAL/GENITAL: Not performed. NEUROLOGICAL: Unable to assess. Assessment/Plan Problem List: (1) Atrial fibrillation with rapid ventricular response Assessment & Plan: See cardiology note. (2) Respiratory failure Assessment & Plan: See pulmonary note. Cont BIPAP. Continue ertapenem Per ID (3) Fever (4) Septic shock (5) Dyspnea Assessment & Plan: Continue BIPAP (6) Hypotension Assessment & Plan: Continue pressors (7) HTN (hypertension) Assessment & Plan: Continue diltiazem (8) Hypothyroidism Assessment & Plan: Continue levoxyl. (9) UTI (urinary tract infection) Assessment & Plan: E. Coli and Proteus. Continue ertapenem per ID Status: not improved YUE JACOB Sep 07, 2017 16:47
[2017-09-07] MEDS ORDERED: Lidocaine 1% MPF 10mg/ml 5ml INJ PRN (19:00)
[2017-09-07] MEDS ORDERED: Heparin 2000 units/Ns 1000ml INJ PRN (19:00)
--- NOTE | 2017-09-07 19:56 | Wound Care Consultation ---
Wound Assessment Wound Assessment : Wound Number: 1 Wound Present on Admission: No New Wound: Yes Status Change of Wound: No Wound Location Body Site Modif: left Wound Location Body Site: other - cheek Wound Type: pressure ulcer Bernice Test: Does not Bernice Pressure Ulcer Stage: II Wound Thickness: Full Thickness Wound Length: 2.0 Wound Width: 2.5 Wound Depth: less than 0.1 Percent of Wound [place]/Red: 100 Wound Drainage Amount: None Wound Drainage Odor: None/Absent Tissue Surrounding Wound: Intact Wound General Appearance: Reddened Wound Comment #1 Left cheek stage II medical manager related pressure ulcer Recommendation -Local wound care per protocol -Keep clean and dry -Optimize nutrition -Assess and f/u accordingly for any changes BON NAM RN Sep 07, 2017 19:56
[2017-09-07 20:00] VITALS: BP 120/61
[2017-09-07] MEDS: Metoprolol Tartrate 50mg tab ORAL SCH (21:00)
[2017-09-07] MEDS: Dyna-Hex 2% Top Sol 2oz TOPIC SCH (21:01)
--- NOTE | 2017-09-07 21:52 | Cardiology Progress Note ---
Assessment/Plan Assessment/Plan 1. Septic shock, off pressors, continue hydration with D5W in face of hypernatremia. 2. Atrial fibrillation with rapid ventricular response. Start metoprolol 25mg po bid. 3. History of hypertensive heart disease with LVEF at 65%. 4. History of hyperlipidemia. 5. History of CVA. 6. Acute respiratory failure, on bipap mask. Subjective Subjective Atrial fibrillation with RVR and occasional VPC. She had eight beats run of NSVT reported, Mg level was at 2.1 Objective Last 24 Hour Vital Signs Date Time Temp Pulse Resp B/P (MAP) Pulse Ox O2 Delivery O2 Flow Rate FiO2 09/07/17 21:29 87 36 94 Facial 50 09/07/17 21:00 83 120/61 09/07/17 19:43 102 25 94 Facial 50 09/07/17 17:03 78 39 95 Facial 30 09/07/17 16:00 97.2 100 27 116/64 95 Bi-pap 30 97.2 09/07/17 16:00 83 09/07/17 16:00 30 09/07/17 15:31 79 35 96 Facial 30 09/07/17 12:36 122/76 09/07/17 12:30 76 32 95 Facial 30 09/07/17 12:00 97.2 67 34 122/76 98 Bi-pap 30 97.2 09/07/17 12:00 30 09/07/17 12:00 87 09/07/17 10:54 74 37 95 Facial 30 09/07/17 09:09 61 130/83 09/07/17 08:59 78 34 96 Facial 30 09/07/17 08:00 30 09/07/17 08:00 80 09/07/17 08:00 96.0 61 28 130/83 93 Bi-pap 30 96.0 09/07/17 07:22 87 33 95 Facial 30 09/07/17 04:55 90 26 98 Facial 30 09/07/17 04:03 30 09/07/17 04:00 72 09/07/17 03:00 114 22 96 Facial 30 09/07/17 01:26 97.5 88 35 124/62 98 Bi-pap 30 97.5 09/07/17 01:05 103 38 98 Facial 30 09/07/17 00:00 111 09/07/17 00:00 30 09/06/17 23:06 106 34 98 Facial 30 Intake and Output 09/06/17 09/07/17 19:00 07:00 Intake Total 1604.1 ml 1302.5 ml Output Total 285 ml 550 ml Balance 1319.1 ml 752.5 ml Free Water 0 ml 60 ml IV Total 1144.1 ml 692.5 ml Tube Feeding 460 ml 550 ml Output Urine Total 285 ml 550 ml 2D Echo: EF 65%, Mild MARIELOS, Mild LVH, Hi RAP ~20 mmHg, RVSP 49 mmHg Laboratory Tests Test 09/07/17 05:00 09/07/17 19:08 White Blood Count 19.7 K/UL (4.8-10.8) H Red Blood Count 3.00 M/UL (4.20-5.40) L Hemoglobin 8.4 G/DL (12.0-16.0) L Hematocrit 26.9 % (37.0-47.0) L Mean Corpuscular Volume 90 FL (80-99) Mean Corpuscular Hemoglobin 28.2 PG (27.0-31.0) Mean Corpuscular Hemoglobin Concent 31.4 G/DL (32.0-36.0) L Red Cell Distribution Width 17.6 % (11.6-14.8) H Platelet Count 193 K/UL (150-450) Mean Platelet Volume 6.4 FL (6.5-10.1) L Neutrophils (%) (Auto) % (45.0-75.0) Lymphocytes (%) (Auto) % (20.0-45.0) Monocytes (%) (Auto) % (1.0-10.0) Eosinophils (%) (Auto) % (0.0-3.0) Basophils (%) (Auto) % (0.0-2.0) Differential Total Cells Counted 100 Neutrophils % (Manual) 88 % (45-75) H Lymphocytes % (Manual) 5 % (20-45) L Monocytes % (Manual) 3 % (1-10) Eosinophils % (Manual) 0 % (0-3) Basophils % (Manual) 0 % (0-2) Band Neutrophils 4 % (0-8) Platelet Estimate Adequate Platelet Morphology Normal Hypochromasia 1+ Anisocytosis 1+ Sodium Level 152 MMOL/L (136-145) H Potassium Level 4.0 MMOL/L (3.5-5.1) Chloride Level 119 MMOL/L (98-107) H Carbon Dioxide Level 19 MMOL/L (21-32) L Anion Gap 14 mmol/L (5-15) Blood Urea Nitrogen 95 mg/dL (7-18) H Creatinine 2.5 MG/DL (0.55-1.30) H Estimat Glomerular Filtration Rate mL/min (>60) Glucose Level 172 MG/DL (74-106) H Uric Acid 9.9 MG/DL (2.6-7.2) H Calcium Level 8.6 MG/DL (8.5-10.1) Phosphorus Level 3.8 MG/DL (2.5-4.9) Magnesium Level 2.1 MG/DL (1.8-2.4) Total Bilirubin 0.2 MG/DL (0.2-1.0) Aspartate Amino Transf (AST/SGOT) 22 U/L (15-37) Alanine Aminotransferase (ALT/SGPT) 24 U/L (12-78) Alkaline Phosphatase 66 U/L (46-116) Pro-B-Type Natriuretic Peptide 23764 pg/mL (0-125) H Total Protein 6.5 G/DL (6.4-8.2) Albumin 1.7 G/DL (3.4-5.0) L Globulin 4.8 g/dL Albumin/Globulin Ratio 0.4 (1.0-2.7) L Vancomycin Level Trough 17.9 ug/mL (5.0-12.0) H Objective HEENT: Atraumatic, normocephalic. Anicteric. Pupils are equal, round, and reactive to light and accommodation. Extraocular muscles intact. On bipap mask. NECK: JVP is less than 5 cm. No carotid bruit. Carotid upstrokes 2+ bilaterally. CARDIOVASCULAR: Normal S1, S2. Irregularly irregular rhythm. tachycardic, No murmurs, gallops, or rubs. LUNGS: Diminished breath sounds with presence of wheezing bilaterally. ABDOMEN: Soft, nontender, and nondistended. No hepatosplenomegaly. Positive bowel sounds. EXTREMITIES: No evidence of edema, clubbing, or cyanosis. DI RAMIREZ Sep 07, 2017 21:52
[2017-09-08] VITALS: BP 98/47
[2017-09-08 04:00] VITALS: BP 105/58
[2017-09-08] MEDS: Hydrocortisone 100mg Inj IV SCH ×2 (06:08→13:09)
[2017-09-08 06:23] LABS: HEMATOCRIT 26.5 % (37.0-47.0); MEAN CORPUSCULAR VOLUME 91 FL (80-99); PLATELET COUNT 180 K/UL (150-450); RED BLOOD COUNT 2.92 M/UL (4.20-5.40); RED CELL DISTRIBUTION WIDTH 18.3 % (11.6-14.8); WHITE BLOOD COUNT 19.5 K/UL (4.8-10.8)
[2017-09-08 06:47] LABS: ALANINE AMINOTRANSFERASE 19 U/L (12-78); ALBUMIN 1.7 G/DL (3.4-5.0); ALBUMIN/GLOBULIN RATIO 0.4 (1.0-2.7); ALKALINE PHOSPHATASE 61 U/L (46-116); ANION GAP 11 mmol/L (5-15); ASPARTATE AMINO TRANSFERASE 15 U/L (15-37); BILIRUBIN,TOTAL 0.2 MG/DL (0.2-1.0); BLOOD UREA NITROGEN 95 mg/dL (7-18); CALCIUM 8.4 MG/DL (8.5-10.1); CARBON DIOXIDE 21 MMOL/L (21-32); CHLORIDE 118 MMOL/L (98-107); CREATININE 2.3 MG/DL (0.55-1.30); POTASSIUM 4.5 MMOL/L (3.5-5.1); SODIUM 150 MMOL/L (136-145)
[2017-09-08 08:00] VITALS: BP 111/55
[2017-09-08] MEDS: ceFAZolin sod 1 GM in NS 55 ML IVPB SCH ×2 (08:58→20:58)
[2017-09-08] MEDS: Pantoprazole Inj IVP SCH (08:58)
[2017-09-08] MEDS: Metoprolol Tartrate 50mg tab ORAL SCH (09:00)
[2017-09-08] MEDS: Heparin 5000 units/ml inj SUBQ SCH ×2 (09:05→20:53)
--- NOTE | 2017-09-08 10:37 | Pulmonology Progress Note ---
Assessment/Plan Problems: (1) Septic shock (2) ARF (acute renal failure) (3) Hypothyroidism (4) Alzheimer's dementia (5) Cerebrovascular accident (CVA) (6) Pacemaker Assessment/Plan titrate fio2 continue abx check cultures check electroytes chest pt check sputum cxr in am tolerating feeding dvt prohylaxis d/w nurse. Subjective ROS Limited/Unobtainable: No Constitutional: Reports: no symptoms HEENT: Repors: no symptoms Respiratory: Reports: no symptoms Allergies: Coded Allergies: SHELLFISH DERIVED (Verified Allergy, Unknown, 09/04/17) Objective Last 24 Hour Vital Signs Date Time Temp Pulse Resp B/P (MAP) Pulse Ox O2 Delivery O2 Flow Rate FiO2 09/08/17 09:02 68 44 94 Facial 40 09/08/17 09:00 59 111/54 09/08/17 08:00 98.2 59 32 111/55 94 Bi-pap 40 98.2 09/08/17 08:00 40 09/08/17 08:00 85 09/08/17 07:11 59 37 94 Facial 40 09/08/17 05:38 35 30 95 Facial 40 09/08/17 04:00 30 09/08/17 04:00 73 09/08/17 04:00 97.0 70 25 105/58 98 Bi-pap 30 97.0 09/08/17 03:26 66 36 94 Facial 40 09/08/17 01:17 71 33 94 Facial 40 09/08/17 00:00 30 09/08/17 00:00 97.0 70 25 98/47 98 Bi-pap 30 97.0 09/08/17 00:00 70 09/07/17 23:19 68 26 100 Facial 40 09/07/17 21:29 87 36 94 Facial 50 09/07/17 21:00 83 120/61 09/07/17 20:00 97.0 83 27 120/61 95 Bi-pap 30 97.0 09/07/17 20:00 109 09/07/17 20:00 30 09/07/17 19:43 102 25 94 Facial 50 09/07/17 17:03 78 39 95 Facial 30 09/07/17 16:00 97.2 100 27 116/64 95 Bi-pap 30 97.2 09/07/17 16:00 83 09/07/17 16:00 30 09/07/17 15:31 79 35 96 Facial 30 09/07/17 12:36 122/76 09/07/17 12:30 76 32 95 Facial 30 09/07/17 12:00 97.2 67 34 122/76 98 Bi-pap 30 97.2 09/07/17 12:00 30 09/07/17 12:00 87 09/07/17 10:54 74 37 95 Facial 30 Intake and Output 09/07/17 09/08/17 19:00 07:00 Intake Total 1436.25 ml 1065 ml Output Total 650 ml 300 ml Balance 786.25 ml 765 ml Free Water 50 ml 60 ml IV Total 736.25 ml 505 ml Tube Feeding 600 ml 500 ml Other 50 ml Output Urine Total 650 ml 300 ml # Bowel Movements 2 General Appearance: cachetic HEENT: normocephalic, atraumatic Respiratory/Chest: chest wall non-tender, crackles/rales, rhonchi Breasts: no masses Cardiovascular: normal peripheral pulses, normal rate Abdomen: normal bowel sounds, soft, non tender Genitourinary: normal external genitalia Extremities: no cyanosis Skin: no rash 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 Lymphatic: no neck adenopathy Laboratory Tests 09/07/17 19:08: Vancomycin Level Trough 17.9H 09/08/17 04:00: White Blood Count 19.5H, Red Blood Count 2.92L, Hemoglobin 8.0L, Hematocrit 26.5L, Mean Corpuscular Volume 91, Mean Corpuscular Hemoglobin 27.3, Mean Corpuscular Hemoglobin Concent 30.0L, Red Cell Distribution Width 18.3H, Platelet Count 180, Mean Platelet Volume 6.1L, Neutrophils (%) (Auto) , Lymphocytes (%) (Auto) , Monocytes (%) (Auto) , Eosinophils (%) (Auto) , Basophils (%) (Auto) , Neutrophils % (Manual) [Pending], Lymphocytes % (Manual) [Pending], Platelet Estimate [Pending], Platelet Morphology [Pending], Sodium Level 150H, Potassium Level 4.5, Chloride Level 118H, Carbon Dioxide Level 21, Anion Gap 11, Blood Urea Nitrogen 95H, Creatinine 2.3H, Estimat Glomerular Filtration Rate , Glucose Level 136H, Calcium Level 8.4L, Phosphorus Level 5.0H , Magnesium Level 2.3, Total Bilirubin 0.2, Aspartate Amino Transf (AST/SGOT) 15 , Alanine Aminotransferase (ALT/SGPT) 19, Alkaline Phosphatase 61, Total Protein 6.2L, Albumin 1.7L, Globulin 4.5, Albumin/Globulin Ratio 0.4L Current Medications Medications (Trade) Dose Ordered Sig/Jonah Route PRN Reason Start Time Stop Time Status Last Admin Dose Admin Acetaminophen (Tylenol) 650 mg Q4H PRN ORAL T>100.5 09/06/17 22:45 10/04/17 06:44 Albuterol/ Ipratropium (Albuterol/ Ipratropium) 3 ml Q4H PRN HHN Shortness of Breath 09/06/17 22:45 09/09/17 06:44 Cefazolin Sodium 1 gm/Sodium Chloride 55 ml @ 110 mls/hr Q12HR IVPB 09/06/17 21:00 09/13/17 20:59 09/08/17 08:58 Chlorhexidine Gluconate (Brandy-Hex 2%) 1 applic DAILY@2000 TOPIC 09/08/17 20:00 10/08/17 19:59 Chlorhexidine Gluconate (Brandy-Hex 2%) 1 applic Q24H TOPIC 09/06/17 20:00 10/05/17 19:59 09/07/17 21:01 Dextrose 1,000 ml @ 50 mls/hr Q20H IV 09/07/17 10:00 10/07/17 09:59 09/08/17 06:08 Diltiazem HCl (Cardizem) 10 mg Q1HR PRN IVP HR>120BPM 09/06/17 20:00 10/04/17 08:29 Heparin Sodium (Porcine) (Heparin 5000 units/ml) 5,000 units EVERY 12 HOURS SUBQ 09/06/17 21:00 10/04/17 08:59 09/08/17 09:05 Heparin Sodium/ Sodium Chloride (Heparin 2000 units/Ns 1000ml premix) 2,000 unit ONCE PRN INJ PICC LINE INSERTION 09/07/17 19:00 09/09/17 23:59 Hydrocortisone (Solu-CORTEF) 100 mg EVERY 8 HOURS IV 09/06/17 22:00 10/04/17 13:59 09/08/17 06:08 Levothyroxine Sodium (Synthroid) 50 mcg DAILY@0630 NG 09/07/17 06:30 10/06/17 06:29 09/08/17 06:08 Lidocaine (Xylocaine 1% MPF 5ml) 30 ml ONCE PRN INJ PICC LINE 09/07/17 19:00 09/09/17 23:59 Metoprolol Tartrate (Lopressor) 50 mg Q12HR ORAL 09/07/17 21:00 10/07/17 20:59 09/07/17 21:00 Morphine Sulfate (Morphine Sulfate) 2 mg Q4H PRN IVP Severe Pain (Pain Scale 7-10) 09/06/17 22:45 09/11/17 06:44 Nitroglycerin (Ntg) 1 patch Q24H TDERMAL 09/07/17 12:00 10/05/17 11:59 09/07/17 12:36 Ondansetron HCl (Zofran) 4 mg Q6H PRN IVP Nausea & Vomiting 09/07/17 00:45 10/04/17 06:44 Pantoprazole (Protonix) 40 mg DAILY IVP 09/06/17 19:15 10/04/17 08:59 09/08/17 08:58 Polyethylene Glycol (Miralax) 17 gm DAILYPRN PRN NG Constipation 09/07/17 09:30 10/04/17 06:44 TATI FAM Sep 08, 2017 10:37
[2017-09-08] MEDS: Nitroglycerin Patch 0.4mg TDERMAL SCH (11:44)
[2017-09-08 12:00] VITALS: BP 119/76
--- NOTE | 2017-09-08 15:02 | Nephrology Progress Note ---
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 Nitro patch Subjective ROS Limited/Unobtainable: No Constitutional: Reports: malaise Objective Objective Last 24 Hour Vital Signs Date Time Temp Pulse Resp B/P (MAP) Pulse Ox O2 Delivery O2 Flow Rate FiO2 09/08/17 12:00 71 09/08/17 12:00 97.9 75 28 119/76 94 Venturi Mask 8.0 40 97.9 09/08/17 12:00 8.0 40 09/08/17 11:44 119/76 09/08/17 09:02 68 44 94 Facial 40 09/08/17 09:00 59 111/54 09/08/17 08:00 98.2 59 32 111/55 94 Bi-pap 40 98.2 09/08/17 08:00 40 09/08/17 08:00 85 09/08/17 07:11 59 37 94 Facial 40 09/08/17 05:38 35 30 95 Facial 40 09/08/17 04:00 30 09/08/17 04:00 73 09/08/17 04:00 97.0 70 25 105/58 98 Bi-pap 30 97.0 09/08/17 03:26 66 36 94 Facial 40 09/08/17 01:17 71 33 94 Facial 40 09/08/17 00:00 30 09/08/17 00:00 97.0 70 25 98/47 98 Bi-pap 30 97.0 09/08/17 00:00 70 09/07/17 23:19 68 26 100 Facial 40 09/07/17 21:29 87 36 94 Facial 50 09/07/17 21:00 83 120/61 09/07/17 20:00 97.0 83 27 120/61 95 Bi-pap 30 97.0 09/07/17 20:00 109 09/07/17 20:00 30 09/07/17 19:43 102 25 94 Facial 50 09/07/17 17:03 78 39 95 Facial 30 09/07/17 16:00 97.2 100 27 116/64 95 Bi-pap 30 97.2 09/07/17 16:00 83 09/07/17 16:00 30 09/07/17 15:31 79 35 96 Facial 30 Intake and Output 09/07/17 09/08/17 19:00 07:00 Intake Total 1436.25 ml 1065 ml Output Total 650 ml 300 ml Balance 786.25 ml 765 ml Free Water 50 ml 60 ml IV Total 736.25 ml 505 ml Tube Feeding 600 ml 500 ml Other 50 ml Output Urine Total 650 ml 300 ml # Bowel Movements 2 Laboratory Tests 09/07/17 19:08: Vancomycin Level Trough 17.9H 09/08/17 04:00: White Blood Count 19.5H, Red Blood Count 2.92L, Hemoglobin 8.0L, Hematocrit 26.5L, Mean Corpuscular Volume 91, Mean Corpuscular Hemoglobin 27.3, Mean Corpuscular Hemoglobin Concent 30.0L, Red Cell Distribution Width 18.3H, Platelet Count 180, Mean Platelet Volume 6.1L, Neutrophils (%) (Auto) , Lymphocytes (%) (Auto) , Monocytes (%) (Auto) , Eosinophils (%) (Auto) , Basophils (%) (Auto) , Differential Total Cells Counted 100, Neutrophils % ( Manual) 94H, Lymphocytes % (Manual) 4L, Monocytes % (Manual) 2, Eosinophils % ( Manual) 0, Basophils % (Manual) 0, Band Neutrophils 0, Platelet Estimate Adequate, Platelet Morphology Normal, Hypochromasia 2+, Anisocytosis 2+, Sodium Level 150H, Potassium Level 4.5, Chloride Level 118H, Carbon Dioxide Level 21, Anion Gap 11, Blood Urea Nitrogen 95H, Creatinine 2.3H, Estimat Glomerular Filtration Rate , Glucose Level 136H, Calcium Level 8.4L, Phosphorus Level 5.0H , Magnesium Level 2.3, Total Bilirubin 0.2, Aspartate Amino Transf (AST/SGOT) 15 , Alanine Aminotransferase (ALT/SGPT) 19, Alkaline Phosphatase 61, Total Protein 6.2L, Albumin 1.7L, Globulin 4.5, Albumin/Globulin Ratio 0.4L Height (Feet): 5 Height (Inches): 6.00 Weight (Pounds): 131 General Appearance: no apparent distress Cardiovascular: normal rate Respiratory/Chest: decreased breath sounds Abdomen: distended Objective no other change LEONIDES CHAWLA Sep 08, 2017 15:02
[2017-09-08 16:00] VITALS: BP 98/58
--- NOTE | 2017-09-08 17:18 | Internal Med Progress Note ---
Subjective Date of Service: Sep 08, 2017 Physician Name Yue Jacob Attending Physician Donovan Spring MD Current Medications Medications (Trade) Dose Ordered Sig/Jonah Route PRN Reason Start Time Stop Time Status Last Admin Dose Admin Acetaminophen (Tylenol) 650 mg Q4H PRN ORAL T>100.5 09/06/17 22:45 10/04/17 06:44 Albuterol/ Ipratropium (Albuterol/ Ipratropium) 3 ml Q4H PRN HHN Shortness of Breath 09/06/17 22:45 09/09/17 06:44 Cefazolin Sodium 1 gm/Sodium Chloride 55 ml @ 110 mls/hr Q12HR IVPB 09/06/17 21:00 09/13/17 20:59 09/08/17 08:58 Chlorhexidine Gluconate (Brandy-Hex 2%) 1 applic DAILY@2000 TOPIC 09/08/17 20:00 10/08/17 19:59 Dextrose 1,000 ml @ 50 mls/hr Q20H IV 09/07/17 10:00 10/07/17 09:59 09/08/17 06:08 Diltiazem HCl (Cardizem) 10 mg Q1HR PRN IVP HR>120BPM 09/06/17 20:00 10/04/17 08:29 Famotidine (Pepcid) 20 mg DAILY GT 09/09/17 09:00 10/09/17 08:59 Heparin Sodium (Porcine) (Heparin 5000 units/ml) 5,000 units EVERY 12 HOURS SUBQ 09/06/17 21:00 10/04/17 08:59 09/08/17 09:05 Heparin Sodium/ Sodium Chloride (Heparin 2000 units/Ns 1000ml premix) 2,000 unit ONCE PRN INJ PICC LINE INSERTION 09/07/17 19:00 09/09/17 23:59 Levothyroxine Sodium (Synthroid) 50 mcg DAILY@0630 NG 09/07/17 06:30 10/06/17 06:29 09/08/17 06:08 Lidocaine (Xylocaine 1% MPF 5ml) 30 ml ONCE PRN INJ PICC LINE 09/07/17 19:00 09/09/17 23:59 Metoprolol Tartrate (Lopressor) 25 mg Q12HR ORAL 09/08/17 21:00 10/08/17 20:59 Morphine Sulfate (Morphine Sulfate) 2 mg Q4H PRN IVP Severe Pain (Pain Scale 7-10) 09/06/17 22:45 09/11/17 06:44 Nitroglycerin (Ntg) 1 patch Q24H TDERMAL 09/07/17 12:00 10/05/17 11:59 09/08/17 11:44 Ondansetron HCl (Zofran) 4 mg Q6H PRN IVP Nausea & Vomiting 09/07/17 00:45 10/04/17 06:44 Polyethylene Glycol (Miralax) 17 gm DAILYPRN PRN NG Constipation 09/07/17 09:30 10/04/17 06:44 Allergies: Coded Allergies: SHELLFISH DERIVED (Verified Allergy, Unknown, 09/04/17) ROS Limited/Unobtainable: Yes Subjective 87 YO F admitted with dyspnea. Now respiratory failure. On BIPAP. Cover for Int Med-Dr Spring. DIMITRY Objective Last Vital Signs Date Time Temp Pulse Resp B/P (MAP) Pulse Ox O2 Delivery O2 Flow Rate FiO2 09/08/17 17:03 66 39 96 Facial 40 09/08/17 16:00 98.2 98/58 98.2 09/08/17 12:00 8.0 Laboratory Tests Test 09/07/17 19:08 09/08/17 04:00 Vancomycin Level Trough 17.9 ug/mL (5.0-12.0) H White Blood Count 19.5 K/UL (4.8-10.8) H Red Blood Count 2.92 M/UL (4.20-5.40) L Hemoglobin 8.0 G/DL (12.0-16.0) L Hematocrit 26.5 % (37.0-47.0) L Mean Corpuscular Volume 91 FL (80-99) Mean Corpuscular Hemoglobin 27.3 PG (27.0-31.0) Mean Corpuscular Hemoglobin Concent 30.0 G/DL (32.0-36.0) L Red Cell Distribution Width 18.3 % (11.6-14.8) H Platelet Count 180 K/UL (150-450) Mean Platelet Volume 6.1 FL (6.5-10.1) L Neutrophils (%) (Auto) % (45.0-75.0) Lymphocytes (%) (Auto) % (20.0-45.0) Monocytes (%) (Auto) % (1.0-10.0) Eosinophils (%) (Auto) % (0.0-3.0) Basophils (%) (Auto) % (0.0-2.0) Differential Total Cells Counted 100 Neutrophils % (Manual) 94 % (45-75) H Lymphocytes % (Manual) 4 % (20-45) L Monocytes % (Manual) 2 % (1-10) Eosinophils % (Manual) 0 % (0-3) Basophils % (Manual) 0 % (0-2) Band Neutrophils 0 % (0-8) Platelet Estimate Adequate Platelet Morphology Normal Hypochromasia 2+ Anisocytosis 2+ Sodium Level 150 MMOL/L (136-145) H Potassium Level 4.5 MMOL/L (3.5-5.1) Chloride Level 118 MMOL/L (98-107) H Carbon Dioxide Level 21 MMOL/L (21-32) Anion Gap 11 mmol/L (5-15) Blood Urea Nitrogen 95 mg/dL (7-18) H Creatinine 2.3 MG/DL (0.55-1.30) H Estimat Glomerular Filtration Rate mL/min (>60) Glucose Level 136 MG/DL (74-106) H Calcium Level 8.4 MG/DL (8.5-10.1) L Phosphorus Level 5.0 MG/DL (2.5-4.9) H Magnesium Level 2.3 MG/DL (1.8-2.4) Total Bilirubin 0.2 MG/DL (0.2-1.0) Aspartate Amino Transf (AST/SGOT) 15 U/L (15-37) Alanine Aminotransferase (ALT/SGPT) 19 U/L (12-78) Alkaline Phosphatase 61 U/L (46-116) Total Protein 6.2 G/DL (6.4-8.2) L Albumin 1.7 G/DL (3.4-5.0) L Globulin 4.5 g/dL Albumin/Globulin Ratio 0.4 (1.0-2.7) L Intake and Output 09/07/17 09/08/17 19:00 07:00 Intake Total 1436.25 ml 1065 ml Output Total 650 ml 300 ml Balance 786.25 ml 765 ml Free Water 50 ml 60 ml IV Total 736.25 ml 505 ml Tube Feeding 600 ml 500 ml Other 50 ml Output Urine Total 650 ml 300 ml # Bowel Movements 2 Objective GENERAL: The patient is a well-developed and well-nourished, elderly white female, who is currently on BiPAP. HEENT: Eyes, pupils are equal and responsive to light and accommodation. Extraocular movements are intact. NECK: Supple without lymphadenopathy. CHEST: BIPAP; Lungs are clear to auscultation bilaterally without wheezes or rales. CARDIOVASCULAR: Tachycardic, regular rhythm. S1 and S2 are normal without murmurs, rubs, or gallops. ABDOMEN: Soft, nontender, and nondistended. Positive bowel sounds. No evidence of hepatosplenomegaly. Currently, no rebound or guarding noted. EXTREMITIES: Negative for clubbing, cyanosis, or edema. RECTAL/GENITAL: Not performed. NEUROLOGICAL: Unable to assess. Assessment/Plan Problem List: (1) Atrial fibrillation with rapid ventricular response Assessment & Plan: See cardiology note. (2) Respiratory failure Assessment & Plan: See pulmonary note. Cont BIPAP. Continue ertapenem Per ID (3) Fever (4) Septic shock (5) Dyspnea Assessment & Plan: Continue BIPAP (6) Hypotension Assessment & Plan: Continue pressors (7) HTN (hypertension) Assessment & Plan: Continue diltiazem (8) Hypothyroidism Assessment & Plan: Continue levoxyl. (9) UTI (urinary tract infection) Assessment & Plan: E. Coli and Proteus. Continue ertapenem per ID Status: not improved YUE JACOB Sep 08, 2017 17:18
[2017-09-08 20:00] VITALS: BP 120/59
[2017-09-08] MEDS: Metoprolol 25mg tab ORAL SCH (20:52)
[2017-09-08] MEDS: Dyna-Hex 2% Top Sol 2oz TOPIC SCH (20:52)
--- NOTE | 2017-09-08 23:37 | Cardiology Progress Note ---
Assessment/Plan Assessment/Plan 1. Septic shock, resolved. 2. Atrial fibrillation with controlled ventricular response. Continue metoprolol. 3. History of hypertensive heart disease with LVEF at 65%. 4. History of hyperlipidemia. 5. History of CVA. 6. Acute respiratory failure. Subjective Subjective Atrial fibrillation at 60. Objective Last 24 Hour Vital Signs Date Time Temp Pulse Resp B/P (MAP) Pulse Ox O2 Delivery O2 Flow Rate FiO2 09/08/17 23:35 60 40 97 Facial 40 09/08/17 21:25 60 40 96 Facial 40 09/08/17 20:52 76 120/59 09/08/17 20:00 40 09/08/17 20:00 64 09/08/17 20:00 97.6 76 32 120/59 96 Bi-pap 40 97.6 09/08/17 18:57 70 38 97 Facial 40 09/08/17 17:03 66 39 96 Facial 40 09/08/17 16:00 40 09/08/17 16:00 98.2 65 34 98/58 93 Bi-pap 40 98.2 09/08/17 16:00 70 09/08/17 15:10 65 40 94 Facial 40 09/08/17 12:00 71 09/08/17 12:00 97.9 75 28 119/76 94 Venturi Mask 8.0 40 97.9 09/08/17 12:00 8.0 40 09/08/17 11:44 119/76 09/08/17 09:02 68 44 94 Facial 40 09/08/17 09:00 59 111/54 09/08/17 08:00 98.2 59 32 111/55 94 Bi-pap 40 98.2 09/08/17 08:00 40 09/08/17 08:00 85 09/08/17 07:11 59 37 94 Facial 40 09/08/17 05:38 35 30 95 Facial 40 09/08/17 04:00 40 09/08/17 04:00 73 09/08/17 04:00 97.0 70 25 105/58 98 Bi-pap 40 97.0 09/08/17 03:26 66 36 94 Facial 40 09/08/17 01:17 71 33 94 Facial 40 09/08/17 00:00 40 09/08/17 00:00 97.0 70 25 98/47 98 Bi-pap 40 97.0 09/08/17 00:00 70 Intake and Output 09/07/17 09/08/17 19:00 07:00 Intake Total 1436.25 ml 1065 ml Output Total 650 ml 300 ml Balance 786.25 ml 765 ml Free Water 50 ml 60 ml IV Total 736.25 ml 505 ml Tube Feeding 600 ml 500 ml Other 50 ml Output Urine Total 650 ml 300 ml # Bowel Movements 2 2D Echo: EF 65%, Mild MARIELOS, Mild LVH, Hi RAP ~20 mmHg, RVSP 49 mmHg Laboratory Tests Test 09/08/17 04:00 White Blood Count 19.5 K/UL (4.8-10.8) H Red Blood Count 2.92 M/UL (4.20-5.40) L Hemoglobin 8.0 G/DL (12.0-16.0) L Hematocrit 26.5 % (37.0-47.0) L Mean Corpuscular Volume 91 FL (80-99) Mean Corpuscular Hemoglobin 27.3 PG (27.0-31.0) Mean Corpuscular Hemoglobin Concent 30.0 G/DL (32.0-36.0) L Red Cell Distribution Width 18.3 % (11.6-14.8) H Platelet Count 180 K/UL (150-450) Mean Platelet Volume 6.1 FL (6.5-10.1) L Neutrophils (%) (Auto) % (45.0-75.0) Lymphocytes (%) (Auto) % (20.0-45.0) Monocytes (%) (Auto) % (1.0-10.0) Eosinophils (%) (Auto) % (0.0-3.0) Basophils (%) (Auto) % (0.0-2.0) Differential Total Cells Counted 100 Neutrophils % (Manual) 94 % (45-75) H Lymphocytes % (Manual) 4 % (20-45) L Monocytes % (Manual) 2 % (1-10) Eosinophils % (Manual) 0 % (0-3) Basophils % (Manual) 0 % (0-2) Band Neutrophils 0 % (0-8) Platelet Estimate Adequate Platelet Morphology Normal Hypochromasia 2+ Anisocytosis 2+ Sodium Level 150 MMOL/L (136-145) H Potassium Level 4.5 MMOL/L (3.5-5.1) Chloride Level 118 MMOL/L (98-107) H Carbon Dioxide Level 21 MMOL/L (21-32) Anion Gap 11 mmol/L (5-15) Blood Urea Nitrogen 95 mg/dL (7-18) H Creatinine 2.3 MG/DL (0.55-1.30) H Estimat Glomerular Filtration Rate mL/min (>60) Glucose Level 136 MG/DL (74-106) H Calcium Level 8.4 MG/DL (8.5-10.1) L Phosphorus Level 5.0 MG/DL (2.5-4.9) H Magnesium Level 2.3 MG/DL (1.8-2.4) Total Bilirubin 0.2 MG/DL (0.2-1.0) Aspartate Amino Transf (AST/SGOT) 15 U/L (15-37) Alanine Aminotransferase (ALT/SGPT) 19 U/L (12-78) Alkaline Phosphatase 61 U/L (46-116) Total Protein 6.2 G/DL (6.4-8.2) L Albumin 1.7 G/DL (3.4-5.0) L Globulin 4.5 g/dL Albumin/Globulin Ratio 0.4 (1.0-2.7) L Objective HEENT: Atraumatic, normocephalic. Anicteric. Pupils are equal, round, and reactive to light and accommodation. Extraocular muscles intact. On bipap mask. NECK: JVP is less than 5 cm. No carotid bruit. Carotid upstrokes 2+ bilaterally. CARDIOVASCULAR: Normal S1, S2. Irregularly irregular rhythm, No murmurs, gallops, or rubs. LUNGS: Diminished breath sounds with presence of wheezing bilaterally. ABDOMEN: Soft, nontender, and nondistended. No hepatosplenomegaly.Positive bowel sounds. EXTREMITIES: No evidence of edema, clubbing, or cyanosis. DI RAMIREZ Sep 08, 2017 23:37
[2017-09-09] VITALS (7 sets, daily range): BP systolic 93–127; BP diastolic 49–84
[2017-09-09 06:51] LABS: HEMATOCRIT 26.4 % (37.0-47.0); HEMOGLOBIN 7.9 G/DL (12.0-16.0); MEAN CORPUSCULAR VOLUME 91 FL (80-99); PLATELET COUNT 184 K/UL (150-450); RED BLOOD COUNT 2.89 M/UL (4.20-5.40); RED CELL DISTRIBUTION WIDTH 18.1 % (11.6-14.8); WHITE BLOOD COUNT 15.2 K/UL (4.8-10.8)
[2017-09-09 07:33] LABS: ALANINE AMINOTRANSFERASE 11 U/L (12-78); ALBUMIN 1.4 G/DL (3.4-5.0); ALBUMIN/GLOBULIN RATIO 0.3 (1.0-2.7); ALKALINE PHOSPHATASE 53 U/L (46-116); ANION GAP 8 mmol/L (5-15); ASPARTATE AMINO TRANSFERASE 16 U/L (15-37); BILIRUBIN,TOTAL 0.1 MG/DL (0.2-1.0); BLOOD UREA NITROGEN 104 mg/dL (7-18); CALCIUM 8.4 MG/DL (8.5-10.1); CARBON DIOXIDE 23 MMOL/L (21-32); CHLORIDE 118 MMOL/L (98-107); CREATININE 2.1 MG/DL (0.55-1.30); SODIUM 149 MMOL/L (136-145)
[2017-09-09] MEDS: ceFAZolin sod 1 GM in NS 55 ML IVPB SCH (08:48)
[2017-09-09] MEDS: Heparin 5000 units/ml inj SUBQ SCH ×2 (08:50→20:28)
[2017-09-09] MEDS: Metoprolol 25mg tab ORAL SCH ×2 (08:51→20:32)
[2017-09-09] MEDS ORDERED: Lidocaine 1% Plain 30 ml INJ SCH (10:15)
[2017-09-09] MEDS: Nitroglycerin Patch 0.4mg TDERMAL SCH (11:53)
--- NOTE | 2017-09-09 12:00 | Diagnostic Imaging Report ---
Indication: Dyspnea Technique: One view of the chest Comparison: 09/07/2017 Findings: Nasogastric tube, pacemaker remain. There is increased retrocardiac consolidation. Infiltrates in the left upper lobe, right suprahilar and perihilar regions persist. The heart size is borderline enlarged Impression: Worsening retrocardiac consolidation, over 2 days Other stable findings as described
--- NOTE | 2017-09-09 12:25 | Pulmonology Progress Note ---
Assessment/Plan Problems: (1) Septic shock (2) ARF (acute renal failure) (3) Hypothyroidism (4) Alzheimer's dementia (5) Cerebrovascular accident (CVA) (6) Pacemaker Assessment/Plan titrate fio2 continue abx check cultures check electroytes chest pt check sputum cxr in am tolerating feeding dvt prohylaxis d/w nurse. Subjective ROS Limited/Unobtainable: No Interval Events: still on bipap, desaturates easilly when taken off the bipap Allergies: Coded Allergies: SHELLFISH DERIVED (Verified Allergy, Unknown, 09/04/17) Objective Last 24 Hour Vital Signs Date Time Temp Pulse Resp B/P (MAP) Pulse Ox O2 Delivery O2 Flow Rate FiO2 09/09/17 11:53 110/62 09/09/17 11:53 97.3 09/09/17 09:15 63 41 98 Facial 45 09/09/17 09:00 45 09/09/17 08:51 62 109/62 09/09/17 08:00 65 09/09/17 08:00 79 09/09/17 08:00 97.3 62 14 109/62 100 Bi-pap 45 97.3 09/09/17 06:59 64 39 100 Facial 60 09/09/17 05:35 62 39 100 Facial 80 09/09/17 04:00 97.6 65 35 110/63 100 Bi-pap 40 97.6 09/09/17 04:00 66 09/09/17 04:00 80 09/09/17 03:08 80 09/09/17 01:56 64 40 96 Facial 40 09/09/17 00:00 73 09/09/17 00:00 40 09/09/17 00:00 98.0 62 21 127/74 99 Bi-pap 40 98.0 09/08/17 23:35 60 40 97 Facial 40 09/08/17 21:25 60 40 96 Facial 40 09/08/17 20:52 76 120/59 09/08/17 20:00 40 09/08/17 20:00 64 09/08/17 20:00 97.6 76 32 120/59 96 Bi-pap 40 97.6 09/08/17 18:57 70 38 97 Facial 40 09/08/17 17:03 66 39 96 Facial 40 09/08/17 16:00 40 09/08/17 16:00 98.2 65 34 98/58 93 Bi-pap 40 98.2 09/08/17 16:00 70 09/08/17 15:10 65 40 94 Facial 40 Intake and Output 09/08/17 09/09/17 19:00 07:00 Intake Total 755 ml 855 ml Output Total 400 ml 450 ml Balance 355 ml 405 ml Free Water 30 ml IV Total 605 ml 605 ml Tube Feeding 120 ml 220 ml Other 30 ml Output Urine Total 400 ml 450 ml Laboratory Tests 09/09/17 05:00: White Blood Count 15.2H, Red Blood Count 2.89L, Hemoglobin 7.9L, Hematocrit 26.4L, Mean Corpuscular Volume 91, Mean Corpuscular Hemoglobin 27.2, Mean Corpuscular Hemoglobin Concent 29.8L, Red Cell Distribution Width 18.1H, Platelet Count 184, Mean Platelet Volume 6.8, Neutrophils (%) (Auto) , Lymphocytes (%) (Auto) , Monocytes (%) (Auto) , Eosinophils (%) (Auto) , Basophils (%) (Auto) , Differential Total Cells Counted 100, Neutrophils % ( Manual) 87H, Lymphocytes % (Manual) 10L, Monocytes % (Manual) 3, Eosinophils % ( Manual) 0, Basophils % (Manual) 0, Band Neutrophils 0, Platelet Estimate Adequate, Platelet Morphology Normal, Hypochromasia 1+, Anisocytosis 1+, Sodium Level 149H, Potassium Level 4.0, Chloride Level 118H, Carbon Dioxide Level 23, Anion Gap 8, Blood Urea Nitrogen 104H, Creatinine 2.1H, Estimat Glomerular Filtration Rate , Glucose Level 133H, Calcium Level 8.4L, Total Bilirubin 0.1L, Aspartate Amino Transf (AST/SGOT) 16, Alanine Aminotransferase (ALT/SGPT) 11L, Alkaline Phosphatase 53, Pro-B-Type Natriuretic Peptide 02081E, Total Protein 6.0L, Albumin 1.4L, Globulin 4.6, Albumin/Globulin Ratio 0.3L Current Medications Medications (Trade) Dose Ordered Sig/Jonah Route PRN Reason Start Time Stop Time Status Last Admin Dose Admin Acetaminophen (Tylenol) 650 mg Q4H PRN ORAL T>100.5 09/06/17 22:45 10/04/17 06:44 09/09/17 11:53 Cefazolin Sodium 1 gm/Sodium Chloride 55 ml @ 110 mls/hr Q12HR IVPB 09/06/17 21:00 09/13/17 20:59 09/09/17 08:48 Chlorhexidine Gluconate (Brandy-Hex 2%) 1 applic DAILY@2000 TOPIC 09/08/17 20:00 10/08/17 19:59 09/08/17 20:52 Dextrose 1,000 ml @ 50 mls/hr Q20H IV 09/07/17 10:00 10/07/17 09:59 09/09/17 03:09 Diltiazem HCl (Cardizem) 10 mg Q1HR PRN IVP HR>120BPM 09/06/17 20:00 10/04/17 08:29 Famotidine (Pepcid) 20 mg DAILY GT 09/09/17 09:00 10/09/17 08:59 09/09/17 08:48 Heparin Sodium (Porcine) (Heparin 5000 units/ml) 5,000 units EVERY 12 HOURS SUBQ 09/06/17 21:00 10/04/17 08:59 09/08/17 20:53 Heparin Sodium/ Sodium Chloride (Heparin 2000 units/Ns 1000ml premix) 2,000 unit ONCE PRN INJ PICC LINE INSERTION 09/07/17 19:00 09/09/17 23:59 Levothyroxine Sodium (Synthroid) 50 mcg DAILY@0630 NG 09/07/17 06:30 10/06/17 06:29 09/09/17 06:22 Metoprolol Tartrate (Lopressor) 25 mg Q12HR ORAL 09/08/17 21:00 10/08/17 20:59 09/08/17 20:52 Morphine Sulfate (Morphine Sulfate) 2 mg Q4H PRN IVP Severe Pain (Pain Scale 7-10) 09/06/17 22:45 09/11/17 06:44 Nitroglycerin (Ntg) 1 patch Q24H TDERMAL 09/07/17 12:00 10/05/17 11:59 09/09/17 11:53 Ondansetron HCl (Zofran) 4 mg Q6H PRN IVP Nausea & Vomiting 09/07/17 00:45 10/04/17 06:44 Polyethylene Glycol (Miralax) 17 gm DAILYPRN PRN NG Constipation 09/07/17 09:30 10/04/17 06:44 TATI FAM Sep 09, 2017 12:25
--- NOTE | 2017-09-09 12:29 | Infectious Diseases Prog Note ---
Assessment/Plan Assessment/Plan ASSESSMENT: The patient is an 87-year-old female with, leukocytosis , worsening- suspect 2ry to worsening PNA= r/o MDRO -CXR: There is increased retrocardiacconsolidation. Infiltrates in the left upper lobe, right suprahilar and perihilar regions persist. Sepsis improved Septic shock. SP No fever. Urinary tract infection/pyuria UCX : E. coli and P Mirabilis (both dixon S) Pneumonia Chest x-ray, patchy bilateral infiltrates. 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 coli urosepsis History of chronic sacral decubitus. Atrial fibrillation. Anemia. History of hypoalbuminemia. PLAN: -Switch IV Ancef d# 4 to PO linezolid and Meropenem pending sputum cx -09/06 SP Vanco and Ertapenem #4 -sp cx, influenza sc -Cdiff if diarrhea -2 sets of Bcx Monitor CBC. Monitor BMP. Monitor cultures (blood, sputum) Monitor wound culture. Continue respiratory support. Monitor lactic acid, CBC, and BMP. Monitor chest x-ray. Subjective Allergies: Coded Allergies: SHELLFISH DERIVED (Verified Allergy, Unknown, 09/04/17) Subjective afebrile leukocytosins on bipap worsening CxR Objective Vital Signs Last 24 Hour Vital Signs Date Time Temp Pulse Resp B/P (MAP) Pulse Ox O2 Delivery O2 Flow Rate FiO2 09/09/17 11:53 110/62 09/09/17 11:53 97.3 09/09/17 09:15 63 41 98 Facial 45 09/09/17 09:00 45 09/09/17 08:51 62 109/62 09/09/17 08:00 65 09/09/17 08:00 79 09/09/17 08:00 97.3 62 14 109/62 100 Bi-pap 45 97.3 09/09/17 06:59 64 39 100 Facial 60 09/09/17 05:35 62 39 100 Facial 80 09/09/17 04:00 97.6 65 35 110/63 100 Bi-pap 40 97.6 09/09/17 04:00 66 09/09/17 04:00 80 09/09/17 03:08 80 09/09/17 01:56 64 40 96 Facial 40 09/09/17 00:00 73 09/09/17 00:00 40 09/09/17 00:00 98.0 62 21 127/74 99 Bi-pap 40 98.0 09/08/17 23:35 60 40 97 Facial 40 09/08/17 21:25 60 40 96 Facial 40 09/08/17 20:52 76 120/59 09/08/17 20:00 40 09/08/17 20:00 64 09/08/17 20:00 97.6 76 32 120/59 96 Bi-pap 40 97.6 09/08/17 18:57 70 38 97 Facial 40 09/08/17 17:03 66 39 96 Facial 40 09/08/17 16:00 40 09/08/17 16:00 98.2 65 34 98/58 93 Bi-pap 40 98.2 09/08/17 16:00 70 09/08/17 15:10 65 40 94 Facial 40 Height (Feet): 5 Height (Inches): 6.00 Weight (Pounds): 125 Objective GENERAL: The patient is a well-developed and well-nourished, elderly white female, who is currently on BiPAP. HEENT: Eyes, pupils are equal and responsive to light and accommodation. Extraocular movements are intact. NECK: Supple without lymphadenopathy. CHEST: Lungs are clear to auscultation bilaterally without wheezes or rales. CARDIOVASCULAR: Tachycardic, regular rhythm. S1 and S2 are normal without murmurs, rubs, or gallops. ABDOMEN: Soft, nontender, and nondistended. Positive bowel sounds. No evidence of hepatosplenomegaly. Currently, no rebound or guarding noted. EXTREMITIES: Negative for clubbing, cyanosis, or edema. Laboratory Tests Test 09/09/17 05:00 White Blood Count 15.2 K/UL (4.8-10.8) H Red Blood Count 2.89 M/UL (4.20-5.40) L Hemoglobin 7.9 G/DL (12.0-16.0) L Hematocrit 26.4 % (37.0-47.0) L Mean Corpuscular Volume 91 FL (80-99) Mean Corpuscular Hemoglobin 27.2 PG (27.0-31.0) Mean Corpuscular Hemoglobin Concent 29.8 G/DL (32.0-36.0) L Red Cell Distribution Width 18.1 % (11.6-14.8) H Platelet Count 184 K/UL (150-450) Mean Platelet Volume 6.8 FL (6.5-10.1) Neutrophils (%) (Auto) % (45.0-75.0) Lymphocytes (%) (Auto) % (20.0-45.0) Monocytes (%) (Auto) % (1.0-10.0) Eosinophils (%) (Auto) % (0.0-3.0) Basophils (%) (Auto) % (0.0-2.0) Differential Total Cells Counted 100 Neutrophils % (Manual) 87 % (45-75) H Lymphocytes % (Manual) 10 % (20-45) L Monocytes % (Manual) 3 % (1-10) Eosinophils % (Manual) 0 % (0-3) Basophils % (Manual) 0 % (0-2) Band Neutrophils 0 % (0-8) Platelet Estimate Adequate Platelet Morphology Normal Hypochromasia 1+ Anisocytosis 1+ Sodium Level 149 MMOL/L (136-145) H Potassium Level 4.0 MMOL/L (3.5-5.1) Chloride Level 118 MMOL/L (98-107) H Carbon Dioxide Level 23 MMOL/L (21-32) Anion Gap 8 mmol/L (5-15) Blood Urea Nitrogen 104 mg/dL (7-18) H Creatinine 2.1 MG/DL (0.55-1.30) H Estimat Glomerular Filtration Rate mL/min (>60) Glucose Level 133 MG/DL (74-106) H Calcium Level 8.4 MG/DL (8.5-10.1) L Total Bilirubin 0.1 MG/DL (0.2-1.0) L Aspartate Amino Transf (AST/SGOT) 16 U/L (15-37) Alanine Aminotransferase (ALT/SGPT) 11 U/L (12-78) L Alkaline Phosphatase 53 U/L (46-116) Pro-B-Type Natriuretic Peptide 27681 pg/mL (0-125) H Total Protein 6.0 G/DL (6.4-8.2) L Albumin 1.4 G/DL (3.4-5.0) L Globulin 4.6 g/dL Albumin/Globulin Ratio 0.3 (1.0-2.7) L Current Medications Medications (Trade) Dose Ordered Sig/Jonah Route PRN Reason Start Time Stop Time Status Last Admin Dose Admin Acetaminophen (Tylenol) 650 mg Q4H PRN ORAL T>100.5 09/06/17 22:45 10/04/17 06:44 09/09/17 11:53 Cefazolin Sodium 1 gm/Sodium Chloride 55 ml @ 110 mls/hr Q12HR IVPB 09/06/17 21:00 09/13/17 20:59 09/09/17 08:48 Chlorhexidine Gluconate (Brandy-Hex 2%) 1 applic DAILY@2000 TOPIC 09/08/17 20:00 10/08/17 19:59 09/08/17 20:52 Dextrose 1,000 ml @ 50 mls/hr Q20H IV 09/07/17 10:00 10/07/17 09:59 09/09/17 03:09 Diltiazem HCl (Cardizem) 10 mg Q1HR PRN IVP HR>120BPM 09/06/17 20:00 10/04/17 08:29 Famotidine (Pepcid) 20 mg DAILY GT 09/09/17 09:00 10/09/17 08:59 09/09/17 08:48 Heparin Sodium (Porcine) (Heparin 5000 units/ml) 5,000 units EVERY 12 HOURS SUBQ 09/06/17 21:00 10/04/17 08:59 09/08/17 20:53 Heparin Sodium/ Sodium Chloride (Heparin 2000 units/Ns 1000ml premix) 2,000 unit ONCE PRN INJ PICC LINE INSERTION 09/07/17 19:00 09/09/17 23:59 Levothyroxine Sodium (Synthroid) 50 mcg DAILY@0630 NG 09/07/17 06:30 10/06/17 06:29 09/09/17 06:22 Metoprolol Tartrate (Lopressor) 25 mg Q12HR ORAL 09/08/17 21:00 10/08/17 20:59 09/08/17 20:52 Morphine Sulfate (Morphine Sulfate) 2 mg Q4H PRN IVP Severe Pain (Pain Scale 7-10) 09/06/17 22:45 09/11/17 06:44 Nitroglycerin (Ntg) 1 patch Q24H TDERMAL 09/07/17 12:00 10/05/17 11:59 09/09/17 11:53 Ondansetron HCl (Zofran) 4 mg Q6H PRN IVP Nausea & Vomiting 09/07/17 00:45 10/04/17 06:44 Polyethylene Glycol (Miralax) 17 gm DAILYPRN PRN NG Constipation 09/07/17 09:30 10/04/17 06:44 Lois Martinez M.D. Sep 09, 2017 12:29
--- NOTE | 2017-09-09 12:48 | Diagnostic Imaging Report ---
Indications: Needs long-term IV access Technique: Procedure performed at bedside. Procedural timeout performed. Ultrasound confirms patent compressible right basilic vein. Total sterile technique, including sterile probe cover and sterile gel, sterile gloves, hand hygiene, hat, mask,, sterile gown, large sterile drape, and preparation with 2% chlorhexidine utilized. Local anesthesia with 1% lidocaine. Under real-time ultrasound guidance, puncture basilic vein using 21-gauge needle, passage 0.018 guidewire, exchange for 5 Tristanian peel-away sheath. 5 Tristanian Bard dual-lumen power PICC cut to 33 cm. It was inserted through the peel-away sheath. Peel-away sheath and guidewire removed. Catheter fixed to the skin. Both catheter ports aspirated and flushed. Patient tolerated procedure well, without immediate complication. Followup chest x-ray obtained, documents catheter tip position at the innominate venous confluence Impression: Successful bedside placement of right arm PICC under sonographic guidance, as described above.
[2017-09-09 14:57] LABS: APPEARANCE,URINE SLIGHTLY CLOUDY; BILIRUBIN, URINE NEGATIVE (NEGATIVE); COLOR,URINE PALE YELLOW; GLUCOSE, URINE (UA) NEGATIVE (NEGATIVE); KETONES,URINE NEGATIVE (NEGATIVE); LEUKOCYTE ESTERASE ,URINE 3+ (NEGATIVE); NITRITE,URINE NEGATIVE (NEGATIVE); PH,URINE 6.5 (4.5-8.0); PROTEIN,URINE 3+ (NEGATIVE); UROBILINOGEN,URINE NORMAL MG/DL (0.0-1.0)
[2017-09-09] MEDS: Meropenem 1 GM in NS 55 ML IVPB SCH ×2 (16:11→23:06)
--- NOTE | 2017-09-09 17:11 | Nephrology Progress Note ---
Assessment/Plan Problem List: (1) Septic shock (2) Pacemaker (3) ATN (acute tubular necrosis) (4) ACS (acute coronary syndrome) (5) Hypotension Assessment Septic Shock BP stablizing Renal failure acute cr lowering today 2.1 Pace maker Dementia HypoThyroidism DNR Plan hydrate- lower rate change to D5 On synthroid DC Hydrocortisone- pressors as needed monitor renal parameters avoid nephrotoxics per orders discussed with RN Anemia tanner Nitro patch Subjective ROS Limited/Unobtainable: No Constitutional: Reports: malaise Objective Objective Last 24 Hour Vital Signs Date Time Temp Pulse Resp B/P (MAP) Pulse Ox O2 Delivery O2 Flow Rate FiO2 09/09/17 16:32 75 09/09/17 16:00 97.7 78 35 100/50 93 Bi-pap 35 97.7 09/09/17 16:00 35 09/09/17 15:29 74 47 96 Facial 35 09/09/17 13:20 73 42 100 Facial 45 09/09/17 12:50 97.3 09/09/17 12:00 93 09/09/17 12:00 97.5 82 21 110/84 93 Bi-pap 45 97.5 09/09/17 11:53 110/62 09/09/17 11:53 97.3 09/09/17 11:13 83 43 96 Facial 45 09/09/17 09:15 63 41 98 Facial 45 09/09/17 09:00 45 09/09/17 08:51 62 109/62 09/09/17 08:00 65 09/09/17 08:00 79 09/09/17 08:00 97.3 62 14 109/62 100 Bi-pap 45 97.3 09/09/17 06:59 64 39 100 Facial 60 09/09/17 05:35 62 39 100 Facial 80 09/09/17 04:00 97.6 65 35 110/63 100 Bi-pap 40 97.6 09/09/17 04:00 66 09/09/17 04:00 80 09/09/17 03:08 80 09/09/17 01:56 64 40 96 Facial 40 09/09/17 00:00 73 09/09/17 00:00 40 09/09/17 00:00 98.0 62 21 127/74 99 Bi-pap 40 98.0 09/08/17 23:35 60 40 97 Facial 40 09/08/17 21:25 60 40 96 Facial 40 09/08/17 20:52 76 120/59 09/08/17 20:00 40 09/08/17 20:00 64 09/08/17 20:00 97.6 76 32 120/59 96 Bi-pap 40 97.6 09/08/17 18:57 70 38 97 Facial 40 Intake and Output 09/08/17 09/09/17 19:00 07:00 Intake Total 755 ml 855 ml Output Total 400 ml 450 ml Balance 355 ml 405 ml Free Water 30 ml IV Total 605 ml 605 ml Tube Feeding 120 ml 220 ml Other 30 ml Output Urine Total 400 ml 450 ml Laboratory Tests 09/09/17 05:00: White Blood Count 15.2H, Red Blood Count 2.89L, Hemoglobin 7.9L, Hematocrit 26.4L, Mean Corpuscular Volume 91, Mean Corpuscular Hemoglobin 27.2, Mean Corpuscular Hemoglobin Concent 29.8L, Red Cell Distribution Width 18.1H, Platelet Count 184, Mean Platelet Volume 6.8, Neutrophils (%) (Auto) , Lymphocytes (%) (Auto) , Monocytes (%) (Auto) , Eosinophils (%) (Auto) , Basophils (%) (Auto) , Differential Total Cells Counted 100, Neutrophils % ( Manual) 87H, Lymphocytes % (Manual) 10L, Monocytes % (Manual) 3, Eosinophils % ( Manual) 0, Basophils % (Manual) 0, Band Neutrophils 0, Platelet Estimate Adequate, Platelet Morphology Normal, Hypochromasia 1+, Anisocytosis 1+, Sodium Level 149H, Potassium Level 4.0, Chloride Level 118H, Carbon Dioxide Level 23, Anion Gap 8, Blood Urea Nitrogen 104H, Creatinine 2.1H, Estimat Glomerular Filtration Rate , Glucose Level 133H, Calcium Level 8.4L, Total Bilirubin 0.1L, Aspartate Amino Transf (AST/SGOT) 16, Alanine Aminotransferase (ALT/SGPT) 11L, Alkaline Phosphatase 53, Pro-B-Type Natriuretic Peptide 68106J, Total Protein 6.0L, Albumin 1.4L, Globulin 4.6, Albumin/Globulin Ratio 0.3L 09/09/17 14:45: Urine Color Pale yellow, Urine Appearance Slightly cloudy, Urine pH 6.5, Urine Specific [place] 1.010, Urine Protein 3+H, Urine Glucose (UA) Negative, Urine Ketones Negative, Urine Occult Blood 5+H, Urine Nitrite Negative, Urine Bilirubin Negative, Urine Urobilinogen Normal, Urine Leukocyte Esterase 3+H, Urine RBC 15-20H, Urine WBC 30-40H, Urine Squamous Epithelial Cells Few, Urine Bacteria Few Height (Feet): 5 Height (Inches): 6.00 Weight (Pounds): 125 EENT: other - Mask O2 Cardiovascular: normal rate Respiratory/Chest: decreased breath sounds Abdomen: distended Objective no other change LEONIDES CHAWLA Sep 09, 2017 17:11
--- NOTE | 2017-09-09 18:55 | Internal Med Progress Note ---
Subjective Date of Service: Sep 09, 2017 Physician Name JacobYue Attending Physician Donovan Spring MD Current Medications Medications (Trade) Dose Ordered Sig/Jonah Route PRN Reason Start Time Stop Time Status Last Admin Dose Admin Acetaminophen (Tylenol) 650 mg Q4H PRN ORAL T>100.5 09/06/17 22:45 10/04/17 06:44 09/09/17 11:53 Chlorhexidine Gluconate (Brandy-Hex 2%) 1 applic DAILY@2000 TOPIC 09/08/17 20:00 10/08/17 19:59 09/08/17 20:52 Dextrose 1,000 ml @ 50 mls/hr Q20H IV 09/07/17 10:00 10/07/17 09:59 09/09/17 03:09 Diltiazem HCl (Cardizem) 10 mg Q1HR PRN IVP HR>120BPM 09/06/17 20:00 10/04/17 08:29 Famotidine (Pepcid) 20 mg DAILY GT 09/09/17 09:00 10/09/17 08:59 09/09/17 08:48 Heparin Sodium (Porcine) (Heparin 5000 units/ml) 5,000 units EVERY 12 HOURS SUBQ 09/06/17 21:00 10/04/17 08:59 09/08/17 20:53 Heparin Sodium/ Sodium Chloride (Heparin 2000 units/Ns 1000ml premix) 2,000 unit ONCE PRN INJ PICC LINE INSERTION 09/07/17 19:00 09/09/17 23:59 Levothyroxine Sodium (Synthroid) 50 mcg DAILY@0630 NG 09/07/17 06:30 10/06/17 06:29 09/09/17 06:22 Linezolid (Zyvox) 600 mg EVERY 12 HOURS ORAL 09/09/17 12:45 09/14/17 12:44 09/09/17 16:10 Meropenem 1 gm/ Sodium Chloride 55 ml @ 110 mls/hr Q12HR IVPB 09/09/17 14:00 09/14/17 13:59 09/09/17 16:11 Metoprolol Tartrate (Lopressor) 25 mg Q12HR ORAL 09/08/17 21:00 10/08/17 20:59 09/08/17 20:52 Morphine Sulfate (Morphine Sulfate) 2 mg Q4H PRN IVP Severe Pain (Pain Scale 7-10) 09/06/17 22:45 09/11/17 06:44 Nitroglycerin (Ntg) 1 patch Q24H TDERMAL 09/07/17 12:00 10/05/17 11:59 09/09/17 11:53 Ondansetron HCl (Zofran) 4 mg Q6H PRN IVP Nausea & Vomiting 09/07/17 00:45 10/04/17 06:44 Polyethylene Glycol (Miralax) 17 gm DAILYPRN PRN NG Constipation 09/07/17 09:30 10/04/17 06:44 Allergies: Coded Allergies: SHELLFISH DERIVED (Verified Allergy, Unknown, 09/04/17) ROS Limited/Unobtainable: Yes Subjective 87 YO F admitted with dyspnea. Now respiratory failure. On BIPAP. Cover for Int Med-Dr Spring. DIMITRY Objective Last Vital Signs Date Time Temp Pulse Resp B/P (MAP) Pulse Ox O2 Delivery O2 Flow Rate FiO2 09/09/17 17:09 61 34 96 Facial 35 09/09/17 16:00 97.7 100/50 97.7 09/08/17 12:00 8.0 Laboratory Tests Test 09/09/17 05:00 09/09/17 14:45 White Blood Count 15.2 K/UL (4.8-10.8) H Red Blood Count 2.89 M/UL (4.20-5.40) L Hemoglobin 7.9 G/DL (12.0-16.0) L Hematocrit 26.4 % (37.0-47.0) L Mean Corpuscular Volume 91 FL (80-99) Mean Corpuscular Hemoglobin 27.2 PG (27.0-31.0) Mean Corpuscular Hemoglobin Concent 29.8 G/DL (32.0-36.0) L Red Cell Distribution Width 18.1 % (11.6-14.8) H Platelet Count 184 K/UL (150-450) Mean Platelet Volume 6.8 FL (6.5-10.1) Neutrophils (%) (Auto) % (45.0-75.0) Lymphocytes (%) (Auto) % (20.0-45.0) Monocytes (%) (Auto) % (1.0-10.0) Eosinophils (%) (Auto) % (0.0-3.0) Basophils (%) (Auto) % (0.0-2.0) Differential Total Cells Counted 100 Neutrophils % (Manual) 87 % (45-75) H Lymphocytes % (Manual) 10 % (20-45) L Monocytes % (Manual) 3 % (1-10) Eosinophils % (Manual) 0 % (0-3) Basophils % (Manual) 0 % (0-2) Band Neutrophils 0 % (0-8) Platelet Estimate Adequate Platelet Morphology Normal Hypochromasia 1+ Anisocytosis 1+ Sodium Level 149 MMOL/L (136-145) H Potassium Level 4.0 MMOL/L (3.5-5.1) Chloride Level 118 MMOL/L (98-107) H Carbon Dioxide Level 23 MMOL/L (21-32) Anion Gap 8 mmol/L (5-15) Blood Urea Nitrogen 104 mg/dL (7-18) H Creatinine 2.1 MG/DL (0.55-1.30) H Estimat Glomerular Filtration Rate mL/min (>60) Glucose Level 133 MG/DL (74-106) H Calcium Level 8.4 MG/DL (8.5-10.1) L Total Bilirubin 0.1 MG/DL (0.2-1.0) L Aspartate Amino Transf (AST/SGOT) 16 U/L (15-37) Alanine Aminotransferase (ALT/SGPT) 11 U/L (12-78) L Alkaline Phosphatase 53 U/L (46-116) Pro-B-Type Natriuretic Peptide 01356 pg/mL (0-125) H Total Protein 6.0 G/DL (6.4-8.2) L Albumin 1.4 G/DL (3.4-5.0) L Globulin 4.6 g/dL Albumin/Globulin Ratio 0.3 (1.0-2.7) L Urine Color Pale yellow Urine Appearance Slightly cloudy Urine pH 6.5 (4.5-8.0) Urine Specific [place] 1.010 (1.005-1.035) Urine Protein 3+ (NEGATIVE) H Urine Glucose (UA) Negative (NEGATIVE) Urine Ketones Negative (NEGATIVE) Urine Occult Blood 5+ (NEGATIVE) H Urine Nitrite Negative (NEGATIVE) Urine Bilirubin Negative (NEGATIVE) Urine Urobilinogen Normal MG/DL (0.0-1.0) Urine Leukocyte Esterase 3+ (NEGATIVE) H Urine RBC 15-20 /HPF (0 - 2) H Urine WBC 30-40 /HPF (0 - 2) H Urine Squamous Epithelial Cells Few /LPF (NONE/OCC) Urine Bacteria Few /HPF (NONE) Microbiology Date/Time Source Procedure Growth Status 09/09/17 14:45 Nasopharynx Influenza Types A,B Antigen (GRUPO) - Final Complete Intake and Output 09/08/17 09/09/17 19:00 07:00 Intake Total 755 ml 855 ml Output Total 400 ml 450 ml Balance 355 ml 405 ml Free Water 30 ml IV Total 605 ml 605 ml Tube Feeding 120 ml 220 ml Other 30 ml Output Urine Total 400 ml 450 ml Objective GENERAL: The patient is a well-developed and well-nourished, elderly white female, who is currently on BiPAP. HEENT: Eyes, pupils are equal and responsive to light and accommodation. Extraocular movements are intact. NECK: Supple without lymphadenopathy. CHEST: BIPAP; Lungs are clear to auscultation bilaterally without wheezes or rales. CARDIOVASCULAR: Tachycardic, regular rhythm. S1 and S2 are normal without murmurs, rubs, or gallops. ABDOMEN: Soft, nontender, and nondistended. Positive bowel sounds. No evidence of hepatosplenomegaly. Currently, no rebound or guarding noted. EXTREMITIES: Negative for clubbing, cyanosis, or edema. RECTAL/GENITAL: Not performed. NEUROLOGICAL: Unable to assess. Assessment/Plan Problem List: (1) Atrial fibrillation with rapid ventricular response Assessment & Plan: See cardiology note. (2) Respiratory failure Assessment & Plan: See pulmonary note. Cont BIPAP. Continue ertapenem Per ID (3) Fever (4) Septic shock (5) Dyspnea Assessment & Plan: Continue BIPAP (6) Hypotension Assessment & Plan: Continue pressors (7) HTN (hypertension) Assessment & Plan: Continue diltiazem (8) Hypothyroidism Assessment & Plan: Continue levoxyl. (9) UTI (urinary tract infection) Assessment & Plan: E. Coli and Proteus. Continue ertapenem per ID Status: not improved YUE JACOB Sep 09, 2017 18:55
[2017-09-09] MEDS: Dyna-Hex 2% Top Sol 2oz TOPIC SCH (20:31)
[2017-09-09] MEDS: Morphine Sulfate 2mg/ml Inj IVP PRN (23:52)
[2017-09-10 04:00] VITALS: BP 108/55
[2017-09-10 04:43] LABS: HEMATOCRIT 27.7 % (37.0-47.0); HEMOGLOBIN 8.8 G/DL (12.0-16.0); MEAN CORPUSCULAR VOLUME 88 FL (80-99); PLATELET COUNT 162 K/UL (150-450); RED BLOOD COUNT 3.13 M/UL (4.20-5.40); RED CELL DISTRIBUTION WIDTH 16.8 % (11.6-14.8); WHITE BLOOD COUNT 15.2 K/UL (4.8-10.8)
[2017-09-10 05:30] LABS: ALANINE AMINOTRANSFERASE 7 U/L (12-78); ALBUMIN 1.4 G/DL (3.4-5.0); ALBUMIN/GLOBULIN RATIO 0.3 (1.0-2.7); ALKALINE PHOSPHATASE 59 U/L (46-116); ANION GAP 11 mmol/L (5-15); ASPARTATE AMINO TRANSFERASE 17 U/L (15-37); BILIRUBIN,TOTAL 0.2 MG/DL (0.2-1.0); BLOOD UREA NITROGEN 100 mg/dL (7-18); CARBON DIOXIDE 22 MMOL/L (21-32); CHLORIDE 117 MMOL/L (98-107); CREATININE 1.9 MG/DL (0.55-1.30); POTASSIUM 3.9 MMOL/L (3.5-5.1); SODIUM 150 MMOL/L (136-145)
[2017-09-10 08:00] VITALS: BP 105/54
[2017-09-10] MEDS: Meropenem 1 GM in NS 55 ML IVPB SCH ×2 (08:35→20:21)
[2017-09-10] MEDS: Heparin 5000 units/ml inj SUBQ SCH ×2 (08:37→20:22)
[2017-09-10] MEDS: Metoprolol 25mg tab ORAL SCH ×2 (08:37→20:24)
--- NOTE | 2017-09-10 10:34 | Cardiology Report ---
APPROVED REPORT EXAM: Two-dimensional and M-mode echocardiogram with Doppler and color Doppler. INDICATION Left ventricular function M-Mode DIMENSIONS IVSd0.6 (0.7-1.1cm)Left Atrium (MM)4.4 (1.6-4.0cm) LVDd4.3 (3.5-5.6cm)Aortic Root2.8 (2.0-3.7cm) PWd0.7 (0.7-1.1cm)Aortic Cusp Exc.1.7 (1.5-2.0cm) LVDs3.2 (2.5-4.0cm) PWs1.0 cm Technically difficult study due to poor acoustical windows. Normal left ventricular chamber size, systolic function and wall motion. Left ventricular ejection fraction estimated to be 60-65%. Mild left ventricular hypertrophy. No evidence of pericardial or pleural effusion. Mild bi-atrial enlargement by 2D.Right atrium seems more enlarged Focal aortic valve sclerosis with adequate cusp excursion. Thickened mitral valve leaflets with normal excursion. Mild mitral annulus and aortic root calcification. Pulmonic valve not well visualized. Normal tricuspid valve structure. IVC dilated at 2.5 cm minimal collapse with respiration indicate increased RA pressure. Probable pacemaker wire present in the right side chambers. A color flow and spectral Doppler study was performed and revealed: No aortic regurgitation. No mitral regurgitation. Mild tricuspid regurgitation. Tricuspid systolic velocities suggests peak right ventricular systolic pressure of 49 mmHg Consistent with moderate pulmonary hypertension.
--- NOTE | 2017-09-10 10:57 | Pulmonology Progress Note ---
Assessment/Plan Problems: (1) Septic shock (2) ARF (acute renal failure) (3) Hypothyroidism (4) Alzheimer's dementia (5) Cerebrovascular accident (CVA) (6) Pacemaker Assessment/Plan titrate fio2 continue abx check cultures check electroytes chest pt check sputum tolerating feeding dvt prohylaxis d/w nurse. ethics meeting? consider morphine drip and take off the pt from BIPAP. Subjective ROS Limited/Unobtainable: No Interval Events: still on BIPAP, cant' tolerate face mask Constitutional: Reports: no symptoms HEENT: Repors: no symptoms Allergies: Coded Allergies: SHELLFISH DERIVED (Verified Allergy, Unknown, 09/04/17) Objective Last 24 Hour Vital Signs Date Time Temp Pulse Resp B/P (MAP) Pulse Ox O2 Delivery O2 Flow Rate FiO2 09/10/17 09:10 63 28 100 Facial 50 09/10/17 08:37 100 105/54 09/10/17 08:00 94.6 100 37 105/54 100 Bi-pap 100 94.6 09/10/17 08:00 67 09/10/17 08:00 100 09/10/17 06:32 70 29 100 Facial 100 09/10/17 05:13 112 47 93 Facial 8.0 35 09/10/17 04:00 98.4 83 38 108/55 100 Bi-pap 35 98.4 09/10/17 04:00 85 09/10/17 04:00 35 09/10/17 02:59 88 43 91 Facial 35 09/10/17 01:31 93 46 91 Facial 8.0 35 09/10/17 00:00 93 09/09/17 23:50 98.3 65 35 107/49 91 Bi-pap 35 98.3 09/09/17 23:47 61 53 92 Facial 8.0 35 09/09/17 21:34 100 35 92 Facial 35 09/09/17 20:32 100 93/56 09/09/17 20:00 98.2 100 35 93/56 92 Bi-pap 35 98.2 09/09/17 20:00 78 09/09/17 20:00 35 09/09/17 19:21 75 34 92 Facial 8.0 35 09/09/17 17:09 61 34 96 Facial 35 09/09/17 16:32 75 3/12/18 16:00 97.7 78 35 100/50 93 Bi-pap 35 97.7 09/09/17 16:00 35 09/09/17 15:29 74 47 96 Facial 35 09/09/17 13:20 73 42 100 Facial 45 09/09/17 12:50 97.3 09/09/17 12:00 93 09/09/17 12:00 97.5 82 21 110/84 93 Bi-pap 45 97.5 09/09/17 11:53 110/62 09/09/17 11:53 97.3 09/09/17 11:13 83 43 96 Facial 45 Intake and Output 09/09/17 09/10/17 19:00 07:00 Intake Total 1230 ml 1410 ml Output Total 500 ml 600 ml Balance 730 ml 810 ml IV Total 660 ml 710 ml Tube Feeding 570 ml 600 ml Other 100 ml Output Urine Total 500 ml 600 ml # Bowel Movements 2 General Appearance: cachetic HEENT: normocephalic, atraumatic Respiratory/Chest: chest wall non-tender, crackles/rales, rhonchi Breasts: no masses Cardiovascular: normal peripheral pulses, normal rate Abdomen: normal bowel sounds, soft, non tender Genitourinary: normal external genitalia Skin: no rash, no lesions 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 Lymphatic: no neck adenopathy, no groin adenopathy Microbiology Date/Time Source Procedure Growth Status 09/09/17 14:45 Nasopharynx Influenza Types A,B Antigen (GRUPO) - Final Complete 09/09/17 14:45 Urine,Clean Catch Urine Culture - Preliminary NO GROWTH Resulted Laboratory Tests 09/09/17 14:45: Urine Color Pale yellow, Urine Appearance Slightly cloudy, Urine pH 6.5, Urine Specific [place] 1.010, Urine Protein 3+H, Urine Glucose (UA) Negative, Urine Ketones Negative, Urine Occult Blood 5+H, Urine Nitrite Negative, Urine Bilirubin Negative, Urine Urobilinogen Normal, Urine Leukocyte Esterase 3+H, Urine RBC 15-20H, Urine WBC 30-40H, Urine Squamous Epithelial Cells Few, Urine Bacteria Few 09/10/17 04:00: White Blood Count 15.2H, Red Blood Count 3.13L, Hemoglobin 8.8L, Hematocrit 27.7L, Mean Corpuscular Volume 88, Mean Corpuscular Hemoglobin 28.0, Mean Corpuscular Hemoglobin Concent 31.7L, Red Cell Distribution Width 16.8H, Platelet Count 162, Mean Platelet Volume 6.7, Neutrophils (%) (Auto) , Lymphocytes (%) (Auto) , Monocytes (%) (Auto) , Eosinophils (%) (Auto) , Basophils (%) (Auto) , Differential Total Cells Counted 100, Neutrophils % ( Manual) 90H, Lymphocytes % (Manual) 6L, Monocytes % (Manual) 1, Eosinophils % ( Manual) 0, Basophils % (Manual) 0, Band Neutrophils 3, Platelet Estimate Adequate, Platelet Morphology Normal, Hypochromasia 2+, Anisocytosis 1+, Sodium Level 150H, Potassium Level 3.9, Chloride Level 117H, Carbon Dioxide Level 22, Anion Gap 11, Blood Urea Nitrogen 100H, Creatinine 1.9H, Estimat Glomerular Filtration Rate , Glucose Level 145H, Calcium Level 8.0L, Total Bilirubin 0.2, Aspartate Amino Transf (AST/SGOT) 17, Alanine Aminotransferase (ALT/SGPT) 7L, Alkaline Phosphatase 59, Pro-B-Type Natriuretic Peptide 26265Z, Total Protein 5.8L, Albumin 1.4L, Globulin 4.4, Albumin/Globulin Ratio 0.3L Current Medications Medications (Trade) Dose Ordered Sig/Jonah Route PRN Reason Start Time Stop Time Status Last Admin Dose Admin Acetaminophen (Tylenol) 650 mg Q4H PRN ORAL T>100.5 09/06/17 22:45 10/04/17 06:44 09/09/17 11:53 Chlorhexidine Gluconate (Brandy-Hex 2%) 1 applic DAILY@2000 TOPIC 09/08/17 20:00 10/08/17 19:59 09/09/17 20:31 Dextrose 1,000 ml @ 50 mls/hr Q20H IV 09/07/17 10:00 10/07/17 09:59 09/09/17 22:00 Diltiazem HCl (Cardizem) 10 mg Q1HR PRN IVP HR>120BPM 09/06/17 20:00 10/04/17 08:29 Famotidine (Pepcid) 20 mg DAILY GT 09/09/17 09:00 10/09/17 08:59 09/10/17 08:36 Heparin Sodium (Porcine) (Heparin 5000 units/ml) 5,000 units EVERY 12 HOURS SUBQ 09/06/17 21:00 10/04/17 08:59 09/10/17 08:37 Levothyroxine Sodium (Synthroid) 50 mcg DAILY@0630 NG 09/07/17 06:30 10/06/17 06:29 09/10/17 05:40 Linezolid (Zyvox) 600 mg EVERY 12 HOURS ORAL 09/09/17 12:45 09/14/17 12:44 09/10/17 08:36 Meropenem 1 gm/ Sodium Chloride 55 ml @ 110 mls/hr Q12HR IVPB 09/09/17 14:00 09/14/17 13:59 09/10/17 08:35 Metoprolol Tartrate (Lopressor) 25 mg Q12HR ORAL 09/08/17 21:00 10/08/17 20:59 09/08/17 20:52 Morphine Sulfate (Morphine Sulfate) 2 mg Q4H PRN IVP Severe Pain (Pain Scale 7-10) 09/06/17 22:45 09/11/17 06:44 09/09/17 23:52 Nitroglycerin (Ntg) 1 patch Q24H TDERMAL 09/07/17 12:00 10/05/17 11:59 09/09/17 11:53 Ondansetron HCl (Zofran) 4 mg Q6H PRN IVP Nausea & Vomiting 09/07/17 00:45 10/04/17 06:44 Polyethylene Glycol (Miralax) 17 gm DAILYPRN PRN NG Constipation 09/07/17 09:30 10/04/17 06:44 Apoorva Loya MD Sep 10, 2017 10:57
[2017-09-10 12:00] VITALS: BP 119/70
--- NOTE | 2017-09-10 12:18 | Diagnostic Imaging Report ---
Indication: Dyspnea Technique: One view of the chest Comparison: 09/09/2017 Findings: Consolidation in the left upper lobe appears less dense than previously. Consolidation and atelectasis in the right lower lung appears similar to prior exam. Right paratracheal opacity is again demonstrated, unchanged. Right arm PICC, nasogastric tube are demonstrated in good position. Left chest pacemaker remains Impression: Improving but persistent left upper lobe infiltrate. Persistent right basilar atelectasis and infiltrate Unchanged right suprahilar/paratracheal opacity. This may reflect unresolved infiltrate, but given lack of interval change and possibly of underlying mass should be considered. Consider CT for further evaluation if clinically indicated
[2017-09-10] MEDS: Nitroglycerin Patch 0.4mg TDERMAL SCH (12:33)
[2017-09-10] MEDS: Morphine Sulfate 2mg/ml Inj IVP PRN ×2 (12:42→17:13)
--- NOTE | 2017-09-10 15:04 | Nephrology Progress Note ---
Assessment/Plan Problem List: (1) Septic shock (2) Pacemaker (3) ATN (acute tubular necrosis) (4) ACS (acute coronary syndrome) (5) Hypotension Assessment Septic Shock BP stablizing Renal failure acute cr lowering today 1.9 at lowest Pace maker Dementia HypoThyroidism DNR Plan hydrate- lower rate change to D5 On synthroid DC Hydrocortisone- pressors as needed monitor renal parameters avoid nephrotoxics per orders discussed with RN Anemia tanner Nitro patch Subjective ROS Limited/Unobtainable: Yes Objective Objective Last 24 Hour Vital Signs Date Time Temp Pulse Resp B/P (MAP) Pulse Ox O2 Delivery O2 Flow Rate FiO2 09/10/17 12:53 72 35 97 Facial 35 09/10/17 12:33 119/70 09/10/17 12:00 50 09/10/17 12:00 98.1 102 43 119/70 96 Bi-pap 100 98.1 09/10/17 12:00 86 09/10/17 12:00 100 09/10/17 11:10 68 31 100 Facial 50 09/10/17 09:10 63 28 100 Facial 50 09/10/17 08:37 100 105/54 09/10/17 08:00 94.6 100 37 105/54 100 Bi-pap 100 94.6 09/10/17 08:00 67 09/10/17 08:00 100 09/10/17 06:32 70 29 100 Facial 100 09/10/17 05:13 112 47 93 Facial 8.0 35 09/10/17 04:00 98.4 83 38 108/55 100 Bi-pap 35 98.4 09/10/17 04:00 85 09/10/17 04:00 35 09/10/17 02:59 88 43 91 Facial 35 09/10/17 01:31 93 46 91 Facial 8.0 35 09/10/17 00:00 93 09/09/17 23:50 98.3 65 35 107/49 91 Bi-pap 35 98.3 09/09/17 23:47 61 53 92 Facial 8.0 35 09/09/17 21:34 100 35 92 Facial 35 09/09/17 20:32 100 93/56 09/09/17 20:00 98.2 100 35 93/56 92 Bi-pap 35 98.2 09/09/17 20:00 78 3/12/18 20:00 35 09/09/17 19:21 75 34 92 Facial 8.0 35 09/09/17 17:09 61 34 96 Facial 35 09/09/17 16:32 75 09/09/17 16:00 97.7 78 35 100/50 93 Bi-pap 35 97.7 09/09/17 16:00 35 09/09/17 15:29 74 47 96 Facial 35 Intake and Output 09/09/17 09/10/17 19:00 07:00 Intake Total 1230 ml 1410 ml Output Total 500 ml 600 ml Balance 730 ml 810 ml IV Total 660 ml 710 ml Tube Feeding 570 ml 600 ml Other 100 ml Output Urine Total 500 ml 600 ml # Bowel Movements 2 Laboratory Tests 09/10/17 04:00: White Blood Count 15.2H, Red Blood Count 3.13L, Hemoglobin 8.8L, Hematocrit 27.7L, Mean Corpuscular Volume 88, Mean Corpuscular Hemoglobin 28.0, Mean Corpuscular Hemoglobin Concent 31.7L, Red Cell Distribution Width 16.8H, Platelet Count 162, Mean Platelet Volume 6.7, Neutrophils (%) (Auto) , Lymphocytes (%) (Auto) , Monocytes (%) (Auto) , Eosinophils (%) (Auto) , Basophils (%) (Auto) , Differential Total Cells Counted 100, Neutrophils % ( Manual) 90H, Lymphocytes % (Manual) 6L, Monocytes % (Manual) 1, Eosinophils % ( Manual) 0, Basophils % (Manual) 0, Band Neutrophils 3, Platelet Estimate Adequate, Platelet Morphology Normal, Hypochromasia 2+, Anisocytosis 1+, Sodium Level 150H, Potassium Level 3.9, Chloride Level 117H, Carbon Dioxide Level 22, Anion Gap 11, Blood Urea Nitrogen 100H, Creatinine 1.9H, Estimat Glomerular Filtration Rate , Glucose Level 145H, Calcium Level 8.0L, Total Bilirubin 0.2, Aspartate Amino Transf (AST/SGOT) 17, Alanine Aminotransferase (ALT/SGPT) 7L, Alkaline Phosphatase 59, Pro-B-Type Natriuretic Peptide 97352G, Total Protein 5.8L, Albumin 1.4L, Globulin 4.4, Albumin/Globulin Ratio 0.3L Height (Feet): 5 Height (Inches): 6.00 Weight (Pounds): 127 EENT: other - on BIPAP Respiratory/Chest: decreased breath sounds Abdomen: distended Objective no other change LEONIDES CHAWLA Sep 10, 2017 15:04
[2017-09-10 16:00] VITALS: BP 118/73
--- NOTE | 2017-09-10 18:28 | Infectious Diseases Prog Note ---
Assessment/Plan Assessment/Plan ASSESSMENT: The patient is an 87-year-old female with, leukocytosis , improving- suspect 2ry to worsening PNA= r/o MDRO -CXR 09/10: Improving but persistent left upper lobe infiltrate. Persistent right basilar atelectasis and infiltrate. Unchanged right suprahilar/ paratracheal opacity. This may reflect unresolved infiltrate, but given lack of interval change and possibly of underlying mass should be considered. -CXR: There is increased retrocardiacconsolidation. Infiltrates in the left upper lobe, right suprahilar and perihilar regions persist. -sp cx, bcx p -u/a pyuria improved, ucx NTD -influenza sc neg Sepsis improved Septic shock. SP No fever. Urinary tract infection/pyuria UCX : E. coli and P Mirabilis (both dixon S) Pneumonia Chest x-ray, patchy bilateral infiltrates. 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 coli urosepsis History of chronic sacral decubitus. Atrial fibrillation. Anemia. History of hypoalbuminemia. PLAN: -Continue PO linezolid and Meropenem #2 pending sputum cx -monitor plts -09/09 SP IV Ancef #4 -09/06 SP Vanco and Ertapenem #4 -f/u repeat cx -Cdiff if diarrhea Monitor CBC. Monitor BMP. Monitor wound culture. Continue respiratory support. Monitor lactic acid, CBC, and BMP. Monitor chest x-ray. Subjective Allergies: Coded Allergies: SHELLFISH DERIVED (Verified Allergy, Unknown, 09/04/17) Subjective afebrile leukocytosis stable on bipap awaiting repeat cultures Objective Vital Signs Last 24 Hour Vital Signs Date Time Temp Pulse Resp B/P (MAP) Pulse Ox O2 Delivery O2 Flow Rate FiO2 09/10/17 17:40 98.1 09/10/17 17:13 98.1 09/10/17 16:57 95 09/10/17 16:37 87 34 96 Facial 45 09/10/17 16:00 98.1 100 35 118/73 93 Bi-pap 35 98.1 09/10/17 16:00 35 09/10/17 15:29 84 38 95 Facial 35 09/10/17 12:53 72 35 97 Facial 35 09/10/17 12:33 119/70 09/10/17 12:00 50 09/10/17 12:00 98.1 102 43 119/70 96 Bi-pap 50 98.1 09/10/17 12:00 86 09/10/17 11:10 68 31 100 Facial 50 09/10/17 09:10 63 28 100 Facial 50 09/10/17 08:37 100 105/54 09/10/17 08:00 94.6 100 37 105/54 100 Bi-pap 100 94.6 09/10/17 08:00 67 09/10/17 08:00 100 09/10/17 06:32 70 29 100 Facial 100 09/10/17 05:13 112 47 93 Facial 8.0 35 09/10/17 04:00 98.4 83 38 108/55 100 Bi-pap 35 98.4 09/10/17 04:00 85 09/10/17 04:00 35 09/10/17 02:59 88 43 91 Facial 35 09/10/17 01:31 93 46 91 Facial 8.0 35 09/10/17 00:00 93 09/09/17 23:50 98.3 65 35 107/49 91 Bi-pap 35 98.3 09/09/17 23:47 61 53 92 Facial 8.0 35 09/09/17 21:34 100 35 92 Facial 35 09/09/17 20:32 100 93/56 09/09/17 20:00 98.2 100 35 93/56 92 Bi-pap 35 98.2 09/09/17 20:00 78 09/09/17 20:00 35 09/09/17 19:21 75 34 92 Facial 8.0 35 Height (Feet): 5 Height (Inches): 6.00 Weight (Pounds): 127 Objective GENERAL: The patient is a well-developed and well-nourished, elderly white female, who is currently on BiPAP. HEENT: Eyes, pupils are equal and responsive to light and accommodation. Extraocular movements are intact. NECK: Supple without lymphadenopathy. CHEST: Lungs are clear to auscultation bilaterally without wheezes or rales. CARDIOVASCULAR: Tachycardic, regular rhythm. S1 and S2 are normal without murmurs, rubs, or gallops. ABDOMEN: Soft, nontender, and nondistended. Positive bowel sounds. No evidence of hepatosplenomegaly. Currently, no rebound or guarding noted. EXTREMITIES: Negative for clubbing, cyanosis, or edema. Microbiology Date/Time Source Procedure Growth Status 09/09/17 14:45 Nasopharynx Influenza Types A,B Antigen (GRUPO) - Final Complete 09/09/17 14:45 Urine,Clean Catch Urine Culture - Preliminary NO GROWTH Resulted Laboratory Tests Test 09/10/17 04:00 White Blood Count 15.2 K/UL (4.8-10.8) H Red Blood Count 3.13 M/UL (4.20-5.40) L Hemoglobin 8.8 G/DL (12.0-16.0) L Hematocrit 27.7 % (37.0-47.0) L Mean Corpuscular Volume 88 FL (80-99) Mean Corpuscular Hemoglobin 28.0 PG (27.0-31.0) Mean Corpuscular Hemoglobin Concent 31.7 G/DL (32.0-36.0) L Red Cell Distribution Width 16.8 % (11.6-14.8) H Platelet Count 162 K/UL (150-450) Mean Platelet Volume 6.7 FL (6.5-10.1) Neutrophils (%) (Auto) % (45.0-75.0) Lymphocytes (%) (Auto) % (20.0-45.0) Monocytes (%) (Auto) % (1.0-10.0) Eosinophils (%) (Auto) % (0.0-3.0) Basophils (%) (Auto) % (0.0-2.0) Differential Total Cells Counted 100 Neutrophils % (Manual) 90 % (45-75) H Lymphocytes % (Manual) 6 % (20-45) L Monocytes % (Manual) 1 % (1-10) Eosinophils % (Manual) 0 % (0-3) Basophils % (Manual) 0 % (0-2) Band Neutrophils 3 % (0-8) Platelet Estimate Adequate Platelet Morphology Normal Hypochromasia 2+ Anisocytosis 1+ Sodium Level 150 MMOL/L (136-145) H Potassium Level 3.9 MMOL/L (3.5-5.1) Chloride Level 117 MMOL/L (98-107) H Carbon Dioxide Level 22 MMOL/L (21-32) Anion Gap 11 mmol/L (5-15) Blood Urea Nitrogen 100 mg/dL (7-18) H Creatinine 1.9 MG/DL (0.55-1.30) H Estimat Glomerular Filtration Rate mL/min (>60) Glucose Level 145 MG/DL (74-106) H Calcium Level 8.0 MG/DL (8.5-10.1) L Total Bilirubin 0.2 MG/DL (0.2-1.0) Aspartate Amino Transf (AST/SGOT) 17 U/L (15-37) Alanine Aminotransferase (ALT/SGPT) 7 U/L (12-78) L Alkaline Phosphatase 59 U/L (46-116) Pro-B-Type Natriuretic Peptide 48290 pg/mL (0-125) H Total Protein 5.8 G/DL (6.4-8.2) L Albumin 1.4 G/DL (3.4-5.0) L Globulin 4.4 g/dL Albumin/Globulin Ratio 0.3 (1.0-2.7) L Current Medications Medications (Trade) Dose Ordered Sig/Jonah Route PRN Reason Start Time Stop Time Status Last Admin Dose Admin Acetaminophen (Tylenol) 650 mg Q4H PRN ORAL T>100.5 09/06/17 22:45 10/04/17 06:44 09/09/17 11:53 Chlorhexidine Gluconate (Brandy-Hex 2%) 1 applic DAILY@2000 TOPIC 09/08/17 20:00 10/08/17 19:59 09/09/17 20:31 Dextrose 1,000 ml @ 50 mls/hr Q20H IV 09/07/17 10:00 10/07/17 09:59 09/10/17 17:10 Diltiazem HCl (Cardizem) 10 mg Q1HR PRN IVP HR>120BPM 09/06/17 20:00 10/04/17 08:29 Famotidine (Pepcid) 20 mg DAILY GT 09/09/17 09:00 10/09/17 08:59 09/10/17 08:36 Heparin Sodium (Porcine) (Heparin 5000 units/ml) 5,000 units EVERY 12 HOURS SUBQ 09/06/17 21:00 10/04/17 08:59 09/10/17 08:37 Levothyroxine Sodium (Synthroid) 50 mcg DAILY@0630 NG 09/07/17 06:30 10/06/17 06:29 09/10/17 05:40 Linezolid (Zyvox) 600 mg EVERY 12 HOURS ORAL 09/09/17 12:45 09/14/17 12:44 09/10/17 08:36 Meropenem 1 gm/ Sodium Chloride 55 ml @ 110 mls/hr Q12HR IVPB 09/09/17 14:00 09/14/17 13:59 09/10/17 08:35 Metoprolol Tartrate (Lopressor) 25 mg Q12HR ORAL 09/08/17 21:00 10/08/17 20:59 09/08/17 20:52 Morphine Sulfate (Morphine Sulfate) 2 mg Q4H PRN IVP Severe Pain (Pain Scale 7-10) 09/06/17 22:45 09/11/17 06:44 09/10/17 17:13 Nitroglycerin (Ntg) 1 patch Q24H TDERMAL 09/07/17 12:00 10/05/17 11:59 09/10/17 12:33 Ondansetron HCl (Zofran) 4 mg Q6H PRN IVP Nausea & Vomiting 09/07/17 00:45 10/04/17 06:44 Polyethylene Glycol (Miralax) 17 gm DAILYPRN PRN NG Constipation 09/07/17 09:30 10/04/17 06:44 Lois Martinez M.D. Sep 10, 2017 18:27
--- NOTE | 2017-09-10 19:15 | Internal Med Progress Note ---
Subjective Date of Service: Sep 10, 2017 Physician Name Jacob,Yue Attending Physician Donovan Spring MD Current Medications Medications (Trade) Dose Ordered Sig/Jonah Route PRN Reason Start Time Stop Time Status Last Admin Dose Admin Acetaminophen (Tylenol) 650 mg Q4H PRN ORAL T>100.5 09/06/17 22:45 10/04/17 06:44 09/09/17 11:53 Chlorhexidine Gluconate (Brandy-Hex 2%) 1 applic DAILY@2000 TOPIC 09/08/17 20:00 10/08/17 19:59 09/09/17 20:31 Dextrose 1,000 ml @ 50 mls/hr Q20H IV 09/07/17 10:00 10/07/17 09:59 09/10/17 17:10 Diltiazem HCl (Cardizem) 10 mg Q1HR PRN IVP HR>120BPM 09/06/17 20:00 10/04/17 08:29 Famotidine (Pepcid) 20 mg DAILY GT 09/09/17 09:00 10/09/17 08:59 09/10/17 08:36 Heparin Sodium (Porcine) (Heparin 5000 units/ml) 5,000 units EVERY 12 HOURS SUBQ 09/06/17 21:00 10/04/17 08:59 09/10/17 08:37 Levothyroxine Sodium (Synthroid) 50 mcg DAILY@0630 NG 09/07/17 06:30 10/06/17 06:29 09/10/17 05:40 Linezolid (Zyvox) 600 mg EVERY 12 HOURS ORAL 09/09/17 12:45 09/14/17 12:44 09/10/17 08:36 Meropenem 1 gm/ Sodium Chloride 55 ml @ 110 mls/hr Q12HR IVPB 09/09/17 14:00 09/14/17 13:59 09/10/17 08:35 Metoprolol Tartrate (Lopressor) 25 mg Q12HR ORAL 09/08/17 21:00 10/08/17 20:59 09/08/17 20:52 Morphine Sulfate (Morphine Sulfate) 2 mg Q4H PRN IVP Severe Pain (Pain Scale 7-10) 09/06/17 22:45 09/11/17 06:44 09/10/17 17:13 Nitroglycerin (Ntg) 1 patch Q24H TDERMAL 09/07/17 12:00 10/05/17 11:59 09/10/17 12:33 Ondansetron HCl (Zofran) 4 mg Q6H PRN IVP Nausea & Vomiting 09/07/17 00:45 10/04/17 06:44 Polyethylene Glycol (Miralax) 17 gm DAILYPRN PRN NG Constipation 09/07/17 09:30 10/04/17 06:44 Allergies: Coded Allergies: SHELLFISH DERIVED (Verified Allergy, Unknown, 09/04/17) ROS Limited/Unobtainable: Yes Subjective 87 YO F admitted with dyspnea. Now respiratory failure. On BIPAP. Cover for Int Med-Dr Spring. DIMITRY Objective Last Vital Signs Date Time Temp Pulse Resp B/P (MAP) Pulse Ox O2 Delivery O2 Flow Rate FiO2 09/10/17 19:07 79 45 95 Facial 45 09/10/17 17:40 98.1 09/10/17 16:00 118/73 09/10/17 05:13 8.0 Laboratory Tests Test 09/10/17 04:00 White Blood Count 15.2 K/UL (4.8-10.8) H Red Blood Count 3.13 M/UL (4.20-5.40) L Hemoglobin 8.8 G/DL (12.0-16.0) L Hematocrit 27.7 % (37.0-47.0) L Mean Corpuscular Volume 88 FL (80-99) Mean Corpuscular Hemoglobin 28.0 PG (27.0-31.0) Mean Corpuscular Hemoglobin Concent 31.7 G/DL (32.0-36.0) L Red Cell Distribution Width 16.8 % (11.6-14.8) H Platelet Count 162 K/UL (150-450) Mean Platelet Volume 6.7 FL (6.5-10.1) Neutrophils (%) (Auto) % (45.0-75.0) Lymphocytes (%) (Auto) % (20.0-45.0) Monocytes (%) (Auto) % (1.0-10.0) Eosinophils (%) (Auto) % (0.0-3.0) Basophils (%) (Auto) % (0.0-2.0) Differential Total Cells Counted 100 Neutrophils % (Manual) 90 % (45-75) H Lymphocytes % (Manual) 6 % (20-45) L Monocytes % (Manual) 1 % (1-10) Eosinophils % (Manual) 0 % (0-3) Basophils % (Manual) 0 % (0-2) Band Neutrophils 3 % (0-8) Platelet Estimate Adequate Platelet Morphology Normal Hypochromasia 2+ Anisocytosis 1+ Sodium Level 150 MMOL/L (136-145) H Potassium Level 3.9 MMOL/L (3.5-5.1) Chloride Level 117 MMOL/L (98-107) H Carbon Dioxide Level 22 MMOL/L (21-32) Anion Gap 11 mmol/L (5-15) Blood Urea Nitrogen 100 mg/dL (7-18) H Creatinine 1.9 MG/DL (0.55-1.30) H Estimat Glomerular Filtration Rate mL/min (>60) Glucose Level 145 MG/DL (74-106) H Calcium Level 8.0 MG/DL (8.5-10.1) L Total Bilirubin 0.2 MG/DL (0.2-1.0) Aspartate Amino Transf (AST/SGOT) 17 U/L (15-37) Alanine Aminotransferase (ALT/SGPT) 7 U/L (12-78) L Alkaline Phosphatase 59 U/L (46-116) Pro-B-Type Natriuretic Peptide 57441 pg/mL (0-125) H Total Protein 5.8 G/DL (6.4-8.2) L Albumin 1.4 G/DL (3.4-5.0) L Globulin 4.4 g/dL Albumin/Globulin Ratio 0.3 (1.0-2.7) L Microbiology Date/Time Source Procedure Growth Status 09/09/17 14:45 Nasopharynx Influenza Types A,B Antigen (GRUPO) - Final Complete 09/09/17 14:45 Urine,Clean Catch Urine Culture - Preliminary NO GROWTH Resulted Intake and Output 09/09/17 09/10/17 19:00 07:00 Intake Total 1230 ml 1410 ml Output Total 500 ml 600 ml Balance 730 ml 810 ml IV Total 660 ml 710 ml Tube Feeding 570 ml 600 ml Other 100 ml Output Urine Total 500 ml 600 ml # Bowel Movements 2 Objective GENERAL: The patient is a well-developed and well-nourished, elderly white female, who is currently on BiPAP. HEENT: Eyes, pupils are equal and responsive to light and accommodation. Extraocular movements are intact. NECK: Supple without lymphadenopathy. CHEST: BIPAP; Lungs are clear to auscultation bilaterally without wheezes or rales. CARDIOVASCULAR: Tachycardic, regular rhythm. S1 and S2 are normal without murmurs, rubs, or gallops. ABDOMEN: Soft, nontender, and nondistended. Positive bowel sounds. No evidence of hepatosplenomegaly. Currently, no rebound or guarding noted. EXTREMITIES: Negative for clubbing, cyanosis, or edema. RECTAL/GENITAL: Not performed. NEUROLOGICAL: Unable to assess. Assessment/Plan Problem List: (1) Atrial fibrillation with rapid ventricular response Assessment & Plan: See cardiology note. (2) Respiratory failure Assessment & Plan: See pulmonary note. Cont BIPAP. Continue ertapenem and linezolid Per ID (3) Fever (4) Septic shock (5) Dyspnea Assessment & Plan: Continue BIPAP (6) Hypotension Assessment & Plan: Continue pressors (7) HTN (hypertension) Assessment & Plan: Continue diltiazem (8) Hypothyroidism Assessment & Plan: Continue levoxyl. (9) UTI (urinary tract infection) Assessment & Plan: E. Coli and Proteus. Continue ertapenem and linezolid per ID Status: not improved YUE JACOB Sep 10, 2017 19:14
[2017-09-10 20:00] VITALS: BP 94/47
[2017-09-10] MEDS: Dyna-Hex 2% Top Sol 2oz TOPIC SCH (20:20)
--- NOTE | 2017-09-10 23:59 | Cardiology Progress Note ---
Assessment/Plan Assessment/Plan 1. Septic shock, resolved. 2. Atrial fibrillation with controlled ventricular response, continue metoprolol. 3. History of hypertensive heart disease with LVEF at 65%. 4. History of hyperlipidemia. 5. History of CVA. 6. Acute respiratory failure, on facial mask. Subjective Subjective Atrial fibrillation with CVR at 66. Objective Last 24 Hour Vital Signs Date Time Temp Pulse Resp B/P (MAP) Pulse Ox O2 Delivery O2 Flow Rate FiO2 09/10/17 22:40 63 44 78 Facial 45 09/10/17 20:34 78 44 97 Facial 45 09/10/17 20:24 66 90/52 09/10/17 20:00 84 09/10/17 20:00 99.1 93 45 94/47 95 Bi-pap 35 99.1 09/10/17 19:07 79 45 95 Facial 45 09/10/17 17:40 98.1 09/10/17 17:13 98.1 09/10/17 16:57 95 09/10/17 16:37 87 34 96 Facial 45 09/10/17 16:00 98.1 100 35 118/73 93 Bi-pap 35 98.1 09/10/17 16:00 35 09/10/17 15:29 84 38 95 Facial 35 09/10/17 12:53 72 35 97 Facial 35 09/10/17 12:33 119/70 09/10/17 12:00 50 09/10/17 12:00 98.1 102 43 119/70 96 Bi-pap 50 98.1 09/10/17 12:00 86 09/10/17 11:10 68 31 100 Facial 50 09/10/17 09:10 63 28 100 Facial 50 09/10/17 08:37 100 105/54 09/10/17 08:00 94.6 100 37 105/54 100 Bi-pap 100 94.6 09/10/17 08:00 67 09/10/17 08:00 100 09/10/17 06:32 70 29 100 Facial 100 09/10/17 05:13 112 47 93 Facial 8.0 35 09/10/17 04:00 98.4 83 38 108/55 100 Bi-pap 35 98.4 09/10/17 04:00 85 09/10/17 04:00 35 09/10/17 02:59 88 43 91 Facial 35 09/10/17 01:31 93 46 91 Facial 8.0 35 09/10/17 00:00 93 Intake and Output 09/09/17 09/10/17 19:00 07:00 Intake Total 1230 ml 1410 ml Output Total 500 ml 600 ml Balance 730 ml 810 ml IV Total 660 ml 710 ml Tube Feeding 570 ml 600 ml Other 100 ml Output Urine Total 500 ml 600 ml # Bowel Movements 2 2D Echo: EF 65%, Mild MARIELOS, Mild LVH, Hi RAP ~20 mmHg, RVSP 49 mmHg Laboratory Tests Test 09/10/17 04:00 White Blood Count 15.2 K/UL (4.8-10.8) H Red Blood Count 3.13 M/UL (4.20-5.40) L Hemoglobin 8.8 G/DL (12.0-16.0) L Hematocrit 27.7 % (37.0-47.0) L Mean Corpuscular Volume 88 FL (80-99) Mean Corpuscular Hemoglobin 28.0 PG (27.0-31.0) Mean Corpuscular Hemoglobin Concent 31.7 G/DL (32.0-36.0) L Red Cell Distribution Width 16.8 % (11.6-14.8) H Platelet Count 162 K/UL (150-450) Mean Platelet Volume 6.7 FL (6.5-10.1) Neutrophils (%) (Auto) % (45.0-75.0) Lymphocytes (%) (Auto) % (20.0-45.0) Monocytes (%) (Auto) % (1.0-10.0) Eosinophils (%) (Auto) % (0.0-3.0) Basophils (%) (Auto) % (0.0-2.0) Differential Total Cells Counted 100 Neutrophils % (Manual) 90 % (45-75) H Lymphocytes % (Manual) 6 % (20-45) L Monocytes % (Manual) 1 % (1-10) Eosinophils % (Manual) 0 % (0-3) Basophils % (Manual) 0 % (0-2) Band Neutrophils 3 % (0-8) Platelet Estimate Adequate Platelet Morphology Normal Hypochromasia 2+ Anisocytosis 1+ Sodium Level 150 MMOL/L (136-145) H Potassium Level 3.9 MMOL/L (3.5-5.1) Chloride Level 117 MMOL/L (98-107) H Carbon Dioxide Level 22 MMOL/L (21-32) Anion Gap 11 mmol/L (5-15) Blood Urea Nitrogen 100 mg/dL (7-18) H Creatinine 1.9 MG/DL (0.55-1.30) H Estimat Glomerular Filtration Rate mL/min (>60) Glucose Level 145 MG/DL (74-106) H Calcium Level 8.0 MG/DL (8.5-10.1) L Total Bilirubin 0.2 MG/DL (0.2-1.0) Aspartate Amino Transf (AST/SGOT) 17 U/L (15-37) Alanine Aminotransferase (ALT/SGPT) 7 U/L (12-78) L Alkaline Phosphatase 59 U/L (46-116) Pro-B-Type Natriuretic Peptide 44287 pg/mL (0-125) H Total Protein 5.8 G/DL (6.4-8.2) L Albumin 1.4 G/DL (3.4-5.0) L Globulin 4.4 g/dL Albumin/Globulin Ratio 0.3 (1.0-2.7) L Microbiology Date/Time Source Procedure Growth Status 09/09/17 14:45 Nasopharynx Influenza Types A,B Antigen (GRUPO) - Final Complete 09/09/17 14:45 Urine,Clean Catch Urine Culture - Preliminary NO GROWTH Resulted Objective HEENT: Atraumatic, normocephalic. Anicteric. Pupils are equal, round, and reactive to light and accommodation. Extraocular muscles intact. On facial mask. NECK: JVP is less than 5 cm. No carotid bruit. Carotid upstrokes 2+ bilaterally. CARDIOVASCULAR: Normal S1, S2. Irregularly irregular rhythm. No murmurs, gallops, or rubs. LUNGS: Diminished breath sounds with presence of wheezing bilaterally. ABDOMEN: Soft, nontender, and nondistended. No hepatosplenomegaly. Positive bowel sounds. EXTREMITIES: No evidence of edema, clubbing, or cyanosis. DI RAMIREZ Sep 10, 2017 23:59
[2017-09-11] VITALS: BP 93/60
[2017-09-11 04:00] VITALS: BP 109/72
[2017-09-11 04:39] LABS: HEMATOCRIT 27.4 % (37.0-47.0); HEMOGLOBIN 8.5 G/DL (12.0-16.0); MEAN CORPUSCULAR VOLUME 89 FL (80-99); PLATELET COUNT 159 K/UL (150-450); WHITE BLOOD COUNT 19.3 K/UL (4.8-10.8)
[2017-09-11 05:05] LABS: ALANINE AMINOTRANSFERASE < 6 U/L (12-78); ALBUMIN 1.2 G/DL (3.4-5.0); ALBUMIN/GLOBULIN RATIO 0.3 (1.0-2.7); ALKALINE PHOSPHATASE 52 U/L (46-116); ANION GAP 9 mmol/L (5-15); ASPARTATE AMINO TRANSFERASE 12 U/L (15-37); BILIRUBIN,TOTAL 0.3 MG/DL (0.2-1.0); BLOOD UREA NITROGEN 98 mg/dL (7-18); CALCIUM 8.1 MG/DL (8.5-10.1); CARBON DIOXIDE 26 MMOL/L (21-32); CHLORIDE 115 MMOL/L (98-107); PHOSPHORUS 3.1 MG/DL (2.5-4.9); POTASSIUM 4.6 MMOL/L (3.5-5.1); SODIUM 150 MMOL/L (136-145)
[2017-09-11 08:00] VITALS: BP 119/63
[2017-09-11] MEDS: Meropenem 1 GM in NS 55 ML IVPB SCH ×2 (09:00→20:17)
[2017-09-11] MEDS: Metoprolol 25mg tab ORAL SCH ×2 (09:00→20:16)
[2017-09-11] MEDS: Heparin 5000 units/ml inj SUBQ SCH ×2 (09:31→20:20)
--- NOTE | 2017-09-11 10:26 | Nephrology Progress Note ---
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 Dementia HypoThyroidism DNR Plan hydrate- lower rate change to D5 On synthroid DC Hydrocortisone- pressors as needed monitor renal parameters avoid nephrotoxics per orders discussed with RN Anemia tanner Nitro patch Subjective ROS Limited/Unobtainable: No Constitutional: Reports: malaise Objective Objective Last 24 Hour Vital Signs Date Time Temp Pulse Resp B/P (MAP) Pulse Ox O2 Delivery O2 Flow Rate FiO2 09/11/17 09:00 74 119/63 09/11/17 08:43 74 41 94 Facial 45 09/11/17 08:00 35 09/11/17 08:00 98.6 82 45 119/63 97 Bi-pap 35 98.6 09/11/17 08:00 81 09/11/17 07:30 61 41 96 Facial 45 09/11/17 04:59 69 40 95 Facial 45 09/11/17 04:00 35 09/11/17 04:00 97.7 69 45 109/72 97 Bi-pap 35 97.7 09/11/17 04:00 78 09/11/17 02:59 70 37 96 Facial 45 09/11/17 00:45 63 37 96 Facial 45 09/11/17 00:00 35 09/11/17 00:00 74 09/11/17 00:00 97.3 79 45 93/60 97 Bi-pap 35 97.3 09/10/17 22:40 63 44 98 Facial 45 09/10/17 20:34 78 44 97 Facial 45 09/10/17 20:24 66 90/52 09/10/17 20:00 84 09/10/17 20:00 99.1 93 45 94/47 95 Bi-pap 35 99.1 09/10/17 19:07 79 45 95 Facial 45 09/10/17 17:40 98.1 09/10/17 17:13 98.1 09/10/17 16:57 95 09/10/17 16:37 87 34 96 Facial 45 09/10/17 16:00 98.1 100 35 118/73 93 Bi-pap 35 98.1 09/10/17 16:00 35 09/10/17 15:29 84 38 95 Facial 35 09/10/17 12:53 72 35 97 Facial 35 09/10/17 12:33 119/70 09/10/17 12:00 50 09/10/17 12:00 98.1 102 43 119/70 96 Bi-pap 50 98.1 09/10/17 12:00 86 09/10/17 11:10 68 31 100 Facial 50 Intake and Output 09/10/17 09/11/17 19:00 07:00 Intake Total 1385 ml 1215 ml Output Total 580 ml 500 ml Balance 805 ml 715 ml IV Total 755 ml 655 ml Tube Feeding 600 ml 500 ml Other 30 ml 60 ml Output Urine Total 580 ml 500 ml # Bowel Movements 2 2 Laboratory Tests 09/11/17 04:10: White Blood Count 19.3H, Red Blood Count 3.10L, Hemoglobin 8.5L, Hematocrit 27.4L, Mean Corpuscular Volume 89, Mean Corpuscular Hemoglobin 27.5, Mean Corpuscular Hemoglobin Concent 31.0L, Red Cell Distribution Width 17.0H, Platelet Count 159, Mean Platelet Volume 7.9, Neutrophils (%) (Auto) , Lymphocytes (%) (Auto) , Monocytes (%) (Auto) , Eosinophils (%) (Auto) , Basophils (%) (Auto) , Differential Total Cells Counted 100, Neutrophils % ( Manual) 95H, Lymphocytes % (Manual) 3L, Monocytes % (Manual) 1, Eosinophils % ( Manual) 1, Basophils % (Manual) 0, Band Neutrophils 0, Platelet Estimate Adequate, Platelet Morphology Normal, Hypochromasia 1+, Anisocytosis 1+, Sodium Level 150H, Potassium Level 4.6, Chloride Level 115H, Carbon Dioxide Level 26, Anion Gap 9, Blood Urea Nitrogen 98H, Creatinine 2.0H, Estimat Glomerular Filtration Rate , Glucose Level 110H, Calcium Level 8.1L, Phosphorus Level 3.1, Magnesium Level 2.0, Total Bilirubin 0.3, Aspartate Amino Transf (AST/SGOT) 12L , Alanine Aminotransferase (ALT/SGPT) < 6L, Alkaline Phosphatase 52, Total Protein 5.6L, Albumin 1.2L, Globulin 4.4, Albumin/Globulin Ratio 0.3L Height (Feet): 5 Height (Inches): 6.00 Weight (Pounds): 126 General Appearance: no apparent distress, other - tachypneic EENT: other - on BIPAP Cardiovascular: normal rate Respiratory/Chest: decreased breath sounds Abdomen: distended Objective no other change LOENIDES CHAWLA Sep 11, 2017 10:26
[2017-09-11] MEDS ORDERED: Tubing IV Secondary IV ONE ×3 (10:46→14:59)
[2017-09-11] MEDS ORDERED: NS 275ml ONE (10:46)
--- NOTE | 2017-09-11 11:15 | Pulmonolgy Critical Care Note ---
Critical Care - Asmt/Plan Problems: (1) Acute encephalopathy (2) Septic shock (3) Respiratory failure, acute (4) ATN (acute tubular necrosis) (5) At high risk for aspiration (6) Atrial fibrillation (7) Alzheimer's dementia Respiratory: monitor respiratory rate, adjust FIO2, other - cant take the pt off bipap and she is DNI Cardiac: continue to monitor HR/BP Renal: F/U I&O Infectious Disease: check cultures, continue antibiotics Gastrointestinal: continue feedings/current rate Endocrine: monitor blood sugar Hematologic: monitor H/H Neurologic: PRN Ativan Affect: PRN ativan Prophylaxis: Heparin Time Spent (Minutes): 40 Discussed with: nurses, consultants, other - I asked livestock farmworker to reach out to family to talk about plan of care. I would suggest to take her of biapap and treat her symptomatically. If she develops respiraroy failue, Morphin can help to alleviate the symptoms. Critical Care - Objective Last 24 Hour Vital Signs Date Time Temp Pulse Resp B/P (MAP) Pulse Ox O2 Delivery O2 Flow Rate FiO2 09/11/17 10:47 74 40 94 Facial 45 09/11/17 09:00 74 119/63 09/11/17 08:43 74 41 94 Facial 45 09/11/17 08:00 35 09/11/17 08:00 98.6 82 45 119/63 97 Bi-pap 35 98.6 09/11/17 08:00 81 09/11/17 07:30 61 41 96 Facial 45 09/11/17 04:59 69 40 95 Facial 45 09/11/17 04:00 35 09/11/17 04:00 97.7 69 45 109/72 97 Bi-pap 35 97.7 09/11/17 04:00 78 09/11/17 02:59 70 37 96 Facial 45 09/11/17 00:45 63 37 96 Facial 45 09/11/17 00:00 35 09/11/17 00:00 74 09/11/17 00:00 97.3 79 45 93/60 97 Bi-pap 35 97.3 09/10/17 22:40 63 44 98 Facial 45 09/10/17 20:34 78 44 97 Facial 45 09/10/17 20:24 66 90/52 09/10/17 20:00 84 09/10/17 20:00 99.1 93 45 94/47 95 Bi-pap 35 99.1 09/10/17 19:07 79 45 95 Facial 45 09/10/17 17:40 98.1 09/10/17 17:13 98.1 09/10/17 16:57 95 09/10/17 16:37 87 34 96 Facial 45 09/10/17 16:00 98.1 100 35 118/73 93 Bi-pap 35 98.1 09/10/17 16:00 35 09/10/17 15:29 84 38 95 Facial 35 09/10/17 12:53 72 35 97 Facial 35 09/10/17 12:33 119/70 09/10/17 12:00 50 09/10/17 12:00 98.1 102 43 119/70 96 Bi-pap 50 98.1 09/10/17 12:00 86 09/10/17 11:10 68 31 100 Facial 50 Status: awake Condition: critical HEENT: atraumatic Neck: full ROM Lungs: chest wall tender Heart: HR/BP stable Abdomen: non-tender, feeding tube Extremities: edema Micro: Microbiology Date/Time Source Procedure Growth Status 09/09/17 15:50 Blood Blood Culture - Preliminary NO GROWTH AFTER 24 HOURS Resulted 09/09/17 15:45 Blood Blood Culture - Preliminary NO GROWTH AFTER 24 HOURS Resulted 09/09/17 17:00 Sputum Induced Gram Stain - Final Complete 09/09/17 17:00 Sputum Culture - Final Sherri Albicans Usual Respiratory Yuki Complete 09/09/17 14:45 Nasopharynx Influenza Types A,B Antigen (GRUPO) - Final Complete 09/10/17 13:49 Stool Clostridium difficile Toxin Assay - Final Complete 09/09/17 14:45 Urine,Clean Catch Urine Culture - Final Escherichia Coli Proteus Mirabilis Complete Critical Care - Subjective ROS Limited/Unobtainable: Yes Interval Events: not improving, still needs BIPAP EKG Rhythm: Sinus Rhythm FI02: 45 Sputum Amount: Moderate Tube Feeding Amount: 50 I&O: Intake and Output 09/10/17 09/11/17 19:00 07:00 Intake Total 1385 ml 1215 ml Output Total 580 ml 500 ml Balance 805 ml 715 ml IV Total 755 ml 655 ml Tube Feeding 600 ml 500 ml Other 30 ml 60 ml Output Urine Total 580 ml 500 ml # Bowel Movements 2 2 CXR: no change Labs: Laboratory Tests Test 09/11/17 04:10 White Blood Count 19.3 K/UL (4.8-10.8) H Red Blood Count 3.10 M/UL (4.20-5.40) L Hemoglobin 8.5 G/DL (12.0-16.0) L Hematocrit 27.4 % (37.0-47.0) L Mean Corpuscular Volume 89 FL (80-99) Mean Corpuscular Hemoglobin 27.5 PG (27.0-31.0) Mean Corpuscular Hemoglobin Concent 31.0 G/DL (32.0-36.0) L Red Cell Distribution Width 17.0 % (11.6-14.8) H Platelet Count 159 K/UL (150-450) Mean Platelet Volume 7.9 FL (6.5-10.1) Neutrophils (%) (Auto) % (45.0-75.0) Lymphocytes (%) (Auto) % (20.0-45.0) Monocytes (%) (Auto) % (1.0-10.0) Eosinophils (%) (Auto) % (0.0-3.0) Basophils (%) (Auto) % (0.0-2.0) Differential Total Cells Counted 100 Neutrophils % (Manual) 95 % (45-75) H Lymphocytes % (Manual) 3 % (20-45) L Monocytes % (Manual) 1 % (1-10) Eosinophils % (Manual) 1 % (0-3) Basophils % (Manual) 0 % (0-2) Band Neutrophils 0 % (0-8) Platelet Estimate Adequate Platelet Morphology Normal Hypochromasia 1+ Anisocytosis 1+ Sodium Level 150 MMOL/L (136-145) H Potassium Level 4.6 MMOL/L (3.5-5.1) Chloride Level 115 MMOL/L (98-107) H Carbon Dioxide Level 26 MMOL/L (21-32) Anion Gap 9 mmol/L (5-15) Blood Urea Nitrogen 98 mg/dL (7-18) H Creatinine 2.0 MG/DL (0.55-1.30) H Estimat Glomerular Filtration Rate mL/min (>60) Glucose Level 110 MG/DL (74-106) H Calcium Level 8.1 MG/DL (8.5-10.1) L Phosphorus Level 3.1 MG/DL (2.5-4.9) Magnesium Level 2.0 MG/DL (1.8-2.4) Total Bilirubin 0.3 MG/DL (0.2-1.0) Aspartate Amino Transf (AST/SGOT) 12 U/L (15-37) L Alanine Aminotransferase (ALT/SGPT) < 6 U/L (12-78) L Alkaline Phosphatase 52 U/L (46-116) Total Protein 5.6 G/DL (6.4-8.2) L Albumin 1.2 G/DL (3.4-5.0) L Globulin 4.4 g/dL Albumin/Globulin Ratio 0.3 (1.0-2.7) L Apoorva Loya MD Sep 11, 2017 11:14
[2017-09-11 12:00] VITALS: BP 105/58
[2017-09-11] MEDS: Nitroglycerin Patch 0.4mg TDERMAL SCH (12:03)
--- NOTE | 2017-09-11 12:16 | Infectious Diseases Prog Note ---
Assessment/Plan Assessment/Plan ASSESSMENT: The patient is an 87-year-old female with, leukocytosis , fluctuating b/t 15-19- repeat cx with no MDRO- ?lung malignancy as suggested on CT. Treating for PNA. -r/o fungal PNA -CXR 09/10: Improving but persistent left upper lobe infiltrate. Persistent right basilar atelectasis and infiltrate. Unchanged right suprahilar/ paratracheal opacity. This may reflect unresolved infiltrate, but given lack of interval change and possibly of underlying mass should be considered. -CXR: There is increased retrocardiacconsolidation. Infiltrates in the left upper lobe, right suprahilar and perihilar regions persist. -sp cx C. albicans, usual resp nicole -bcx NTD -u/a pyuria improved, repaet ucx <10K e,coli, <10K P. mirabilis -influenza sc neg -Cdiff neg Sepsis improved Septic shock. SP No fever. Urinary tract infection/pyuria UCX : E. coli and P Mirabilis (both dixon S) Pneumonia Chest x-ray, patchy bilateral infiltrates. 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 coli urosepsis History of chronic sacral decubitus. Atrial fibrillation. Anemia. History of hypoalbuminemia. PLAN: -Continue PO linezolid and Meropenem #3 for now pending WBC trend and cx -monitor plts -09/09 SP IV Ancef #4 -09/06 SP Vanco and Ertapenem #4 -f/u repeat cx -if worsening WBC, fever, will obtain CT chest and CT abd/p Monitor CBC. Monitor BMP. Monitor wound culture. Continue respiratory support. Monitor lactic acid, CBC, and BMP. Monitor chest x-ray. -Cocci ab, CrAg, fungitell -family discussion for plan of care as patient unable to wean down from Bipap Subjective Allergies: Coded Allergies: SHELLFISH DERIVED (Verified Allergy, Unknown, 09/04/17) Subjective afebrile leukocytosis fluctuating b/t 15 and 19 on bipap Bcx NTD sp cx NF Objective Vital Signs Last 24 Hour Vital Signs Date Time Temp Pulse Resp B/P (MAP) Pulse Ox O2 Delivery O2 Flow Rate FiO2 09/11/17 12:03 119/63 09/11/17 10:47 74 40 94 Facial 45 09/11/17 09:00 74 119/63 09/11/17 08:43 74 41 94 Facial 45 09/11/17 08:00 35 09/11/17 08:00 98.6 82 45 119/63 97 Bi-pap 35 98.6 09/11/17 08:00 81 09/11/17 07:30 61 41 96 Facial 45 09/11/17 04:59 69 40 95 Facial 45 09/11/17 04:00 35 09/11/17 04:00 97.7 69 45 109/72 97 Bi-pap 35 97.7 09/11/17 04:00 78 09/11/17 02:59 70 37 96 Facial 45 09/11/17 00:45 63 37 96 Facial 45 09/11/17 00:00 35 09/11/17 00:00 74 09/11/17 00:00 97.3 79 45 93/60 97 Bi-pap 35 97.3 09/10/17 22:40 63 44 98 Facial 45 09/10/17 20:34 78 44 97 Facial 45 09/10/17 20:24 66 90/52 09/10/17 20:00 84 09/10/17 20:00 99.1 93 45 94/47 95 Bi-pap 35 99.1 09/10/17 19:07 79 45 95 Facial 45 09/10/17 17:40 98.1 09/10/17 17:13 98.1 09/10/17 16:57 95 09/10/17 16:37 87 34 96 Facial 45 09/10/17 16:00 98.1 100 35 118/73 93 Bi-pap 35 98.1 09/10/17 16:00 35 09/10/17 15:29 84 38 95 Facial 35 09/10/17 12:53 72 35 97 Facial 35 09/10/17 12:33 119/70 Height (Feet): 5 Height (Inches): 6.00 Weight (Pounds): 126 Objective GENERAL: The patient is a well-developed and well-nourished, elderly white female, who is currently on BiPAP. HEENT: Eyes, pupils are equal and responsive to light and accommodation. Extraocular movements are intact. NECK: Supple without lymphadenopathy. CHEST: Lungs are clear to auscultation bilaterally without wheezes or rales. CARDIOVASCULAR: Tachycardic, regular rhythm. S1 and S2 are normal without murmurs, rubs, or gallops. ABDOMEN: Soft, nontender, and nondistended. Positive bowel sounds. No evidence of hepatosplenomegaly. Currently, no rebound or guarding noted. EXTREMITIES: Negative for clubbing, cyanosis, or edema. Microbiology Date/Time Source Procedure Growth Status 09/09/17 15:50 Blood Blood Culture - Preliminary NO GROWTH AFTER 24 HOURS Resulted 09/09/17 15:45 Blood Blood Culture - Preliminary NO GROWTH AFTER 24 HOURS Resulted 09/09/17 17:00 Sputum Induced Gram Stain - Final Complete 09/09/17 17:00 Sputum Culture - Final Sherri Albicans Usual Respiratory Nicole Complete 09/09/17 14:45 Nasopharynx Influenza Types A,B Antigen (GRUPO) - Final Complete 09/10/17 13:49 Stool Clostridium difficile Toxin Assay - Final Complete 09/09/17 14:45 Urine,Clean Catch Urine Culture - Final Escherichia Coli Proteus Mirabilis Complete Laboratory Tests Test 09/11/17 04:10 White Blood Count 19.3 K/UL (4.8-10.8) H Red Blood Count 3.10 M/UL (4.20-5.40) L Hemoglobin 8.5 G/DL (12.0-16.0) L Hematocrit 27.4 % (37.0-47.0) L Mean Corpuscular Volume 89 FL (80-99) Mean Corpuscular Hemoglobin 27.5 PG (27.0-31.0) Mean Corpuscular Hemoglobin Concent 31.0 G/DL (32.0-36.0) L Red Cell Distribution Width 17.0 % (11.6-14.8) H Platelet Count 159 K/UL (150-450) Mean Platelet Volume 7.9 FL (6.5-10.1) Neutrophils (%) (Auto) % (45.0-75.0) Lymphocytes (%) (Auto) % (20.0-45.0) Monocytes (%) (Auto) % (1.0-10.0) Eosinophils (%) (Auto) % (0.0-3.0) Basophils (%) (Auto) % (0.0-2.0) Differential Total Cells Counted 100 Neutrophils % (Manual) 95 % (45-75) H Lymphocytes % (Manual) 3 % (20-45) L Monocytes % (Manual) 1 % (1-10) Eosinophils % (Manual) 1 % (0-3) Basophils % (Manual) 0 % (0-2) Band Neutrophils 0 % (0-8) Platelet Estimate Adequate Platelet Morphology Normal Hypochromasia 1+ Anisocytosis 1+ Sodium Level 150 MMOL/L (136-145) H Potassium Level 4.6 MMOL/L (3.5-5.1) Chloride Level 115 MMOL/L (98-107) H Carbon Dioxide Level 26 MMOL/L (21-32) Anion Gap 9 mmol/L (5-15) Blood Urea Nitrogen 98 mg/dL (7-18) H Creatinine 2.0 MG/DL (0.55-1.30) H Estimat Glomerular Filtration Rate mL/min (>60) Glucose Level 110 MG/DL (74-106) H Calcium Level 8.1 MG/DL (8.5-10.1) L Phosphorus Level 3.1 MG/DL (2.5-4.9) Magnesium Level 2.0 MG/DL (1.8-2.4) Total Bilirubin 0.3 MG/DL (0.2-1.0) Aspartate Amino Transf (AST/SGOT) 12 U/L (15-37) L Alanine Aminotransferase (ALT/SGPT) < 6 U/L (12-78) L Alkaline Phosphatase 52 U/L (46-116) Total Protein 5.6 G/DL (6.4-8.2) L Albumin 1.2 G/DL (3.4-5.0) L Globulin 4.4 g/dL Albumin/Globulin Ratio 0.3 (1.0-2.7) L Current Medications Medications (Trade) Dose Ordered Sig/Jonah Route PRN Reason Start Time Stop Time Status Last Admin Dose Admin Acetaminophen (Tylenol) 650 mg Q4H PRN ORAL T>100.5 09/06/17 22:45 10/04/17 06:44 09/09/17 11:53 Chlorhexidine Gluconate (Brandy-Hex 2%) 1 applic DAILY@2000 TOPIC 09/08/17 20:00 10/08/17 19:59 09/10/17 20:20 Dextrose 1,000 ml @ 50 mls/hr Q20H IV 3/10/18 10:00 10/07/17 09:59 09/10/17 17:10 Diltiazem HCl (Cardizem) 10 mg Q1HR PRN IVP HR>120BPM 09/06/17 20:00 10/04/17 08:29 Famotidine (Pepcid) 20 mg DAILY GT 09/09/17 09:00 10/09/17 08:59 09/11/17 09:00 Heparin Sodium (Porcine) (Heparin 5000 units/ml) 5,000 units EVERY 12 HOURS SUBQ 09/06/17 21:00 10/04/17 08:59 09/11/17 09:31 Levothyroxine Sodium (Synthroid) 50 mcg DAILY@0630 NG 09/07/17 06:30 10/06/17 06:29 09/11/17 06:10 Linezolid (Zyvox) 600 mg EVERY 12 HOURS ORAL 09/09/17 12:45 09/14/17 12:44 09/11/17 09:00 Meropenem 1 gm/ Sodium Chloride 55 ml @ 110 mls/hr Q12HR IVPB 09/09/17 14:00 09/14/17 13:59 09/11/17 09:00 Metoprolol Tartrate (Lopressor) 25 mg Q12HR ORAL 09/08/17 21:00 10/08/17 20:59 09/11/17 09:00 Nitroglycerin (Ntg) 1 patch Q24H TDERMAL 09/07/17 12:00 10/05/17 11:59 09/11/17 12:03 Ondansetron HCl (Zofran) 4 mg Q6H PRN IVP Nausea & Vomiting 09/07/17 00:45 10/04/17 06:44 Polyethylene Glycol (Miralax) 17 gm DAILYPRN PRN NG Constipation 09/07/17 09:30 10/04/17 06:44 Lois Martinez M.D. Sep 11, 2017 12:16
--- NOTE | 2017-09-11 13:20 | Internal Med Progress Note ---
Subjective Date of Service: Sep 11, 2017 Physician Name Yue Jacob Attending Physician Donovan Spring MD Current Medications Medications (Trade) Dose Ordered Sig/Jonah Route PRN Reason Start Time Stop Time Status Last Admin Dose Admin Acetaminophen (Tylenol) 650 mg Q4H PRN ORAL T>100.5 09/06/17 22:45 10/04/17 06:44 09/09/17 11:53 Chlorhexidine Gluconate (Brandy-Hex 2%) 1 applic DAILY@2000 TOPIC 09/08/17 20:00 10/08/17 19:59 09/10/17 20:20 Dextrose 1,000 ml @ 50 mls/hr Q20H IV 09/07/17 10:00 10/07/17 09:59 09/10/17 17:10 Diltiazem HCl (Cardizem) 10 mg Q1HR PRN IVP HR>120BPM 09/06/17 20:00 10/04/17 08:29 Famotidine (Pepcid) 20 mg DAILY GT 09/09/17 09:00 10/09/17 08:59 09/11/17 09:00 Heparin Sodium (Porcine) (Heparin 5000 units/ml) 5,000 units EVERY 12 HOURS SUBQ 09/06/17 21:00 10/04/17 08:59 09/11/17 09:31 Levothyroxine Sodium (Synthroid) 50 mcg DAILY@0630 NG 09/07/17 06:30 10/06/17 06:29 09/11/17 06:10 Linezolid (Zyvox) 600 mg EVERY 12 HOURS ORAL 09/09/17 12:45 09/14/17 12:44 09/11/17 09:00 Meropenem 1 gm/ Sodium Chloride 55 ml @ 110 mls/hr Q12HR IVPB 09/09/17 14:00 09/14/17 13:59 09/11/17 09:00 Metoprolol Tartrate (Lopressor) 25 mg Q12HR ORAL 09/08/17 21:00 10/08/17 20:59 09/11/17 09:00 Nitroglycerin (Ntg) 1 patch Q24H TDERMAL 09/07/17 12:00 10/05/17 11:59 09/11/17 12:03 Ondansetron HCl (Zofran) 4 mg Q6H PRN IVP Nausea & Vomiting 09/07/17 00:45 10/04/17 06:44 Polyethylene Glycol (Miralax) 17 gm DAILYPRN PRN NG Constipation 09/07/17 09:30 10/04/17 06:44 Allergies: Coded Allergies: SHELLFISH DERIVED (Verified Allergy, Unknown, 09/04/17) ROS Limited/Unobtainable: Yes Subjective 87 YO F admitted with dyspnea. Now respiratory failure. On BIPAP. Cover for Int Med-Dr Spring. DIMITRY Objective Last Vital Signs Date Time Temp Pulse Resp B/P (MAP) Pulse Ox O2 Delivery O2 Flow Rate FiO2 09/11/17 12:03 119/63 09/11/17 10:47 74 40 94 Facial 45 09/11/17 08:00 98.6 98.6 09/10/17 05:13 8.0 Laboratory Tests Test 09/11/17 04:10 White Blood Count 19.3 K/UL (4.8-10.8) H Red Blood Count 3.10 M/UL (4.20-5.40) L Hemoglobin 8.5 G/DL (12.0-16.0) L Hematocrit 27.4 % (37.0-47.0) L Mean Corpuscular Volume 89 FL (80-99) Mean Corpuscular Hemoglobin 27.5 PG (27.0-31.0) Mean Corpuscular Hemoglobin Concent 31.0 G/DL (32.0-36.0) L Red Cell Distribution Width 17.0 % (11.6-14.8) H Platelet Count 159 K/UL (150-450) Mean Platelet Volume 7.9 FL (6.5-10.1) Neutrophils (%) (Auto) % (45.0-75.0) Lymphocytes (%) (Auto) % (20.0-45.0) Monocytes (%) (Auto) % (1.0-10.0) Eosinophils (%) (Auto) % (0.0-3.0) Basophils (%) (Auto) % (0.0-2.0) Differential Total Cells Counted 100 Neutrophils % (Manual) 95 % (45-75) H Lymphocytes % (Manual) 3 % (20-45) L Monocytes % (Manual) 1 % (1-10) Eosinophils % (Manual) 1 % (0-3) Basophils % (Manual) 0 % (0-2) Band Neutrophils 0 % (0-8) Platelet Estimate Adequate Platelet Morphology Normal Hypochromasia 1+ Anisocytosis 1+ Sodium Level 150 MMOL/L (136-145) H Potassium Level 4.6 MMOL/L (3.5-5.1) Chloride Level 115 MMOL/L (98-107) H Carbon Dioxide Level 26 MMOL/L (21-32) Anion Gap 9 mmol/L (5-15) Blood Urea Nitrogen 98 mg/dL (7-18) H Creatinine 2.0 MG/DL (0.55-1.30) H Estimat Glomerular Filtration Rate mL/min (>60) Glucose Level 110 MG/DL (74-106) H Calcium Level 8.1 MG/DL (8.5-10.1) L Phosphorus Level 3.1 MG/DL (2.5-4.9) Magnesium Level 2.0 MG/DL (1.8-2.4) Total Bilirubin 0.3 MG/DL (0.2-1.0) Aspartate Amino Transf (AST/SGOT) 12 U/L (15-37) L Alanine Aminotransferase (ALT/SGPT) < 6 U/L (12-78) L Alkaline Phosphatase 52 U/L (46-116) Total Protein 5.6 G/DL (6.4-8.2) L Albumin 1.2 G/DL (3.4-5.0) L Globulin 4.4 g/dL Albumin/Globulin Ratio 0.3 (1.0-2.7) L Microbiology Date/Time Source Procedure Growth Status 09/09/17 15:50 Blood Blood Culture - Preliminary NO GROWTH AFTER 24 HOURS Resulted 09/09/17 15:45 Blood Blood Culture - Preliminary NO GROWTH AFTER 24 HOURS Resulted 09/09/17 17:00 Sputum Induced Gram Stain - Final Complete 09/09/17 17:00 Sputum Culture - Final Sherri Albicans Usual Respiratory Yuki Complete 09/09/17 14:45 Nasopharynx Influenza Types A,B Antigen (GRUPO) - Final Complete 09/10/17 13:49 Stool Clostridium difficile Toxin Assay - Final Complete 09/09/17 14:45 Urine,Clean Catch Urine Culture - Final Escherichia Coli Proteus Mirabilis Complete Intake and Output 09/10/17 09/11/17 19:00 07:00 Intake Total 1385 ml 1215 ml Output Total 580 ml 500 ml Balance 805 ml 715 ml IV Total 755 ml 655 ml Tube Feeding 600 ml 500 ml Other 30 ml 60 ml Output Urine Total 580 ml 500 ml # Bowel Movements 2 2 Objective GENERAL: The patient is a well-developed and well-nourished, elderly white female, who is currently on BiPAP. HEENT: Eyes, pupils are equal and responsive to light and accommodation. Extraocular movements are intact. NECK: Supple without lymphadenopathy. CHEST: BIPAP; Lungs are clear to auscultation bilaterally without wheezes or rales. CARDIOVASCULAR: Tachycardic, regular rhythm. S1 and S2 are normal without murmurs, rubs, or gallops. ABDOMEN: Soft, nontender, and nondistended. Positive bowel sounds. No evidence of hepatosplenomegaly. Currently, no rebound or guarding noted. EXTREMITIES: Negative for clubbing, cyanosis, or edema. RECTAL/GENITAL: Not performed. NEUROLOGICAL: Unable to assess. Assessment/Plan Problem List: (1) Atrial fibrillation with rapid ventricular response Assessment & Plan: See cardiology note. (2) Respiratory failure Assessment & Plan: See pulmonary note. Cont BIPAP. Continue ertapenem and linezolid Per ID (3) Fever (4) Septic shock (5) Dyspnea Assessment & Plan: Continue BIPAP (6) Hypotension Assessment & Plan: Continue pressors (7) HTN (hypertension) Assessment & Plan: Continue diltiazem (8) Hypothyroidism Assessment & Plan: Continue levoxyl. (9) UTI (urinary tract infection) Assessment & Plan: E. Coli and Proteus. Continue ertapenem and linezolid per ID Status: not improved YUE JACOB Sep 11, 2017 13:20
[2017-09-11] MEDS ORDERED: D5NS 1000ml IV ONE (14:58)
[2017-09-11 16:00] VITALS: BP 97/52
[2017-09-11 20:00] VITALS: BP 114/83
[2017-09-11] MEDS: Dyna-Hex 2% Top Sol 2oz TOPIC SCH (20:17)
--- NOTE | 2017-09-11 23:37 | Cardiology Progress Note ---
Assessment/Plan Assessment/Plan 1. Septic shock, resolved. 2. Atrial fibrillation with controlled ventricular response, continue metoprolol. 3. History of hypertensive heart disease with LVEF at 65%. 4. History of hyperlipidemia. 5. History of CVA. 6. Acute respiratory failure, on facial mask. Subjective Subjective Atrial fibrillation with CVR at 66. Objective Last 24 Hour Vital Signs Date Time Temp Pulse Resp B/P (MAP) Pulse Ox O2 Delivery O2 Flow Rate FiO2 09/11/17 23:05 63 47 100 Facial 45 09/11/17 21:06 79 39 99 Facial 45 09/11/17 20:16 84 116/83 09/11/17 20:00 35 09/11/17 20:00 97.7 81 44 114/83 98 Bi-pap 35 97.7 09/11/17 20:00 68 09/11/17 18:55 64 45 99 Facial 45 09/11/17 17:18 79 41 96 Facial 45 09/11/17 16:00 98.5 61 45 97/52 97 Bi-pap 35 98.5 09/11/17 16:00 35 09/11/17 16:00 70 09/11/17 15:22 60 41 96 Facial 45 09/11/17 13:24 73 43 98 Facial 45 09/11/17 12:03 119/63 09/11/17 12:00 67 09/11/17 12:00 98.6 81 45 105/58 97 Bi-pap 35 98.6 09/11/17 12:00 35 09/11/17 10:47 74 40 94 Facial 45 09/11/17 09:00 74 119/63 09/11/17 08:43 74 41 94 Facial 45 09/11/17 08:00 35 09/11/17 08:00 98.6 82 45 119/63 97 Bi-pap 35 98.6 09/11/17 08:00 81 09/11/17 07:30 61 41 96 Facial 45 09/11/17 04:59 69 40 95 Facial 45 09/11/17 04:00 35 09/11/17 04:00 97.7 69 45 109/72 97 Bi-pap 35 97.7 09/11/17 04:00 78 09/11/17 02:59 70 37 96 Facial 45 09/11/17 00:45 63 37 96 Facial 45 09/11/17 00:00 35 09/11/17 00:00 74 09/11/17 00:00 97.3 79 45 93/60 97 Bi-pap 35 97.3 Intake and Output 09/10/17 09/11/17 19:00 07:00 Intake Total 1385 ml 1265 ml Output Total 580 ml 500 ml Balance 805 ml 765 ml IV Total 755 ml 655 ml Tube Feeding 600 ml 550 ml Other 30 ml 60 ml Output Urine Total 580 ml 500 ml # Bowel Movements 2 2 Laboratory Tests Test 09/11/17 04:10 White Blood Count 19.3 K/UL (4.8-10.8) H Red Blood Count 3.10 M/UL (4.20-5.40) L Hemoglobin 8.5 G/DL (12.0-16.0) L Hematocrit 27.4 % (37.0-47.0) L Mean Corpuscular Volume 89 FL (80-99) Mean Corpuscular Hemoglobin 27.5 PG (27.0-31.0) Mean Corpuscular Hemoglobin Concent 31.0 G/DL (32.0-36.0) L Red Cell Distribution Width 17.0 % (11.6-14.8) H Platelet Count 159 K/UL (150-450) Mean Platelet Volume 7.9 FL (6.5-10.1) Neutrophils (%) (Auto) % (45.0-75.0) Lymphocytes (%) (Auto) % (20.0-45.0) Monocytes (%) (Auto) % (1.0-10.0) Eosinophils (%) (Auto) % (0.0-3.0) Basophils (%) (Auto) % (0.0-2.0) Differential Total Cells Counted 100 Neutrophils % (Manual) 95 % (45-75) H Lymphocytes % (Manual) 3 % (20-45) L Monocytes % (Manual) 1 % (1-10) Eosinophils % (Manual) 1 % (0-3) Basophils % (Manual) 0 % (0-2) Band Neutrophils 0 % (0-8) Platelet Estimate Adequate Platelet Morphology Normal Hypochromasia 1+ Anisocytosis 1+ Sodium Level 150 MMOL/L (136-145) H Potassium Level 4.6 MMOL/L (3.5-5.1) Chloride Level 115 MMOL/L (98-107) H Carbon Dioxide Level 26 MMOL/L (21-32) Anion Gap 9 mmol/L (5-15) Blood Urea Nitrogen 98 mg/dL (7-18) H Creatinine 2.0 MG/DL (0.55-1.30) H Estimat Glomerular Filtration Rate mL/min (>60) Glucose Level 110 MG/DL (74-106) H Calcium Level 8.1 MG/DL (8.5-10.1) L Phosphorus Level 3.1 MG/DL (2.5-4.9) Magnesium Level 2.0 MG/DL (1.8-2.4) Total Bilirubin 0.3 MG/DL (0.2-1.0) Aspartate Amino Transf (AST/SGOT) 12 U/L (15-37) L Alanine Aminotransferase (ALT/SGPT) < 6 U/L (12-78) L Alkaline Phosphatase 52 U/L (46-116) Total Protein 5.6 G/DL (6.4-8.2) L Albumin 1.2 G/DL (3.4-5.0) L Globulin 4.4 g/dL Albumin/Globulin Ratio 0.3 (1.0-2.7) L Microbiology Date/Time Source Procedure Growth Status 09/09/17 15:50 Blood Blood Culture - Preliminary NO GROWTH AFTER 24 HOURS Resulted 09/09/17 15:45 Blood Blood Culture - Preliminary NO GROWTH AFTER 24 HOURS Resulted 09/09/17 17:00 Sputum Induced Gram Stain - Final Complete 09/09/17 17:00 Sputum Culture - Final Sherri Albicans Usual Respiratory Yuki Complete 09/09/17 14:45 Nasopharynx Influenza Types A,B Antigen (GRUPO) - Final Complete 09/10/17 13:49 Stool Clostridium difficile Toxin Assay - Final Complete 09/09/17 14:45 Urine,Clean Catch Urine Culture - Final Escherichia Coli Proteus Mirabilis Complete Objective HEENT: Atraumatic, normocephalic. Anicteric. Pupils are equal, round, and reactive to light and accommodation. Extraocular muscles intact. On facial mask. NECK: JVP is less than 5 cm. No carotid bruit. Carotid upstrokes 2+ bilaterally. CARDIOVASCULAR: Normal S1, S2. Irregularly irregular rhythm. No murmurs, gallops, or rubs. LUNGS: Diminished breath sounds with presence of wheezing bilaterally. ABDOMEN: Soft, nontender, and nondistended. No hepatosplenomegaly. Positive bowel sounds. EXTREMITIES: No evidence of edema, clubbing, or cyanosis. DI RAMIREZ Sep 11, 2017 23:37
[2017-09-12] VITALS: BP 108/60
[2017-09-12 04:00] VITALS: BP 112/69
[2017-09-12 04:52] LABS: HEMATOCRIT 25.3 % (37.0-47.0); HEMOGLOBIN 7.8 G/DL (12.0-16.0); MEAN CORPUSCULAR VOLUME 89 FL (80-99); PLATELET COUNT 162 K/UL (150-450); RED BLOOD COUNT 2.84 M/UL (4.20-5.40); RED CELL DISTRIBUTION WIDTH 16.8 % (11.6-14.8); WHITE BLOOD COUNT 20.1 K/UL (4.8-10.8)
[2017-09-12 05:11] LABS: ANION GAP 6 mmol/L (5-15); BLOOD UREA NITROGEN 106 mg/dL (7-18); CALCIUM 7.9 MG/DL (8.5-10.1); CARBON DIOXIDE 27 MMOL/L (21-32); CHLORIDE 113 MMOL/L (98-107); CREATININE 1.8 MG/DL (0.55-1.30); SODIUM 146 MMOL/L (136-145)
[2017-09-12 08:00] VITALS: BP 98/50
[2017-09-12] MEDS: Metoprolol 25mg tab ORAL SCH (09:00)
[2017-09-12] MEDS: Heparin 5000 units/ml inj SUBQ SCH (09:00)
[2017-09-12] MEDS: Meropenem 1 GM in NS 55 ML IVPB SCH (09:04)
[2017-09-12] MEDS ORDERED: Morphine Sulfate 10mg/5ml Oral Soln ud ORAL PRN (11:45)
--- NOTE | 2017-09-12 11:51 | Pulmonology Progress Note ---
Assessment/Plan Problems: (1) Septic shock (2) ARF (acute renal failure) (3) Hypothyroidism (4) Alzheimer's dementia (5) Cerebrovascular accident (CVA) (6) Pacemaker Assessment/Plan extensive discussion with pts DPOA, they agreed with comfort care and removal of BIPAP and dc the feeding. If pt doesn't pass within a day, we will send her to her shelter under hospice care. Subjective ROS Limited/Unobtainable: Yes Interval Events: on bipap Allergies: Coded Allergies: SHELLFISH DERIVED (Verified Allergy, Unknown, 09/04/17) Objective Last 24 Hour Vital Signs Date Time Temp Pulse Resp B/P (MAP) Pulse Ox O2 Delivery O2 Flow Rate FiO2 09/12/17 10:35 64 40 100 Facial 45 09/12/17 09:03 60 38 96 Facial 45 09/12/17 09:00 63 98/50 09/12/17 08:00 78 09/12/17 08:00 97.5 63 43 98/50 97 Bi-pap 45 97.5 09/12/17 08:00 45 09/12/17 06:50 68 35 99 Facial 45 09/12/17 04:56 71 40 99 Facial 45 09/12/17 04:00 35 09/12/17 04:00 77 09/12/17 04:00 97.9 69 38 112/69 100 Bi-pap 35 97.9 09/12/17 03:06 66 41 99 Facial 45 09/12/17 01:04 64 33 100 Facial 45 09/12/17 00:00 98.3 62 43 108/60 100 Bi-pap 35 98.3 09/12/17 00:00 67 09/12/17 00:00 35 09/11/17 23:05 63 47 100 Facial 45 09/11/17 21:06 79 39 99 Facial 45 09/11/17 20:16 84 116/83 09/11/17 20:00 35 09/11/17 20:00 97.7 81 44 114/83 98 Bi-pap 35 97.7 09/11/17 20:00 68 09/11/17 18:55 64 45 99 Facial 45 09/11/17 17:18 79 41 96 Facial 45 09/11/17 16:00 98.5 61 45 97/52 97 Bi-pap 35 98.5 09/11/17 16:00 35 09/11/17 16:00 70 09/11/17 15:22 60 41 96 Facial 45 09/11/17 13:24 73 43 98 Facial 45 09/11/17 12:03 119/63 09/11/17 12:00 67 09/11/17 12:00 98.6 81 45 105/58 97 Bi-pap 35 98.6 09/11/17 12:00 35 Intake and Output 09/11/17 09/12/17 19:00 07:00 Intake Total 1010 ml 1160 ml Output Total 450 ml Balance 1010 ml 710 ml IV Total 510 ml 660 ml Tube Feeding 500 ml 500 ml Output Urine Total 450 ml # Bowel Movements 1 General Appearance: cachetic HEENT: normocephalic, atraumatic Respiratory/Chest: crackles/rales, rhonchi Breasts: no masses Cardiovascular: normal peripheral pulses Extremities: no cyanosis, no clubbing Skin: no rash 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 Microbiology Date/Time Source Procedure Growth Status 09/10/17 14:55 Blood Blood Culture - Preliminary NO GROWTH AFTER 24 HOURS Resulted 09/10/17 14:35 Blood Blood Culture - Preliminary NO GROWTH AFTER 24 HOURS Resulted 09/09/17 15:50 Blood Blood Culture - Preliminary NO GROWTH AFTER 48 HOURS Resulted 09/09/17 15:45 Blood Blood Culture - Preliminary NO GROWTH AFTER 48 HOURS Resulted 09/09/17 17:00 Sputum Induced Gram Stain - Final Complete 09/09/17 17:00 Sputum Culture - Final Sherri Albicans Usual Respiratory Yuki Complete 09/09/17 14:45 Nasopharynx Influenza Types A,B Antigen (GRUPO) - Final Complete 09/10/17 13:49 Stool Clostridium difficile Toxin Assay - Final Complete 09/09/17 14:45 Urine,Clean Catch Urine Culture - Final Escherichia Coli Proteus Mirabilis Complete Laboratory Tests 09/12/17 04:00: White Blood Count 20.1H, Red Blood Count 2.84L, Hemoglobin 7.8L, Hematocrit 25.3L, Mean Corpuscular Volume 89, Mean Corpuscular Hemoglobin 27.6, Mean Corpuscular Hemoglobin Concent 31.0L, Red Cell Distribution Width 16.8H, Platelet Count 162, Mean Platelet Volume 8.5, Neutrophils (%) (Auto) , Lymphocytes (%) (Auto) , Monocytes (%) (Auto) , Eosinophils (%) (Auto) , Basophils (%) (Auto) , Differential Total Cells Counted 100, Neutrophils % ( Manual) 91H, Lymphocytes % (Manual) 4L, Monocytes % (Manual) 3, Eosinophils % ( Manual) 2, Basophils % (Manual) 0, Band Neutrophils 0, Platelet Estimate Adequate, Platelet Morphology Normal, Hypochromasia 1+, Anisocytosis 1+, Sodium Level 146H, Potassium Level 5.0, Chloride Level 113H, Carbon Dioxide Level 27, Anion Gap 6, Blood Urea Nitrogen 106H, Creatinine 1.8H, Estimat Glomerular Filtration Rate , Glucose Level 120H, Calcium Level 7.9L, Coccidioides Antibody (Comp Fix) [Pending], Cryptococcus Antigen [Pending] Current Medications Medications (Trade) Dose Ordered Sig/Jonah Route PRN Reason Start Time Stop Time Status Last Admin Dose Admin Acetaminophen (Tylenol) 650 mg Q4H PRN ORAL T>100.5 09/06/17 22:45 10/04/17 06:44 09/09/17 11:53 Chlorhexidine Gluconate (Brandy-Hex 2%) 1 applic DAILY@2000 TOPIC 09/08/17 20:00 10/08/17 19:59 09/11/17 20:17 Diltiazem HCl (Cardizem) 10 mg Q1HR PRN IVP HR>120BPM 09/06/17 20:00 10/04/17 08:29 Levothyroxine Sodium (Synthroid) 50 mcg DAILY@0630 NG 09/07/17 06:30 10/06/17 06:29 09/12/17 06:08 Metoprolol Tartrate (Lopressor) 25 mg Q12HR ORAL 09/08/17 21:00 10/08/17 20:59 09/11/17 20:16 Morphine Sulfate (Morphine 10mg/ 5ml Oral Soln) 5 mg Q3H PRN ORAL Breakthrough Pain 09/12/17 11:45 09/19/17 11:44 UNV Ondansetron HCl (Zofran) 4 mg Q6H PRN IVP Nausea & Vomiting 09/07/17 00:45 10/04/17 06:44 Apoorva Loya MD Sep 12, 2017 11:51
[2017-09-12] MEDS ORDERED: Artificial Tears 1.4% Op Soln BOTH EYES PRN (12:00)
[2017-09-12] MEDS ORDERED: Glycopyrrolate 0.2mg/ml 1ml Vial IV PRN ×2 (12:00→13:30)
[2017-09-12] MEDS ORDERED: Rate Change Narcotic Drip MISC PRN ×2 (12:00→13:30)
[2017-09-12] MEDS ORDERED: PCA Morphine 1mg/ml 30 ML IV PRN ×2 (12:00→12:30)
[2017-09-12] MEDS ORDERED: Prochlorperazine 10mg tab ORAL PRN ×2 (12:00→18:00)
[2017-09-12] MEDS ORDERED: Haloperidol 5mg/ml Inj IM PRN ×2 (12:00→13:30)
[2017-09-12] MEDS ORDERED: dilTIAZem HCl 25mg/5ml Inj IVP PRN (13:00)
[2017-09-12] MEDS ORDERED: Morphine Sulfate 10mg/ml Inj IVP ONE ×2 (13:00)
--- NOTE | 2017-09-12 13:24 | Nephrology Progress Note ---
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 Dementia HypoThyroidism DNR extensive discussion with pts DPOA, they agreed with comfort care and removal of BIPAP and dc the feeding. If pt doesn't pass within a day, we will send her to her intermediate under hospice care. Plan extensive discussion with pts DPOA, they agreed with comfort care and removal of BIPAP and dc the feeding. If pt doesn't pass within a day, we will send her to her intermediate under hospice care. Subjective ROS Limited/Unobtainable: Yes Objective Objective Last 24 Hour Vital Signs Date Time Temp Pulse Resp B/P (MAP) Pulse Ox O2 Delivery O2 Flow Rate FiO2 09/12/17 11:56 75 38 91 09/12/17 10:35 64 40 100 Facial 45 09/12/17 09:03 60 38 96 Facial 45 09/12/17 09:00 63 98/50 09/12/17 08:00 78 09/12/17 08:00 97.5 63 43 98/50 97 Bi-pap 45 97.5 09/12/17 08:00 45 09/12/17 06:50 68 35 99 Facial 45 09/12/17 04:56 71 40 99 Facial 45 09/12/17 04:00 35 09/12/17 04:00 77 09/12/17 04:00 97.9 69 38 112/69 100 Bi-pap 35 97.9 09/12/17 03:06 66 41 99 Facial 45 09/12/17 01:04 64 33 100 Facial 45 09/12/17 00:00 98.3 62 43 108/60 100 Bi-pap 35 98.3 09/12/17 00:00 67 09/12/17 00:00 35 09/11/17 23:05 63 47 100 Facial 45 09/11/17 21:06 79 39 99 Facial 45 09/11/17 20:16 84 116/83 09/11/17 20:00 35 09/11/17 20:00 97.7 81 44 114/83 98 Bi-pap 35 97.7 09/11/17 20:00 68 09/11/17 18:55 64 45 99 Facial 45 09/11/17 17:18 79 41 96 Facial 45 09/11/17 16:00 98.5 61 45 97/52 97 Bi-pap 35 98.5 09/11/17 16:00 35 09/11/17 16:00 70 09/11/17 15:22 60 41 96 Facial 45 09/11/17 13:24 73 43 98 Facial 45 Intake and Output 09/11/17 09/12/17 19:00 07:00 Intake Total 1010 ml 1160 ml Output Total 450 ml Balance 1010 ml 710 ml IV Total 510 ml 660 ml Tube Feeding 500 ml 500 ml Output Urine Total 450 ml # Bowel Movements 1 Laboratory Tests 09/12/17 04:00: White Blood Count 20.1H, Red Blood Count 2.84L, Hemoglobin 7.8L, Hematocrit 25.3L, Mean Corpuscular Volume 89, Mean Corpuscular Hemoglobin 27.6, Mean Corpuscular Hemoglobin Concent 31.0L, Red Cell Distribution Width 16.8H, Platelet Count 162, Mean Platelet Volume 8.5, Neutrophils (%) (Auto) , Lymphocytes (%) (Auto) , Monocytes (%) (Auto) , Eosinophils (%) (Auto) , Basophils (%) (Auto) , Differential Total Cells Counted 100, Neutrophils % ( Manual) 91H, Lymphocytes % (Manual) 4L, Monocytes % (Manual) 3, Eosinophils % ( Manual) 2, Basophils % (Manual) 0, Band Neutrophils 0, Platelet Estimate Adequate, Platelet Morphology Normal, Hypochromasia 1+, Anisocytosis 1+, Sodium Level 146H, Potassium Level 5.0, Chloride Level 113H, Carbon Dioxide Level 27, Anion Gap 6, Blood Urea Nitrogen 106H, Creatinine 1.8H, Estimat Glomerular Filtration Rate , Glucose Level 120H, Calcium Level 7.9L, Coccidioides Antibody (Comp Fix) [Pending], Cryptococcus Antigen [Pending] Height (Feet): 5 Height (Inches): 6.00 Weight (Pounds): 138 General Appearance: mild distress Respiratory/Chest: decreased breath sounds Abdomen: distended Objective no other change LEONIDES CHAWLA Sep 12, 2017 13:24
[2017-09-12] MEDS ORDERED: Morphine 5mg/2.5ml Oral Soln ORAL PRN (13:30)
--- NOTE | 2017-09-12 13:53 | Infectious Diseases Prog Note ---
Assessment/Plan Assessment/Plan ASSESSMENT: The patient is an 87-year-old female with, leukocytosis , fluctuating b/t 15-19- repeat cx with no MDRO- ?lung malignancy as suggested on CT. Treating for PNA. -r/o fungal PNA -CXR 09/10: Improving but persistent left upper lobe infiltrate. Persistent right basilar atelectasis and infiltrate. Unchanged right suprahilar/ paratracheal opacity. This may reflect unresolved infiltrate, but given lack of interval change and possibly of underlying mass should be considered. -CXR: There is increased retrocardiacconsolidation. Infiltrates in the left upper lobe, right suprahilar and perihilar regions persist. -sp cx C. albicans, usual resp nicole -bcx NTD -u/a pyuria improved, repaet ucx <10K e,coli, <10K P. mirabilis -influenza sc neg -Cdiff neg Sepsis improved Septic shock. SP No fever. Urinary tract infection/pyuria UCX : E. coli and P Mirabilis (both dixon S) Pneumonia Chest x-ray, patchy bilateral infiltrates. 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 coli urosepsis History of chronic sacral decubitus. Atrial fibrillation. Anemia. History of hypoalbuminemia. PLAN: -Placed on comfort care, abx discontinued and morphine drip started ID will sign off now. Please call back if needed. Subjective Allergies: Coded Allergies: SHELLFISH DERIVED (Verified Allergy, Unknown, 09/04/17) Subjective patient placed on comfort care Objective Vital Signs Last 24 Hour Vital Signs Date Time Temp Pulse Resp B/P (MAP) Pulse Ox O2 Delivery O2 Flow Rate FiO2 09/12/17 11:56 75 38 91 09/12/17 10:35 64 40 100 Facial 45 09/12/17 09:03 60 38 96 Facial 45 09/12/17 09:00 63 98/50 09/12/17 08:00 78 09/12/17 08:00 97.5 63 43 98/50 97 Bi-pap 45 97.5 09/12/17 08:00 45 09/12/17 06:50 68 35 99 Facial 45 09/12/17 04:56 71 40 99 Facial 45 09/12/17 04:00 35 09/12/17 04:00 77 09/12/17 04:00 97.9 69 38 112/69 100 Bi-pap 35 97.9 09/12/17 03:06 66 41 99 Facial 45 09/12/17 01:04 64 33 100 Facial 45 09/12/17 00:00 98.3 62 43 108/60 100 Bi-pap 35 98.3 09/12/17 00:00 67 09/12/17 00:00 35 09/11/17 23:05 63 47 100 Facial 45 09/11/17 21:06 79 39 99 Facial 45 09/11/17 20:16 84 116/83 09/11/17 20:00 35 09/11/17 20:00 97.7 81 44 114/83 98 Bi-pap 35 97.7 09/11/17 20:00 68 09/11/17 18:55 64 45 99 Facial 45 09/11/17 17:18 79 41 96 Facial 45 09/11/17 16:00 98.5 61 45 97/52 97 Bi-pap 35 98.5 09/11/17 16:00 35 09/11/17 16:00 70 09/11/17 15:22 60 41 96 Facial 45 Height (Feet): 5 Height (Inches): 6.00 Weight (Pounds): 138 Objective GENERAL: The patient is a well-developed and well-nourished, elderly white female, who is currently on BiPAP. HEENT: Eyes, pupils are equal and responsive to light and accommodation. Extraocular movements are intact. NECK: Supple without lymphadenopathy. CHEST: Lungs are clear to auscultation bilaterally without wheezes or rales. CARDIOVASCULAR: Tachycardic, regular rhythm. S1 and S2 are normal without murmurs, rubs, or gallops. ABDOMEN: Soft, nontender, and nondistended. Positive bowel sounds. No evidence of hepatosplenomegaly. Currently, no rebound or guarding noted. EXTREMITIES: Negative for clubbing, cyanosis, or edema. Microbiology Date/Time Source Procedure Growth Status 09/10/17 14:55 Blood Blood Culture - Preliminary NO GROWTH AFTER 24 HOURS Resulted 09/10/17 14:35 Blood Blood Culture - Preliminary NO GROWTH AFTER 24 HOURS Resulted 09/09/17 15:50 Blood Blood Culture - Preliminary NO GROWTH AFTER 48 HOURS Resulted 09/09/17 15:45 Blood Blood Culture - Preliminary NO GROWTH AFTER 48 HOURS Resulted 09/09/17 17:00 Sputum Induced Gram Stain - Final Complete 09/09/17 17:00 Sputum Culture - Final Sherri Albicans Usual Respiratory Nicole Complete 09/09/17 14:45 Nasopharynx Influenza Types A,B Antigen (GRUPO) - Final Complete 09/10/17 13:49 Stool Clostridium difficile Toxin Assay - Final Complete 09/09/17 14:45 Urine,Clean Catch Urine Culture - Final Escherichia Coli Proteus Mirabilis Complete Laboratory Tests Test 09/12/17 04:00 White Blood Count 20.1 K/UL (4.8-10.8) H Red Blood Count 2.84 M/UL (4.20-5.40) L Hemoglobin 7.8 G/DL (12.0-16.0) L Hematocrit 25.3 % (37.0-47.0) L Mean Corpuscular Volume 89 FL (80-99) Mean Corpuscular Hemoglobin 27.6 PG (27.0-31.0) Mean Corpuscular Hemoglobin Concent 31.0 G/DL (32.0-36.0) L Red Cell Distribution Width 16.8 % (11.6-14.8) H Platelet Count 162 K/UL (150-450) Mean Platelet Volume 8.5 FL (6.5-10.1) Neutrophils (%) (Auto) % (45.0-75.0) Lymphocytes (%) (Auto) % (20.0-45.0) Monocytes (%) (Auto) % (1.0-10.0) Eosinophils (%) (Auto) % (0.0-3.0) Basophils (%) (Auto) % (0.0-2.0) Differential Total Cells Counted 100 Neutrophils % (Manual) 91 % (45-75) H Lymphocytes % (Manual) 4 % (20-45) L Monocytes % (Manual) 3 % (1-10) Eosinophils % (Manual) 2 % (0-3) Basophils % (Manual) 0 % (0-2) Band Neutrophils 0 % (0-8) Platelet Estimate Adequate Platelet Morphology Normal Hypochromasia 1+ Anisocytosis 1+ Sodium Level 146 MMOL/L (136-145) H Potassium Level 5.0 MMOL/L (3.5-5.1) Chloride Level 113 MMOL/L (98-107) H Carbon Dioxide Level 27 MMOL/L (21-32) Anion Gap 6 mmol/L (5-15) Blood Urea Nitrogen 106 mg/dL (7-18) H Creatinine 1.8 MG/DL (0.55-1.30) H Estimat Glomerular Filtration Rate mL/min (>60) Glucose Level 120 MG/DL (74-106) H Calcium Level 7.9 MG/DL (8.5-10.1) L Coccidioides Antibody (Comp Fix) Pending Cryptococcus Antigen Pending Current Medications Medications (Trade) Dose Ordered Sig/Jonah Route PRN Reason Start Time Stop Time Status Last Admin Dose Admin Acetaminophen (Tylenol) 650 mg Q4H PRN ORAL T>100.5 09/12/17 13:30 10/04/17 13:29 Artificial Tears (Akwa-Tears) 1 drop QIDPRN PRN BOTH EYES Dry Eyes 09/13/17 12:00 10/12/17 11:59 Chlorhexidine Gluconate (Brandy-Hex 2%) 1 applic DAILY@2000 TOPIC 09/12/17 20:00 10/08/17 19:59 Diltiazem HCl (Cardizem) 10 mg Q1HR PRN IVP HR>120 BPM 09/12/17 13:00 10/04/17 08:29 Glycopyrrolate (Robinul) 0.1 mg Q6H PRN IV excessive secretions 09/12/17 13:30 10/12/17 13:29 Haloperidol Lactate (Haldol) 1 mg Q30M PRN IM Agitation 09/12/17 13:30 10/12/17 13:29 Levothyroxine Sodium (Synthroid) 50 mcg DAILY@0630 NG 09/13/17 06:30 10/06/17 06:29 Metoprolol Tartrate (Lopressor) 25 mg Q12HR ORAL 09/12/17 21:00 10/08/17 20:59 Miscellaneous Medication (Narcotic Drip Rate Change) 1 ea DAILY PRN MISC To Patient Comfort 09/12/17 13:30 10/12/17 13:29 Miscellaneous Medication (Narcotic Shift Volume) 1 ea Q12HR@0700,1900 MISC 09/12/17 19:00 10/12/17 18:59 Morphine Sulfate 30 ml @ 5 mls/hr PERSONNEL TECHNICIAN Protocol PRN IV For Pain 09/12/17 12:30 10/12/17 12:29 Morphine Sulfate (Morphine 5mg/ 2.5ml Oral Soln) 5 mg Q3H PRN ORAL Breakthrough Pain/RR>30 09/12/17 13:30 10/12/17 13:29 Ondansetron HCl (Zofran) 4 mg Q6H PRN IVP Nausea & Vomiting 09/12/17 12:45 10/04/17 06:44 Prochlorperazine (Compazine) 10 mg Q6H PRN ORAL Nausea & Vomiting 09/12/17 18:00 10/12/17 11:59 Prochlorperazine (Compazine) 25 mg Q12H PRN RECTAL Nausea & Vomiting 09/12/17 14:00 10/12/17 13:59 Lois Martinez M.D. Sep 12, 2017 13:53
[2017-09-12 16:00] VITALS: BP 104/56
--- NOTE | 2017-09-12 17:26 | Internal Med Progress Note ---
Subjective Date of Service: Sep 12, 2017 Physician Name Yue Jacob Attending Physician Donovan Spring MD Current Medications Medications (Trade) Dose Ordered Sig/Jonah Route PRN Reason Start Time Stop Time Status Last Admin Dose Admin Acetaminophen (Tylenol) 650 mg Q4H PRN ORAL T>100.5 09/12/17 13:30 10/04/17 13:29 Artificial Tears (Akwa-Tears) 1 drop QIDPRN PRN BOTH EYES Dry Eyes 09/13/17 12:00 10/12/17 11:59 Chlorhexidine Gluconate (Brandy-Hex 2%) 1 applic DAILY@2000 TOPIC 09/12/17 20:00 10/08/17 19:59 Diltiazem HCl (Cardizem) 10 mg Q1HR PRN IVP HR>120 BPM 09/12/17 13:00 10/04/17 08:29 Glycopyrrolate (Robinul) 0.1 mg Q6H PRN IV excessive secretions 09/12/17 13:30 10/12/17 13:29 Haloperidol Lactate (Haldol) 1 mg Q30M PRN IM Agitation 09/12/17 13:30 10/12/17 13:29 Levothyroxine Sodium (Synthroid) 50 mcg DAILY@0630 NG 09/13/17 06:30 10/06/17 06:29 Metoprolol Tartrate (Lopressor) 25 mg Q12HR ORAL 09/12/17 21:00 10/08/17 20:59 Miscellaneous Medication (Narcotic Drip Rate Change) 1 ea DAILY PRN MISC To Patient Comfort 09/12/17 13:30 10/12/17 13:29 Miscellaneous Medication (Narcotic Shift Volume) 1 ea Q12HR@0700,1900 MISC 09/12/17 19:00 10/12/17 18:59 Morphine Sulfate 30 ml @ 5 mls/hr HAND IRONER Protocol PRN IV For Pain 09/12/17 12:30 10/12/17 12:29 09/12/17 15:48 Morphine Sulfate (Morphine 5mg/ 2.5ml Oral Soln) 5 mg Q3H PRN ORAL Breakthrough Pain/RR>30 09/12/17 13:30 10/12/17 13:29 Ondansetron HCl (Zofran) 4 mg Q6H PRN IVP Nausea & Vomiting 09/12/17 12:45 10/04/17 06:44 Prochlorperazine (Compazine) 10 mg Q6H PRN ORAL Nausea & Vomiting 09/12/17 18:00 10/12/17 11:59 Prochlorperazine (Compazine) 25 mg Q12H PRN RECTAL Nausea & Vomiting 09/12/17 14:00 10/12/17 13:59 Allergies: Coded Allergies: SHELLFISH DERIVED (Verified Allergy, Unknown, 09/04/17) ROS Limited/Unobtainable: Yes Subjective 87 YO F admitted with dyspnea. Now respiratory failure. On BIPAP. Cover for Int Med-Dr Spring. Objective Last Vital Signs Date Time Temp Pulse Resp B/P (MAP) Pulse Ox O2 Delivery O2 Flow Rate FiO2 09/12/17 16:27 20 09/12/17 16:00 97.0 70 104/56 95 97.0 70 09/12/17 10:35 Facial 45 09/10/17 05:13 8.0 Laboratory Tests Test 09/12/17 04:00 White Blood Count 20.1 K/UL (4.8-10.8) H Red Blood Count 2.84 M/UL (4.20-5.40) L Hemoglobin 7.8 G/DL (12.0-16.0) L Hematocrit 25.3 % (37.0-47.0) L Mean Corpuscular Volume 89 FL (80-99) Mean Corpuscular Hemoglobin 27.6 PG (27.0-31.0) Mean Corpuscular Hemoglobin Concent 31.0 G/DL (32.0-36.0) L Red Cell Distribution Width 16.8 % (11.6-14.8) H Platelet Count 162 K/UL (150-450) Mean Platelet Volume 8.5 FL (6.5-10.1) Neutrophils (%) (Auto) % (45.0-75.0) Lymphocytes (%) (Auto) % (20.0-45.0) Monocytes (%) (Auto) % (1.0-10.0) Eosinophils (%) (Auto) % (0.0-3.0) Basophils (%) (Auto) % (0.0-2.0) Differential Total Cells Counted 100 Neutrophils % (Manual) 91 % (45-75) H Lymphocytes % (Manual) 4 % (20-45) L Monocytes % (Manual) 3 % (1-10) Eosinophils % (Manual) 2 % (0-3) Basophils % (Manual) 0 % (0-2) Band Neutrophils 0 % (0-8) Platelet Estimate Adequate Platelet Morphology Normal Hypochromasia 1+ Anisocytosis 1+ Sodium Level 146 MMOL/L (136-145) H Potassium Level 5.0 MMOL/L (3.5-5.1) Chloride Level 113 MMOL/L (98-107) H Carbon Dioxide Level 27 MMOL/L (21-32) Anion Gap 6 mmol/L (5-15) Blood Urea Nitrogen 106 mg/dL (7-18) H Creatinine 1.8 MG/DL (0.55-1.30) H Estimat Glomerular Filtration Rate mL/min (>60) Glucose Level 120 MG/DL (74-106) H Calcium Level 7.9 MG/DL (8.5-10.1) L Coccidioides Antibody (Comp Fix) Pending Cryptococcus Antigen Pending Microbiology Date/Time Source Procedure Growth Status 09/10/17 14:55 Blood Blood Culture - Preliminary NO GROWTH AFTER 24 HOURS Resulted 09/10/17 14:35 Blood Blood Culture - Preliminary NO GROWTH AFTER 24 HOURS Resulted 09/10/17 13:49 Stool Clostridium difficile Toxin Assay - Final Complete Intake and Output 09/11/17 09/12/17 19:00 07:00 Intake Total 1010 ml 1160 ml Output Total 450 ml Balance 1010 ml 710 ml IV Total 510 ml 660 ml Tube Feeding 500 ml 500 ml Output Urine Total 450 ml # Bowel Movements 1 Objective GENERAL: The patient is a well-developed and well-nourished, elderly white female, who is currently on BiPAP. HEENT: Eyes, pupils are equal and responsive to light and accommodation. Extraocular movements are intact. NECK: Supple without lymphadenopathy. CHEST: BIPAP; Lungs are clear to auscultation bilaterally without wheezes or rales. CARDIOVASCULAR: Tachycardic, regular rhythm. S1 and S2 are normal without murmurs, rubs, or gallops. ABDOMEN: Soft, nontender, and nondistended. Positive bowel sounds. No evidence of hepatosplenomegaly. Currently, no rebound or guarding noted. EXTREMITIES: Negative for clubbing, cyanosis, or edema. RECTAL/GENITAL: Not performed. NEUROLOGICAL: Unable to assess. Assessment/Plan Problem List: (1) Atrial fibrillation with rapid ventricular response Assessment & Plan: See cardiology note. (2) Respiratory failure Assessment & Plan: See pulmonary note. Cont BIPAP. Continue ertapenem and linezolid Per ID (3) Fever (4) Septic shock (5) Dyspnea Assessment & Plan: Continue BIPAP-see pulm note. (6) Hypotension Assessment & Plan: Continue pressors (7) HTN (hypertension) Assessment & Plan: Continue diltiazem (8) Hypothyroidism Assessment & Plan: Continue levoxyl. (9) UTI (urinary tract infection) Assessment & Plan: E. Coli and Proteus. Continue ertapenem and linezolid per ID Status: not improved YUE JACOB Sep 12, 2017 17:26
[2017-09-12] MEDS ORDERED: Narcotic Shift Volume MISC SCH ×2 (19:00)
[2017-09-12 19:13] VITALS: BP 59/33
[2017-09-12] MEDS ORDERED: Dyna-Hex 2% Top Sol 2oz TOPIC SCH (20:00)
[2017-09-12] MEDS ORDERED: Tubing IV Secondary IV ONE (20:47)
[2017-09-12] MEDS ORDERED: NS 275ml ONE (20:47)
[2017-09-12] MEDS ORDERED: NS 500ML ONE (20:47)
[2017-09-12] MEDS ORDERED: Metoprolol 25mg tab ORAL SCH (21:00)
--- NOTE | 2017-09-12 23:51 | Cardiology Progress Note ---
Assessment/Plan Assessment/Plan 1. Septic shock, resolved. 2. Atrial fibrillation with controlled ventricular response, continue metoprolol. 3. History of hypertensive heart disease with LVEF at 65%. 4. History of hyperlipidemia. 5. History of CVA. 6. Acute respiratory failure, on facial mask. Subjective Subjective Atrial fibrillation with CVR at 66. Objective Last 24 Hour Vital Signs Date Time Temp Pulse Resp B/P (MAP) Pulse Ox O2 Delivery O2 Flow Rate FiO2 09/12/17 19:13 96.1 71 18 59/33 96.1 70 71 09/12/17 17:42 20 09/12/17 17:12 20 09/12/17 16:27 20 09/12/17 16:12 20 09/12/17 16:00 97.0 70 22 104/56 95 97.0 70 09/12/17 15:58 21 09/12/17 11:56 75 38 91 09/12/17 10:35 64 40 100 Facial 45 09/12/17 09:03 60 38 96 Facial 45 09/12/17 09:00 63 98/50 09/12/17 08:00 78 09/12/17 08:00 97.5 63 43 98/50 97 Bi-pap 45 97.5 09/12/17 08:00 45 09/12/17 06:50 68 35 99 Facial 45 09/12/17 04:56 71 40 99 Facial 45 09/12/17 04:00 35 09/12/17 04:00 77 09/12/17 04:00 97.9 69 38 112/69 100 Bi-pap 35 97.9 09/12/17 03:06 66 41 99 Facial 45 09/12/17 01:04 64 33 100 Facial 45 09/12/17 00:00 98.3 62 43 108/60 100 Bi-pap 35 98.3 09/12/17 00:00 67 09/12/17 00:00 35 Intake and Output 09/11/17 09/12/17 19:00 07:00 Intake Total 1010 ml 1160 ml Output Total 450 ml Balance 1010 ml 710 ml IV Total 510 ml 660 ml Tube Feeding 500 ml 500 ml Output Urine Total 450 ml # Bowel Movements 1 Laboratory Tests Test 09/12/17 04:00 White Blood Count 20.1 K/UL (4.8-10.8) H Red Blood Count 2.84 M/UL (4.20-5.40) L Hemoglobin 7.8 G/DL (12.0-16.0) L Hematocrit 25.3 % (37.0-47.0) L Mean Corpuscular Volume 89 FL (80-99) Mean Corpuscular Hemoglobin 27.6 PG (27.0-31.0) Mean Corpuscular Hemoglobin Concent 31.0 G/DL (32.0-36.0) L Red Cell Distribution Width 16.8 % (11.6-14.8) H Platelet Count 162 K/UL (150-450) Mean Platelet Volume 8.5 FL (6.5-10.1) Neutrophils (%) (Auto) % (45.0-75.0) Lymphocytes (%) (Auto) % (20.0-45.0) Monocytes (%) (Auto) % (1.0-10.0) Eosinophils (%) (Auto) % (0.0-3.0) Basophils (%) (Auto) % (0.0-2.0) Differential Total Cells Counted 100 Neutrophils % (Manual) 91 % (45-75) H Lymphocytes % (Manual) 4 % (20-45) L Monocytes % (Manual) 3 % (1-10) Eosinophils % (Manual) 2 % (0-3) Basophils % (Manual) 0 % (0-2) Band Neutrophils 0 % (0-8) Platelet Estimate Adequate Platelet Morphology Normal Hypochromasia 1+ Anisocytosis 1+ Sodium Level 146 MMOL/L (136-145) H Potassium Level 5.0 MMOL/L (3.5-5.1) Chloride Level 113 MMOL/L (98-107) H Carbon Dioxide Level 27 MMOL/L (21-32) Anion Gap 6 mmol/L (5-15) Blood Urea Nitrogen 106 mg/dL (7-18) H Creatinine 1.8 MG/DL (0.55-1.30) H Estimat Glomerular Filtration Rate mL/min (>60) Glucose Level 120 MG/DL (74-106) H Calcium Level 7.9 MG/DL (8.5-10.1) L Coccidioides Antibody (Comp Fix) Pending Cryptococcus Antigen Pending Microbiology Date/Time Source Procedure Growth Status 09/10/17 14:55 Blood Blood Culture - Preliminary NO GROWTH AFTER 24 HOURS Resulted 09/10/17 14:35 Blood Blood Culture - Preliminary NO GROWTH AFTER 24 HOURS Resulted 09/10/17 13:49 Stool Clostridium difficile Toxin Assay - Final Complete Objective HEENT: Atraumatic, normocephalic. Anicteric. Pupils are equal, round, and reactive to light and accommodation. Extraocular muscles intact. On facial mask. NECK: JVP is less than 5 cm. No carotid bruit. Carotid upstrokes 2+ bilaterally. CARDIOVASCULAR: Normal S1, S2. Irregularly irregular rhythm. No murmurs, gallops, or rubs. LUNGS: Diminished breath sounds with presence of wheezing bilaterally. ABDOMEN: Soft, nontender, and nondistended. No hepatosplenomegaly. Positive bowel sounds. EXTREMITIES: No evidence of edema, clubbing, or cyanosis. DI RAMIREZ Sep 12, 2017 23:51
[2017-09-13] MEDS ORDERED: Artificial Tears 1.4% Op Soln BOTH EYES PRN (12:00)
--- NOTE | 2017-09-13 14:47 | Discharge Summary ---
Discharge Summary Hospital Course Date of Admission Sep 04, 2017 at 02:01 Date of Discharge Sep 12, 2017 at 20:48 Admitting Diagnosis dyspnea HPI Yudi Wade is a 87 year old female who was admitted on Sep 04, 2017 at 02:01 for Dyspnea Hospital Course [id number] Discharge Discharge Disposition Patient was discharged to Discharge Diagnoses: Hiwot Mustafa NP Sep 13, 2017 14:47
--- NOTE | 2017-09-13 23:00 | Discharge Summary 2 SIG ---
DATE OF ADMISSION: 09/04/2017 DATE OF DISCHARGE: 09/12/2017 BRIEF SUMMARY: The patient is an 87-year-old female, who presented to ED for a chief complaint of shortness of breath. She was transferred from halfway facility due to acute shortness of breath and has progressed to respiratory failure. She has medical history significant for atrial fibrillation, hypertension, pulmonary hypertension, hypercholesterolemia, hypertensive heart disease, and hypothyroidism. She is DNI and DNR. On evaluation at ED, she was febrile, temperature 103.1, blood pressure was on 80 systolic. She underwent insertion of central line through the right femoral vein. She was given IV hydration. Blood work showed elevated lactic acid level and had a chest x-ray that showed bilateral patchy infiltrates. There was concern for aspiration. She was placed on BiPAP and was started on IV antibiotics. She was admitted to intensive care unit. She was seen by Infectious Disease specialist and was started empirically on vancomycin and ertapenem. The patient had atrial fibrillation with RVR. She was given digoxin 0.25 mg x1. She was eventually started on Levophed drip due to hypotension. Echocardiogram was done, EF 60% to 65% with biatrial enlargement, mild LVH, and RVSP 49 mmHg. She was eventually tapered off BiPAP and was transferred to [facility]. She came in with elevated creatinine levels 5.4. She had a renal ultrasound that showed medical renal disease with multiple bilateral renal cysts and thickened urinary bladder wall. She was given IV hydration, which eventually improved renal function. She continued to have worsening leukocytosis. Chest x-ray showing persistent left upper lobe infiltrate and persistent right basilar atelectasis and infiltrate. Urine culture showed growth of E. coli and Proteus. Sputum with Sherri and upper respiratory nicole. Antibiotics were switched to meropenem and linezolid. The patient was unable to be tapered off of BiPAP support. She came in with sacral pressure ulcer stage IV and right lateral leg pressure ulcer stage IV. She was given wound care. Wound culture with ESBL E. coli, Proteus, and Staph aureus, possibly colonizers. Wound was not grossly infected. Upon discussion with the patient's DPOA, the patient was placed on comfort care with removal of BiPAP and NG-tube for feeding. She was transferred to medical floor and was started on morphine drip. She eventually . FINAL DIAGNOSES: 1. Septic shock, resolved. 2. Acute respiratory failure. 3. Pneumonia. 4. Possible lung malignancy. 5. Urinary tract infection with Escherichia coli and Proteus mirabilis. 6. Atrial fibrillation with rapid ventricular response. 7. Anemia. 8. Hypothyroidism. 9. Hypertension. 10. Episodes of hypotension, resolved. 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 12. Hypertensive heart disease with LVEF of 65%. 13. 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 14. Palliative/hospice care. 15. Acute renal failure. 16. Acute tubular necrosis. 17. Pacemaker status. Donovan Spring M.D. I have been assigned to dictate discharge summary on this account and I was not involved in the patient's management. Hiwot Mustafa N.P. DR: LOU JOB#: [id number] CC: NICOLAS
== END 2017-09-12 20:48 | disposition expired | DRG 871 ==
LOC: EDBD 00:36 → EMR 00:51 → EDBEDREQSVC 00:56 → EDBEDREQTM 00:56 → ICU 02:01 → EDBEDREQ 02:19 → 2W 09-06 18:59 → 4W 09-12 12:43
PROC: 3E043XZ Introduction of Vasopressor into Central Vein, Percutaneous Approach (ICD-10-PCS; principal; 2017-09-04)
PROC: 5A09557 Assistance with Respiratory Ventilation, Greater than 96 Consecutive Hours, Continuous Positive Airway Pressure (ICD-10-PCS; principal; 2017-09-04)
PROC: 06HM33Z Insertion of Infusion Device into Right Femoral Vein, Percutaneous Approach (ICD-10-PCS; principal; 2017-09-04)
PROC: 05H333Z Insertion of Infusion Device into Right Innominate Vein, Percutaneous Approach (ICD-10-PCS; 2017-09-09)
PROC: B54MZZA Ultrasonography of Right Upper Extremity Veins, Guidance (ICD-10-PCS; 2017-09-09)
DX: A41.9 Sepsis, unspecified organism (principal); N17.0 Acute kidney failure with tubular necrosis; R65.21 Severe sepsis with septic shock; G93.40 Encephalopathy, unspecified; L89.154 Pressure ulcer of sacral region, stage 4; J18.9 Pneumonia, unspecified organism; E87.0 Hyperosmolality and hypernatremia; I11.9 Hypertensive heart disease without heart failure; C34.90 Malignant neoplasm of unspecified part of unspecified bronchus or lung; N39.0 Urinary tract infection, site not specified; I48.91 Unspecified atrial fibrillation; Z51.5 Encounter for palliative care; Z66 Do not resuscitate; G30.9 Alzheimer's disease, unspecified; F02.80 Dementia in other diseases classified elsewhere, unspecified severity, without behavioral disturbance, psychotic disturbance, mood disturbance, and anxiety; E03.9 Hypothyroidism, unspecified; E78.00 Pure hypercholesterolemia, unspecified; E78.5 Hyperlipidemia, unspecified; B96.4 Proteus (mirabilis) (morganii) as the cause of diseases classified elsewhere; D64.9 Anemia, unspecified; B96.20 Unspecified Escherichia coli [E. coli] as the cause of diseases classified elsewhere; Z79.82 Long term (current) use of aspirin; Z95.0 Presence of cardiac pacemaker; Z86.73 Personal history of transient ischemic attack (TIA), and cerebral infarction without residual deficits
CPT/HCPCS: 36415; 36569; 36600; 71045; 74018; 76775; 76937; 80048; 80053; 80061; 80202; 81003; 82248; 82550; 82553; 82607; 82728; 82746; 82803; 82977; 83036; 83605; 83690; 83735; 83880; 84100; 84300; 84443; 84484; 84550; 85007; 85025; 85610; 85730; 86140; 86635; 86710; 86850; 86900; 86901; 86920; 87040; 87070; 87081; 87086; 87181; 87205; 87324; 87449; 93306; 94660; 94760; 99291